=== PATIENT | male | born 1930 | race Caucasian/White ===

== ENCOUNTER 2017-07-29 12:22 | Emergency (ER) | payer MEDICARE ==
[2017-07-29 13:21] LABS: ALT (SGPT) 20 U/L (8-55); AST (SGOT) 29 U/L (5-34); Alkaline Phosphatase 70 U/L (40-150); Anion Gap 14 mmol/L (10-20); BUN (Urea Nitrogen) 22 mg/dL (8.4-25.7); Bilirubin, Total 0.8 mg/dL (0.2-1.2); Calc. Creatinine Clearance 0 mL/min (70-130); Calcium 8.7 mg/dL (7.8-10.44); Carbon Dioxide 21 mmol/L (23-31); Chloride 103 mmol/L (98-107); Estimated GFR-MDRD 60; Globulin 2.4 g/dL (2.4-3.5)
[2017-07-29 13:33] LABS: #Eosinphils 0.1 thou/uL (0.0-0.7); #Monocytes 0.4 thou/uL (0.11-0.59); #Neutrophils 2.5 thou/uL (1.40-6.50); %Eosinophils 1.3 % (0.0-10.0); %Monocytes 10.2 % (0.0-10.0); Hematocrit 29.4 % (42.0-52.0); Hypochromia SLIGHT = 6-15 cells (100X) (0-5/hpf); Macrocytosis SLIGHT = 6-15 cells (100X) (0-5/hpf); Ovalocytes SLIGHT = 2-5 cells (100X) (0-1/hpf); Red Blood Cell (RBC) Count 2.94 mill/uL (4.70-6.10); White Blood Cell (WBC) Count 3.9 thou/uL (4.8-10.8)
== END 2017-07-29 14:24 | disposition home or self-care (01) ==
LOC: SCSER 12:22
DX: M25.011 Hemarthrosis, right shoulder (principal); I26.99 Other pulmonary embolism without acute cor pulmonale; G47.30 Sleep apnea, unspecified; I25.10 Atherosclerotic heart disease of native coronary artery without angina pectoris; M06.9 Rheumatoid arthritis, unspecified
CPT/HCPCS: 80053; 85025; 85610; 85652; 85730; 86140; 99283

== ENCOUNTER 2018-10-02 11:16 | Inpatient (IN) | payer MEDICARE ==
[2018-10-02 12:03] LABS: #Lymphocytes 0.5 thou/uL (1.20-3.40); #Monocytes 0.4 thou/uL (0.11-0.59); #Neutrophils 2.3 thou/uL (1.40-6.50); %Basophils 0.2 % (0.0-1.0); %Eosinophils 0.8 % (0.0-10.0); %Lymphocytes 16.4 % (21.0-51.0); %Monocytes 11.9 % (0.0-10.0); %Neutrophils 70.6 % (42.0-75.0); Hemoglobin 9.7 g/dL (14.0-18.0); Mean Corpuscular HGB CONC 35.2 g/dL (32.0-36.0); Mean Corpuscular Hemoglobin 36.9 pg (27.0-31.0); Mean Platelet Volume 8.5 fL (7.4-10.4); Platelet Count 163 thou/uL (130-400); RBC Distribution Width 17.2 % (11.5-14.5); Red Blood Cell (RBC) Count 2.64 mill/uL (4.70-6.10); White Blood Cell (WBC) Count 3.2 thou/uL (4.8-10.8)
--- NOTE | 2018-10-02 12:09 | RAD ---
ONE VIEW CHEST: History: Dyspnea, shortness of breath. Comparison: 01-02-09 FINDINGS: Portable upright chest demonstrates slight elongation of the aorta. Normal cardiac silhouette. The pu lmonary vessels and hilum are normal. Costophrenic angles are clear. No consolidation or mass. Chroni c changes are noted. No pneumothorax or osseous abnormalities. IMPRESSION: No acute cardiopulmonary process. POS: [facility]
[2018-10-02 12:17] LABS: ALT (SGPT) 14 U/L (8-55); AST (SGOT) 28 U/L (5-34); Albumin 3.8 g/dL (3.4-4.8); Alkaline Phosphatase 69 U/L (40-150); Anion Gap 10 mmol/L (10-20); BUN (Urea Nitrogen) 17 mg/dL (8.4-25.7); Bilirubin, Total 1.6 mg/dL (0.2-1.2); CK (CPK) 135 U/L (30-200); Calc. Creatinine Clearance 0 mL/min (70-130); Calcium 9.1 mg/dL (7.8-10.44); Carbon Dioxide 26 mmol/L (23-31); Chloride 93 mmol/L (98-107); Estimated GFR-MDRD 65; Globulin 2.7 g/dL (2.4-3.5); Glucose 132 mg/dL (83-110); Potassium 4.2 mmol/L (3.5-5.1); Protein, Total 6.5 g/dL (5.8-8.1); Sodium 125 mmol/L (136-145)
[2018-10-02 12:40] LABS: CKMB 3.1 ng/mL (0-6.6)
[2018-10-02] MEDS ORDERED: Furosemide 40 MG/4 ML VIAL ONE (13:25)
[2018-10-02] MEDS ORDERED: cefTRIAXone\\ROCEPHIN 1 GM VIAL ONE (13:25)
[2018-10-02] MEDS ORDERED: Azithromycin 500 MG in Sodium Chloride 0.9% 250 ML 250 ML IVPB SCH (13:45)
--- NOTE | 2018-10-02 15:59 | CT ---
NONCONTRAST CT THORAX: Date: 10/02/18 HISTORY: Cough and shortness of breath. History of pulmonary emboli. Patient on Eliquis. Productive cough for 1 week. COMPARISON: None available. FINDINGS: There are scattered linear densities seen within the upper lobes bilaterally, greater on the right, a s well as involving the right lower lobe and right middle lobe, a majority of which are likely relate d to mild chronic interstitial lung changes. There is a pleural and parenchymal density seen within t he lateral aspect of the right upper lung zone, which has a nodular appearance and adjacent pleural t hickening. This area measures approximately 12 mm x 11 mm. This may be related to pleural and parench ymal scarring, but given the nodularity, follow-up evaluation is recommended in 4 months. No additional discrete pulmonary nodule or mass is seen. There is minimal bronchiectasis present with in the right upper lobe and right lower lobe. Lack of contrast limits evaluation of the vascular structures and mediastinum. However, no definite e nlarged lymph nodes are appreciated within the mediastinum. Prominent vascular calcifications are seen in the coronary arteries with atherosclerotic vascular sanjiv cifications also seen in the thoracic aorta. Thoracic aorta is normal in caliber. There is a right glenohumeral prosthesis present. Degenerative changes are present in the spine. Upper abdomen demonstrates a 2.5 cm exophytic hypodense lesion anterior aspect mid portion left kidne y, in addition to a subcentimeter, too small to characterize, hypodense lesion in the superior pole o f left kidney. The remainder of the upper abdomen demonstrates a grossly normal nonenhanced CT appear ance. Vascular calcifications are seen in the visualized upper abdominal aorta. IMPRESSION: 1. Pleural and parenchymal nodular density seen at the lateral aspect of right upper lobe. This is p robably related to pleural and parenchymal scarring, but given nodularity, follow-up CT thorax in 4 m [facility] is recommended for further evaluation. 2. Mild chronic lung changes with evidence of minimal bronchiectasis within the right upper and lowe r lobes. 3. Vascular calcifications in the coronary arteries and thoracic aorta. 4. Difficult to characterize hypodense lesion within the anterior aspect of the left kidney. This co uld potentially represent a cyst. Nonemergent renal ultrasound would be helpful for further evaluatio nDiogenes SINGLETARY T. POS: [facility]
[2018-10-02] MEDS ORDERED: Water For Inject, Bacteriostat 30 ML ONE (16:08)
[2018-10-02] MEDS ORDERED: Ondansetron PF 4 MG/2 ML Vial IVP PRN (16:52)
[2018-10-02 18:50] LABS: Folate (Folic Acid) 15.1 ng/mL (7.0-31.4)
[2018-10-02] MEDS ORDERED: Furosemide 40 MG/4 ML VIAL SLOW IVP SCH (19:00)
[2018-10-02 19:29] VITALS: BMI 28.9
[2018-10-02] MEDS ORDERED: Acetaminophen 325 MG TAB PO PRN (21:27)
[2018-10-02] MEDS: Apixaban 2.5 MG TAB PO SCH (22:14)
--- NOTE | 2018-10-03 01:13 | HP ---
CHIEF COMPLAINT: Shortness of breath and cough. HISTORY OF PRESENT ILLNESS: The patient is an 88-year-old male, who is admitted to the hospital with few-day history of nasal congestion, which progressed to cough with a minor sputum production. He became short of breath. He decided to come to the emergency room for further evaluation and management of his problem. He felt lightheaded. He did not feel any energy, and apparently, there was some contact with a neighbor approximately 10 days prior to his illness. PAST MEDICAL HISTORY: 1. Rheumatoid arthritis. 2. Coronary artery disease, status post 2 stents placement. 3. History of PE, completed 1 year of warfarin treatment and now he is on Eliquis. 4. Gout. 5. DVT in the left leg. 6. Diverticulitis. PAST SURGICAL HISTORY: 1. Total knee replacement bilaterally. 2. Right hip replacement. 3. Right shoulder replacement. 4. Perianal abscess drainage. 5. Colostomy with reversed colostomy later. MEDICATIONS: Please refer to the medications list. ALLERGIES: CODEINE. HE HAS SOME SIDE EFFECTS. IT IS NOT A TYPICAL ALLERGY. FAMILY HISTORY: Father had prostate cancer, he passed in his 70s; and mother had pancreatic cancer, and she passed when she was in her 80s. SOCIAL HISTORY: He does not have any history of cigarette smoking. He used to drink 1 drink a day. He does not use any illicit drugs. PRIMARY CARE PHYSICIAN: Kevin Cottrell MD Surrogate decision maker is his , Ethel Phelan. REVIEW OF SYSTEMS: CONSTITUTIONAL: Negative for fever or chills. ENT: Positive for nasal congestion and negative for epistaxis. EYES: Negative for eye pain or eye discharge. CARDIOVASCULAR: Negative for palpitations. Negative for chest pain. PULMONARY: Positive for shortness of breath and cough. GI: Positive for vomiting. Negative for diarrhea. : Negative for dysuria or hematuria. MUSCULOSKELETAL: Positive for pain in his both knees and hips. PSYCHIATRIC: Negative for homicidal or suicidal ideations. HEMOLYMPHATIC: Negative for easy bruising or clotting abnormalities. PHYSICAL EXAMINATION: VITAL SIGNS: Blood pressure is 120/66 and pulse is 72. HEENT: His head is atraumatic and normocephalic. Eyes are PERRLA. Sclerae are not icteric. Oral mucosa is moist. NECK: Supple. No lymphadenopathy. One can hear these gurgly sounds when he takes deeper breaths, which is coming from his throat mainly. Thyroid is not palpable. LUNGS: Rales and crackles at both bases. No wheezing. HEART: S1 and S2, somewhat irregular. No S3. No S4. ABDOMEN: Soft, obese, nontender, mildly distended. EXTREMITIES: No clubbing, cyanosis, or edema. NEUROLOGIC: He is alert and oriented x4. There are not any motor or sensory deficits present. Cranial nerves are intact. LABORATORY DATA: Labs showed a white count of 3.2, hemoglobin 9.7, hematocrit 27.6, platelet count is 163,000, lymphocytes 16.4, neutrophils 70.6. Sodium of 125, potassium 4.2, chloride 93, CO2 of 26, BUN 16, creatinine 1.07, glucose 132. Troponin I 0.034. BNP 556.9. The rest of chemistry within normal limits. DIAGNOSTIC DATA: EKG showed a sinus rhythm, ventricular rate of 78 beats per minute with frequent PACs. Chest x-ray was done, it did not show any acute cardiopulmonary problem. IMPRESSION: 1. Most likely infectious/inflammatory process in his lungs, suspicion for pneumonia. 2. Congestive heart failure, most likely. 3. Immunocompromised patient. 4. Rheumatoid arthritis. 5. Coronary artery disease, status post 2 stents placement. 6. History of pulmonary embolism. PLAN: Full admission. Do not resuscitate status. Condition is fair. Activity, bedrest and bathroom privileges. IV Hep-Lock. Lasix 40 mg subcutaneously every 12 hours. He had 1 dose of Lasix in the emergency room. Continue Zithromax and Rocephin, those two were started in the emergency room. We will have Solu-Medrol 20 every 8 hours IV push since he is immunocompromised again. We will use DuoNebs q.4 hours. He is a DNR patient, and we will do echocardiogram to evaluate his LVEF. He is going to continue his Eliquis, so we are not going to use any heparin for DVT prophylaxis, and he will do the SCDs. Job ID: [id number]
[2018-10-03 05:30] LABS: #Lymphocytes 0.4 thou/uL (1.20-3.40); #Monocytes 0.2 thou/uL (0.11-0.59); #Neutrophils 2.3 thou/uL (1.40-6.50); %Basophils 0.9 % (0.0-1.0); %Eosinophils 0.3 % (0.0-10.0); %Lymphocytes 13.8 % (21.0-51.0); %Monocytes 6.1 % (0.0-10.0); %Neutrophils 78.9 % (42.0-75.0); Hemoglobin 9.4 g/dL (14.0-18.0); Mean Corpuscular HGB CONC 35.8 g/dL (32.0-36.0); Mean Corpuscular Hemoglobin 37.5 pg (27.0-31.0); Mean Platelet Volume 9.2 fL (7.4-10.4); Platelet Count 163 thou/uL (130-400); RBC Distribution Width 17.4 % (11.5-14.5); Red Blood Cell (RBC) Count 2.51 mill/uL (4.70-6.10)
[2018-10-03 05:49] LABS: Anion Gap 19 mmol/L (10-20); BUN (Urea Nitrogen) 21 mg/dL (8.4-25.7); Calc. Creatinine Clearance 65 mL/min (70-130); Calcium 8.8 mg/dL (7.8-10.44); Carbon Dioxide 19 mmol/L (23-31); Chloride 89 mmol/L (98-107); Estimated GFR-MDRD 61; Glucose 163 mg/dL (83-110); Potassium 4.1 mmol/L (3.5-5.1); Sodium 123 mmol/L (136-145)
[2018-10-03] MEDS ORDERED: Furosemide 40 MG/4 ML VIAL SLOW IVP SCH (06:00)
--- NOTE | 2018-10-03 08:35 | CON ---
DATE OF CONSULTATION: 10/02/2018 SUBJECTIVE: Mr. Phelan is a very pleasant 88-year-old male, who had a history of asthma as a boy. He also has a history of almost yearly respiratory issues that usually start in his upper respiratory tract and end up in his chest. In last few days, he has had progressive symptoms with cough, chest congestion, and shortness of breath. He subsequently was transported to the emergency department by his family and I was consulted to assist in his management. He has been coughing enough that his chest and his abdomen hurt. PAST MEDICAL HISTORY: 1. Remarkable for coronary stenting in the past. 2. History of diverticulitis. 3. History of rheumatoid arthritis. 4. History of BPH. 5. History of pulmonary embolism a year ago. He was on 5 of Eliquis twice a day and is now on 2.5 mg twice a day. 6. He reportedly carries a diagnosis of pulmonary fibrosis, but I was not able to see this on his chest radiograph. 7. 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 8. History of sleep apnea. 9. History of small bowel resection. 10. History of colostomy and a colostomy reversal in the past. 11. History of right shoulder surgery in the past, right hip surgery and bilateral knee surgeries. SOCIAL HISTORY: He is a nonsmoker, nondrinker. 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 His is with him. His son is an anesthesiologist in our hospital. ALLERGIES Intolerance to codeine. FAMILY HISTORY: Not obtained. REVIEW OF SYSTEMS: 10 point review of systems completed, otherwise negative. MEDICATIONS: He is on, 1. Eliquis. 2. Metoprolol 25 mg once a day. 3. Prednisone 5 mg once a day. 4. Clonazepam 0.5 mg twice a day. 5. Orencia 125 mg. 6. Allopurinol 300 mg a day. 7. Imuran 50 mg a day. 8. Vitamin D3. PHYSICAL EXAMINATION: GENERAL: He has been coughing enough that his chest and his abdomen hurt. VITAL SIGNS: Blood pressure 135/80, pulse is 70, respiratory rate is 20. He is afebrile in the ER. HEENT: Pupils are equal. Sclerae are anicteric. NECK: Supple. CHEST: Remarkable for diffuse rhonchus and wheezes. HEART: Regular rhythm, S1 S1 normal, no murmur ABDOMEN: Soft and nontender. EXTREMITIES: Without clubbing, cyanosis, or edema. LABORATORY DATA: Chest radiograph is suggestive of slight increase in interstitial markings; it is not a penetrated film. I asked the emergency room physician to order a noncontrast chest CT to make sure he did not have a pneumonia behind his diaphragm and behind his cardiac silhouette. Very faint subtle increase in interstitial markings bilaterally, I suspect these are old. He has a subpleural nodular density. I would bet that this is related to his rheumatoid arthritis. This can be sorted away today. He has coronary vascular calcifications. I did not see anything suggestive of pneumonia. He did have a lesion in his left kidney that measured 2.5 cm. An ultrasound was recommended. IMPRESSION: 1. Asthmatic bronchitis. 2. History of coronary artery disease. 3. 2.5 cm renal lesion that could be cystic. 4. Subtle increased interstitial markings. I do not see anything suggestive of congestive heart failure (he had a BNP of 556). 5. Mild hyponatremia. 6. Borderline neutropenia. 7. History of rheumatoid arthritis. We will be happy to follow the other physicians caring for him. We hopefully can simplify antibiotics within 24 to 48 hours. His IV steroids would probably lead to significant improvement in his respiratory status. He will receive nebulized treatments every 4 hours. He will continue on his prophylactic dose of Eliquis. We will be happy to follow the other physicians caring for him. TIME SPENT: This was a 70-minute consult, with greater than 50% of the time was spent in coordinating care. Job ID: [id number] MTDD
[2018-10-03] MEDS ORDERED: Sodium Chloride 0.9% 10 ML ONE ×2 (08:49→13:32)
[2018-10-03] MEDS ORDERED: Apixaban 2.5 MG TAB PO SCH (09:00)
[2018-10-03] MEDS ORDERED: Diclofenac Sodium [Diclofenac Sodium 1% Gel] 2 GM TOP SCH (09:00)
[2018-10-03] MEDS ORDERED: predniSONE 5 MG TAB PO SCH (09:00)
[2018-10-03] MEDS: Metoprolol Tartrate 25 MG TAB PO SCH (10:06)
[2018-10-03] MEDS: azaTHIOprine 50 MG TAB PO SCH (10:07)
[2018-10-03] MEDS: Apixaban 2.5 MG TAB PO SCH ×2 (10:07→20:38)
[2018-10-03] MEDS: Ezetimibe 10 MG TAB PO SCH (10:07)
[2018-10-03] MEDS: Allopurinol 300 MG TAB PO SCH (10:08)
[2018-10-03] MEDS ORDERED: Saccharomyces boulardii 250 MG CAP PO SCH ×2 (11:00→11:30)
--- NOTE | 2018-10-03 11:56 | PRG ---
DATE OF SERVICE: 10/03/2018 SUBJECTIVE: The patient is seen and examined at the bedside. He is sitting in the chair during my visit. He had bowel movement. His appetite is fair. He is still having quite a bit of congestion. OBJECTIVE: VITAL SIGNS: Blood pressure is 103/65, pulse is 79, respiratory rate is 20, O2 saturation is 95% on room air, and temperature is 98. His maximal temperature is 99.0. HEENT: His head is atraumatic and normocephalic. Eyes, PERRLA. Sclerae are nonicteric. Conjunctivae are palish. Oral mucosa is moist. NECK: Supple. LUNGS: Bilateral rales in the upper part of the chest and the lower present. HEART: S1 and S2, somewhat irregular. No S3. No S4. ABDOMEN: Soft, nontender, and nondistended. Bowel sounds are present. No organomegaly. EXTREMITIES: No clubbing, cyanosis, or edema. NEUROLOGIC: He is alert and oriented x4. There is no any motor or sensory deficit. Cranial nerves are intact. LABORATORY DATA: Labs showed a white count of 3.0, hemoglobin of 9.4, hematocrit 26.3, MCV 105, platelet count 163, neutrophils 78.9. Chemistry showed sodium of 123, potassium 4.1, chloride 89, CO2 of 19, BUN 21, creatinine 1.13, glucose 163, calcium 8.8. Vitamin B12 is 606, and folic acid is 15.10. CT of the chest showed; 1. Pleural and parenchymal nodular density at the lateral aspect of the right upper lobe. 2. Mild chronic lung changes with evidence of minimal bronchiectasis within the right upper and lower lobes. 3. Vascular calcification in the coronary arteries and thoracic aorta. 4. Difficult to characterize hypodense lesion within the anterior aspect of the left kidney, which could potentially represent a cyst. IMPRESSION: 1. Infectious/inflammatory process in his both lungs. The patient was seen by the manager protein, Dr. Kingston, who thinks this is asthmatic bronchitis and he is treating as such. The plan is to trim his antibiotic regimen soon, continue his DuoNebs, and start him on Mucinex. 2. Elevated BNP without any additional evidence of congestive heart failure on the imaging. We decided to hold on his Lasix treatment for now. We will obtain an echocardiogram. We will see how his left ventricular ejection fraction looks like. 3. Metabolic acidosis. His CO2 is down to 19 from 26. This is most likely related to his kidney function. He received one dose of Lasix in the emergency room yesterday. 4. Hyponatremia and hypochloremia. We will obtain serum osmolality and urine osmolality and have spun paste machine operator to see the patient to manage that. 5. Macrocytic anemia with normal B12 and folic acid levels. 6. Gout, chronic, stable. 7. History of anticoagulation, on Eliquis. 8. History of diverticulitis. 9. History of deep venous thrombosis in the left leg. 10. Rheumatoid arthritis. 11. Immunocompromised status. 12. Coronary artery disease, chronic, stable, status post two stents placement in coronary arteries. PLAN: Plan is to continue his nebulizers routine, continue his ceftriaxone and azithromycin until manager protein recommends to make a change, and also, we will continue Solu-Medrol 20 mg IV push every 8 hours for the next 24 hours, then switch him to oral. He was on prednisone at home for his rheumatoid arthritis. We will continue his Imuran, and we will start him on Mucinex p.o. Job ID: [id number]
[2018-10-03] MEDS ORDERED: Benzonatate 100 MG CAP PO SCH ×2 (12:30→15:00)
[2018-10-03] MEDS ORDERED: cefTRIAXone\\ROCEPHIN 1 GM in Sodium Chloride 0.9% 100 ML IVPB SCH (13:00)
[2018-10-03] MEDS ORDERED: Azithromycin 500 MG in Sodium Chloride 0.9% 250 ML 250 ML IVPB SCH (14:00)
[2018-10-03] MEDS: Guaifenesin DM 100-10/5 ML UDCUP PO SCH ×3 (14:10→20:42)
[2018-10-03] MEDS ORDERED: Calcium Carbonate 500 MG ChewTAB PO PRN (15:53)
--- NOTE | 2018-10-03 15:53 | EKG ---
Test Reason : Blood Pressure : / mmHG Vent. Rate : 078 BPM Atrial Rate : 078 BPM P-R Int : 170 ms QRS Dur : 088 ms QT Int : 394 ms P-R-T Axes : 063 035 060 degrees QTc Int : 449 ms Sinus rhythm with Premature atrial complexes Nonspecific ST abnormality Abnormal ECG Confirmed by OLRI POOLE ([id number]), film editor supervisor ALEXANDRA NEWMAN ([id number]) on 10/03/2018 3:53:17 PM Referred By: Confirmed By:LORI POOLE
[2018-10-03 16:57] LABS: Potassium, Urine 61.7 mmol/L
--- NOTE | 2018-10-03 17:27 | PRG ---
DATE OF SERVICE: 10/03/2018 SUBJECTIVE: Mr. Phelan did well overnight. He says he is much better. He is afebrile. His hyponatremia is a little lower today with a sodium of 123. This may be because of the Lasix he received in the Emergency Department yesterday. OBJECTIVE: VITAL SIGNS: He is afebrile. Heart rate 79, respiratory rate is 20 , and oximetry is 95% on room air. LUNGS: Still remarkable with diffuse wheezes, but he has improved. HEART: Regular rhythm. S1 and S2 are normal. ABDOMEN: Soft and nontender. LABORATORY DATA: Serum osmolality was decreased. His echocardiogram is pending. IMPRESSION: 1. Asthmatic bronchitis. 2. Syndrome of inappropriate antidiuretic hormone secretion. Fluid restriction has been ordered. 3. History of deep venous thrombosis and pulmonary embolism in the past, on prophylactic dose of anticoagulants at this time. 4. History of coronary artery stenting in the past. 5. Elevated BNP this admission. Echocardiogram is pending. 6. History of rheumatoid arthritis. 7. Reported history of pulmonary fibrosis, but I really do not see anything suggestive of idiopathic pulmonary fibrosis on his CT. 8. History of sleep apnea. PLAN: Continue current care, and we will await echocardiogram results. I met with his and his son and answered all their questions . We started a fluid restriction. Job ID: [id number] MTDD
[2018-10-03] MEDS ORDERED: Conivaptan 20 MG in Premix Bag 1 BAG IVPB SCH (19:30)
[2018-10-03] MEDS: Pravastatin Sodium 40 MG TAB PO SCH (20:38)
[2018-10-03] MEDS: clonazePAM 0.5 MG TAB PO SCH (20:38)
[2018-10-03] MEDS: Benzonatate 100 MG CAP PO SCH (20:40)
[2018-10-03] MEDS: Acetaminophen 325 MG TAB PO PRN (20:41)
[2018-10-03] MEDS: Latanoprost 0.005% Ophth Soln 2.5 ml Bottle EA EYE SCH (20:43)
[2018-10-03] MEDS: guaiFENesin ER 600 MG TAB PO SCH (20:50)
[2018-10-04] MEDS: Guaifenesin DM 100-10/5 ML UDCUP PO SCH ×6 (00:28→20:58)
[2018-10-04] MEDS: Cepastat Lozenges 1 LOZ PO PRN ×3 (00:29→20:59)
--- NOTE | 2018-10-04 02:31 | CON ---
DATE OF CONSULTATION: CONSULTING PHYSICIAN: Yg Pruitt MD REQUESTING PHYSICIAN: Dr. Newell. REASON FOR CONSULTATION: Worsening hyponatremia. IMPRESSION: Worsening hyponatremia. This is likely in the context of syndrome of inappropriate antidiuretic hormone secretion. PLAN: 1. Urine chemistry. 2. Adjust the diet to increase the protein/meat intake. 3. We will administer 1 dose of Vaprisol. 4. We will monitor his sodium level closely. HISTORY OF PRESENT ILLNESS: This is an 88-year-old gentleman, who was admitted with cough and shortness of breath. The patient was also feeling lightheaded and weak on presentation. The patient was noted with a sodium of 125 with BNP of 556 as a result of these findings, decision has been taken to involve Renal in the management of this case of hyponatremia. PAST MEDICAL HISTORY: Significant for rheumatoid arthritis, coronary artery disease, history of pulmonary embolism, gout, DVT, and diverticulitis. MEDICATIONS: Reviewed as documented on [facility]. ALLERGIES: TO CODEINE. FAMILY HISTORY: Not significantly related to present illness. SOCIAL HISTORY: No alcohol, no tobacco, no illicit drug use. REVIEW OF SYSTEMS: As documented in the body of history. All the other systems were reviewed and found not to be significantly related to present illness. PHYSICAL EXAMINATION: VITAL SIGNS: The patient noted with the following vital signs; afebrile, temperature 97.9, pulse 80, respiratory rate of 18, O2 saturation of 98%, and blood pressure 126/64. HEENT: Examination unremarkable. Moist oral mucosa. No conjunctival injection. No icterus NECK: Supple. CARDIOVASCULAR SYSTEM: First and second heart sounds were heard. RESPIRATORY SYSTEM: Clear to auscultation. DIGESTIVE SYSTEM: Revealed a benign abdominal with positive bowel sounds. EXTREMITIES: No peripheral edema. SKIN EXAMINATION: No new gross rash. LYMPHATICS: No peripheral lymphadenopathy. SUMMARY: An 88-year-old gentleman who presented here with cough, shortness of breath, now experiencing worsening hyponatremia. Thank you for this consultation. We will follow with you. Job ID: [id number]
[2018-10-04 04:58] LABS: #Lymphocytes 0.4 thou/uL (1.20-3.40); #Monocytes 0.4 thou/uL (0.11-0.59); #Neutrophils 3.1 thou/uL (1.40-6.50); %Eosinophils 0.1 % (0.0-10.0); %Lymphocytes 10.7 % (21.0-51.0); %Monocytes 9.6 % (0.0-10.0); %Neutrophils 79.7 % (42.0-75.0); Hemoglobin 8.8 g/dL (14.0-18.0); Mean Corpuscular HGB CONC 34.9 g/dL (32.0-36.0); Mean Corpuscular Hemoglobin 36.7 pg (27.0-31.0); Mean Platelet Volume 8.5 fL (7.4-10.4); Platelet Count 160 thou/uL (130-400); RBC Distribution Width 17.2 % (11.5-14.5); Red Blood Cell (RBC) Count 2.39 mill/uL (4.70-6.10); White Blood Cell (WBC) Count 3.9 thou/uL (4.8-10.8)
[2018-10-04 05:09] LABS: Anion Gap 16 mmol/L (10-20); BUN (Urea Nitrogen) 29 mg/dL (8.4-25.7); Calc. Creatinine Clearance 63 mL/min (70-130); Calcium 8.6 mg/dL (7.8-10.44); Carbon Dioxide 21 mmol/L (23-31); Chloride 90 mmol/L (98-107); Estimated GFR-MDRD 60; Glucose 146 mg/dL (83-110); Potassium 4.3 mmol/L (3.5-5.1); Sodium 123 mmol/L (136-145)
[2018-10-04] MEDS ORDERED: Sodium Chloride 0.9% 10 ML ONE (08:44)
[2018-10-04] MEDS: Benzonatate 100 MG CAP PO SCH ×3 (09:31→20:57)
[2018-10-04] MEDS: guaiFENesin ER 600 MG TAB PO SCH ×2 (09:32→20:58)
[2018-10-04] MEDS: Saccharomyces boulardii 250 MG CAP PO SCH (09:32)
[2018-10-04] MEDS: Apixaban 2.5 MG TAB PO SCH ×2 (09:32→20:57)
[2018-10-04] MEDS: Ezetimibe 10 MG TAB PO SCH (09:33)
[2018-10-04] MEDS: Metoprolol Tartrate 25 MG TAB PO SCH (09:33)
[2018-10-04] MEDS: Allopurinol 300 MG TAB PO SCH (09:34)
[2018-10-04] MEDS: azaTHIOprine 50 MG TAB PO SCH (09:34)
--- NOTE | 2018-10-04 13:11 | PRG ---
DATE OF SERVICE: 10/04/2018 SUBJECTIVE: Law Phelan continues to improve. OBJECTIVE: VITAL SIGNS: He is afebrile, heart rate is 80, respiratory rate 14, oximetry 94% on room air, and blood pressure 120/67. LUNGS: Still remarkable for coarse wheezes, but these continued to improve on a daily basis. HEART: Regular rhythm. ABDOMEN: Soft. He is eating a heart-healthy diet. It is reasonable while he is in hospital to liberalize his diet, although we did have a long discussion about weight loss diet involving several different methods. LABORATORY DATA: White count 3.9, hemoglobin 8.8, and platelets 160,000. Sodium 123, potassium 4.3, chloride 90, bicarbonate 29, BUN 29, creatinine 1.16. IMPRESSION: 1. Asthmatic bronchitis. 2. Syndrome of inappropriate antidiuretic hormone secretion, most likely related to his respiratory status. 3. History of rheumatoid arthritis. 4. Pulmonary artery pressures, likely multifactorial. I doubt his mitral valve is causing elevation in PA pressure since he has a normal sized left atrium. He does have a history of interstitial lung disease, he tells me. He was told it may have been brought on by methotrexate, but I suspect it is more likely that he has some mild interstitial rheumatoid disease. He does not have this to a severe enough degree to elevate his pulmonary artery pressures. 5. He does have untreated sleep apnea, which certainly can lead to elevated PA pressures. 6. His left ventricular systolic function was normal. His elevated BNP likely was from the right ventricle, and is likely chronically elevated. 7. He was given Conivaptan for his hyponatremia yesterday. 8. He will be converted to p.o. steroids and p.o. antibiotics today. We will continue to follow and I will be happy to follow him closely as an outpatient. Job ID: [id number]
--- NOTE | 2018-10-04 13:29 | PRG ---
DATE OF SERVICE: 10/04/2018 SUBJECTIVE: The patient was seen and examined at the bedside. He is sitting in the chair. He looks better today. He noticed significant improvement in his congestion since he started on Mucinex yesterday. OBJECTIVE: VITAL SIGNS: Blood pressure is 120/67, pulse is 61, respiratory rate is 20, and O2 saturation is 94% on room air. HEENT: His head is atraumatic and normocephalic. Eyes are PERRLA. Sclerae are nonicteric. Oral mucosa is moist. NECK: Supple. LUNGS: Bilateral rales, especially at both bases, but significantly diminished. HEART: S1, S2, somewhat irregular. No S3. No S4. ABDOMEN: Soft, nontender. Bowel sounds are present. No organomegaly. EXTREMITIES: No clubbing, cyanosis, or edema. NEUROLOGIC: He is alert and oriented x4. There is no any motor or sensory deficit. Cranial nerves are intact. LABORATORY DATA: Labs showed white count of 3.9, hemoglobin of 8.8, hematocrit 25.1, platelet count is 160, neutrophils 79.7, and lymphocytes 10.7. Sodium of 123, potassium 4.3, chloride 90, CO2 of 21, BUN 29, creatinine 1.16, glucose is ranging from 131 to 163, calcium 8.6. Urine osmolality 493, urine sodium 33, and urine potassium 61.7. IMPRESSION: 1. Asthmatic bronchitis. Pneumonia was ruled out with CT of the chest. 2. Syndrome of inappropriate antidiuretic hormone secretion as most likely from pulmonary process. 3. Immunocompromised patient. 4. Rheumatoid arthritis. 5. Coronary artery disease, status post stent placement. 6. History of pulmonary embolism. 7. Pulmonary hypertension per recent echo. PLAN: The patient was switched to levofloxacin and p.o. steroids. Clinically, he improved significantly. We will continue his Mucinex and DuoNebs. He had one dose of conivaptan, which did not change anything. We will continue his close sodium monitoring, and fluid restriction is 1000 mL fluids orally. Continue his probiotics and apixaban 2.5 twice a day. He will continue his Imuran 50 mg once a day, and he will continue PT. Job ID: [id number]
[2018-10-04 13:38] LABS: Sodium 127 mmol/L (136-145)
[2018-10-04 13:52] LABS: Sodium, Urine Less than 20 mmol/L (Not Available)
[2018-10-04 14:37] LABS: Osmolality, Urine 208 mOsm/kg (300-900)
--- NOTE | 2018-10-04 17:42 | PRG ---
DATE OF SERVICE: 10/04/2018 SUBJECTIVE: The patient is seen and examined with no new complaint noted with the following vital signs. OBJECTIVE: VITAL SIGNS: Afebrile, temperature 97.8, pulse 79, respiratory rate of 18, O2 saturation 95% with blood pressure of 135/75. HEENT: Unremarkable. Moist oral mucosa. NECK: Supple. No conjunctival injection or icterus. CARDIOVASCULAR: First and second heart sounds were heard. RESPIRATORY: Clear to auscultation. DIGESTIVE: Revealed a benign abdomen with positive bowel sounds. EXTREMITIES: No peripheral edema. SKIN: No new gross rash. LYMPHATICS: No peripheral lymphadenopathy. LABORATORY INVESTIGATION: Showed a sodium, on admission, of 123, but a repeat has come up to 127. IMPRESSION: Hyponatremia, which is based on the urine chemistry earlier on yesterday suggestive of syndrome of inappropriate antidiuretic hormone secretion, but a repeat urine chemistry somewhat confusing, though this might be in response to the has already been administered. In any case, the patient wished to be considered as having syndrome of inappropriate antidiuretic hormone secretion. PLAN: 1. Liberalize the fluid restriction as 1 L is very restrictive, especially for his body size. We will therefore increase this to 1.5 L. 2. Change this patient's diet to a regular diet with high protein intake . 3. Further management will be dependent on the clinical course. Job ID: [id number]
[2018-10-04] MEDS: Pravastatin Sodium 40 MG TAB PO SCH (20:58)
[2018-10-04] MEDS: clonazePAM 0.5 MG TAB PO SCH (20:58)
[2018-10-04] MEDS: Latanoprost 0.005% Ophth Soln 2.5 ml Bottle EA EYE SCH (20:58)
[2018-10-05] MEDS: Acetaminophen 325 MG TAB PO PRN (00:18)
[2018-10-05] MEDS: Guaifenesin DM 100-10/5 ML UDCUP PO SCH ×6 (00:18→21:14)
[2018-10-05 05:37] LABS: Anion Gap 12 mmol/L (10-20); BUN (Urea Nitrogen) 40 mg/dL (8.4-25.7); Calc. Creatinine Clearance 52 mL/min (70-130); Calcium 8.8 mg/dL (7.8-10.44); Carbon Dioxide 26 mmol/L (23-31); Chloride 94 mmol/L (98-107); Estimated GFR-MDRD 48; Glucose 105 mg/dL (83-110); Potassium 4.7 mmol/L (3.5-5.1); Sodium 127 mmol/L (136-145)
[2018-10-05 06:05] LABS: Band 14 % (5-11); Hemoglobin 9.1 g/dL (14.0-18.0); Lymphocytes 6 % (21-51); MDiff Complete? YES; Mean Corpuscular HGB CONC 35.7 g/dL (32.0-36.0); Mean Corpuscular Hemoglobin 37.7 pg (27.0-31.0); Mean Platelet Volume 8.5 fL (7.4-10.4); Metamyelocyte 1 % (0-0); Monocytes 6 % (0-10); Neutrophil 73 % (42-75); Nucleated RBC 1 % (0); PLT Morphology Comment Appears Adequate; Platelet Count 179 thou/uL (130-400); RBC Distribution Width 17.7 % (11.5-14.5); Red Blood Cell (RBC) Count 2.42 mill/uL (4.70-6.10); White Blood Cell (WBC) Count 4.4 thou/uL (4.8-10.8)
[2018-10-05] MEDS: predniSONE 20 MG TAB PO SCH (09:03)
[2018-10-05] MEDS: azaTHIOprine 50 MG TAB PO SCH (09:04)
[2018-10-05] MEDS: Apixaban 2.5 MG TAB PO SCH ×2 (09:04→21:14)
[2018-10-05] MEDS: Allopurinol 300 MG TAB PO SCH (09:04)
[2018-10-05] MEDS: Ezetimibe 10 MG TAB PO SCH (09:06)
[2018-10-05] MEDS: Metoprolol Tartrate 25 MG TAB PO SCH (09:06)
[2018-10-05] MEDS: guaiFENesin ER 600 MG TAB PO SCH (09:06)
[2018-10-05] MEDS: Benzonatate 100 MG CAP PO SCH ×3 (09:15→21:13)
[2018-10-05] MEDS: Saccharomyces boulardii 250 MG CAP PO SCH (10:34)
[2018-10-05] MEDS: HYDROcodone/Acetaminophen 5/325 mg Tablet PO PRN ×2 (10:35→21:12)
--- NOTE | 2018-10-05 11:53 | PRG ---
DATE OF SERVICE: 10/05/2018 SUBJECTIVE: The patient is seen and examined at the bedside. Apparently, he had a coughing spell this morning to the point that he developed quite severe pain in his right flank. OBJECTIVE: VITAL SIGNS: Blood pressure is 127/68, temperature is 97.9, pulse is 77, respiratory rate is 18, and O2 saturation is 95% on room air. HEENT: His head is atraumatic, normocephalic. Eyes are PERRLA. Sclerae nonicteric. Oral mucosa is moist. NECK: Supple. LUNGS: Bilateral rales, significantly improved, but he still has some at both bases. HEART: S1 and S2, somewhat irregularly irregular. No S3. No S4. ABDOMEN: Soft, mildly distended. Nontender. EXTREMITIES: No clubbing, cyanosis, or edema. NEUROLOGICAL: He is alert and oriented x4. There is no any sensory or motor deficits. Right flank area is somewhat tender to applied pressure. LABORATORY DATA: Labs showed white count of 4.4, hemoglobin of 9.1, hematocrit at 25.6, platelet count is 179,000, and bands 14. Sodium of 127, potassium 4.7, chloride 94, CO2 of 26, BUN 40, creatinine 1.4, glucose 105. Urine osmolality 208. Urine sodium less than 20. IMPRESSION: 1. Asthmatic bronchitis, improved. 2. Right flank/right side lower back pain secondary to coughing spell. This is most likely muscle strain. 3. Immunocompromised patient. 4. Rheumatoid arthritis. 5. Coronary artery disease, status post stent placement. 6. History of pulmonary embolism. 7. Pulmonary hypertension per recent echo. DISCUSSION: We are going to continue his antibiotic and steroids. We are going to continue DuoNeb. We will start him on heating pads and Vicodin p.r.n. for the back pain. His hyponatremia is improved. His sodium is 127. His oral fluid restriction was liberalized to [address] Ronquillo. Will use guaifenesin with dextromethorphan to suppress his cough. He will continue PT and will continue his Imuran and apixaban. Job ID: [id number]
[2018-10-05] MEDS ORDERED: Polyethylene Glycol 3350 17 GM Packet PO SCH (16:30)
--- NOTE | 2018-10-05 16:35 | PRG ---
DATE OF SERVICE: 10/05/2018 SUBJECTIVE: Mr. Phelan says he feels better. He said he had coughing and pulled a muscle coughing last night. He took some Vicodin for this and got up and took a hot shower and said he is much better. He is afebrile. OBJECTIVE: VITAL SIGNS: Heart rate 73, respiratory 17, oximetry 96% on room air, blood pressure 109/63. LUNGS: Almost clear. HEART: Regular rhythm. S1, S2 normal. ABDOMEN: Soft and nontender. EXTREMITIES: No clubbing, cyanosis, or edema. IMPRESSION: 1. Asthmatic bronchitis, clinically improved. 2. Deconditioning. If he starts walking a little more, may be we can get him out of the hospital. 3. Pain with coughing, most likely a muscle strain. He will probably be moved off the Telemetry Unit. Other problems include, 1. Hyponatremia, 2. Anemia, likely of chronic disease. 3. Elevated pulmonary artery pressures, most likely secondary to untreated sleep apnea. 4. Subtle increase in interstitial markings, which I suspect are related to his rheumatoid arthritis, less likely past use of methotrexate. 5. Moderate mitral regurgitation. We will continue to follow. Job ID: [id number] MTDD
--- NOTE | 2018-10-05 21:00 | PRG ---
DATE OF SERVICE: 10/05/2018 SUBJECTIVE: The patient is seen and examined. Noted with the following vital signs. OBJECTIVE: VITAL SIGNS: Afebrile, temperature 99, pulse 94, respiratory rate of 20, saturation 99% with a blood pressure of 148/70. HEENT: Unremarkable. Moist oral mucosa. No conjunctival injection or icterus. NECK: Supple. LABORATORY INVESTIGATION: Showed a hemoglobin of 9.1. Chemistry showed a creatinine of 1.4, sodium of 127. IMPRESSION: Hyponatremia with sodium around 127. PLAN: We will continue with increased protein intake and continue to monitor the sodium level accordingly. All further management will be dependent on the clinical course. Job ID: [id number]
[2018-10-05] MEDS: Pravastatin Sodium 40 MG TAB PO SCH (21:13)
[2018-10-05] MEDS: clonazePAM 0.5 MG TAB PO SCH (21:13)
[2018-10-05] MEDS: Latanoprost 0.005% Ophth Soln 2.5 ml Bottle EA EYE SCH (21:20)
[2018-10-06] MEDS: Guaifenesin DM 100-10/5 ML UDCUP PO SCH ×6 (01:05→20:12)
[2018-10-06 06:15] LABS: Anion Gap 11 mmol/L (10-20); BUN (Urea Nitrogen) 36 mg/dL (8.4-25.7); Calc. Creatinine Clearance 60 mL/min (70-130); Calcium 8.5 mg/dL (7.8-10.44); Carbon Dioxide 26 mmol/L (23-31); Chloride 95 mmol/L (98-107); Estimated GFR-MDRD 57; Glucose 102 mg/dL (83-110); Potassium 4.5 mmol/L (3.5-5.1); Sodium 127 mmol/L (136-145)
[2018-10-06] MEDS: Ezetimibe 10 MG TAB PO SCH (09:22)
[2018-10-06] MEDS: Benzonatate 100 MG CAP PO SCH ×3 (09:22→20:12)
[2018-10-06] MEDS: Saccharomyces boulardii 250 MG CAP PO SCH (09:23)
[2018-10-06] MEDS: Metoprolol Tartrate 25 MG TAB PO SCH (09:23)
[2018-10-06] MEDS: azaTHIOprine 50 MG TAB PO SCH (09:23)
[2018-10-06] MEDS: predniSONE 20 MG TAB PO SCH (09:23)
[2018-10-06] MEDS: Allopurinol 300 MG TAB PO SCH (09:23)
[2018-10-06] MEDS: Polyethylene Glycol 3350 17 GM Packet PO SCH (09:24)
[2018-10-06] MEDS: Apixaban 2.5 MG TAB PO SCH ×2 (09:24→20:15)
--- NOTE | 2018-10-06 14:23 | PDOC.PN ---
- Subjective Encounter Start Date: 10/06/18 Encounter Start Time: 14:21 Subjective: feels better.still weak & reports rales - Objective Resuscitation Status - Order Detail: 10/02/18 15:08 Resuscitation Status Routine Resuscitation Status: DNAR: NO Resuscitation Discussed with: patient YOSVANY Reviewed: Yes Vital Signs & Weight: Vital Signs (12 hours) Temp Pulse Pulse Pulse Resp BP BP 10/06/18 13:57 80 14 10/06/18 11:32 98.4 F 74 18 10/06/18 10:27 90 14 10/06/18 10:20 86 86 136/65 119/58 L 10/06/18 07:59 98.3 F 79 18 10/06/18 07:00 90 14 10/06/18 04:00 97.4 F L 77 18 10/06/18 03:35 BP BP Pulse Ox Pulse Ox Pulse Ox 10/06/18 13:57 10/06/18 11:32 114/57 L 96 10/06/18 10:27 10/06/18 10:20 97 96 10/06/18 07:59 119/58 L 96 10/06/18 07:00 10/06/18 04:00 124/69 100 10/06/18 03:35 92 L Weight Weight 218 lb 11.2 oz I&O: 10/05/18 10/06/18 10/07/18 06:59 06:59 06:59 Intake Total 1212 200 Output Total 930 500 Balance 282 -300 Result Diagrams: 10/05/18 04:27 10/06/18 05:50 Additional Labs: Microbiology 10/02/18 12:51 Nasal swab Influenza Types A,B Direct EIA - Final 10/02/18 11:58 Venous blood - Right Hand Blood Culture - Preliminary NO GROWTH AT 48 HOURS 10/02/18 11:36 Venous blood - Left Arm Blood Culture - Preliminary NO GROWTH AT 48 HOURS Laboratory Tests 07/29/17 10/02/18 10/02/18 13:00 11:34 11:34 WBC 3.2 L Hgb 10.5 L 9.7 L B-Natriuretic Peptide 556.9 H Vitamin B12 Folate 10/02/18 10/03/18 10/04/18 17:42 04:22 04:23 WBC 3.0 L 3.9 L Hgb 9.4 L 8.8 L B-Natriuretic Peptide Vitamin B12 606 Folate 15.10 10/05/18 04:27 WBC 4.4 L Hgb 9.1 L B-Natriuretic Peptide Vitamin B12 Folate Phys Exam - Physical Examination Constitutional: NAD HEENT: PERRLA, moist MMs, sclera anicteric, oral pharynx no lesions Neck: no nodes, no JVD, supple, full ROM Respiratory: no wheezing, no rales, no rhonchi, clear to auscultation bilateral Cardiovascular: RRR, no significant murmur, no rub Gastrointestinal: soft, non-tender, no distention, positive bowel sounds Musculoskeletal: no edema, pulses present Neurological: non-focal, normal sensation, moves all 4 limbs Psychiatric: normal affect, A&O x 3 Skin: no rash Dx/Plan (1) Asthmatic bronchitis Code(s): J45.909 - UNSPECIFIED ASTHMA, UNCOMPLICATED Status: Acute (2) Hyponatremia Code(s): E87.1 - HYPO-OSMOLALITY AND HYPONATREMIA Status: Acute (3) Chronic anemia Code(s): D64.9 - ANEMIA, UNSPECIFIED Status: Chronic (4) Mitral regurgitation Status: Chronic (5) Pulmonary arterial hypertension Code(s): I27.21 - SECONDARY PULMONARY ARTERIAL HYPERTENSION Status: Chronic (6) CAD (coronary artery disease) Code(s): I25.10 - ATHSCL HEART DISEASE OF [place] CORONARY ARTERY W/O ANG PCTRS Status: Chronic (7) Rheumatoid arthritis Code(s): M06.9 - RHEUMATOID ARTHRITIS, UNSPECIFIED Status: Chronic (8) History of pulmonary embolism Code(s): Z86.711 - PERSONAL HISTORY OF PULMONARY EMBOLISM Status: Chronic Comment: on eliquis (9) Immunocompromised state Code(s): D84.9 - IMMUNODEFICIENCY, UNSPECIFIED Status: Chronic (10) CKD (chronic kidney disease) stage 3, GFR 30-59 ml/min Code(s): N18.3 - CHRONIC KIDNEY DISEASE, STAGE 3 (MODERATE) Status: Chronic - Plan respiratory therapy, incentive spirometry Clinically better.cont levaquin and prednisone. -: home meds as below. -: zulma SCOTT home w HH tomorrow if Ok w PCCM -: sodium better.Fluid restriction.nephrology follwoing -: am labs * . Review of Systems - Review of Systems Constitutional: weakness, malaise. negative: fever, chills, sweats, other Respiratory: SOB with Excertion. negative: Cough, Dry, Shortness of Breath, Hemoptysis, Pleuritic Pain, Sputum, Wheezing Cardiovascular: negative: chest pain, palpitations, orthopnea, paroxysmal nocturnal dyspnea, edema, light headedness, other Gastrointestinal: negative: Nausea, Vomiting, Abdominal Pain, Diarrhea, Constipation, Melena, Hematochezia, Other Genitourinary: negative: Dysuria, Frequency, Incontinence, Hematuria, Retention , Other Musculoskeletal: negative: Neck Pain, Shoulder Pain, Arm Pain, Back Pain, Hand Pain, Leg Pain, Foot Pain, Other Neurological: negative: Weakness, Numbness, Incoordination, Change in Speech, Confusion, Seizures, Other - Medications/Allergies Allergies/Adverse Reactions: Allergies Allergy/AdvReac Type Severity Reaction Status Date / Time codeine Allergy Verified 10/02/18 19:22 Medications: Current Medications Acetaminophen (Tylenol) 650 mg PO BID PRN PRN Reason: Mild Pain (1-3) Last Admin: 10/05/18 00:18 Dose: 650 mg Hydrocodone Bitart/Acetaminophen ([place] 5/325) 1 tab PO Q4H PRN PRN Reason: Moderate Pain (4-6) Last Admin: 10/05/18 21:12 Dose: 1 tab Albuterol/Ipratropium (Duoneb) 3 ml IPPB [id number] [facility] Last Admin: 10/06/18 13:57 Dose: 3 ml Allopurinol (Zyloprim) 300 mg PO DAILY [facility] Last Admin: 10/06/18 09:23 Dose: 300 mg Apixaban (Eliquis) 2.5 mg PO BID [facility] Last Admin: 10/06/18 09:24 Dose: 2.5 mg Azathioprine (Imuran) 50 mg PO DAILY [facility] Last Admin: 10/06/18 09:23 Dose: 50 mg Benzonatate (Tessalon) 200 mg PO TID [facility] Last Admin: 10/06/18 09:22 Dose: 200 mg Calcium Carbonate (Tums) 500 mg PO Q4H PRN PRN Reason: .REFLUX Cholecalciferol (Vitamin D3) 2,000 units PO DAILY [facility] Last Admin: 10/06/18 09:22 Dose: 2,000 units Clonazepam (Klonopin) 0.5 mg PO HS [facility] Last Admin: 12/14/18 21:13 Dose: 0.5 mg Ezetimibe (Zetia) 10 mg PO DAILY [facility] Last Admin: 10/06/18 09:22 Dose: 10 mg Guaifenesin/Dextromethorphan (Robitussin Dm) 15 ml PO Q4HR [facility] Last Admin: 10/06/18 12:33 Dose: Not Given Latanoprost (Xalatan 0.005% Ophth Soln) 1 drop EA EYE [facility] Last Admin: 10/05/18 21:20 Dose: 1 drop Levofloxacin (Levaquin) 500 mg PO 0600 [facility] Last Admin: 10/06/18 05:34 Dose: 500 mg Metoprolol Tartrate (Lopressor) 12.5 mg PO DAILY [facility] Last Admin: 10/06/18 09:23 Dose: 12.5 mg Ondansetron HCl (Zofran) 4 mg IVP Q6H PRN PRN Reason: Nausea/Vomiting Pantoprazole Sodium (Protonix) 40 mg PO 0600 [facility] Last Admin: 10/06/18 05:35 Dose: 40 mg Abatacept [Orencia] (125 Mg) 1 each PO Q7D@0900 [facility] Diclofenac Sodium [ Diclofenac Sodium 1% Gel] 2 Gm 0 each TOP BID [facility] Polyethylene Glycol (Miralax) 17 gm PO DAILY [facility] Last Admin: 10/06/18 09:24 Dose: 17 gm Pravastatin Sodium (Pravachol) 80 mg PO [facility] Last Admin: 10/05/18 21:13 Dose: 80 mg Prednisone (Prednisone) 40 mg PO QAM[facility] Last Admin: 10/06/18 09:23 Dose: 40 mg Saccharomyces Boulardii (Florastor) 250 mg PO DAILY [facility] Last Admin: 10/06/18 09:23 Dose: 250 mg Throat Lozenges (Cepastat Lozenges) 1 nory PO PRN PRN PRN Reason: SORE THROAT Last Admin: 10/04/18 20:59 Dose: 1 nory
--- NOTE | 2018-10-06 17:28 | PRG ---
DATE OF SERVICE: 10/06/2018 SUBJECTIVE: Mr. Phelan was sleeping in a chair when I arrived into the room. He was having apneic spells. These were obstructive. I awakened him and informed him that it is very important that we do a sleep study once he leaves here. OBJECTIVE: VITAL SIGNS: He is afebrile. Heart rate 71, respiratory rate 18, oximetry is 94% on room air, blood pressure 114/57. LUNGS: Clear. He has very few rhonchi, has dramatically improved. HEART: Regular rhythm. ABDOMEN: Soft. LABORATORY DATA: White count 4.4, hemoglobin 9.1, and platelets 179. Sodium 127, potassium 4.5, chloride 95, bicarb 26, BUN 36, and creatinine 1.21. There is only 200 mL recorded in yesterday, that cannot be correct. IMPRESSION: 1. Asthmatic bronchitis. 2. Syndrome of inappropriate antidiuretic hormone secretion, status post administration of Conivaptan. 3. Deconditioning. 4. Untreated sleep apnea. 5. Pulmonary hypertension. 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 I doubt any of this is progressive. 7. Moderate mitral regurgitation. PLAN: Continue supportive care Consider discharge tomorrow. Job ID: [id number] MTDD
[2018-10-06] MEDS: Pravastatin Sodium 40 MG TAB PO SCH (20:13)
[2018-10-06] MEDS: clonazePAM 0.5 MG TAB PO SCH (20:13)
[2018-10-06] MEDS: Latanoprost 0.005% Ophth Soln 2.5 ml Bottle EA EYE SCH (20:15)
--- NOTE | 2018-10-06 21:48 | PRG ---
DATE OF SERVICE: 10/06/2018 SUBJECTIVE: The patient is seen and examined with no new complaints. Feeling better. Noted with the following vital signs. OBJECTIVE: VITAL SIGNS: Afebrile, temperature 98.1; pulse 71; respiratory rate of 18; O2 sats of 94%; blood pressure 114/57. HEENT EXAMINATION: Unremarkable. Moist oral mucosa. NECK: Supple. No conjunctival injection or icterus. CARDIOVASCULAR SYSTEM: First and second heart sounds were heard. RESPIRATORY SYSTEM: Clear to auscultation. DIGESTIVE SYSTEM: Revealed a benign abdomen. Positive bowel sounds. EXTREMITIES: No peripheral edema. SKIN EXAMINATION: No new gross rash. LYMPHATICS: No peripheral lymphadenopathy. IMPRESSION: Hyponatremia in the context of syndrome of inappropriate antidiuretic hormone secretion. PLAN: It seems that this patient is staying at 127. We will repeat urine chemistry tomorrow. If this picture becomes very clear, that is SIADH given the sodium at 127 level conservative measures. Job ID: [id number]
[2018-10-07] MEDS: Guaifenesin DM 100-10/5 ML UDCUP PO SCH ×6 (02:06→21:19)
[2018-10-07 05:11] LABS: Osmolality, Urine 524 mOsm/kg (300-900)
[2018-10-07 05:25] LABS: Hemoglobin 9.2 g/dL (14.0-18.0); Platelet Count 178 thou/uL (130-400)
[2018-10-07 05:37] LABS: Sodium, Urine 70 mmol/L (Not Available)
[2018-10-07 08:58] LABS: Sodium 128 mmol/L (136-145)
[2018-10-07] MEDS: Polyethylene Glycol 3350 17 GM Packet PO SCH (09:30)
[2018-10-07] MEDS: Apixaban 2.5 MG TAB PO SCH ×2 (09:31→21:18)
[2018-10-07] MEDS: Benzonatate 100 MG CAP PO SCH ×3 (09:31→21:18)
[2018-10-07] MEDS: Saccharomyces boulardii 250 MG CAP PO SCH (09:31)
[2018-10-07] MEDS: Ezetimibe 10 MG TAB PO SCH (09:31)
[2018-10-07] MEDS: Allopurinol 300 MG TAB PO SCH (09:31)
[2018-10-07] MEDS: Metoprolol Tartrate 25 MG TAB PO SCH (09:31)
[2018-10-07] MEDS: predniSONE 20 MG TAB PO SCH (09:31)
[2018-10-07] MEDS: azaTHIOprine 50 MG TAB PO SCH (09:32)
[2018-10-07] MEDS: Tolvaptan 15 MG TAB PO SCH (09:33)
[2018-10-07] MEDS ORDERED: Bisacodyl 5 MG TAB PO SCH (11:00)
--- NOTE | 2018-10-07 11:46 | PDOC.PN ---
- Subjective Encounter Start Date: 10/07/18 Encounter Start Time: 11:45 Subjective: feels much better but still SOB w walking .minimal wheezing - Objective Resuscitation Status - Order Detail: 10/02/18 15:08 Resuscitation Status Routine Resuscitation Status: DNAR: NO Resuscitation Discussed with: aly BAR Reviewed: Yes Vital Signs & Weight: Vital Signs (12 hours) Temp Pulse Resp BP Pulse Ox 10/07/18 10:34 80 14 10/07/18 07:51 97.7 F 84 18 125/64 94 L 10/07/18 06:34 80 16 10/07/18 03:08 98 F 82 17 120/62 92 L Weight Weight 219 lb 1.6 oz I&O: 10/06/18 10/07/18 10/08/18 06:59 06:59 06:59 Intake Total 200 1000 Output Total 500 1420 Balance -300 -420 Result Diagrams: 10/07/18 05:08 10/07/18 05:08 Additional Labs: Microbiology 10/02/18 12:51 Nasal swab Influenza Types A,B Direct EIA - Final 10/02/18 11:58 Venous blood - Right Hand Blood Culture - Preliminary NO GROWTH AT 48 HOURS 10/02/18 11:36 Venous blood - Left Arm Blood Culture - Preliminary NO GROWTH AT 48 HOURS Laboratory Tests 10/02/18 10/02/18 10/03/18 11:34 11:34 04:22 Hgb 9.7 L Creatinine 1.07 1.13 10/03/18 10/04/18 10/04/18 04:22 04:23 04:23 Hgb 9.4 L 8.8 L Creatinine 1.16 10/05/18 10/05/18 10/06/18 04:27 04:27 05:50 Hgb 9.1 L Creatinine 1.40 H 1.21 10/07/18 10/07/18 05:08 05:08 Hgb 9.2 L Creatinine 1.23 Phys Exam - Physical Examination Constitutional: NAD HEENT: PERRLA, moist MMs, sclera anicteric, oral pharynx no lesions Neck: no nodes, no JVD, supple, full ROM Respiratory: no wheezing, no rales, no rhonchi, clear to auscultation bilateral Cardiovascular: RRR, no significant murmur, no rub Gastrointestinal: soft, non-tender, no distention, positive bowel sounds Musculoskeletal: no edema, pulses present Neurological: non-focal, normal sensation, moves all 4 limbs Psychiatric: normal affect, A&O x 3 Skin: no rash Dx/Plan (1) Asthmatic bronchitis Code(s): J45.909 - UNSPECIFIED ASTHMA, UNCOMPLICATED Status: Acute (2) Hyponatremia Code(s): E87.1 - HYPO-OSMOLALITY AND HYPONATREMIA Status: Acute (3) Chronic anemia Code(s): D64.9 - ANEMIA, UNSPECIFIED Status: Chronic (4) Mitral regurgitation Status: Chronic Qualifiers: Cardiac valve disease etiology: nonrheumatic Qualified Code(s): I34.0 - Nonrheumatic mitral (valve) insufficiency (5) Pulmonary arterial hypertension Code(s): I27.21 - SECONDARY PULMONARY ARTERIAL HYPERTENSION Status: Chronic (6) CAD (coronary artery disease) Code(s): I25.10 - ATHSCL HEART DISEASE OF [place] CORONARY ARTERY W/O ANG PCTRS Status: Chronic (7) Rheumatoid arthritis Code(s): M06.9 - RHEUMATOID ARTHRITIS, UNSPECIFIED Status: Chronic (8) History of pulmonary embolism Code(s): Z86.711 - PERSONAL HISTORY OF PULMONARY EMBOLISM Status: Chronic Comment: on eliquis (9) Immunocompromised state Code(s): D84.9 - IMMUNODEFICIENCY, UNSPECIFIED Status: Chronic (10) CKD (chronic kidney disease) stage 3, GFR 30-59 ml/min Code(s): N18.3 - CHRONIC KIDNEY DISEASE, STAGE 3 (MODERATE) Status: Chronic - Plan continue antibiotics, PT/OT, respiratory therapy, incentive spirometry, out of bed/ambulate, DVT proph w/SCDs clinically better .cont meds as below.will need 1 more day inpt -: sodium better.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 -: cont Tolvaptan.monitor -: home meds as below -: Sleep study as an OP * . Review of Systems - Review of Systems Constitutional: weakness. negative: fever, chills, sweats, malaise, other Respiratory: SOB with Excertion. negative: Cough, Dry, Shortness of Breath, Hemoptysis, Pleuritic Pain, Sputum, Wheezing Cardiovascular: negative: chest pain, palpitations, orthopnea, paroxysmal nocturnal dyspnea, edema, light headedness, other Gastrointestinal: negative: Nausea, Vomiting, Abdominal Pain, Diarrhea, Constipation, Melena, Hematochezia, Other Genitourinary: negative: Dysuria, Frequency, Incontinence, Hematuria, Retention , Other Musculoskeletal: negative: Neck Pain, Shoulder Pain, Arm Pain, Back Pain, Hand Pain, Leg Pain, Foot Pain, Other Neurological: negative: Weakness, Numbness, Incoordination, Change in Speech, Confusion, Seizures, Other - Medications/Allergies Allergies/Adverse Reactions: Allergies Allergy/AdvReac Type Severity Reaction Status Date / Time codeine Allergy Verified 10/02/18 19:22 Medications: Current Medications Acetaminophen (Tylenol) 650 mg PO BID PRN PRN Reason: Mild Pain (1-3) Last Admin: 10/05/18 00:18 Dose: 650 mg Hydrocodone Bitart/Acetaminophen ([place] 5/325) 1 tab PO Q4H PRN PRN Reason: Moderate Pain (4-6) Last Admin: 10/05/18 21:12 Dose: 1 tab Albuterol/Ipratropium (Duoneb) 3 ml IPPB [id number] [facility] Last Admin: 10/07/18 10:34 Dose: 3 ml Allopurinol (Zyloprim) 300 mg PO DAILY [facility] Last Admin: 10/07/18 09:31 Dose: 300 mg Apixaban (Eliquis) 2.5 mg PO BID [facility] Last Admin: 10/07/18 09:31 Dose: 2.5 mg Azathioprine (Imuran) 50 mg PO DAILY [facility] Last Admin: 10/07/18 09:32 Dose: 50 mg Benzonatate (Tessalon) 200 mg PO TID [facility] Last Admin: 10/07/18 09:31 Dose: 200 mg Bisacodyl (Dulcolax) 10 mg PO NOW [facility] Stop: 10/07/18 12:00 Calcium Carbonate (Tums) 500 mg PO Q4H PRN PRN Reason: .REFLUX Cholecalciferol (Vitamin D3) 2,000 units PO DAILY [facility] Last Admin: 10/07/18 09:31 Dose: 2,000 units Clonazepam (Klonopin) 0.5 mg PO HS [facility] Last Admin: 10/06/18 20:13 Dose: 0.5 mg Ezetimibe (Zetia) 10 mg PO DAILY [facility] Last Admin: 10/07/18 09:31 Dose: 10 mg Guaifenesin/Dextromethorphan (Robitussin Dm) 15 ml PO Q4HR [facility] Last Admin: 10/07/18 09:30 Dose: 15 ml Latanoprost (Xalatan 0.005% Ophth Soln) 1 drop EA EYE HS [facility] Last Admin: 10/06/18 20:15 Dose: 1 drop Levofloxacin (Levaquin) 500 mg PO 0600 [facility] Last Admin: 10/07/18 04:50 Dose: 500 mg Metoprolol Tartrate (Lopressor) 12.5 mg PO DAILY [facility] Last Admin: 10/07/18 09:31 Dose: 12.5 mg Ondansetron HCl (Zofran) 4 mg IVP Q6H PRN PRN Reason: Nausea/Vomiting Pantoprazole Sodium (Protonix) 40 mg PO 0600 [facility] Last Admin: 10/07/18 04:50 Dose: 40 mg Abatacept [Orencia] (125 Mg) 1 each PO Q7D@0900 [facility] Diclofenac Sodium [ Diclofenac Sodium 1% Gel] 2 Gm 0 each TOP BID [facility] Polyethylene Glycol (Miralax) 17 gm PO DAILY [facility] Last Admin: 10/07/18 09:30 Dose: 17 gm Pravastatin Sodium (Pravachol) 80 mg PO HS [facility] Last Admin: 10/06/18 20:13 Dose: 80 mg Prednisone (Prednisone) 40 mg PO QAM-WM [facility] Last Admin: 10/07/18 09:31 Dose: 40 mg Saccharomyces Boulardii (Florastor) 250 mg PO DAILY [facility] Last Admin: 10/07/18 09:31 Dose: 250 mg Sodium Chloride (Flush - Normal Saline) 10 ml IVF Q12HR [facility] Last Admin: 10/07/18 09:32 Dose: 10 ml Sodium Chloride (Flush - Normal Saline) 10 ml IVF PRN PRN PRN Reason: Saline Flush Throat Lozenges (Cepastat Lozenges) 1 nory PO PRN PRN PRN Reason: SORE THROAT Last Admin: 10/04/18 20:59 Dose: 1 nory Tolvaptan (Samsca) 15 mg PO DAILY [facility] Last Admin: 10/07/18 09:33 Dose: 15 mg
--- NOTE | 2018-10-07 14:19 | PRG ---
DATE OF SERVICE: 10/07/2018 SUBJECTIVE: Law Phelan has no complaints. OBJECTIVE: VITAL SIGNS: He is afebrile, heart rate 73, respiratory rate is 18, oximetry is 94 on room air, and blood pressure 125/64. Still has some faint wheezes on exam. HEART: Regular rhythm. S1, S2 are normal. ABDOMEN: Soft and nontender. EXTREMITIES: Without edema. LABORATORY DATA: Hemoglobin is 9.2, it was 9.1 yesterday. Sodium is up to 128. Renal function today is normal with a creatinine of 1.23. IMPRESSION: 1. Asthmatic bronchitis. 2. Probable syndrome of inappropriate antidiuretic hormone secretion associated with his respiratory illness. 3. Pulmonary hypertension, most likely secondary to untreated sleep apnea. 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 It is very mild by radiograph. 5. History of pulmonary embolism, on prophylactic dose Eliquis. 6. History of a colostomy and colostomy reversal in the past. PLAN: 1. Increase his activity. 2. Hopefully, he will be ready for discharge in the morning. Telemetry monitoring could be discontinued. Job ID: [id number] MTDD
--- NOTE | 2018-10-07 17:57 | PRG ---
DATE OF SERVICE: 10/07/2018 SUBJECTIVE: The patient is seen and examined. Noted with the following vital signs. OBJECTIVE: VITAL SIGNS: Afebrile, temperature 98, pulse 89, respiratory rate 16, O2 sat of 95%, and blood pressure 121/64. HEENT: Examination unremarkable. Moist oral mucosa. NECK: Supple. No conjunctival injection or icterus. CARDIOVASCULAR SYSTEM: First and second heart sounds were heard. RESPIRATORY SYSTEM: Clear to auscultation. DIGESTIVE SYSTEM: Revealed a benign abdomen with positive bowel sounds. EXTREMITIES: No peripheral edema. SKIN: No new gross rash. LYMPHATICS: No peripheral lymphadenopathy. LABORATORY INVESTIGATION: Showed hemoglobin 9.2. Chemistry; sodium of 128. Urine osmolality showed that to be 524 with urine sodium of 70. IMPRESSION: Hyponatremia in the context of syndrome of inappropriate antidiuretic hormone secretion. PLAN: 1. We will initiate this patient on tolvaptan and monitor the sodium level accordingly. 2. Further management will be dependent on the clinical course. Job ID: [id number]
[2018-10-07] MEDS: Pravastatin Sodium 40 MG TAB PO SCH (21:19)
[2018-10-07] MEDS: Latanoprost 0.005% Ophth Soln 2.5 ml Bottle EA EYE SCH (21:31)
[2018-10-07] MEDS ORDERED: Fleet Enema 133 ML BOT PR SCH (22:30)
[2018-10-07] MEDS: Acetaminophen 325 MG TAB PO PRN (22:43)
[2018-10-07] MEDS: clonazePAM 0.5 MG TAB PO SCH (22:43)
[2018-10-08] MEDS: Guaifenesin DM 100-10/5 ML UDCUP PO SCH ×4 (05:53→16:16)
[2018-10-08 07:26] LABS: Anion Gap 10 mmol/L (10-20); BUN (Urea Nitrogen) 33 mg/dL (8.4-25.7); Calc. Creatinine Clearance 56 mL/min (70-130); Calcium 8.6 mg/dL (7.8-10.44); Carbon Dioxide 27 mmol/L (23-31); Chloride 98 mmol/L (98-107); Estimated GFR-MDRD 52; Glucose 110 mg/dL (83-110); Potassium 4.4 mmol/L (3.5-5.1); Sodium 131 mmol/L (136-145)
[2018-10-08] MEDS: Tolvaptan 15 MG TAB PO SCH (09:21)
[2018-10-08] MEDS: Saccharomyces boulardii 250 MG CAP PO SCH (09:22)
[2018-10-08] MEDS: predniSONE 20 MG TAB PO SCH (09:23)
[2018-10-08] MEDS: Metoprolol Tartrate 25 MG TAB PO SCH (09:23)
[2018-10-08] MEDS: Apixaban 2.5 MG TAB PO SCH (09:23)
[2018-10-08] MEDS: Benzonatate 100 MG CAP PO SCH (09:23)
[2018-10-08] MEDS: azaTHIOprine 50 MG TAB PO SCH (09:23)
[2018-10-08] MEDS: Allopurinol 300 MG TAB PO SCH (09:23)
[2018-10-08] MEDS: Polyethylene Glycol 3350 17 GM Packet PO SCH (09:24)
[2018-10-08 12:02] VITALS: BP 124/68; TEMP 97.3
--- NOTE | 2018-10-08 12:51 | PRG ---
DATE OF SERVICE: 10/08/2018 SUBJECTIVE: Law Phelan feels like he is ready to go home. He is in no distress. He says he is moving around better and went for a walk, did reasonably well with that. OBJECTIVE: VITAL SIGNS: He is afebrile. Heart rate 75, respiratory rate is 20, oximetry is 92 on room air, and blood pressure 135/81. LUNGS: Clear. HEART: Regular rhythm. ABDOMEN: Soft. IMPRESSION: 1. Asthmatic bronchitis. 2. Syndrome of inappropriate secretion of antidiuretic hormone. His sodium is up to 131. This will need to be repeated by his primary care physician sometime in the near future. 3. Acute on chronic renal dysfunction. He is reasonably stable. 4. 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 5. Pulmonary hypertension, is likely secondary to untreated sleep apnea. 6. I will see him back in followup in 2 to 3 weeks. I written prescription for prednisone taper 40 for 4 days, 20 for 8 days, and 10 mg until he sees me. His baseline dose is 5 for his rheumatoid arthritis. He will take 5 more days of Levaquin. 7. I written for nebulizer solution with ipratropium and albuterol and he should be doing 3 to 4 treatments a day. We will continue with his other medicines. Job ID: [id number]
[2018-10-08] MEDS: Ezetimibe 10 MG TAB PO SCH (16:15)
--- NOTE | 2018-10-08 23:02 | DIS ---
DATE OF ADMISSION: 10/02/2018 DATE OF DISCHARGE: 10/08/2018 CONDITION AT THE TIME OF DISCHARGE: Stable and improved. PRIMARY CARE PHYSICIAN: Out of town. DISCHARGE DIAGNOSES: 1. Asthmatic bronchitis. 2. Hyponatremia, likely syndrome of inappropriate secretion of antidiuretic hormone. 3. Anemia of chronic disease. 4. Mitral regurgitation. 5. Pulmonary arterial hypertension. 6. Coronary artery disease. 7. Rheumatoid arthritis. 8. History of pulmonary embolism, on Eliquis. 9. Immunocompromised state due to immunosuppressant for rheumatoid arthritis. 10. Chronic kidney disease, stage 3. 11. Undiagnosed obstructive sleep apnea. IN-HOUSE CONSULTATION: 1. Nephrology, Dr. Pruitt. 2. Pulmonary Critical Care Medicine, Dr. Kingston. PROCEDURES DONE IN THE HOSPITAL: 1. Transthoracic echocardiogram, which shows EF of 50% to 55%, moderate tricuspid regurgitation and severe pulmonary arterial hypertension. 2. CT scan of the chest, upon presentation, which shows pleural and parenchymal nodular density at the lateral aspect of the right upper lobe related to scarring and chronic lung changes with minimum bronchiectasis and calcification of coronaries and thoracic aorta. HISTORY OF PRESENTING ILLNESS: Mr. Phelan is an 88-year-old male with past medical history of rheumatoid arthritis; coronary artery disease; history of PE, on Eliquis; as well as a history of DVT in left leg; who presented to the emergency room with complaints of nasal congestion, cough, and shortness of breath. He underwent a CT scan of the chest as well as chest x-ray in the emergency room and EKG, and it was rather unimpressive as above. His BNP was 556. He was otherwise hemodynamically stable. He was admitted for further evaluation and care. Initially, it was thought that he has some mild acute exacerbation of CHF and he was diuresed. He was also started on empiric IV antibiotics, steroids, and nebulizers. Please see admission history and physical for further details. HOSPITAL COURSE: The patient was seen by Pulmonary Medicine for his complaints of shortness of breath. Dr. Kingston saw the patient and his assessment was that the patient has asthmatic bronchitis. His antibiotics and steroids were tapered. He did fairly well throughout the rest of the hospitalization with nebulizers and was weaned off oxygen. He was also noticed to have low sodium in the 125 to 126 range. For this, Nephrology was consulted and Dr. Ronquillo saw the patient. 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 He was put on fluid restriction and was treated with tolvaptan with improved result. As of this morning, his sodium was improved to 131, and he has been cleared for discharge from both Pulmonary Medicine and Nephrology. He does have a history of chronic kidney disease, but all of his physicians has been out of town. He is encouraged to do follow up with Dr. Kingston and Dr. Ronquillo in the outpatient setting. As per the direction of Dr. Ronquillo, he will finish 3 more days of tolvaptan. Prescriptions were provided. DISCHARGE MEDICATIONS: 1. Clonazepam 0.5 mg at bedtime. 2. Zetia 10 mg daily. 3. Metoprolol tartrate 12.5 mg daily. 4. Tapering dose of steroid as per Dr. Kingston. 5. Azathioprine 50 mg daily. 6. Eliquis 2.5 mg daily. 7. Allopurinol 300 mg daily. 8. Pravastatin 80 mg daily. 9. Protonix 40 mg daily. 10. Tolvaptan 15 mg daily for 3 days. 11. Florastor 250 mg daily for 10 days. 12. Nebulizers as needed. 13. DuoNeb daily for 7 days. 14. Albuterol inhaled q.i.d. p.r.n. shortness of breath. DISCHARGE INSTRUCTIONS: He will follow up with his primary care physician in outpatient setting. Discharge plan was discussed with the patient and he verbalized understanding. He was seen and examined prior to discharge. PHYSICAL EXAMINATION: VITAL SIGNS: This morning; temperature 98.0, pulse is 75, respirations 20, saturating 92% on room air, and blood pressure 135/81. GENERAL: In no acute distress. CHEST: Clear to auscultation bilaterally. CARDIAC: Rate and rhythm are regular. LABORATORY DATA: His blood cultures have been negative at 5 days. TIME SPENT: Total time spent in the discharge 32 minutes. Job ID: [id number]
[2018-10-09] MEDS ORDERED: ABATACEPT 125 MG PO SCH (09:00)
== END 2018-10-08 14:44 | disposition home or self-care (01) | DRG 202 ==
LOC: ERS 11:16 → 2NO 14:55 → T4-A 10-07 15:59
PROVIDERS: ADMIT Internal Medicine; ATTEND Internal Medicine
PROC: B24BZZZ Ultrasonography of Heart with Aorta (ICD-10-PCS; principal; 2018-10-03)
DX: J45.909 Unspecified asthma, uncomplicated (principal); E22.2 Syndrome of inappropriate secretion of antidiuretic hormone; E87.2 Acidosis; I12.9 Hypertensive chronic kidney disease with stage 1 through stage 4 chronic kidney disease, or unspecified chronic kidney disease; N18.3 Chronic kidney disease, stage 3 (moderate); D63.1 Anemia in chronic kidney disease; M06.9 Rheumatoid arthritis, unspecified; Z86.711 Personal history of pulmonary embolism; Z79.01 Long term (current) use of anticoagulants; I25.10 Atherosclerotic heart disease of native coronary artery without angina pectoris; G47.33 Obstructive sleep apnea (adult) (pediatric); I34.0 Nonrheumatic mitral (valve) insufficiency; Z79.899 Other long term (current) drug therapy
CPT/HCPCS: 36415; 71045; 71250; 80048; 80053; 82436; 82550; 82553; 82565; 82607; 82746; 83605; 83880; 83930; 83935; 84133; 84295; 84300; 84484; 85014; 85018; 85025; 85049; 87040; 87804; 93005; 93306; 94640; 96365; 96367; 96375; G8978-GP-CK; G8979-GP-CJ; G8987-GO-CJ; G8988-GO-CI; J0456; J0696; J1940; J2920; J7050; J7500; J7506; J7620

== ENCOUNTER 2018-12-14 12:04 | Observation (INO) | payer MEDICARE ==
[2018-12-14 12:52] LABS: #Lymphocytes 1.2 thou/uL (1.20-3.40); #Monocytes 0.8 thou/uL (0.11-0.59); #Neutrophils 3.4 thou/uL (1.40-6.50); %Basophils 0.4 % (0.0-1.0); %Eosinophils 0.4 % (0.0-10.0); %Lymphocytes 21.5 % (21.0-51.0); %Monocytes 14.7 % (0.0-10.0); Hemoglobin 10.8 g/dL (14.0-18.0); Mean Corpuscular HGB CONC 33.4 g/dL (32.0-36.0); Mean Corpuscular Hemoglobin 34.5 pg (27.0-31.0); Mean Platelet Volume 8.9 fL (7.4-10.4); Platelet Count 137 thou/uL (130-400); RBC Distribution Width 16.1 % (11.5-14.5); Red Blood Cell (RBC) Count 3.14 mill/uL (4.70-6.10); White Blood Cell (WBC) Count 5.4 thou/uL (4.8-10.8)
[2018-12-14 13:16] LABS: ALT (SGPT) 11 U/L (8-55); AST (SGOT) 22 U/L (5-34); Albumin 3.7 g/dL (3.4-4.8); Alkaline Phosphatase 69 U/L (40-150); Anion Gap 16 mmol/L (10-20); BUN (Urea Nitrogen) 16 mg/dL (8.4-25.7); Bilirubin, Total 1.1 mg/dL (0.2-1.2); Calc. Creatinine Clearance 0 mL/min (70-130); Calcium 9.1 mg/dL (7.8-10.44); Carbon Dioxide 21 mmol/L (23-31); Chloride 104 mmol/L (98-107); Estimated GFR-MDRD 56; Globulin 2.4 g/dL (2.4-3.5); Glucose 150 mg/dL (83-110); Lipase 6 U/L (8-78); Potassium 4.5 mmol/L (3.5-5.1); Protein, Total 6.1 g/dL (5.8-8.1); Sodium 136 mmol/L (136-145)
[2018-12-14] MEDS ORDERED: methylPREDNISolone Sod Succ/PF 125 MG/2 ML VIAL ONE (13:21)
--- NOTE | 2018-12-14 13:27 | RAD ---
CHEST ONE VIEW: Comparison: 10-02-18 History: Shortness of breath. Cough. FINDINGS: Slight elongation of the aorta. Normal cardiac silhouette. The pulmonary vessels and hilum are normal . Costophrenic angles are clear. Chronic changes, without consolidation or mass. No pneumothorax or o sseous abnormality. IMPRESSION: No acute cardiopulmonary process. POS: [facility]
[2018-12-14 13:40] LABS: CKMB 1.4 ng/mL (0-6.6)
[2018-12-14 14:58] LABS: Bilirubin Negative (Negative); Blood, Urine Trace (Negative); Clarity CLEAR (Clear); Glucose, Urine (Dipstick) Negative (Negative); Leukocyte Negative (Negative); Nitrite Negative (Negative); Protein, Urine (Dipstick) Trace mg/dL (Neg-Trace); Specific Gravity, Urine 1.011 (1.002-1.036)
[2018-12-14 15:00] LABS: Bacteria/HPF None Seen HPF (None Seen); Hyaline Casts/LPF 0-3 HYALINE CAST LPF (0-3 Hyaline); RBC/HPF 0-3 HPF (0-3); Squamous Epithelial None Seen HPF (0-3); WBC/HPF None Seen HPF (0-3)
[2018-12-14] MEDS ORDERED: Ondansetron ODT 4 MG TAB SL PRN (16:47)
[2018-12-14] MEDS ORDERED: HYDROcodone/Acetaminophen 5/325 mg Tablet PO PRN ×2 (16:47)
[2018-12-14] MEDS ORDERED: Acetaminophen 325 MG TAB PO PRN (16:47)
[2018-12-14] MEDS ORDERED: Sodium Chloride 0.9% 1,000 ML IV SCH (16:47)
[2018-12-14] MEDS ORDERED: Ondansetron PF 4 MG/2 ML Vial IVP PRN (16:47)
[2018-12-14 17:09] VITALS: BMI 28.2
--- NOTE | 2018-12-14 18:55 | HP ---
CHIEF COMPLAINT: Shortness of breath and cough. HISTORY OF PRESENT ILLNESS: The patient is an 88-year-old male, known to me from previous admission in September, who presented to the emergency room with his son, who brought him in with a basically 2-day history of increased shortness of breath, cough, no chills, no fever, some wheezing, just feeling bad. Apparently, he took some Levaquin 500 mg tablet this morning. He had some left over I guess from previous discharge from the hospital and his son who was in [place] today came and took him to the emergency room. He had follow up with Dr. Kingston after the last discharge from the hospital in September. PAST MEDICAL HISTORY: Positive for: 1. Rheumatoid arthritis. 2. Coronary artery disease, status post 2 stents placement. 3. History of PE and completed 1 year of warfarin treatment and now on Eliquis. 4. Gout. 5. Left leg DVT. 6. History of diverticulitis. 7. 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 8. Anemia of chronic disease. 9. Mitral regurgitation. 10. Pulmonary artery hypertension. 11. Chronic kidney disease, stage 3. 12. Undiagnosed obstructive sleep apnea. PAST SURGICAL HISTORY: 1. Total knee replacement bilaterally. 2. Right hip replacement. 3. Right shoulder replacement. 4. Perianal abscess drainage. 5. Colostomy with reversed colostomy later. MEDICATIONS: 1. Prednisone 5 mg once a day. 2. Clonazepam 0.5 mg at bedtime. 3. Allopurinol 300 mg once a day. 4. Cholecalciferol 2000 units once a day two capsules. 5. Diclofenac topical 3% 2 g twice a day. 6. Eliquis 2.5 mg twice a day. 7. Enbrel injections once a week. 8. Metoprolol tartrate 50 mg tablets 12.5 mg once a day. 9. DuoNebs twice a day. 10. Zetia 10 mg once a day. 11. Latanoprost 0.005% ophthalmic eyedrops once a day to both eyes. 12. Pantoprazole 40 mg once a day. 13. Pravastatin 80 mg at bedtime. ALLERGIES: CODEINE. FAMILY HISTORY: Father had prostate cancer. He passed in his 70s; and mother had pancreatic cancer, she passed when she was in her 80s. SOCIAL HISTORY: He does not have any history of cigarette smoking. Used to drink 1 drink a day. He does not use any illicit drugs. PRIMARY CARE PHYSICIAN: Dr. Kevin Cottrell. SURROGATE DECISION MAKER: His , Ethel Phelan. REVIEW OF SYSTEMS: CONSTITUTIONAL: Negative for fever and chills. ENT: Negative for nasal congestion and epistaxis. EYES: Negative for eye pain and eye discharge. CARDIOVASCULAR: Negative for palpitations or chest pain. PULMONARY: Positive for shortness of breath and cough with some yellowish phlegm. GI: Negative for nausea or vomiting. : Negative for dysuria or hematuria. MUSCULOSKELETAL: Positive for pain in both hips and knees. PSYCHIATRIC: Negative for homicidal or suicidal ideations. HEMOLYMPHATIC: Negative for easy bruising and clotting abnormalities. PHYSICAL EXAMINATION: VITAL SIGNS: Blood pressure is 147/85, pulse 83, respirations 18, temperature 98.6 orally. He does not have any pain. O2 saturation is 98% on room air. HEENT: His head is atraumatic and normocephalic. Eyes are PERRLA. Sclerae are nonicteric. Conjunctivae palish. Oral mucosa is moist. NECK: Supple. No lymphadenopathy. LUNGS: Breath sounds somewhat diminished at both bases with crackles and rales bilateral both bases and wheezes on expiration. HEART: S1, S2 are somewhat tachycardic. No S3. No S4. ABDOMEN: Soft, nontender. EXTREMITIES: No clubbing, cyanosis, or edema. He has good pulses on both tibialis posterior and dorsalis pedis arteries similar bilaterally. NEUROLOGICAL: He is alert and oriented x4. There is no any motor or sensory deficits present. Cranial nerves are intact. LABORATORY DATA: Showed 5.4, hemoglobin 10.8, hematocrit 32.5, platelet count 137. Sodium of 136, potassium 4.5, chloride 104, CO2 of 21, BUN 16, creatinine 1.22, glucose 150, troponin I 0.032, BNP 359.6, lipase 6. Urinalysis showed trace of blood. DIAGNOSTIC DATA: EKG showed normal sinus rhythm with multiple PACs, ventricular rate of 89 beats per minute. Chest x-ray showed chronic changes without consolidation or mass. No acute cardiopulmonary process. IMPRESSION: 1. Bronchitis, recurrent. 2. Congestive heart failure. 3. Gout. 4. Questionable atrial fibrillation based on EKG. 5. History of anticoagulation, currently on Eliquis. 6. History of diverticulitis. 7. History of pulmonary hypertension with pulmonary artery pressure more than 60. 8. Rheumatoid arthritis. 9. Immunocompromised state. 10. Coronary artery disease, chronic, stable, status post 2 stents placement in coronary arteries. PLAN: Plan is admission to observation. Condition is fair. Activity is bedrest and bathroom privileges. IV Hep-Lock. Low-salt diet. Solu-Medrol. The patient received 125 mg of Solu-Medrol in the emergency room. We will continue 20 mg IV push every 8 hours. We will start him on levofloxacin 500 mg IV piggyback every 24 hours. We will continue DuoNebs q.4 hours. We will monitor his cardiac function, but I do not believe that he is in atrial fibrillation at this point, this is just normal sinus rhythm with PVCs. We are going to reconcile his home medications and we will have job printer apprentice on consult. Job ID: [id number]
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
[2018-12-14] MEDS: methylPREDNISolone Sod Succ 40 MG VIAL IVP SCH (22:02)
[2018-12-14] MEDS ORDERED: Apixaban 2.5 MG TAB PO SCH (22:30)
[2018-12-14] MEDS ORDERED: Atorvastatin Calcium 20 MG TAB PO SCH (22:30)
[2018-12-14] MEDS ORDERED: clonazePAM 0.5 MG TAB PO SCH (22:30)
[2018-12-14] MEDS ORDERED: Metoprolol Tartrate 25 MG TAB PO SCH (22:30)
[2018-12-15 05:25] LABS: #Lymphocytes 0.6 thou/uL (1.20-3.40); #Monocytes 0.1 thou/uL (0.11-0.59); #Neutrophils 3.4 thou/uL (1.40-6.50); %Basophils 0.9 % (0.0-1.0); %Eosinophils 0.3 % (0.0-10.0); %Lymphocytes 14.1 % (21.0-51.0); %Monocytes 3.2 % (0.0-10.0); %Neutrophils 81.4 % (42.0-75.0); Mean Corpuscular HGB CONC 33.6 g/dL (32.0-36.0); Mean Corpuscular Hemoglobin 35.1 pg (27.0-31.0); Mean Platelet Volume 9.1 fL (7.4-10.4); Platelet Count 135 thou/uL (130-400); RBC Distribution Width 16.1 % (11.5-14.5); Red Blood Cell (RBC) Count 2.84 mill/uL (4.70-6.10); White Blood Cell (WBC) Count 4.2 thou/uL (4.8-10.8)
[2018-12-15 05:47] LABS: Anion Gap 11 mmol/L (10-20); BUN (Urea Nitrogen) 20 mg/dL (8.4-25.7); Calc. Creatinine Clearance 66 mL/min (70-130); Calcium 8.8 mg/dL (7.8-10.44); Carbon Dioxide 21 mmol/L (23-31); Chloride 106 mmol/L (98-107); Estimated GFR-MDRD 63; Glucose 148 mg/dL (83-110); Potassium 4.4 mmol/L (3.5-5.1); Sodium 134 mmol/L (136-145)
[2018-12-15] MEDS: methylPREDNISolone Sod Succ 40 MG VIAL IVP SCH (06:02)
[2018-12-15] MEDS ORDERED: Apixaban 2.5 MG TAB PO SCH (09:00)
[2018-12-15] MEDS ORDERED: Allopurinol 300 MG TAB PO SCH (09:00)
[2018-12-15] MEDS ORDERED: Ezetimibe 10 MG TAB PO SCH (09:00)
[2018-12-15] MEDS ORDERED: Tolvaptan 15 MG TAB PO SCH (09:00)
--- NOTE | 2018-12-15 10:06 | PDOC.PN ---
- Subjective Encounter Start Date: 12/15/18 Encounter Start Time: 09:03 Subjective: Patient reports feeling significantly better than yesterday. -: His breathing has improved and though he has SOB, it is at baseline. -: States his symptoms were triggered after mowing the lawn, however he has noted gradual worsening in his OCAMPO over the last several weeks. Concerned due to being told he had Afib on ECG in ED. His son who is an anesthesiologist was told he would be evaluated by Cardiology. Patient has undergone cardiac investigations in the past at the [facility]. - Objective Resuscitation Status - Order Detail: 12/14/18 15:27 Resuscitation Status Routine Resuscitation Status: FULL: Full Resuscitation Vital Signs & Weight: Vital Signs (12 hours) Temp Pulse Resp BP Pulse Ox 12/15/18 07:32 98.0 F 74 24 H 134/72 95 12/15/18 04:30 98.5 F 75 20 117/63 94 L 12/14/18 23:44 97.9 F 97 12 118/69 94 L 12/14/18 22:39 79 122/74 12/14/18 22:30 95 16 95 Weight Weight 220 lb I&O: 12/14/18 12/15/18 12/16/18 06:59 06:59 06:59 Intake Total 2270 Output Total 1090 Balance 1180 Result Diagrams: 12/15/18 04:29 12/15/18 04:29 Phys Exam - Physical Examination Constitutional: NAD HEENT: PERRLA, moist MMs, oral pharynx no lesions Neck: supple, full ROM Respiratory: wheezing present mild expiratory wheezing Cardiovascular: RRR Gastrointestinal: soft, non-tender Musculoskeletal: no edema, pulses present Neurological: normal sensation, moves all 4 limbs Psychiatric: normal affect, A&O x 3 Skin: no rash, normal turgor, cap refill <2 seconds Dx/Plan (1) Asthmatic bronchitis Code(s): J45.909 - UNSPECIFIED ASTHMA, UNCOMPLICATED Status: Acute (2) Hyponatremia Code(s): E87.1 - HYPO-OSMOLALITY AND HYPONATREMIA Status: Acute (3) CAD (coronary artery disease) Code(s): I25.10 - ATHSCL HEART DISEASE OF [place] CORONARY ARTERY W/O ANG PCTRS Status: Chronic (4) CKD (chronic kidney disease) stage 3, GFR 30-59 ml/min Code(s): N18.3 - CHRONIC KIDNEY DISEASE, STAGE 3 (MODERATE) Status: Chronic (5) History of pulmonary embolism Code(s): Z86.711 - PERSONAL HISTORY OF PULMONARY EMBOLISM Status: Chronic Comment: on eliquis (6) Mitral regurgitation Status: Chronic Qualifiers: Cardiac valve disease etiology: nonrheumatic Qualified Code(s): I34.0 - Nonrheumatic mitral (valve) insufficiency - Plan cont current plan of care Patient seen by Dr. Adam who agrees with current treatment. -: Cardiology consult requested re: increased OCAMPO, ?new afib vs. PAC. -: Repeat EKG requested. -: Hx of GERD. Resume Protonix. -: Patients case discussed with Dr. Harden who agrees with plan as above. * . Review of Systems - Review of Systems Constitutional: negative: fever, chills, sweats, weakness, malaise Eyes: negative: Pain, Vision Change, Conjunctivae Inflammation, Eyelid Inflammation, Redness ENT: negative: Ear Pain, Ear Discharge, Nose Pain, Nose Discharge, Nose Congestion, Mouth Pain, Mouth Swelling, Throat Pain, Throat Swelling Respiratory: Cough (Ocassional dry cough), Shortness of Breath (Improved and at baseline). negative: Dry, Hemoptysis, SOB with Excertion, Pleuritic Pain, Sputum, Wheezing Cardiovascular: palpitations (occasional palpitations). negative: chest pain, orthopnea, paroxysmal nocturnal dyspnea, edema, light headedness Gastrointestinal: negative: Nausea, Vomiting, Abdominal Pain, Diarrhea, Constipation, Melena, Hematochezia Genitourinary: negative: Dysuria, Frequency, Incontinence, Hematuria, Retention Musculoskeletal: negative: Neck Pain, Shoulder Pain, Arm Pain, Back Pain, Hand Pain, Leg Pain, Foot Pain Skin: negative: Rash Neurological: negative: Weakness, Numbness, Incoordination, Change in Speech, Confusion, Seizures - Medications/Allergies Allergies/Adverse Reactions: Allergies Allergy/AdvReac Type Severity Reaction Status Date / Time codeine Allergy Verified 10/02/18 19:22 Medications: Current Medications Albuterol/Ipratropium (Duoneb) 3 ml NEB [id number] [facility] Last Admin: 12/15/18 06:40 Dose: Not Given Allopurinol (Zyloprim) 300 mg PO DAILY [facility] Last Admin: 12/15/18 09:29 Dose: 300 mg Apixaban (Eliquis) 2.5 mg PO BID [facility] Last Admin: 12/15/18 09:29 Dose: 2.5 mg Atorvastatin Calcium (Lipitor) 20 mg PO HS [facility] Clonazepam (Klonopin) 0.5 mg PO HS [facility] Ezetimibe (Zetia) 10 mg PO DAILY [facility] Last Admin: 12/15/18 09:28 Dose: 10 mg Levofloxacin 500 mg/ Device 100 mls @ 100 mls/hr IVPB Q24HR [facility] Last Admin: 12/14/18 18:43 Dose: 100 mls Methylprednisolone Sodium Succinate (Solu-Medrol) 20 mg IVP Q8HR [facility] Last Admin: 12/15/18 06:02 Dose: 20 mg Metoprolol Tartrate (Lopressor) 12.5 mg PO HS [facility] Pantoprazole Sodium (Protonix) 40 mg PO NOW [facility] Stop: 12/15/18 11:00 Last Admin: 12/15/18 09:35 Dose: 40 mg Sodium Chloride (Flush - Normal Saline) 10 ml IVF PRN PRN PRN Reason: Saline Flush Tolvaptan (Samsca) 15 mg PO DAILY [facility] Last Admin: 12/15/18 09:52 Dose: 15 mg
[2018-12-15 12:11] VITALS: BP 113/55; TEMP 97.7
--- NOTE | 2018-12-15 12:43 | PRG ---
DATE OF SERVICE: 12/15/2018 SUBJECTIVE: He feels better. Has no acute complaints at the current time. OBJECTIVE: VITAL SIGNS: Temperature 97.7, pulse 80, respirations 20, O2 saturation 96% on room air, and blood pressure 113/55. HEENT: Unremarkable. NECK: No JVD. LUNGS: Clear to auscultation. CARDIAC: S1 and S2, slightly irregular. ABDOMEN: Soft. EXTREMITIES: No edema. DIAGNOSTIC DATA: His EKG shows what appears to be a sinus rhythm with PACs. ASSESSMENT: Asthmatic bronchitis, which appears to be better after treatment. PLAN: From my standpoint, he is good to go home on a short course of Levaquin and taper dose of steroids over about a week. I have told him to perhaps cut his breathing treatments in half at home as he appears to be having some stable angina from using those breathing treatments. He can follow up with Dr. Kingston as an outpatient. Job ID: [id number]
--- NOTE | 2018-12-15 13:26 | CON ---
DATE OF CONSULTATION: 12/15/2018 REASON FOR CONSULTATION: Abnormal EKG. HISTORY OF PRESENT ILLNESS: Mr. Phelan is a very pleasant 88-year-old white gentleman. 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 He was seen by Dr. Adam, diagnosed with an asthmatic bronchitis, which is something similar to what happened back in September. He is already getting better from this. When being admitted in the ER, he had an EKG that was read out to be atrial fibrillation. Repeat EKG was done this morning so Cardiology is being consulted for further evaluation. My Mr. Phelan denies any palpitations. No syncope or presyncope. Denies any chest pain, tightness, or pressure, only this shortness of breath which is already getting better. PAST MEDICAL HISTORY: 1. Chronic asthmatic bronchitis. 2. Coronary artery disease requiring stenting in the past. 3. Diverticulitis. 4. Rheumatoid arthritis. 5. BPH. 6. Pulmonary embolism. 7. Bronchiectasis. 8. Pulmonary fibrosis. 9. History of rectal fistula. 10. GARRETT. 11. Small bowel resection. 12. Colostomy and subsequent reversal. 13. Right shoulder surgery. 14. Right hip surgery. 15. Bilateral knee surgeries. 16. History of pulmonary embolism about a year ago, on chronic anticoagulation. SOCIAL HISTORY: No alcohol, tobacco, or drugs. OUTPATIENT MEDICATIONS: 1. Metoprolol 12.5 mg p.o. b.i.d. 2. Levaquin. 3. DuoNeb. 4. Proventil. 5. Acetaminophen p.r.n. 6. Samsca, which is tolvaptan 50 mg a day. 7. Pravastatin 80 mg at bedtime. 8. Protonix 40 mg daily. 9. Latanoprost. 10. Zetia 10 mg daily. 11. Budesonide 2 mL inhalation b.i.d. 12. Eliquis 2.5 mg b.i.d. 13. Vitamin D3. 14. Allopurinol 300 mg a day. 15. Prednisone 5 mg a day. 16. Clonazepam 0.5 mg at bedtime. ALLERGIES: CODEINE. REVIEW OF SYSTEMS: A 12-point review of systems was done and was all negative unless stated in the history of present illness. PHYSICAL EXAMINATION: VITAL SIGNS: Temperature 97.7, pulse 80, respiratory rate 20, sat 96% on room air, blood pressure 113/55. GENERAL: Awake, alert, and oriented x3. No distress. HEENT: Normocephalic, atraumatic. NECK: Supple. LUNGS: Coarse breath sounds with expiratory wheezes. CARDIOVASCULAR: S1 and S2. No S3 or S4. There is a grade 2/6 systolic murmur in the left sternal border. ABDOMEN: Soft, positive bowel sounds. EXTREMITIES: No edema. SKIN: Warm and dry. LABORATORY DATA: Laboratory work was reviewed. CBC with a white count of 4.3, hemoglobin 10, hematocrit 29, platelet count of 135. Chemistry unremarkable except for sodium 134. Troponin was 0.03 and 0.02, then 0.02. BNP was 259. CK-MB was normal. Albumin was normal. Lipase was 6 on the low side. UA was unremarkable. Blood culture negative x2. Most recent echocardiogram was done in 09/2018, which showed an EF of 50% to 55%. There were frequent PVCs. Left atrium was normal. There is moderate MR. Aortic valve sclerosis, moderate TR with elevated pulmonary pressures at 60 mmHg. EKGs were reviewed. The first initial EKG in the ER that was read by the computer as atrial fibrillation RVR is not atrial fibrillation, it looks more like sinus rhythm. However, the baseline has so much artifact that it is hard to tell. But definitely not atrial fibrillation. Second EKG this morning is either sinus rhythm with several PACs versus just a wandering atrial pacemaker. I would favor wandering atrial pacemaker right now there are several different P wave morphologies. ASSESSMENT AND PLAN: 1. Acute asthmatic bronchitis, per Dr. Adam. 2. 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 3. History of pulmonary embolism, on full anticoagulation. Continue for now. Thank you for letting me to participate in the care of your patient. We will sign off. Please call with any questions. I will plan on seeing him in the office in 1 to 2 months. Job ID: [id number]
[2018-12-15] MEDS ORDERED: clonazePAM 0.5 MG TAB PO SCH (21:00)
[2018-12-15] MEDS ORDERED: Non-Formulary Item 1 EACH (Pravastatin Sodium [Pravastatin Sodium] 80 MG) PO SCH (21:00)
[2018-12-15] MEDS ORDERED: Atorvastatin Calcium 20 MG TAB PO SCH (21:00)
[2018-12-15] MEDS ORDERED: Metoprolol Tartrate 25 MG TAB PO SCH (21:00)
== END 2018-12-15 14:08 | disposition home or self-care (01) ==
LOC: ERS 12:04 → 2SW 14:53
PROVIDERS: ADMIT Internal Medicine; ATTEND Internal Medicine
DX: J20.9 Acute bronchitis, unspecified (principal); J44.9 Chronic obstructive pulmonary disease, unspecified; N18.3 Chronic kidney disease, stage 3 (moderate); I25.10 Atherosclerotic heart disease of native coronary artery without angina pectoris; I50.9 Heart failure, unspecified; M10.9 Gout, unspecified; E87.1 Hypo-osmolality and hyponatremia; I34.0 Nonrheumatic mitral (valve) insufficiency; K57.92 Diverticulitis of intestine, part unspecified, without perforation or abscess without bleeding; M06.9 Rheumatoid arthritis, unspecified; N40.0 Benign prostatic hyperplasia without lower urinary tract symptoms; I26.99 Other pulmonary embolism without acute cor pulmonale; J84.10 Pulmonary fibrosis, unspecified; G47.33 Obstructive sleep apnea (adult) (pediatric); Z79.01 Long term (current) use of anticoagulants; Z79.899 Other long term (current) drug therapy; Z88.6 Allergy status to analgesic agent; Z86.711 Personal history of pulmonary embolism
CPT/HCPCS: 71045; 80048; 80053; 82553; 83690; 83880; 84484 ×2; 85025 ×2; 87040; 93005 ×2; 94640 ×2; 96361 ×2; 96365; 96375; 96376 ×2; 99285; G0378 ×2; 36415; 81003; 81015; 93010; 96374; J1956; J2920; J2930; J7620

== ENCOUNTER 2019-11-28 05:49 | Outpatient (CLI) | payer MEDICARE ==
[2019-11-28 14:49] LABS: #Eosinphils 0.2 thou/uL (0.0-0.7); #Lymphocytes 2.4 thou/uL (1.20-3.40); #Monocytes 0.7 thou/uL (0.11-0.59); #Neutrophils 4.3 thou/uL (1.40-6.50); %Basophils 0.3 % (0.0-1.0); %Eosinophils 2.3 % (0.0-10.0); %Lymphocytes 31.5 % (21.0-51.0); %Monocytes 9.4 % (0.0-10.0); %Neutrophils 56.5 % (42.0-75.0); Hemoglobin 12.7 g/dL (14.0-18.0); Mean Corpuscular HGB CONC 32.9 g/dL (32.0-36.0); Mean Corpuscular Hemoglobin 33.1 pg (27.0-31.0); Mean Platelet Volume 8.6 fL (7.4-10.4); Platelet Count 158 thou/uL (130-400); RBC Distribution Width 15.7 % (11.5-14.5); Red Blood Cell (RBC) Count 3.84 mill/uL (4.70-6.10); White Blood Cell (WBC) Count 7.7 thou/uL (4.8-10.8)
[2019-11-28 14:55] LABS: Prothrombin Time 12.7 SEC (12.0-14.7)
[2019-11-28 15:08] LABS: Anion Gap 13 mmol/L (10-20); BUN (Urea Nitrogen) 26 mg/dL (8.4-25.7); Calc. Creatinine Clearance 0 mL/min (70-130); Carbon Dioxide 27 mmol/L (23-31); Chloride 102 mmol/L (98-107); Estimated GFR-MDRD 53; Glucose 83 mg/dL (83-110); Potassium 4.5 mmol/L (3.5-5.1); Sodium 137 mmol/L (136-145)
[2019-11-28 15:28] LABS: Bilirubin Negative (Negative); Blood, Urine Negative (Negative); Clarity Clear (Clear); Glucose, Urine (Dipstick) Normal (Negative); Leukocyte Negative Leu/uL (Negative); Nitrite Negative (Negative); Protein, Urine (Dipstick) 10 mg/dL (Neg-Trace); RBC/HPF 0-3 HPF (0-3); Squamous Epithelial None Seen HPF (0-3); Urobilinogen Normal mg/dL (Less than 2); WBC/HPF 0-3 HPF (0-3)
[2019-11-28 15:29] LABS: Bacteria/HPF Rare-Few HPF (None Seen)
== END 2019-11-28 05:50 | disposition home or self-care (01) ==
LOC: LABBT 05:49
PROVIDERS: ATTEND Orthopaedic Surgery
DX: Z01.818 Encounter for other preprocedural examination (principal); M16.12 Unilateral primary osteoarthritis, left hip
CPT/HCPCS: 80048; 81001; 85025; 85610; 87081; 93005; 93010

== ENCOUNTER 2019-11-28 13:15 | Inpatient (IN) | payer MEDICARE ==
[2019-12-10] MEDS ORDERED: Promethazine HCl 25 MG/ML VIAL IM PRN (08:55)
[2019-12-10] MEDS ORDERED: Ondansetron PF 4 MG/2 ML Vial IVP PRN ×2 (08:55→13:30)
[2019-12-10] MEDS ORDERED: diphenhydrAMINE 25 MG CAP PO PRN ×2 (08:55→13:30)
[2019-12-10] MEDS ORDERED: Zolpidem Tartrate 5 MG TAB PO PRN (08:55)
[2019-12-10] MEDS ORDERED: HYDROcodone/Acetaminophen 10/325 mg Tablet PO PRN ×2 (08:55)
[2019-12-10] MEDS ORDERED: Fentanyl 100 MCG/2 ML VIAL SLOW IVP PRN ×2 (08:55)
[2019-12-10] MEDS ORDERED: Acetaminophen 325 MG TAB PO PRN (08:57)
[2019-12-10] MEDS ORDERED: predniSONE 5 MG TAB PO SCH ×2 (09:00→18:00)
[2019-12-10] MEDS ORDERED: Sodium Chloride 0.9% 100 ML ONE (09:12)
[2019-12-10] MEDS ORDERED: Tranexamic Acid 1,000 MG/10 ML VIAL ONE (09:12)
[2019-12-10] MEDS ORDERED: Midazolam HCl 2 mg/2 ml Vial ONE ×3 (09:13→11:52)
[2019-12-10] MEDS ORDERED: Fentanyl 100 MCG/2 ML VIAL ONE (09:13)
[2019-12-10] MEDS ORDERED: Vancomycin 1.5 GRAM/300 ML BAG 1.5 GM/300 ML BAG ONE (09:13)
[2019-12-10] MEDS ORDERED: Ondansetron PF 4 MG/2 ML Vial ONE (10:10)
[2019-12-10] MEDS ORDERED: Lidocaine 1.5% w/Epi 1:200K 30 ML VIAL (Epid Use) ONE (10:10)
[2019-12-10] MEDS ORDERED: PHENYLEPHRINE-NS 100 MCG/ML 10 ML SYRINGE ONE (10:10)
[2019-12-10] MEDS ORDERED: Ketamine 50 MG/ML (10ML VIAL) ONE (10:54)
[2019-12-10] MEDS ORDERED: Naloxone HCl 0.4 mg/ml Vial IV PRN (13:30)
[2019-12-10] MEDS ORDERED: Hydrocerin (Eucerin) Cream 120 gm Jar TOP PRN (13:30)
[2019-12-10] MEDS ORDERED: diphenhydrAMINE 50 MG/ML VIAL IVP PRN (13:30)
[2019-12-10] MEDS ORDERED: traMADol HCl 50 MG TAB PO PRN (13:30)
[2019-12-10] MEDS ORDERED: diphenhydrAMINE 50 MG/ML VIAL IM PRN (13:30)
[2019-12-10] MEDS ORDERED: Bupivacaine 0.25% 10 ML VIAL EPIDURAL PRN (13:30)
[2019-12-10] MEDS ORDERED: Ketorolac Tromethamine 30 MG/ML VIAL IVP PRN (13:30)
[2019-12-10] MEDS ORDERED: Naloxone HCl 0.4 mg/ml Vial IVP PRN (13:30)
--- NOTE | 2019-12-10 14:06 | OP ---
DATE OF PROCEDURE: 12/10/2019 This is Oliver Fung PA-C, dictating for Deepak Lepe MD. ANESTHESIA: Continuous epidural. PREOPERATIVE DIAGNOSIS: End-stage bicompartmental osteoarthritis, left hip POSTOPERATIVE DIAGNOSIS: End-stage bicompartmental osteoarthritis, left hip. PROCEDURE: Press-fit right total hip arthroplasty. SURGEON: Deepak Lepe MD SCALE TECHNICIAN: Oliver Fung PA-C. COMPONENTS USED: [employer] Accolade II press-fit hip stem with a Tritanium 56 mm press-fit hemispherical cluster acetabular shell, 10 degree polyethylene fixed bearing insert, and a ceramic femoral head with a +2 neck length. ESTIMATED BLOOD LOSS: Less than 100 mL. SPECIMENS: None. DRAINS: None. COMPLICATIONS: None. COUNTS: Correct. FINDINGS: End-stage severe degenerative bicompartmental disease, [id number] arthrosis, periarticular osteophyte formation, large serous effusion, hypertrophic synovium, changes consistent with chronic disease. INPUT: 1800 mL of crystalloid. OUTPUT: 400 mL of clear yellow urine. INDICATIONS FOR SURGERY: Law is an 89-year-old white male who has had progressive left hip, groin, and thigh pain and problems with standing and walking for the last 5 to 7 years. He has failed conservative management and elected to proceed with total hip arthroplasty as definitive treatment of pain. PROCEDURE IN DETAIL: After informed consent was obtained in the preoperative holding area, the patient was taken to the operative suite where general anesthesia was induced. The patient was then positioned in the lateral decubitus position. The hip was then prepped and draped in usual sterile fashion. The patient received preoperative antibiotics. Prior to incision, time-out was called and all members of the surgical team agreed upon site, surgeon, and patient. After this, a longitudinal incision was made directly over the trochanter, noted by palpation extending 2 fingerbreadths above and below the trochanter. The deeper subcutaneous layer was undermined with Bovie electrocautery. The iliotibial band was encountered and incised sharply and the plane below this was developed bluntly. A Charnley retractor was placed to hold this opened. The lateral aspect of the trochanter and the abductor muscles were encountered and then reflected anteriorly off the trochanter using Bovie electrocautery. Once this was completed, the anterior capsule was then encountered and identified and copious capsulotomy was carried out, exposing the femoral neck and head. Dislocation maneuver was then performed and an in situ provisional neck cut was then made using the oscillating saw. Attention was then turned to acetabular preparation. Sequential reaming was carried out up to the appropriate diameter and a trial was then malleted into place with good firm resistance and no pullout. The permanent acetabular shell was then malleted squarely into place, as was the appropriate liner. Once completed, the wound was copiously irrigated and attention was then turned to femoral preparation. Flexion and external rotation were performed of the exposed thigh and femoral elevators were then placed at the proximal aspect of the wound. Canal finder was used to establish the length of the canal and sequential reaming was carried out, followed by broaching. Once the appropriate stability was established with the trial broaches with flexion, extension and rotational stability, we did trial with neutral and 2 mm offset incremental necks. Once the appropriate size was decided upon, with good stability noted with flexion, extension, internal and external rotation and shuck being negative, we removed the femoral trial broach and malletted into place the permanent prosthesis with good firm fit, which was also stable to rotation. Again, the hip felt very stable to flexion, extension, internal and external rotation. Leg lengths appeared near anatomic clinically and we were quite happy with prosthesis placement. Copious irrigation was then carried out through the entirety of the wound. Primary closure of the abductors was accomplished with interrupted #2 Vicryl [id number] stitches and the IT band was then closed with interrupted #2 Vicryl, oversewn with a #2 running barbed Quill stitch. Subcutaneous fascia was closed with running barbed Quill stitch and a subcuticular Monocryl barbed Quill stitch was used for skin closure and augmented with skin cement. A sterile dressing was applied. The procedure was terminated without any complication. All counts were correct. The patient was awakened in the operative suite and taken to the recovery room in stable condition. Job ID: [id number]
[2019-12-10] MEDS ORDERED: EPHEDRINE 25 MG/5 ML SYRINGE ONE (14:14)
--- NOTE | 2019-12-10 14:15 | RAD ---
LEFT HIP 2 VIEWS: HISTORY: Postop total hip replacement. FINDINGS/IMPRESSION: Status post recent total hip replacement changes on the left. No dislocation or periprosthetic fract ure. POS: [facility]
[2019-12-10] MEDS ORDERED: Albumin 5% 500 ML ONE (14:38)
[2019-12-10] MEDS ORDERED: CEFAZOLIN 2 GM in Premix Bag 1 BAG IVPB SCH (16:00)
[2019-12-10] MEDS: Aspirin 81 mg Enteric Coated Tablet PO SCH ×2 (17:45→20:17)
[2019-12-10] MEDS: Ezetimibe 10 MG TAB PO SCH (17:45)
[2019-12-10] MEDS: Allopurinol 300 MG TAB PO SCH (17:45)
[2019-12-10] MEDS: Hydroxychloroquine Sulfate 200 MG TAB PO SCH ×2 (17:46→20:17)
[2019-12-10] MEDS: Sodium Chloride 0.9% 1,000 ML IV SCH ×2 (17:46→17:49)
[2019-12-10 18:07] LABS: #Eosinphils 0.1 thou/uL (0.0-0.7); #Lymphocytes 1.4 thou/uL (1.20-3.40); #Monocytes 0.5 thou/uL (0.11-0.59); %Basophils 0.9 % (0.0-1.0); %Eosinophils 2.5 % (0.0-10.0); %Lymphocytes 27.3 % (21.0-51.0); %Monocytes 10.7 % (0.0-10.0); %Neutrophils 58.6 % (42.0-75.0); Hemoglobin 9.6 g/dL (14.0-18.0); Mean Corpuscular HGB CONC 33.8 g/dL (32.0-36.0); Mean Corpuscular Hemoglobin 34.5 pg (27.0-31.0); Mean Platelet Volume 8.1 fL (7.4-10.4); Platelet Count 107 thou/uL (130-400); RBC Distribution Width 15.6 % (11.5-14.5); Red Blood Cell (RBC) Count 2.79 mill/uL (4.70-6.10); White Blood Cell (WBC) Count 5.1 thou/uL (4.8-10.8)
[2019-12-10] MEDS ORDERED: Ropivacaine 0.2% HCl/PF 20 ML ONE (18:17)
[2019-12-10 18:22] LABS: Lactic Acid 1.7 mmol/L (0.5-2.2)
[2019-12-10 18:27] LABS: ALT (SGPT) 16 U/L (8-55); AST (SGOT) 28 U/L (5-34); Albumin 3.1 g/dL (3.4-4.8); Alkaline Phosphatase 75 U/L (40-110); Anion Gap 10 mmol/L (10-20); BUN (Urea Nitrogen) 26 mg/dL (8.4-25.7); Bilirubin, Total 0.5 mg/dL (0.2-1.2); Calc. Creatinine Clearance 74 mL/min (70-130); Calcium 7.3 mg/dL (7.8-10.44); Carbon Dioxide 21 mmol/L (23-31); Chloride 108 mmol/L (98-107); Estimated GFR-MDRD 76; Glucose 85 mg/dL (83-110); Magnesium 1.5 mg/dL (1.6-2.6); Potassium 3.6 mmol/L (3.5-5.1); Protein, Total 5.1 g/dL (5.8-8.1); Sodium 135 mmol/L (136-145)
[2019-12-10 19:23] LABS: Bilirubin Negative (Negative); Blood, Urine 1+ (Negative); Clarity Clear (Clear); Glucose, Urine (Dipstick) Normal (Negative); Leukocyte Negative Leu/uL (Negative); Nitrite Negative (Negative); Protein, Urine (Dipstick) Negative (Neg-Trace); Squamous Epithelial None Seen HPF (0-3); Urobilinogen Normal mg/dL (Less than 2); WBC/HPF 0-3 HPF (0-3)
[2019-12-10 19:24] LABS: Bacteria/HPF 1+ HPF (None Seen); Urine Culture Reflex Yes Yes
[2019-12-10] MEDS: CEFAZOLIN 2 GM in Premix Bag 1 BAG IVPB SCH (19:30)
[2019-12-10] MEDS: Latanoprost 0.005% Ophth Soln 2.5 ml Bottle EA EYE SCH (20:15)
[2019-12-10] MEDS: Metoprolol Tartrate 25 MG TAB PO SCH (20:19)
[2019-12-10] MEDS: Loratadine 10 MG TAB PO SCH (20:20)
[2019-12-10] MEDS: Atorvastatin Calcium 10 MG TAB PO SCH (20:20)
[2019-12-10] MEDS: Pregabalin 50 MG CAP PO SCH ×2 (20:21→21:59)
[2019-12-10] MEDS ORDERED: Famotidine/PF 20 mg/2ml Vial SLOW IVP SCH (21:00)
[2019-12-10] MEDS ORDERED: clonazePAM 0.5 MG TABLET PO SCH (21:00)
[2019-12-10] MEDS: clonazePAM 0.5 MG TABLET PO PRN (21:44)
[2019-12-10] MEDS: Acetaminophen 325 MG TAB PO PRN (21:59)
[2019-12-11] MEDS: CEFAZOLIN 2 GM in Premix Bag 1 BAG IVPB SCH (01:57)
[2019-12-11] MEDS: Acetaminophen 325 MG TAB PO PRN ×3 (03:55→09:44)
[2019-12-11] MEDS: traMADol HCl 50 MG TAB PO PRN ×2 (03:56→05:58)
[2019-12-11 05:58] LABS: #Eosinphils 0.1 thou/uL (0.0-0.7); #Lymphocytes 1.3 thou/uL (1.20-3.40); #Monocytes 0.6 thou/uL (0.11-0.59); #Neutrophils 3.2 thou/uL (1.40-6.50); %Basophils 0.2 % (0.0-1.0); %Lymphocytes 24.7 % (21.0-51.0); %Monocytes 10.9 % (0.0-10.0); %Neutrophils 63.2 % (42.0-75.0); Hemoglobin 9.2 g/dL (14.0-18.0); Mean Corpuscular HGB CONC 32.6 g/dL (32.0-36.0); Mean Corpuscular Hemoglobin 33.1 pg (27.0-31.0); Mean Platelet Volume 8.6 fL (7.4-10.4); Platelet Count 110 thou/uL (130-400); RBC Distribution Width 15.6 % (11.5-14.5); Red Blood Cell (RBC) Count 2.79 mill/uL (4.70-6.10); White Blood Cell (WBC) Count 5.1 thou/uL (4.8-10.8)
[2019-12-11 06:07] LABS: Anion Gap 12 mmol/L (10-20); BUN (Urea Nitrogen) 25 mg/dL (8.4-25.7); Calc. Creatinine Clearance 59 mL/min (70-130); Calcium 8.2 mg/dL (7.8-10.44); Carbon Dioxide 21 mmol/L (23-31); Chloride 102 mmol/L (98-107); Estimated GFR-MDRD 59; Glucose 98 mg/dL (83-110); Potassium 4.7 mmol/L (3.5-5.1); Sodium 130 mmol/L (136-145)
[2019-12-11] MEDS: Sodium Chloride 0.9% 1,000 ML IV SCH ×3 (06:19→21:17)
--- NOTE | 2019-12-11 07:55 | CON ---
DATE OF CONSULTATION: 12/10/2019 TIME OF ASSESSMENT: 1700. CHIEF COMPLAINT: "I feel really cold." REFERRING PHYSICIAN: Dr. Lepe REASON FOR CONSULTATION: Medical Management HISTORY OF PRESENT ILLNESS: Mr. Phelan is an 89-year-old gentleman, who is status post left total hip arthroplasty done by Dr. Lepe earlier today. He reportedly became hypotensive following surgery and was kept in recovery for an extended period of time and received a fluid bolus. His blood pressure has come up to the low 100 systolic. The patient denies having any complaints except feeling very cold and has some chills. Denies feeling unwell in recent days leading up to surgery. He has not had any fevers or sweats. Denies any cough. No urinary symptoms. No abdominal pain. He has overall felt well and himself. He does report feeling hungry, has not had anything to eat since surgery. He is also concerned about missing his dose of prednisone, which he takes for his rheumatoid arthritis. He was due for that this morning and usually takes with meals. Requesting to take it with his evening meal. The patient denies having any chest pain, palpitations, or shortness of breath. No headaches or dizziness. All other review of systems are negative. PAST MEDICAL HISTORY: 1. CAD. 2. History of PE for which he was on warfarin for one year and more recently on Eliquis. 3. Gout. 4. Rheumatoid arthritis. 5. History of left lower extremity DVT. 6. Diverticulitis. 7. History of hyponatremia. 8. Anemia of chronic disease. 9. Mitral regurgitation. 10. CKD stage 3. 11. History of pulmonary artery hypertension. 12. Undiagnosed obstructive sleep apnea. PAST SURGICAL HISTORY: 1. Total knee replacement bilaterally. 2. Right hip replacement. 3. Right shoulder replacement. 4. Perianal abscess drainage. 5. Colostomy with reverse colostomy later. 6. Coronary artery stents x2. SOCIAL HISTORY: The patient denies any history of tobacco use. Denies any alcohol consumption or illicit drug use. FAMILY HISTORY: His father was diagnosed with prostate cancer and passed in his 70s. His mother diagnosed with pancreatic cancer and in her 80s. ALLERGIES: CODEINE. CURRENT MEDICATIONS: 1. Acetaminophen. 2. Allopurinol. 3. Vitamin D3. 4. Clonazepam. 5. Etanercept. 6. Zetia. 7. Hydroxychloroquine. 8. Latanoprost eye drop. 9. Claritin. 10. Metoprolol tartrate. 11. Mirabegron. 12. Protonix. 13. Pravastatin. 14. Pregabalin. 15. Tramadol. 16. Prednisone. PHYSICAL EXAMINATION: GENERAL: The patient appears well developed, well nourished, is in no acute distress. He does have chills. VITAL SIGNS: Temperature 97.3, pulse 65, respirations 18, blood pressure 101/ 55. HEENT: Normocephalic and atraumatic. Pupils are equal, round, and reactive to light. Sclerae without icterus. Oropharynx is clear. NECK: Supple. LUNGS: Clear to auscultation bilaterally without any wheezes, rales, or rhonchi. CARDIAC: Regular rate and rhythm. ABDOMEN: Soft, nontender, nondistended. Normoactive bowel sounds present. No guarding or rigidity. No renal angle tenderness. EXTREMITIES: Mechanical SCDs in place. No lower extremity edema. Peripheral pulses strong and equal bilaterally. SKIN: Warm and dry. NEUROLOGIC: Alert and oriented x3. No neuro deficits on exam. LABORATORY DATA: Obtained on 11/28/2019; white count 7.7, hemoglobin 12.7, hematocrit 38.7, platelets 158, band neutrophils 14%. PT 12.7, INR 1, PTT 59. Sodium 137, potassium 4.5, BUN 26, creatinine 1.28, GFR 53, glucose 83. IMAGING DATA: Hip x-ray obtained on 12/10/2019, status post recent total hip replacement changes on the left. No dislocation or periprosthetic fracture. IMPRESSION AND PLAN: Mr. Phelan is an 89-year-old gentleman who has been referred to us for medical management with multiple comorbidities including coronary artery disease, gout, rheumatoid arthritis, and history of deep vein thrombosis/ pulmonary embolism. The patient is status post left total hip arthroplasty and underwent left hip replacement earlier today by Dr. Lepe. At present, the patient is complaining of having chills and feeling cold. His postoperative course was complicated by hypotension, therefore he is kept in recovery while he received fluid bolus. His blood pressure is currently 101/55, heart rate is 66, and temperature is on the lower side at 97.3. We will obtain repeat labs and UA to rule out any underlying infection. He has no other complaints at this present time. Home medications have been restarted. We will continue to monitor the patient closely. Famotidine initiated for GI prophylaxis. The patient has mechanical SCDs in place. He is on chronic anticoagulation for history of deep vein thrombosis/pulmonary embolism, which is currently on hold given recent surgery. Code status full. Surrogate decision maker is his , Ethel Phelan. We will continue with IV fluids and monitor blood pressure. Thank you for this consultation. We will continue to follow this patient with you. Case discussed with attending who agrees with plan of care as described above. Job ID: [id number]
[2019-12-11] MEDS ORDERED: Magnesium 2 GM/50 ML 2 GM in Premix Bag 1 BAG IVPB SCH (08:00)
[2019-12-11] MEDS: predniSONE 5 MG TAB PO SCH (09:40)
[2019-12-11] MEDS: Hydroxychloroquine Sulfate 200 MG TAB PO SCH ×2 (09:43→20:36)
[2019-12-11] MEDS: Aspirin 81 mg Enteric Coated Tablet PO SCH ×2 (09:43→20:35)
[2019-12-11] MEDS: Ezetimibe 10 MG TAB PO SCH (09:43)
[2019-12-11] MEDS: Senokot S 8.6-50 MG TAB PO SCH ×2 (09:43→20:36)
[2019-12-11] MEDS: Multivitamin W/ Minerals 1 TAB PO SCH (09:44)
[2019-12-11] MEDS: Allopurinol 300 MG TAB PO SCH (09:44)
[2019-12-11] MEDS: Ferrous Gluconate 324 MG TAB PO SCH ×2 (09:46→20:37)
[2019-12-11] MEDS: Bupivacaine 10 ML in Sodium Chloride 0.9% 90 ML EPIDURAL SCH (09:56)
[2019-12-11] MEDS: Pregabalin 50 MG CAP PO SCH (20:35)
[2019-12-11] MEDS: Loratadine 10 MG TAB PO SCH (20:35)
[2019-12-11] MEDS: Atorvastatin Calcium 10 MG TAB PO SCH (20:38)
[2019-12-11] MEDS: Metoprolol Tartrate 25 MG TAB PO SCH (20:38)
[2019-12-11] MEDS: Latanoprost 0.005% Ophth Soln 2.5 ml Bottle EA EYE SCH (20:39)
[2019-12-11] MEDS: clonazePAM 0.5 MG TABLET PO PRN (21:17)
--- NOTE | 2019-12-11 23:30 | PDOC.HOSPP ---
- Subjective Encounter Date: 12/11/19 Encounter Time: 09:15 Subjective: Patient seen and examined for med mngt. No CP. Pain controlled. No fever or chills. No new complaints. No overnight events - Objective Vital Signs & Weight: Vital Signs (12 hours) Temp Pulse Resp BP Pulse Ox 12/11/19 23:15 98.5 F 70 20 107/62 96 12/11/19 19:47 98.8 F 79 16 123/66 92 L 12/11/19 16:00 98.4 F 74 20 109/62 95 12/11/19 12:00 97.8 F 74 16 103/64 93 L Weight Admit Weight 215 lb Weight 215 lb I&O: 12/10/19 12/11/19 12/12/19 06:59 06:59 06:59 Intake Total 1000 1400 Output Total 600 Balance 1000 800 Result Diagrams: 12/12/19 05:30 12/12/19 05:30 EKG Reviewed by me: Yes (SR) Hospitalist ROS - Review of Systems Respiratory: denies: cough, dry, shortness of breath, hemoptysis, SOB with excertion, pleuritic pain, sputum, wheezing, other Cardiovascular: denies: chest pain, palpitations, orthopnea, paroxysmal noc. dyspnea, edema, light headedness, other Gastrointestinal: denies: nausea, vomiting, abdominal pain, diarrhea, constipation, melena, hematochezia, other - Medication Medications: Active Medications Generic Name Dose Route Start Last Admin Trade Name Freq PRN Reason Stop Dose Admin Acetaminophen 650 mg 12/10/19 08:55 12/11/19 09:44 Tylenol PO 650 mg Q4H PRN Administration Headache/Fever or Pain Allopurinol 300 mg 12/10/19 09:00 12/11/19 09:44 Zyloprim PO 300 mg DAILY DIANNE Administration Aspirin 81 mg 12/10/19 09:00 12/11/19 20:35 Ecotrin PO 81 mg BID DIANNE Administration Atorvastatin Calcium 10 mg 12/10/19 21:00 12/11/19 20:38 Lipitor PO 10 mg HS DIANNE Administration Cholecalciferol 4,000 units 12/10/19 09:00 12/11/19 09:43 Vitamin D3 PO 4,000 units DAILY DIANNE Administration Clonazepam 0.5 mg 12/10/19 21:11 12/11/19 21:17 Clonazepam PO 0.5 mg HS PRN Administration Insomnia Ezetimibe 10 mg 12/10/19 09:00 12/11/19 09:43 Zetia PO 10 mg DAILY DIANNE Administration Ferrous Gluconate 324 mg 12/11/19 09:00 12/11/19 20:37 Fergon PO 324 mg BID DIANNE Administration Hydroxychloroquine Sulfate 200 mg 12/10/19 09:00 12/11/19 20:36 Plaquenil PO 200 mg BID DIANNE Administration Sodium Chloride 1,000 mls @ 100 mls/hr 12/10/19 09:00 12/11/19 21:17 Normal Saline 0.9% IV 1,000 mls .Q10H DIANNE Administration Bupivacaine HCl 10 ml/ Sodium 100 mls @ 6 mls/hr 12/10/19 13:30 12/11/19 09: 56 Chloride EPIDURAL 100 mls INF DIANNE Administration Iron/Minerals/Multivitamins 1 tab 12/11/19 09:00 12/11/19 09:44 Theragran M PO 1 tab DAILY DIANNE Administration Latanoprost 1 drop 12/10/19 21:00 12/11/19 20:39 Xalatan 0.005% Ophth Soln EA EYE 1 drop HS DIANNE Administration Loratadine 10 mg 12/10/19 21:00 12/11/19 20:35 Claritin PO 10 mg HS DIANNE Administration Metoprolol Tartrate 12.5 mg 12/10/19 21:00 12/11/19 20:38 Lopressor PO 12.5 mg HS DIANNE Administration Mirabegron 25 mg 12/11/19 09:00 12/11/19 14:19 Myrbetriq Er PO 25 mg DAILY DIANNE Administration Pantoprazole Sodium 40 mg 12/10/19 09:00 12/11/19 09:43 Protonix PO 40 mg DAILY DIANNE Administration Prednisone 10 mg 12/11/19 08:00 12/11/19 09:40 Prednisone PO 10 mg QAM-WM DIANNE Administration Pregabalin 100 mg 12/10/19 21:00 12/11/19 20:35 Lyrica PO 100 mg HS DIANNE Administration Senna/Docusate Sodium 2 tab 12/11/19 09:00 12/11/19 20:36 Senokot S PO 2 tab BID DIANNE Administration Tramadol HCl 50 mg 12/10/19 13:30 12/11/19 05:58 Ultram PO 50 mg Q6H PRN Administration Mild Pain 1-3 Tramadol HCl 100 mg 12/10/19 13:30 12/10/19 18:08 Ultram PO 100 mg Q6H PRN Administration Moderate Pain 4-6 - Exam General Appearance: NAD Heart: RRR, no gallops Respiratory: CTAB, no rales Gastrointestinal: non-tender, non-distended, normal bowel sounds Extremities: no cyanosis, no clubbing Hosp A/P - Plan DVT proph w/SCDs CAD RA - on chronic steroids h/o PE - completed anticoag Chronic Anemia Hyponatremia CKD 2 Hypomagnesemia HLD PLAN: Increase Prednisone dose to 10 mg daily Cont Statins Monitor vitals Q4 Cont Metoprolol 12.5 mg HS Cont Lyrica
[2019-12-12] MEDS: Bupivacaine 10 ML in Sodium Chloride 0.9% 90 ML EPIDURAL SCH ×2 (03:07→20:41)
[2019-12-12 05:51] LABS: Hemoglobin 9.2 g/dL (14.0-18.0); Mean Corpuscular HGB CONC 33.4 g/dL (32.0-36.0); Mean Platelet Volume 8.5 fL (7.4-10.4); Platelet Count 90 thou/uL (130-400); RBC Distribution Width 15.6 % (11.5-14.5); Red Blood Cell (RBC) Count 2.69 mill/uL (4.70-6.10); White Blood Cell (WBC) Count 5.8 thou/uL (4.8-10.8)
[2019-12-12 05:59] LABS: Anion Gap 9 mmol/L (10-20); BUN (Urea Nitrogen) 21 mg/dL (8.4-25.7); Calc. Creatinine Clearance 60 mL/min (70-130); Calcium 8.2 mg/dL (7.8-10.44); Carbon Dioxide 25 mmol/L (23-31); Chloride 104 mmol/L (98-107); Estimated GFR-MDRD 58; Glucose 99 mg/dL (83-110); Potassium 4.6 mmol/L (3.5-5.1); Sodium 133 mmol/L (136-145)
--- NOTE | 2019-12-12 08:15 | RAD ---
Portable frontal chest radiograph: 12/12/2019 COMPARISON: 12/14/2018 HISTORY: Possible aspiration FINDINGS: Stable right shoulder arthroplasty. Catheter tubing overlies the right hemithorax, incomple tely assessed on this examination. This could represent MAINTENANCE CUSTODIAN shunt tubing. Coarse linear interstitial density noted within both lungs, stable. Stable heart and mediastinal cont ours. No focal consolidation or alveolar edema. IMPRESSION: Portable chest radiograph as described above.
[2019-12-12] MEDS: predniSONE 5 MG TAB PO SCH (08:58)
[2019-12-12] MEDS: Aspirin 81 mg Enteric Coated Tablet PO SCH ×2 (09:01→20:45)
[2019-12-12] MEDS: Ferrous Gluconate 324 MG TAB PO SCH ×2 (09:02→20:47)
[2019-12-12] MEDS: Senokot S 8.6-50 MG TAB PO SCH ×2 (09:02→20:45)
[2019-12-12] MEDS: Allopurinol 300 MG TAB PO SCH (09:03)
[2019-12-12] MEDS: Hydroxychloroquine Sulfate 200 MG TAB PO SCH ×2 (09:05→20:47)
[2019-12-12] MEDS: Ezetimibe 10 MG TAB PO SCH (09:06)
[2019-12-12] MEDS: Multivitamin W/ Minerals 1 TAB PO SCH (09:07)
[2019-12-12] MEDS: Sodium Chloride 0.9% 1,000 ML IV SCH (10:54)
[2019-12-12] MEDS ORDERED: Fleet Enema 133 ML BOT PR PRN (15:30)
[2019-12-12] MEDS ORDERED: Bisacodyl 10 MG SUPP PR PRN (18:50)
[2019-12-12] MEDS ORDERED: Bisacodyl 5 MG TAB PO PRN (18:50)
[2019-12-12] MEDS: Pregabalin 50 MG CAP PO SCH (20:45)
[2019-12-12] MEDS: clonazePAM 0.5 MG TABLET PO PRN (20:45)
[2019-12-12] MEDS: Latanoprost 0.005% Ophth Soln 2.5 ml Bottle EA EYE SCH (20:47)
[2019-12-12] MEDS: Metoprolol Tartrate 25 MG TAB PO SCH (20:47)
[2019-12-12] MEDS: Atorvastatin Calcium 10 MG TAB PO SCH (20:47)
[2019-12-12] MEDS: Loratadine 10 MG TAB PO SCH (20:47)
[2019-12-12] MEDS ORDERED: Polyethylene Glycol 3350 17 GM Packet PO SCH (21:00)
--- NOTE | 2019-12-13 00:04 | PDOC.HOSPP ---
- Subjective Encounter Date: 12/12/19 Encounter Time: 14:30 Subjective: Patient seen and examined for med mngt. Event noted. Diet modified by CHIEF NUCLEAR MEDICINE TECHNOLOGIST. No new complaints. No overnight events - Objective Vital Signs & Weight: Vital Signs (12 hours) Temp Pulse Resp BP Pulse Ox 12/12/19 23:38 100.2 F H 79 18 123/72 96 12/12/19 20:55 99.5 F 90 18 143/78 H 96 Weight Admit Weight 215 lb Weight 215 lb I&O: 12/11/19 12/12/19 12/13/19 06:59 06:59 06:59 Intake Total 1000 1400 477 Output Total 600 725 Balance 1000 800 -248 Result Diagrams: 12/13/19 05:07 12/13/19 00:36 Radiology Reviewed by me: Yes (CXR - no pneumonia) Hospitalist ROS - Review of Systems Respiratory: reports: cough, dry Cardiovascular: denies: chest pain, palpitations, orthopnea, paroxysmal noc. dyspnea, edema, light headedness, other Gastrointestinal: reports: constipation. denies: nausea, vomiting, abdominal pain, diarrhea, melena, hematochezia, other - Medication Medications: Active Medications Generic Name Dose Route Start Last Admin Trade Name Freq PRN Reason Stop Dose Admin Acetaminophen 650 mg 12/10/19 08:55 12/11/19 09:44 Tylenol PO 650 mg Q4H PRN Administration Headache/Fever or Pain Allopurinol 300 mg 12/10/19 09:00 12/12/19 09:03 Zyloprim PO 300 mg DAILY DIANNE Administration Aspirin 81 mg 12/10/19 09:00 12/12/19 20:45 Ecotrin PO 81 mg BID DIANNE Administration Atorvastatin Calcium 10 mg 12/10/19 21:00 12/12/19 20:47 Lipitor PO 10 mg HS DIANNE Administration Cholecalciferol 4,000 units 12/10/19 09:00 12/12/19 09:08 Vitamin D3 PO 4,000 units DAILY DIANNE Administration Clonazepam 0.5 mg 12/10/19 21:11 12/12/19 20:45 Clonazepam PO 0.5 mg HS PRN Administration Insomnia Ezetimibe 10 mg 12/10/19 09:00 12/12/19 09:06 Zetia PO 10 mg DAILY DIANNE Administration Ferrous Gluconate 324 mg 12/11/19 09:00 12/12/19 20:47 Fergon PO 324 mg BID DIANNE Administration Hydroxychloroquine Sulfate 200 mg 12/10/19 09:00 12/12/19 20:47 Plaquenil PO 200 mg BID DIANNE Administration Sodium Chloride 1,000 mls @ 100 mls/hr 12/10/19 09:00 12/12/19 10:54 Normal Saline 0.9% IV Not Given .Q10H DIANNE Bupivacaine HCl 10 ml/ Sodium 100 mls @ 6 mls/hr 12/10/19 13:30 12/12/19 20: 41 Chloride EPIDURAL 100 mls INF DIANNE Administration Iron/Minerals/Multivitamins 1 tab 12/11/19 09:00 12/12/19 09:07 Theragran M PO 1 tab DAILY DIANNE Administration Latanoprost 1 drop 12/10/19 21:00 12/12/19 20:47 Xalatan 0.005% Ophth Soln EA EYE 1 drop HS DIANNE Administration Loratadine 10 mg 12/10/19 21:00 12/12/19 20:47 Claritin PO 10 mg HS DIANNE Administration Metoprolol Tartrate 12.5 mg 12/10/19 21:00 12/12/19 20:47 Lopressor PO 12.5 mg HS DIANNE Administration Mirabegron 25 mg 12/11/19 09:00 12/12/19 09:04 Myrbetriq Er PO 25 mg DAILY DIANNE Administration Pantoprazole Sodium 40 mg 12/10/19 09:00 12/12/19 09:05 Protonix PO 40 mg DAILY DIANNE Administration Prednisone 10 mg 12/11/19 08:00 12/12/19 08:58 Prednisone PO 10 mg QAM-WM DIANNE Administration Pregabalin 100 mg 12/10/19 21:00 12/12/19 20:45 Lyrica PO 100 mg HS DIANNE Administration Senna/Docusate Sodium 2 tab 12/11/19 09:00 12/12/19 20:45 Senokot S PO 2 tab BID DIANNE Administration Tramadol HCl 50 mg 12/10/19 13:30 12/11/19 05:58 Ultram PO 50 mg Q6H PRN Administration Mild Pain 1-3 Tramadol HCl 100 mg 12/10/19 13:30 12/10/19 18:08 Ultram PO 100 mg Q6H PRN Administration Moderate Pain 4-6 - Exam General Appearance: NAD Heart: RRR, no gallops Respiratory: no wheezes, no rales, rhonchi Gastrointestinal: soft, no guarding, no rigidity Neurological: no new deficit Psychiatric: normal affect, A&O x 3 Hosp A/P - Plan DVT proph w/SCDs CAD RA - on chronic steroids h/o PE - completed anticoag Chronic Anemia Hyponatremia CKD 2 Hypomagnesemia HLD Swallow dysfunction PLAN: Cont [id number] mg daily Cont Metoprolol 12.5 mg HS Cont Lyrica Cont Statins Cont modified diet
--- NOTE | 2019-12-13 00:05 | RAD ---
ABDOMEN ONE VIEW: 12/12/19 HISTORY: Abdominal distention, pain. FINDINGS/IMPRESSION: There is air in loops of small and large bowel. The cecum is dilated. There are degenerative change s in the spine. There are postop changes of bilateral hip arthroplasty. POS: OFF
[2019-12-13] MEDS ORDERED: Simethicone Chewable 80 MG TAB PO SCH (00:45)
[2019-12-13 00:47] LABS: #Lymphocytes 0.8 thou/uL (1.20-3.40); #Monocytes 0.9 thou/uL (0.11-0.59); #Neutrophils 6.3 thou/uL (1.40-6.50); %Eosinophils 0.1 % (0.0-10.0); %Lymphocytes 10.4 % (21.0-51.0); %Monocytes 11.2 % (0.0-10.0); %Neutrophils 78.3 % (42.0-75.0); Mean Corpuscular Hemoglobin 35.6 pg (27.0-31.0); Mean Platelet Volume 8.8 fL (7.4-10.4); Platelet Count 99 thou/uL (130-400); RBC Distribution Width 15.6 % (11.5-14.5); Red Blood Cell (RBC) Count 2.82 mill/uL (4.70-6.10)
[2019-12-13 01:02] LABS: Lactic Acid 0.9 mmol/L (0.5-2.2)
--- NOTE | 2019-12-13 01:02 | PDOC.EVN ---
Event Note - Event Note Event Note: Patient with abdominal discomfort/distention. Has not had a bowel movement since before his surgery. He has had darkening of his urine this evening. Also has developed a temp of 100.2. Has been getting stool softeners today. Abdo XR obtained showing air in loops of small and large bowel, cecum also dilated. Will keep patient NPO. IVF restarted. Labs ordered including blood cultures, CBC, CMP, lactic acid. Due to sob, CXR ordered. He is hemodynamically stable.
[2019-12-13 01:12] LABS: ALT (SGPT) 15 U/L (8-55); AST (SGOT) 46 U/L (5-34); Alkaline Phosphatase 83 U/L (40-110); Anion Gap 10 mmol/L (10-20); BUN (Urea Nitrogen) 24 mg/dL (8.4-25.7); Bilirubin, Direct 0.7 mg/dL (0.1-0.3); Bilirubin, Total 1.1 mg/dL (0.2-1.2); Calc. Creatinine Clearance 62 mL/min (70-130); Calcium 8.5 mg/dL (7.8-10.44); Carbon Dioxide 24 mmol/L (23-31); Chloride 98 mmol/L (98-107); Estimated GFR-MDRD 61; Globulin 2.7 g/dL (2.4-3.5); Glucose 138 mg/dL (83-110); Lipase Less than 4 U/L (8-78); Potassium 4.4 mmol/L (3.5-5.1); Protein, Total 5.7 g/dL (5.8-8.1); Sodium 128 mmol/L (136-145)
[2019-12-13] MEDS ORDERED: Lidocaine 2% Jelly 5 ML TUBE TOP SCH (02:45)
[2019-12-13] MEDS ORDERED: Benzocaine 20% Spray 60 ML CAN FS SCH (02:45)
[2019-12-13] MEDS: Sodium Chloride 0.9% 1,000 ML IV SCH ×3 (03:08→22:35)
--- NOTE | 2019-12-13 03:37 | PDOC.BPN ---
- Brief Progress Note I was contacted by nursing staff to evaluate the patient Last evening, patient developed abdominal bloating. He had a small BM yesterday afternoon. He hasn't passed any gas since. He has had nausea and vomiting. Earlier in the night, due to concern for SBO, NG tube insertion was attempted Patient states he has aspirated while NG tube placement was being attempted Currently, he reports shortness of breath, cough and wheezing Reports abdominal discomfort On exam, lying in bed in mild distress Bilateral diffuse wheezing present Not using accessory muscles of respiration Abdomen is firm and distended. Tympanic dullness present. Diffusely tender to palpation CT abd/pelvis obtained earlier in the night. Awaiting report Hold off on NG tube placement until CT report Pt. has h/o nasal bone fractures which has made it difficult to place NG tube If there is SBO confirmed on CT, will place IR consult for NG placement under fluroscopy guidance Current sats of 94% on 2L oxygen Dark urine in the Stephenson bag Hold off on IVF for now due to concern for pulmonary edema as alternative cause of wheezing Will start unasyn to cover for aspiration pneumonia
[2019-12-13 03:40] LABS: Bilirubin 1+ (Negative); Blood, Urine 3+ (Negative); Clarity Turbid (Clear); Glucose, Urine (Dipstick) Normal (Negative); Leukocyte 25 Leu/uL (Negative); Mucous/LPF Rare LPF (<2+); Nitrite Negative (Negative); Protein, Urine (Dipstick) 100 mg/dL (Neg-Trace); RBC/HPF Greater than 50 HPF (0-3); Renal Epithelial 0-3 HPF (None Seen); Squamous Epithelial 0-3 HPF (0-3)
[2019-12-13 03:41] LABS: Bacteria/HPF 1+ HPF (None Seen); Urine Culture Reflex Yes Yes
[2019-12-13] MEDS ORDERED: Sodium Chloride 0.9% (PF) 10 ML VIAL FS PRN (03:41)
[2019-12-13 05:28] LABS: Hemoglobin 10.9 g/dL (14.0-18.0); Mean Corpuscular HGB CONC 34.5 g/dL (32.0-36.0); Mean Corpuscular Hemoglobin 35.1 pg (27.0-31.0); Mean Platelet Volume 9.2 fL (7.4-10.4); Platelet Count 109 thou/uL (130-400); RBC Distribution Width 15.6 % (11.5-14.5); White Blood Cell (WBC) Count 6.2 thou/uL (4.8-10.8)
[2019-12-13] MEDS: Ampicillin/Sulbactam 3 GM in Sodium Chloride 0.9% 100 ML IVPB SCH ×4 (06:15→22:35)
--- NOTE | 2019-12-13 07:57 | CT ---
Emergent after hours noncontrast CT abdomen and pelvis HISTORY: Generalized abdominal pain and distention. Vomiting. Concern for bowel obstruction. COMPARISON: None IMPRESSION: 1. Distention and dilatation of the ascending and transverse colon. The proximal ascending colon francisca ures approximately 9.8 cm in diameter. Transverse colon is also mildly dilated measuring 6.2 cm. Gas and fluid is seen within the dilated loops of colon in these regions. No abrupt transition point is seen. There is a surgical anastomosis seen the junction of the descending and sigmoid colon with moderate amount retained fecal material in the skull colon in this region. 2. Colonic diverticulosis 3. Chronic bibasilar lung changes which were also seen on a CT thorax in 2018. 4. Vascular calcifications. 5. Mild scarring involving the kidneys bilaterally with exophytic hypodense lesion midportion left ki dney statistically likely representing a cyst. 6. Scattered ventral abdominal wall fat-containing hernias. 7. Stephenson catheter in a decompressed urinary bladder. Lower pelvis is not well evaluated due to signif icant artifact from bilateral total hip prostheses. 8. Findings are in agreement with preliminary report by direct radiology. Code QA
--- NOTE | 2019-12-13 08:06 | RAD ---
Portable frontal chest radiograph: 12/13/2019 COMPARISON: 12/12/2019 HISTORY: Vomiting with aspiration FINDINGS: Heart and mediastinal contours are stable. No pneumothorax, pleural fluid, focal consolidat ion, or alveolar edema. Stable increased perihilar and mid right lung zone linear interstitial density. Right shoulder arthroplasty noted. IMPRESSION: Chronic findings as above. No focal consolidation or alveolar edema.
--- NOTE | 2019-12-13 08:13 | RAD ---
Portable frontal chest radiograph: 12/13/2019 COMPARISON: 12/13/2019 HISTORY: Vomiting with aspiration FINDINGS: There is mild linear interstitial density within the mid right lung zone laterally, stable. No pneumothorax or large volume pleural effusion. No focal consolidation. Heart and mediastinal contours are stable. There are stable linear densities in bilateral perihilar regions, chronic in mary ure. Slight blunting of right costophrenic angle noted, which appears similar when compared to studies dating back to 2019. If symptoms persist, PA and lateral imaging of the chest is advised for better evaluation. IMPRESSION: Chronic appearing findings as described above.
[2019-12-13] MEDS: Ezetimibe 10 MG TAB PO SCH (10:47)
[2019-12-13] MEDS: Acetaminophen 325 MG TAB PO PRN (10:47)
[2019-12-13] MEDS: Aspirin 81 mg Enteric Coated Tablet PO SCH ×2 (10:48→21:06)
[2019-12-13] MEDS: predniSONE 5 MG TAB PO SCH (10:48)
[2019-12-13] MEDS: Pantoprazole 40 MG VIAL IVP SCH (10:49)
[2019-12-13 10:56] LABS: Anion Gap 11 mmol/L (10-20); BUN (Urea Nitrogen) 24 mg/dL (8.4-25.7); Calc. Creatinine Clearance 60 mL/min (70-130); Calcium 8.6 mg/dL (7.8-10.44); Carbon Dioxide 25 mmol/L (23-31); Chloride 98 mmol/L (98-107); Estimated GFR-MDRD 58; Glucose 107 mg/dL (83-110); Magnesium 2.3 mg/dL (1.6-2.6); Phosphorus 2.7 mg/dL (2.3-4.7); Potassium 4.2 mmol/L (3.5-5.1); Sodium 130 mmol/L (136-145)
[2019-12-13] MEDS ORDERED: methylPREDNISolone Sod Succ/PF 125 MG/2 ML VIAL IVP SCH (11:45)
[2019-12-13] MEDS: Multivitamin W/ Minerals 1 TAB PO SCH (13:14)
[2019-12-13] MEDS: Hydroxychloroquine Sulfate 200 MG TAB PO SCH ×2 (13:14→21:06)
[2019-12-13] MEDS: Allopurinol 300 MG TAB PO SCH (13:14)
--- NOTE | 2019-12-13 13:39 | RAD ---
EXAM: XR Abdomen 1 View/KUB PROVIDED CLINICAL HISTORY: Erna's syndrome. COMPARISON: 12/12/2019 FINDINGS: Gaseous distention of loops of bowel are seen in the abdomen with prominent gaseous distention of the ascending colon also noted on the prior exam. The degree of gaseous distention has not significantly changed compared to prior study. Degenerative changes are again seen in the spine. Mult iple calcic lesions again overlie the pelvis likely related to phleboliths. Bilateral total hip prostheses are present. IMPRESSION: Overall stable abdomen with gaseous distention of the colon. Greater distention and dilatation of the ascending colon/cecum is again present.
[2019-12-13] MEDS ORDERED: Diltiazem 125 MG in Sodium Chloride 0.9% 100 ML IVPB SCH (18:45)
[2019-12-13] MEDS: Metoprolol Tartrate 25 MG TAB PO SCH (21:06)
[2019-12-13] MEDS: Atorvastatin Calcium 10 MG TAB PO SCH (21:07)
[2019-12-13] MEDS: Loratadine 10 MG TAB PO SCH (21:07)
[2019-12-13] MEDS: Latanoprost 0.005% Ophth Soln 2.5 ml Bottle EA EYE SCH (21:07)
[2019-12-13] MEDS: Pregabalin 50 MG CAP PO SCH (21:08)
[2019-12-13 22:51] LABS: Troponin I 0.228 ng/mL (< 0.028)
[2019-12-13] MEDS ORDERED: Nitroglycerin 0.4 MG TAB (25 Tab Bottle) PO PRN (22:55)
[2019-12-13] MEDS ORDERED: Vancomycin HCl 1 GM in Premix Bag 1 BAG IVPB SCH (23:00)
--- NOTE | 2019-12-13 23:38 | PDOC.HOSPP ---
- Subjective Encounter Date: 12/13/19 Encounter Time: 11:30 Subjective: Patient seen and examined for med mngt. Overnight events noted. Abd pain improving. Had BM. Passing flatus. No other complaints. - Objective Vital Signs & Weight: Vital Signs (12 hours) Temp Pulse Resp BP Pulse Ox 12/13/19 20:02 97.4 F L 96 19 110/58 L 90 L 12/13/19 17:30 119 H 18 97 12/13/19 16:24 98.2 F 74 14 107/63 98 Weight Admit Weight 215 lb Weight 215 lb I&O: 12/12/19 12/13/19 12/14/19 06:59 06:59 06:59 Intake Total 6395 217 9371 Output Total 600 725 200 Balance 800 -248 1100 Result Diagrams: 12/13/19 05:07 12/13/19 10:25 Radiology Reviewed by me: Yes (CT abd - Colon dilatation) Hospitalist ROS - Review of Systems Respiratory: denies: cough, dry, shortness of breath, hemoptysis, SOB with excertion, pleuritic pain, sputum, wheezing, other Cardiovascular: denies: chest pain, palpitations, orthopnea, paroxysmal noc. dyspnea, edema, light headedness, other - Medication Medications: Active Medications Generic Name Dose Route Start Last Admin Trade Name Freq PRN Reason Stop Dose Admin Acetaminophen 650 mg 12/10/19 08:55 12/13/19 10:47 Tylenol PO 650 mg Q4H PRN Administration Headache/Fever or Pain Albuterol/Ipratropium 3 ml 12/13/19 11:43 12/13/19 17:30 Duoneb EZPAP 3 ml [id number] PRN Administration SOB &/or Wheezing Allopurinol 300 mg 12/10/19 09:00 12/13/19 13:14 Zyloprim PO Not Given DAILY DIANNE Aspirin 81 mg 12/10/19 09:00 12/13/19 21:06 Ecotrin PO 81 mg BID DIANNE Administration Atorvastatin Calcium 10 mg 12/10/19 21:00 12/13/19 21:07 Lipitor PO 10 mg HS DIANNE Administration Cholecalciferol 4,000 units 12/10/19 09:00 12/13/19 13:14 Vitamin D3 PO Not Given DAILY DIANNE Clonazepam 0.5 mg 12/10/19 21:11 12/12/19 20:45 Clonazepam PO 0.5 mg HS PRN Administration Insomnia Ezetimibe 10 mg 12/10/19 09:00 12/13/19 10:47 Zetia PO 10 mg DAILY DIANNE Administration Hydroxychloroquine Sulfate 200 mg 12/10/19 09:00 12/13/19 21:06 Plaquenil PO 200 mg BID DIANNE Administration Bupivacaine HCl 10 ml/ Sodium 100 mls @ 6 mls/hr 12/10/19 13:30 12/12/19 20: 41 Chloride EPIDURAL 100 mls INF DIANNE Administration Iron/Minerals/Multivitamins 1 tab 12/11/19 09:00 12/13/19 13:14 Theragran M PO Not Given DAILY [facility] Latanoprost 1 drop 12/10/19 21:00 12/13/19 21:07 Xalatan 0.005% Ophth Soln EA EYE 1 drop HS [facility] Administration Loratadine 10 mg 12/10/19 21:00 12/13/19 21:07 Claritin PO 10 mg HS [facility] Administration Metoprolol Tartrate 12.5 mg 12/10/19 21:00 12/13/19 21:06 Lopressor PO 12.5 mg HS [facility] Administration Ondansetron HCl 4 mg 12/10/19 13:30 12/13/19 03:08 Zofran IVP 4 mg Q6H PRN Administration Nausea/Vomiting Pantoprazole Sodium 40 mg 12/13/19 09:00 12/13/19 10:49 Protonix IVP 40 mg DAILY DIANNE Administration Prednisone 10 mg 12/11/19 08:00 12/13/19 10:48 Prednisone PO 10 mg QAM-WM [facility] Administration Pregabalin 100 mg 12/10/19 21:00 12/13/19 21:08 Lyrica PO Not Given HS DIANNE Tramadol HCl 50 mg 12/10/19 13:30 12/11/19 05:58 Ultram PO 50 mg Q6H PRN Administration Mild Pain 1-3 Tramadol HCl 100 mg 12/10/19 13:30 12/10/19 18:08 Ultram PO 100 mg Q6H PRN Administration Moderate Pain 4-6 - Exam General Appearance: NAD Heart: no gallops, no rubs Respiratory: no rales, no ronchi Gastrointestinal: soft, no guarding, no rigidity, tender to palpation (mild - gen) Psychiatric: normal affect, A&O x 3 Hosp A/P - Plan DVT proph w/SCDs [place] syndrome Hyponatremia Aspiration Pneumonia CAD RA - on chronic steroids h/o PE - completed anticoag Chronic Anemia Hyponatremia CKD 2 Hypomagnesemia HLD Swallow dysfunction PLAN: Avoid Narcotics Daily KUB AM labs Gentle IV hydration Cont Prednisone/Metoprolol Cont other meds as above Cont modified diet PT/OT Update 18:30: Patient developed Afib with RVR. Transferred to Tele. Consult Cardio, check troponins Also blood C/S 1/2 Enterobacter - Will add Vancomycin. Consult ID
[2019-12-14] MEDS: Piperacillin/Tazobactam 3.375 GM in Sodium Chloride 0.9% 100 ML IVPB SCH ×5 (00:34→22:54)
[2019-12-14] MEDS: Sodium Chloride 0.9% 1,000 ML IV SCH ×2 (00:36→22:29)
[2019-12-14 05:08] LABS: Lactic Acid 1.2 mmol/L (0.5-2.2)
[2019-12-14 05:11] LABS: #Lymphocytes 0.4 thou/uL (1.20-3.40); #Monocytes 0.4 thou/uL (0.11-0.59); #Neutrophils 3.4 thou/uL (1.40-6.50); %Eosinophils 0.1 % (0.0-10.0); %Lymphocytes 9.9 % (21.0-51.0); %Monocytes 9.5 % (0.0-10.0); %Neutrophils 80.4 % (42.0-75.0); Anion Gap 8 mmol/L (10-20); BUN (Urea Nitrogen) 26 mg/dL (8.4-25.7); Calc. Creatinine Clearance 67 mL/min (70-130); Carbon Dioxide 26 mmol/L (23-31); Chloride 103 mmol/L (98-107); Estimated GFR-MDRD 67; Glucose 129 mg/dL (83-110); Hemoglobin 8.9 g/dL (14.0-18.0); Magnesium 2.1 mg/dL (1.6-2.6); Mean Corpuscular HGB CONC 34.6 g/dL (32.0-36.0); Mean Corpuscular Hemoglobin 35.4 pg (27.0-31.0); Mean Platelet Volume 8.7 fL (7.4-10.4); Platelet Count 89 thou/uL (130-400); Potassium 4.4 mmol/L (3.5-5.1); RBC Distribution Width 15.3 % (11.5-14.5); Sodium 133 mmol/L (136-145); White Blood Cell (WBC) Count 4.2 thou/uL (4.8-10.8)
--- NOTE | 2019-12-14 09:32 | RAD ---
Exam: Abdomen 2 views: HISTORY: Abdominal pain, distention, vomiting, [place] syndrome COMPARISON: 12/13/2019 CT The previously noted markedly dilated cecum and right colon has considerably improved. There are some dilated loops of small bowel in the right mid abdomen. There are a few nonspecific air-fluid levels. IMPRESSION: Decompression of the cecum and right colon compared to prior study. There is more gas in borderline d ilated small bowel loops now with a few scattered nonspecific air-fluid levels. Continued short-term follow-up.
[2019-12-14] MEDS: predniSONE 5 MG TAB PO SCH (09:33)
[2019-12-14] MEDS: Aspirin 81 mg Enteric Coated Tablet PO SCH ×2 (09:34→22:26)
[2019-12-14] MEDS: Allopurinol 300 MG TAB PO SCH (09:34)
[2019-12-14] MEDS: Ezetimibe 10 MG TAB PO SCH (09:35)
[2019-12-14] MEDS: Hydroxychloroquine Sulfate 200 MG TAB PO SCH ×2 (09:35→22:20)
[2019-12-14] MEDS: Saccharomyces boulardii 250 MG CAP PO SCH (09:36)
[2019-12-14] MEDS: Multivitamin W/ Minerals 1 TAB PO SCH (09:36)
[2019-12-14] MEDS: Pantoprazole 40 MG VIAL IVP SCH (09:36)
--- NOTE | 2019-12-14 13:09 | PRG ---
DATE OF SERVICE: 12/14/2019 This is Angelina Nobles PA-C dictating a report for Deepak Lepe MD. SUBJECTIVE: The patient moved to telemetry yesterday evening secondary to what the patient states was an episode of atrial fibrillation with RVR. He states that he had a breathing treatment yesterday by respiratory therapist, then he went into atrial fibrillation following the breathing treatment. At that time he was moved to telemetry. No issues overnight. He has no complaints at this time. He is still on a clear liquid diet. Hes in NSR at this time. Hip is doing well. OBJECTIVE: VITAL SIGNS: Temperature 97.8, pulse of 66, respiratory rate of 17, blood pressure 101/55, and O2 saturation is 96% on 2 L of nasal cannula oxygen. GENERAL: The patient is awake and alert. He is pleasant and answers all questions appropriately. His is sitting at bedside here in the telemetry unit. MUSCULOSKELETAL: Evaluation of his hip shows the dressing to be clean, dry, and intact. He has movement in bilateral lower extremities and distal neurovascular status is intact. LABORATORY DATA: Laboratory data today, which was reviewed, shows a hemoglobin of 8.9 and hematocrit of 25.6. ASSESSMENT AND PLAN: The patient is status post total hip and knee arthroplasty. He has had multiple events since surgery including a bowel ileus, aspiration with questionable aspiration pneumonia and now an episode of what seems like atrial fibrillation with RVR. He is now on telemetry with rate-controlled normal sinus. We will continue to follow along. Physical therapy will come today. I have encouraged the patient to get out of bed and continue physical therapy. This will help his bowels as well. Job ID: [id number] [facility]
--- NOTE | 2019-12-14 14:06 | PDOC.HOSPP ---
- Subjective Encounter Date: 12/14/19 Encounter Time: 14:04 Subjective: Mr. Phelan was seen today in follow-up of Ileus and aspiration following hip surgery. He says he feels weak, but otherwise no complaints. - Objective Vital Signs & Weight: Vital Signs (12 hours) Temp Pulse Resp BP Pulse Ox 12/14/19 11:52 97.8 F 66 17 101/55 L 96 12/14/19 07:23 97.4 F L 66 18 96/51 L 94 L 12/14/19 04:01 97.5 F L 60 18 92/54 L 97 Weight Admit Weight 215 lb Weight 215 lb I&O: 12/13/19 12/14/19 12/15/19 06:59 06:59 06:59 Intake Total 477 1300 Output Total 725 200 Balance -248 1100 Result Diagrams: 12/14/19 04:26 12/14/19 04:26 Hospitalist ROS - Medication Medications: Active Medications Generic Name Dose Route Start Last Admin Trade Name Freq PRN Reason Stop Dose Admin Acetaminophen 650 mg 12/10/19 08:55 12/13/19 10:47 Tylenol PO 650 mg Q4H PRN Administration Headache/Fever or Pain Albuterol/Ipratropium 3 ml 12/13/19 11:43 12/13/19 17:30 Duoneb EZPAP 3 ml [id number] PRN Administration SOB &/or Wheezing Allopurinol 300 mg 12/10/19 09:00 12/14/19 09:34 Zyloprim PO 300 mg DAILY DIANNE Administration Aspirin 81 mg 12/10/19 09:00 12/14/19 09:34 Ecotrin PO 81 mg BID DIANNE Administration Atorvastatin Calcium 10 mg 12/10/19 21:00 12/13/19 21:07 Lipitor PO 10 mg HS DIANNE Administration Cholecalciferol 4,000 units 12/10/19 09:00 12/14/19 09:34 Vitamin D3 PO 4,000 units DAILY DIANNE Administration Clonazepam 0.5 mg 12/10/19 21:11 12/12/19 20:45 Clonazepam PO 0.5 mg HS PRN Administration Insomnia Ezetimibe 10 mg 12/10/19 09:00 12/14/19 09:35 Zetia PO 10 mg DAILY DIANNE Administration Hydroxychloroquine Sulfate 200 mg 12/10/19 09:00 02/22/20 09:35 Plaquenil PO 200 mg BID DIANNE Administration Bupivacaine HCl 10 ml/ Sodium 100 mls @ 6 mls/hr 12/10/19 13:30 12/12/19 20: 41 Chloride EPIDURAL 100 mls INF DIANNE Administration Piperacillin Sod/Tazobactam 100 mls @ 200 mls/hr 12/13/19 23:00 12/14/19 10: 25 Sod 3.375 gm/ Sodium Chloride IVPB 100 mls 0500,1100,1700,2300 DIANNE Administration Sodium Chloride 1,000 mls @ 50 mls/hr 12/13/19 22:59 12/14/19 00:36 Normal Saline 0.9% IV 1,000 mls .Q20H DIANNE Administration Iron/Minerals/Multivitamins 1 tab 12/11/19 09:00 12/14/19 09:36 Theragran M PO 1 tab DAILY DIANNE Administration Latanoprost 1 drop 12/10/19 21:00 12/13/19 21:07 Xalatan 0.005% Oph Soln EA EYE 1 drop HS DIANNE Administration Loratadine 10 mg 12/10/19 21:00 12/13/19 21:07 Claritin PO 10 mg HS DIANNE Administration Metoprolol Tartrate 12.5 mg 12/10/19 21:00 12/13/19 21:06 Lopressor PO 12.5 mg HS DIANNE Administration Pantoprazole Sodium 40 mg 12/13/19 09:00 12/14/19 09:36 Protonix IVP 40 mg DAILY DIANNE Administration Prednisone 10 mg 12/11/19 08:00 12/14/19 09:33 Prednisone PO 10 mg QAM-WM DIANNE Administration Pregabalin 100 mg 12/10/19 21:00 12/13/19 21:08 Lyrica PO Not Given HS DIANNE Saccharomyces Boulardii 250 mg 12/14/19 09:00 12/14/19 09:36 Florastor PO 250 mg DAILY DIANNE Administration Tramadol HCl 50 mg 12/10/19 13:30 12/11/19 05:58 Ultram PO 50 mg Q6H PRN Administration Mild Pain 1-3 Tramadol HCl 100 mg 12/10/19 13:30 12/10/19 18:08 Ultram PO 100 mg Q6H PRN Administration Moderate Pain 4-6 - Exam Eye: PERRL Heart: RRR (+ occasional PVC,), no murmur, no gallops, no rubs, normal peripheral pulses Respiratory: CTAB, no wheezes, no rales, no ronchi, normal chest expansion Gastrointestinal: soft, non-tender, non-distended, normal bowel sounds, no palpable masses, no hepatomegaly Extremities: no cyanosis, 1+ LE edema Hosp A/P (1) Ileus Code(s): K56.7 - ILEUS, UNSPECIFIED Status: Acute (2) Hyponatremia Code(s): E87.1 - HYPO-OSMOLALITY AND HYPONATREMIA Status: Acute (3) CAD (coronary artery disease) Code(s): I25.10 - ATHSCL HEART DISEASE OF [place] CORONARY ARTERY W/O ANG PCTRS Status: Chronic (4) CKD (chronic kidney disease) stage 3, GFR 30-59 ml/min Code(s): N18.3 - CHRONIC KIDNEY DISEASE, STAGE 3 (MODERATE) Status: Chronic - Plan * Ileus- resolving clinically- will advance his diet to a full liquid diet * CAD- stable * AFIB- he has since converted back to sinus- await Cardiology recommendations * Echo findings noted * Aspiration Pneumonia- continue Zosyn * 1 of 2 blood cultures is positive for Enterobacter- continue Zosyn and await sensitivities
--- NOTE | 2019-12-14 14:55 | PRG ---
DATE OF SERVICE: 12/14/2019 SUBJECTIVE: Mr. Phelan is certainly talkative this afternoon. He has no acute complaints. OBJECTIVE: VITAL SIGNS: Temperature 97.8, pulse 66, respiratory rate of 17, O2 saturation 96% on 2 L, blood pressure 101/55. HEENT: Clear. NECK: No adenopathy or JVD. LUNGS: Clear. CARDIAC: S1, S2. Regular. ABDOMEN: Tympanic, but has bowel sounds. EXTREMITIES: No edema. LABORATORY DATA: Blood cultures are growing enterobacter at one bottle. White blood cell count 4.2, hematocrit 25.6, and platelet count 89. Sodium 133, potassium 4.4, BUN 26, creatinine 1.0, glucose 129. ASSESSMENT: Aspiration pneumonia. PLAN: Continue the Zosyn. If nothing else grows from his cultures, I would stop the vancomycin. Continue nebulization treatments and low-flow oxygen. Consider stopping IV fluids. Job ID: [id number]
[2019-12-14] MEDS: Acetaminophen 325 MG TAB PO PRN (18:05)
[2019-12-14] MEDS: Latanoprost 0.005% Ophth Soln 2.5 ml Bottle EA EYE SCH (22:20)
[2019-12-14] MEDS: Metoprolol Tartrate 25 MG TAB PO SCH (22:20)
[2019-12-14] MEDS: Pregabalin 50 MG CAP PO SCH (22:21)
[2019-12-14] MEDS: Atorvastatin Calcium 10 MG TAB PO SCH (22:21)
[2019-12-14] MEDS: Loratadine 10 MG TAB PO SCH (22:25)
[2019-12-14] MEDS: clonazePAM 0.5 MG TABLET PO PRN (22:54)
--- NOTE | 2019-12-14 23:44 | CON ---
DATE OF CONSULTATION: 12/14/2019 REASON FOR CONSULTATION: Paroxysmal atrial fibrillation. PRIMARY FOOD WRITER: Willie Cardoza MD HISTORY OF PRESENT ILLNESS: Mr. Phelan is a very pleasant 89-year-old gentleman, who recently had hip replacement. He is doing well, but developed a rapid heart rate with atrial fibrillation. He was given intravenous diltiazem and is converted to sinus rhythm. The patient had no chest pain, pressure, heaviness, or squeezing with any of that. He feels fine now. He is off the diltiazem now. MEDICATIONS: At home included: 1. Pantoprazole. 2. Metoprolol 12.5 mg a day. 3. Tramadol. ALLERGIES: CODEINE. SOCIAL HISTORY: No alcohol or tobacco. REVIEW OF SYSTEMS: Recent hip surgeries, still sore from his hip surgery. Otherwise, negative. He does have a fairly recent ileus history. PHYSICAL EXAMINATION: GENERAL: This is a very pleasant, elderly gentleman, no complaints. VITAL SIGNS: Blood pressure 121/59, pulse 72 regular. LUNGS: Clear. CARDIAC: Normal S1, normal S2. ABDOMEN: Soft, nontender. EXTREMITIES: There is no edema. SKIN: Warm and dry. PSYCHIATRIC: Mood and affect normal. NEUROLOGIC: Grossly normal. LABORATORY DATA: Hemoglobin is 8.9. ASSESSMENT: 1. Status post hip replacement. 2. Indeterminate troponin, probably related to tachycardia in the setting of likely underlying coronary artery disease. PLAN: 1. Add diltiazem orally. 2. At this time, would not anticoagulate, his hemoglobin is still somewhat low. He prefers not to be anticoagulated. 3. Aspirin. 4. Continue low-dose metoprolol. 5. ?Low-dose enoxaparin for DVT prophylaxis. Job ID: [id number]
[2019-12-14] MEDS ORDERED: Vancomycin 1.5 GRAM/300 ML BAG 1.5 GM in Premix Bag 1 BAG IVPB SCH (23:59)
--- NOTE | 2019-12-15 00:28 | CON ---
DATE OF CONSULTATION: REASON FOR CONSULTATION: Bacteremia. HISTORY OF PRESENT ILLNESS: An 89-year-old who has a history of degenerative joint disease; coronary artery disease; prior pulmonary embolism, on warfarin and then Eliquis; gout; and rheumatoid arthritis, who underwent a left side hip replacement by Dr. Lepe on December 10. The procedure was reviewed and appeared to be uneventful and the next day, on December 11, the patient did not have any complaints. He was continued on DVT prophylaxis and SCDs. Prednisone dose was at 10 mg daily and he was on metoprolol and Lyrica. On December 12, the patient developed abdominal distention and pain. There was an x-ray done of the abdomen and it showed dilation of the cecum with degenerative changes. On December 13, the patient persisted with discomfort and distention and constipation and had a temperature of 100.2. The patient was kept n.p.o. IV fluids continued and blood cultures ordered. An abdomen and pelvis CT was completed on the . This was a noncontrast study. The lung bases were clear. No pericecal abnormality was noted. There was liquid stool in his ascending and transverse colonic segments and cecum measured up to 9.6 cm in diameter. There were circumferential sutures in the proximal sigmoid and a transitional zone seen. The possibility of an obstructing process was noted by the radiologist. No pneumatosis was seen. The kidneys are with some global cortical thinning, but no obstruction. Remainder aspects of the abdominal imaging study were not remarkable. There were no ascites. Echocardiogram was completed on the . It showed EF 55% to 60%, mild dilation of left atrium and mild tricuspid regurgitation. The blood culture obtained on the yielded 1/ 2 sets thus far positive for Enterobacter species. The patient was started on Piperacillin-Tazobactam on the . Currently, Mr. Phelan is concerned about his atrial fibrillation. He has perceived an increase in the rate, but he denies any headaches. A little bit of dyspnea, but no chest pain. The abdominal pain has improved markedly. He has had bowel movements after laxatives. No pain in the left hip. No other joint symptoms. No neurological symptoms. PAST MEDICAL HISTORY: Rheumatoid arthritis, on low-dose prednisone and Etanercept. Gout, DVT with pulmonary embolism, diverticulitis with partial segmental resection of sigmoid colon, and temporary colostomy which has been taken down in [place], coronary artery disease, CKD stage 3. Urinary incontinence with evidence of some issues with his bladder evaluated by Dr. Morales in the past. PAST SURGICAL HISTORY: Bilateral knee replacements, right hip replacement in the past, right shoulder replacement, perianal abscess drainage, coronary stents. SOCIAL HISTORY: Never smoker. No other significant findings. FAMILY HISTORY: Prostate cancer in the father, pancreatic cancer in the mother. ALLERGIES: CODEINE. CURRENT MEDICATIONS: 1. DuoNeb. 2. Zyloprim. 3. Ecotrin. 4. Lipitor. 5. Dulcolax. 6. Clonazepam. 7. Diltiazem. 8. Cardizem. 9. Benadryl. 10. Zetia. 11. Plaquenil. 12. Latanoprost. 13. Claritin. 14. Lopressor. 15. Narcan. 16. Nitrostat. 17. Zosyn. 18. Prednisone 10 mg. 19. Lyrica. 20. Saccharomyces. 21. Tramadol. 22. Vancomycin. PHYSICAL EXAMINATION: VITAL SIGNS: T-max 100.2 two days ago. He is currently afebrile. Blood pressure 120/59, pulse 72, respirations 16, O2 saturation 96%. GENERAL: The patient is awake, alert, oriented. Peripheral IV access, voiding in the diaper with incontinence. Indwelling Stephenson had been present until this morning and has been removed. The incision in left hip is clean and dry. No erythema or drainage. HEENT: Ocular movements conjugate. Oral cavity not remarkable. NECK: Supple. No jugular vein distention. LUNGS: Symmetric air entry. A few crackles in the right base. CARDIAC: S1 and S2, irregular rate without significant murmurs. No S3. ABDOMEN: Soft, mild to moderately distended. His tenderness is mostly in the right lower quadrant 2 days ago and it resolved yesterday after laxatives. EXTREMITIES: No other joint inflammatory process noted. Pulses 1+ in dorsalis pedis. Plantar responses are flexor. Moves extremities equally. NEUROLOGIC: Cognitive function appears to be intact. LABORATORY DATA: White cell count was 5.1, peaked at 8 with an increase in neutrophil percentage to 80% today. His total white cell count 4.2, hemoglobin is down to 8.9, MCV 102. Chemistry with creatinine 1.05, glucose 129, bilirubin 1.1, direct was 0.7, AST 46, ALT 15, albumin 3.0. Urinalysis with 11 to 20 WBCs, protein 100. Microbiology noted above. Urine culture x2 samples on the and , no growth at 36 hours. IMAGING STUDIES: As noted above. ASSESSMENT: 1. Coronary artery disease with prior stents, multiple joint replacements with now the most recent one in the left hip just a few days ago. 2. History of thromboembolism, on chronic Eliquis. 3. Prior diverticulitis episode, which required partial resection with reanastomosis done in [place] a few years ago. 4. Abdominal pain with cecal distention, which appears to have improved with laxatives. This was associated with bacteremia with Enterobacter 1/2 sets thus far. DISCUSSION: The differential diagnosis includes cecal distention related to pseudo-obstruction associated with the postop state with translocation and transient bacteremia. Micro perforation is a possibility, but less likely. A urinary tract infection is not ruled out. His urine cultures have not yet been finalized. Infection of the left hip replacement site appears to be less likely. No other areas of concern are present at this point in time. Enterobacter species carry AmpC chromosomal gene that confers resistant to various cephalosporins here in the hospital. The incidence of multidrug resistant Enterobacter is less than 10% to 15% in this area. So, Zosyn appears to be an adequate choice. Discontinue vancomycin. We will wait for the final results of the second set and urinary cultures as well. The CT scan was done without contrast and depending on his clinical progress, we may have to order a CT with oral and IV contrast. If just one set remains positive depending on susceptibility results, then we can probably stop treatment after a few days. He will be at risk for colonization of the left hip arthroplasty site or any of the other prosthetic joint sites as a matter of fact in the near future. We will have to monitor for that. Likely, our gram-negative rods are less likely to attach to those sites than compared with Staphylococcus aureus. Job ID: [id number] [facility]
[2019-12-15 04:47] LABS: #Lymphocytes 0.9 thou/uL (1.20-3.40); #Monocytes 0.6 thou/uL (0.11-0.59); #Neutrophils 4.2 thou/uL (1.40-6.50); %Eosinophils 0.1 % (0.0-10.0); %Lymphocytes 15.2 % (21.0-51.0); %Monocytes 10.7 % (0.0-10.0); Hemoglobin 8.3 g/dL (14.0-18.0); Mean Corpuscular HGB CONC 34.5 g/dL (32.0-36.0); Mean Corpuscular Hemoglobin 35.5 pg (27.0-31.0); Platelet Count 92 thou/uL (130-400); RBC Distribution Width 15.4 % (11.5-14.5); Red Blood Cell (RBC) Count 2.32 mill/uL (4.70-6.10); White Blood Cell (WBC) Count 5.7 thou/uL (4.8-10.8)
[2019-12-15] MEDS: Piperacillin/Tazobactam 3.375 GM in Sodium Chloride 0.9% 100 ML IVPB SCH ×4 (04:55→22:51)
[2019-12-15 05:03] LABS: Anion Gap 9 mmol/L (10-20); BUN (Urea Nitrogen) 31 mg/dL (8.4-25.7); Calc. Creatinine Clearance 61 mL/min (70-130); Calcium 7.8 mg/dL (7.8-10.44); Carbon Dioxide 25 mmol/L (23-31); Chloride 106 mmol/L (98-107); Estimated GFR-MDRD 61; Glucose 103 mg/dL (83-110); Magnesium 2.1 mg/dL (1.6-2.6); Phosphorus 2.6 mg/dL (2.3-4.7); Potassium 4.6 mmol/L (3.5-5.1); Sodium 135 mmol/L (136-145)
[2019-12-15] MEDS: Allopurinol 300 MG TAB PO SCH (08:53)
[2019-12-15] MEDS: Aspirin 81 mg Enteric Coated Tablet PO SCH ×2 (08:53→21:54)
[2019-12-15] MEDS: predniSONE 5 MG TAB PO SCH (08:53)
[2019-12-15] MEDS: Hydroxychloroquine Sulfate 200 MG TAB PO SCH ×2 (08:55→21:54)
[2019-12-15] MEDS: Pantoprazole 40 MG VIAL IVP SCH (08:55)
[2019-12-15] MEDS: Saccharomyces boulardii 250 MG CAP PO SCH (08:55)
[2019-12-15] MEDS: Multivitamin W/ Minerals 1 TAB PO SCH (08:55)
[2019-12-15] MEDS: Ezetimibe 10 MG TAB PO SCH (08:55)
--- NOTE | 2019-12-15 09:32 | PDOC.CPN ---
- Subjective Date: 12/15/19 Time: 10:15 Interval history: Mr. Phelan is awake, just back in bed after PT this am. Feels well, no acute complaints or concerns. Reports shortness of breath, "normal for me". Has diagnosis of IPF, persistent dyspnea. Denies orthopnea, PND, or nocturnal cough. Has some hip incisional discomfort. Reports 3 BMs this morning, passing gas. No overnight events on telemetry, maintaining SR. - Review of Systems General: denies: fever/chills, weight/appetite/sleep changes, night sweats, fatigue Respiratory: reports: shortness of breath (both with rest & with exertion) Cardiovascular: denies: chest pain, palpitation, edema, paroxysmal nocturnal dyspnea, orthopnea Gastrointestinal: denies: nausea, vomiting, diarrhea, constipation, abd pain, GI bleeding Musculoskeletal: denies: pain, tenderness, stiffness, swelling, arthritis/ arthralgias - Objective Allergies/Adverse Reactions: Allergies Allergy/AdvReac Type Severity Reaction Status Date / Time codeine Allergy Verified 12/10/19 19:57 Visit Medications: Current Medications Acetaminophen (Tylenol) 650 mg PO Q4H PRN PRN Reason: Headache/Fever or Pain Last Admin: 12/14/19 18:05 Dose: 650 mg Albuterol/Ipratropium (Duoneb) 3 ml EZPAP [id number] PRN PRN Reason: SOB &/or Wheezing Last Admin: 12/13/19 17:30 Dose: 3 ml Allopurinol (Zyloprim) 300 mg PO DAILY [facility] TO [facility] Last Admin: 12/15/19 08:53 Dose: 300 mg Aspirin (Ecotrin) 81 mg PO BID [facility] Last Admin: 12/15/19 08:53 Dose: 81 mg Atorvastatin Calcium (Lipitor) 10 mg PO HS [facility] Last Admin: 12/14/19 22:21 Dose: 10 mg Bisacodyl (Dulcolax) [address] DAILYPRN PRN PRN Reason: Constipation Bisacodyl (Dulcolax) 10 mg PO DAILYPRN PRN PRN Reason: Constipation Cholecalciferol (Vitamin D3) 4,000 units PO DAILY [facility] TO [facility] Last Admin: 12/15/19 08:54 Dose: 4,000 units Clonazepam (Clonazepam) 0.5 mg PO HS PRN PRN Reason: Insomnia Last Admin: 12/14/19 22:54 Dose: 0.5 mg Diltiazem HCl (Cardizem Cd) 120 mg PO DAILY [facility] Last Admin: 12/15/19 08:54 Dose: 120 mg Diphenhydramine HCl (Benadryl) 25 mg PO Q3H PRN PRN Reason: Itching Ezetimibe (Zetia) 10 mg PO DAILY [facility] Last Admin: 12/15/19 08:55 Dose: 10 mg Emollient Cream (Hydrocerin Cream) 0 gm TOP PRN PRN PRN Reason: Itching Hydroxychloroquine Sulfate (Plaquenil) 200 mg PO BID [facility] Last Admin: 12/15/19 08:55 Dose: 200 mg Bupivacaine HCl 10 ml/ Sodium (Chloride) 100 mls @ 6 mls/hr EPIDURAL INF PENDING SALE TO [facility] Last Admin: 12/12/19 20:41 Dose: 100 mls Diltiazem HCl 125 mg/ Sodium (Chloride) 125 mls @ 5 mls/hr IVPB INF PENDING SALE TO [facility]; Protocol Piperacillin Sod/Tazobactam (Sod 3.375 gm/ Sodium Chloride) 100 mls @ 200 mls/ hr IVPB 0500,1100,1700,2300 PENDING SALE TO [facility] Last Admin: 12/15/19 04:55 Dose: 100 mls Sodium Chloride (Normal Saline 0.9%) 1,000 mls @ 50 mls/hr IV .Q20H PENDING SALE TO [facility] Last Admin: 12/14/19 22:29 Dose: 1,000 mls Iron/Minerals/Multivitamins (Theragran M) 1 tab PO DAILY PEND[facility] TO [facility] Last Admin: 12/15/19 08:55 Dose: 1 tab Latanoprost (Xalatan 0.005% [facility]) 1 drop EA EYE HS PENDING SALE TO [facility] Last Admin: 12/14/19 22:20 Dose: 1 drop Loratadine (Claritin) 10 mg PO HS [facility] Last Admin: 12/14/19 22:25 Dose: 10 mg Metoprolol Tartrate (Lopressor) 12.5 mg PO HS [facility] Last Admin: 12/14/19 22:20 Dose: 12.5 mg Miscellaneous Information (Communication Order-Pharmacy) 1 each FS ASDIR DIANNE Miscellaneous Medication (Pharmacy To Dose) 1 each IVPB PRN PRN PRN Reason: Pharmacy to dose Naloxone HCl (Narcan) 0.2 mg IV Q5MIN PRN PRN Reason: RR <=8 OR OBTUNDED/UNAROUSABLE Naloxone HCl (Narcan) 0.1 mg IVP Q15MIN PRN PRN Reason: URINARY RETENTION Nitroglycerin (Nitrostat) 0.4 mg PO Q5MIN PRN PRN Reason: Chest Pain Pantoprazole Sodium (Protonix) 40 mg IVP DAILY [facility] Last Admin: 12/15/19 08:55 Dose: 40 mg Prednisone (Prednisone) 10 mg PO QAM-[facility] Last Admin: 12/15/19 08:53 Dose: 10 mg Pregabalin (Lyrica) 100 mg PO HS [facility] Last Admin: 12/14/19 22:21 Dose: 100 mg Promethazine HCl (Phenergan) 12.5 mg IM Q4H PRN PRN Reason: Nausea/Vomiting Saccharomyces Boulardii (Florastor) 250 mg PO DAILY [facility] Last Admin: 12/15/19 08:55 Dose: 250 mg Sodium Biphosphate/Sodium Phosphate (Fleet Enema) [address] DAILYPRN PRN PRN Reason: Constipation Sodium Chloride (Flush - Normal Saline) 10 ml IVF PRN PRN PRN Reason: Saline Flush Sodium Chloride (Flush - Normal Saline) 10 ml IVF Q12H PRN PRN Reason: Saline Flush Sodium Chloride (Normal Saline Pf) 10 ml FS PRN PRN PRN Reason: RECONSTITUTION Tramadol HCl (Ultram) 50 mg PO Q6H PRN PRN Reason: Mild Pain 1-3 Last Admin: 12/11/19 05:58 Dose: 50 mg Tramadol HCl (Ultram) 100 mg PO Q6H PRN PRN Reason: Moderate Pain 4-6 Last Admin: 12/10/19 18:08 Dose: 100 mg Vital Signs & Weight: Vital Signs Temp Pulse Resp BP Pulse Ox 12/15/19 07:53 97.7 F 64 20 113/61 99 12/15/19 04:00 98.2 F 60 18 104/56 L 100 12/15/19 00:56 96.6 F L 69 15 98/53 L 93 L Admit Weight 215 lb Weight 211 lb 12.8 oz - CHADS-VASc Hypertension: 1 Age >75: 2 Vascular disease: 1 Risk Score: 4 - Quality Measures Condition: Atrial Fibrillation/Flutter (hx or current), Coronary Artery Disease CV meds: Beta Violetta: Yes, Statin: Yes, ASA: Yes - Physical Exam General: alert & oriented x3, appears well, no apparent distress HEENT: mucus membranes moist Neck: supple neck, no JVD/HJR Cardiac: regular rate and rhythm, no murmur, S1/S2 Neuro: grossly intact Abdomen: active bowel sounds, soft Extremities: no edema Skin: clear - Labs Result Diagrams: 12/15/19 04:04 12/15/19 04:04 Troponin/CKMB Troponin I 0.228 ng/mL (< 0.028) H 12/13/19 22:20 - Telemetry Sinus rhythms and dysrhythmias: sinus rhythm (HR 64-80) - Assessment/Plan Assessment/Plan: Assessment: 1. AFib with RVR-converted with IV diltiazem, maintaining SR. 2. CAD-normal PET scan 01/2019, no evidence of ischemia, normal LVEF 3. Aspiration Pneumonia 4. IPF 4. Anemia Maintaining SR on oral CCB, low-dose BB. 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 No complications with OAC, [facility] loading manager stopped. Dr. Cardoza to resume care tomorrow.
--- NOTE | 2019-12-15 09:56 | PRG ---
DATE OF SERVICE: 12/15/2019 This is Angelina Nobles PA-C dictating a report for Deepak Lepe MD. SUBJECTIVE: The patient states he did well overnight. Physical therapy is currently in the room about to get him out of bed. He is growing Enterobacter in one of his blood cultures. He has been seen by Dr. Smith. He also states that he had 3 large bowel movements last night and his belly is feeling much better. No complaints related to the hip. OBJECTIVE: VITAL SIGNS: Show temperature 97.7, pulse of 64, respiratory rate of 20, blood pressure 113/61, and O2 saturation of 99% on 2 L of nasal cannula. GENERAL: The patient is awake and alert. He is very talkative, in no apparent distress at this time. Physical therapy is currently in the room. MUSCULOSKELETAL: Evaluation of his left hip shows Tega-pad dressing that is clean, dry, and intact to surgical site. No surrounding erythema. Distal neurovascular status intact. EXTREMITIES: He does have fair movement in bilateral lower extremities. No edema noted to the lower extremities. LABORATORY DATA: Laboratory data today shows a hemoglobin of 8.3 and hematocrit of 23.9. Chemistry today shows a slight increase in his BUN from 26 yesterday to 31 today. Sodium remains slightly low 135. ASSESSMENT AND PLAN: The patient is status post left total hip arthroplasty. He is doing very well overall. He is working with physical therapy at this time. Infectious Disease is on the case. There was talk of discontinuing his vancomycin and sticking with his Zosyn. We will continue physical therapy and continue to follow him closely. Job ID: [id number]
--- NOTE | 2019-12-15 12:38 | PDOC.HOSPP ---
- Subjective Encounter Date: 12/15/19 Encounter Time: 12:37 Subjective: Mr. Phelan was seen today in follow-up of AFIB and ileus post hip fracture repair. He tolerated a full liquid diet. He had multiple bowel movements last night. He does not want to advance his diet too soon however. - Objective Vital Signs & Weight: Vital Signs (12 hours) Temp Pulse Resp BP Pulse Ox 12/15/19 11:07 97.7 F 68 18 108/57 L 96 12/15/19 07:53 97.7 F 64 20 113/61 99 12/15/19 04:00 98.2 F 60 18 104/56 L 100 12/15/19 00:56 96.6 F L 69 15 98/53 L 93 L Weight Admit Weight 215 lb Weight 211 lb 12.8 oz I&O: 12/14/19 12/15/19 12/16/19 06:59 06:59 06:59 Intake Total 1300 2312 Output Total 200 Balance 1100 2312 Result Diagrams: 12/15/19 04:04 12/15/19 04:04 Hospitalist ROS - Medication Medications: Active Medications Generic Name Dose Route Start Last Admin Trade Name Freq PRN Reason Stop Dose Admin Acetaminophen 650 mg 12/10/19 08:55 12/14/19 18:05 Tylenol PO 650 mg Q4H PRN Administration Headache/Fever or Pain Albuterol/Ipratropium 3 ml 12/13/19 11:43 12/13/19 17:30 Duoneb EZPAP 3 ml [id number] PRN Administration SOB &/or Wheezing Allopurinol 300 mg 12/10/19 09:00 12/15/19 08:53 Zyloprim PO 300 mg DAILY DIANNE Administration Aspirin 81 mg 12/10/19 09:00 12/15/19 08:53 Ecotrin PO 81 mg BID DIANNE Administration Atorvastatin Calcium 10 mg 12/10/19 21:00 12/14/19 22:21 Lipitor PO 10 mg HS DIANNE Administration Cholecalciferol 4,000 units 12/10/19 09:00 12/15/19 08:54 Vitamin D3 PO 4,000 units DAILY DIANNE Administration Clonazepam 0.5 mg 12/10/19 21:11 12/14/19 22:54 Clonazepam PO 0.5 mg HS PRN Administration Insomnia Diltiazem HCl 120 mg 12/15/19 09:00 12/15/19 08:54 Cardizem Cd PO 120 mg DAILY DIANNE Administration Ezetimibe 10 mg 12/10/19 09:00 12/15/19 08:55 Zetia PO 10 mg DAILY DIANNE Administration Hydroxychloroquine Sulfate 200 mg 12/10/19 09:00 12/15/19 08:55 Plaquenil PO 200 mg BID DIANNE Administration Piperacillin Sod/Tazobactam 100 mls @ 200 mls/hr 12/13/19 23:00 12/15/19 10: 56 Sod 3.375 gm/ Sodium Chloride IVPB 100 mls 0500,1100,1700,2300 DIANNE Administration Sodium Chloride 1,000 mls @ 50 mls/hr 12/13/19 22:59 12/14/19 22:29 Normal Saline 0.9% IV 1,000 mls .Q20H DIANNE Administration Iron/Minerals/Multivitamins 1 tab 12/11/19 09:00 12/15/19 08:55 Theragran M PO 1 tab DAILY DIANNE Administration Latanoprost 1 drop 12/10/19 21:00 12/14/19 22:20 Xalatan 0.005% Ophth Soln EA EYE 1 drop HS DIANNE Administration Loratadine 10 mg 12/10/19 21:00 12/14/19 22:25 Claritin PO 10 mg HS DIANNE Administration Metoprolol Tartrate 12.5 mg 12/10/19 21:00 12/14/19 22:20 Lopressor PO 12.5 mg HS DIANNE Administration Pantoprazole Sodium 40 mg 12/13/19 09:00 12/15/19 08:55 Protonix IVP 40 mg DAILY DIANNE Administration Prednisone 10 mg 12/11/19 08:00 12/15/19 08:53 Prednisone PO 10 mg QAM-WM DIANNE Administration Pregabalin 100 mg 12/10/19 21:00 12/14/19 22:21 Lyrica PO 100 mg HS DIANNE Administration Saccharomyces Boulardii 250 mg 12/14/19 09:00 12/15/19 08:55 Florastor PO 250 mg DAILY DIANNE Administration Tramadol HCl 50 mg 12/10/19 13:30 12/11/19 05:58 Ultram PO 50 mg Q6H PRN Administration Mild Pain 1-3 Tramadol HCl 100 mg 12/10/19 13:30 12/10/19 18:08 Ultram PO 100 mg Q6H PRN Administration Moderate Pain 4-6 - Exam Eye: PERRL, anicteric sclera Heart: RRR (+ frequent PAC's), no murmur, no gallops, no rubs, normal peripheral pulses Respiratory: CTAB (+ wheeaing bilaterally), no rales, no ronchi Gastrointestinal: soft (+ mildly distended), normal bowel sounds, no palpable masses, no hepatomegaly Hosp A/P (1) Ileus Code(s): K56.7 - ILEUS, UNSPECIFIED Status: Resolved (2) Hyponatremia Code(s): E87.1 - HYPO-OSMOLALITY AND HYPONATREMIA Status: Acute (3) CAD (coronary artery disease) Code(s): I25.10 - ATHSCL HEART DISEASE OF [place] CORONARY ARTERY W/O ANG PCTRS Status: Chronic (4) CKD (chronic kidney disease) stage 3, GFR 30-59 ml/min Code(s): N18.3 - CHRONIC KIDNEY DISEASE, STAGE 3 (MODERATE) Status: Chronic - Plan * Ileus-resolved- will continue Full liquid diet one more day * CAD- stable * AFIB- he has since converted back to sinus- Cardizem has been added * Aspiration Pneumonia- continue Zosyn * Enterobacter Bacteremia- await sensitivities- continue Zosyn * Continue PT/OT
--- NOTE | 2019-12-15 14:33 | PRG ---
DATE OF SERVICE: 12/15/2019 SUBJECTIVE: The patient is doing well. He has been up with physical therapy. OBJECTIVE: VITAL SIGNS: His temperature is 97.7, pulse 68, respirations 18, O2 saturation 96% on 2 L, and blood pressure 108/57. HEENT: Unremarkable. NECK: No JVD. LUNGS: Fairly clear. CARDIAC: S1 and S2. Regular. ABDOMEN: Obese, soft, and tympanic. EXTREMITIES: No edema. LABORATORY DATA: White blood cell count 5.7, hematocrit 23.9, and platelet count 92. Sodium 135, BUN 31, creatinine 1.1, and glucose 103. ASSESSMENT AND PLAN: Overall, the patient is doing better from a pulmonary standpoint. He has aspiration pneumonia, which is being covered by Zosyn. Of note, he grew out enterobacter on a blood culture that normally is indicative of a GI source. I will stop his breathing treatments as there is some concern this may be aggravating his cardiac arrhythmias. Job ID: [id number]
[2019-12-15] MEDS: Sodium Chloride 0.9% 1,000 ML IV SCH ×2 (14:59→22:51)
[2019-12-15] MEDS: Metoprolol Tartrate 25 MG TAB PO SCH (21:52)
[2019-12-15] MEDS: Atorvastatin Calcium 10 MG TAB PO SCH (21:53)
[2019-12-15] MEDS: Pregabalin 50 MG CAP PO SCH (21:53)
[2019-12-15] MEDS: Latanoprost 0.005% Ophth Soln 2.5 ml Bottle EA EYE SCH (21:54)
[2019-12-15] MEDS: Loratadine 10 MG TAB PO SCH (21:55)
[2019-12-15] MEDS: clonazePAM 0.5 MG TABLET PO PRN (21:58)
[2019-12-16] MEDS: Piperacillin/Tazobactam 3.375 GM in Sodium Chloride 0.9% 100 ML IVPB SCH ×3 (05:01→17:41)
--- NOTE | 2019-12-16 08:06 | CON ---
DATE OF CONSULTATION: HISTORY OF PRESENT ILLNESS: Law Phelan is an 89-year-old male, who came in for left hip surgery. He developed an ileus. Abdomen swelling, what appears to be more of a colonic ileus. An NG tube was attempted last night for avoidance of aspiration, respiratory distress syndrome. PAST MEDICAL HISTORY: 1. Remarkable for asthma. 2. History of untreated sleep apnea. 3. History of pulmonary hypertension. 4. History of deconditioning. 5. History of diverticulosis with diverticulitis. 6. Arthritis. 7. BPH. 8. History of pulmonary embolism in the past. Medication currently on hold due to surgery. 9. History of pulmonary fibrosis, although I did not really appreciate this when I have seen him in the past. 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 11. History of sleep apnea. 12. Total bowel resection, history of colostomy and colostomy reversal. 13. Right shoulder surgery, right hip surgery, and bilateral knee surgery. SOCIAL HISTORY: He is nonsmoker and nondrinker. 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 ALLERGIES: REPORTS INTOLERANCE TO CODEINE. FAMILY HISTORY: Father with history of prostate cancer and in his 70's. Mother with history of pancreatic cancer and in her 80's. PHYSICAL EXAMINATION: GENERAL: He is in no distress. VITAL SIGNS: He is afebrile. Temperature maximum 100.2, heart rate 88, respiratory rate 18, blood pressure 111/64. HEAD AND NECK: Unremarkable. LUNGS: Remarkable for mild to moderate wheezes. HEART: Regular rhythm. ABDOMEN: Soft, nontender. EXTREMITIES: Clubbing, cyanosis, or edema. NEUROLOGIC: Grossly nonfocal. DIAGNOSTIC DATA: Chest radiograph shows no infiltrates. LABORATORY DATA: White count 6.2, hemoglobin 10.9, platelets 109,000. Electrolytes are unremarkable. Sodium 130. IMPRESSION: Aspirated water with reactive airways. This should clear up with nebulizer treatments and increased steroids. Follow the other physicians' care, spoke with the and answered all of her questions. Job ID: [id number]
[2019-12-16] MEDS: predniSONE 5 MG TAB PO SCH (09:31)
[2019-12-16] MEDS: Aspirin 81 mg Enteric Coated Tablet PO SCH ×2 (09:31→20:12)
[2019-12-16] MEDS: Allopurinol 300 MG TAB PO SCH (09:31)
[2019-12-16 09:32] LABS: Anion Gap 10 mmol/L (10-20); BUN (Urea Nitrogen) 23 mg/dL (8.4-25.7); Calc. Creatinine Clearance 68 mL/min (70-130); Calcium 8.4 mg/dL (7.8-10.44); Carbon Dioxide 26 mmol/L (23-31); Chloride 105 mmol/L (98-107); Estimated GFR-MDRD 67; Glucose 79 mg/dL (83-110); Potassium 4.3 mmol/L (3.5-5.1); Sodium 137 mmol/L (136-145)
[2019-12-16] MEDS: Hydroxychloroquine Sulfate 200 MG TAB PO SCH ×2 (09:34→20:11)
[2019-12-16] MEDS: Ezetimibe 10 MG TAB PO SCH (09:34)
[2019-12-16] MEDS: Multivitamin W/ Minerals 1 TAB PO SCH (09:35)
[2019-12-16] MEDS: Saccharomyces boulardii 250 MG CAP PO SCH (09:35)
[2019-12-16] MEDS: Pantoprazole 40 MG VIAL IVP SCH (09:35)
[2019-12-16] MEDS: Acetaminophen 325 MG TAB PO PRN (11:09)
--- NOTE | 2019-12-16 11:19 | PDOC.HOSPP ---
- Subjective Encounter Date: 12/16/19 Encounter Time: 11:17 Subjective: Mr. Phelan was seen today in follow-up of AFIB and aspiration pneumonia following acetabular fracture. He does not have any new complaints. He feels ready to advance his diet. He has been up to a chair for a few hours. He denies any trouble breathing. - Objective Vital Signs & Weight: Vital Signs (12 hours) Temp Pulse Resp BP BP Pulse Ox 12/16/19 09:32 76 112/57 L 12/16/19 07:54 98.3 F 69 20 119/67 96 12/16/19 03:57 97.6 F 63 18 104/56 L 98 12/16/19 00:10 97.8 F 58 L 19 95/52 L 98 Weight Admit Weight 215 lb Weight 217 lb I&O: 12/15/19 12/16/19 12/17/19 06:59 06:59 06:59 Intake Total 2312 3221.5 Output Total 400 Balance 2312 2821.5 Result Diagrams: 12/15/19 04:04 12/16/19 08:32 Hospitalist ROS - Medication Medications: Active Medications Generic Name Dose Route Start Last Admin Trade Name Freq PRN Reason Stop Dose Admin Acetaminophen 650 mg 12/10/19 08:55 12/16/19 11:09 Tylenol PO 650 mg Q4H PRN Administration Headache/Fever or Pain Allopurinol 300 mg 12/10/19 09:00 12/16/19 09:31 Zyloprim PO 300 mg DAILY DIANNE Administration Aspirin 81 mg 12/10/19 09:00 12/16/19 09:31 Ecotrin PO 81 mg BID DIANNE Administration Atorvastatin Calcium 10 mg 12/10/19 21:00 12/15/19 21:53 Lipitor PO 10 mg HS DIANNE Administration Cholecalciferol 4,000 units 12/10/19 09:00 12/16/19 09:32 Vitamin D3 PO 4,000 units DAILY DIANNE Administration Clonazepam 0.5 mg 12/10/19 21:11 12/15/19 21:58 Clonazepam PO 0.5 mg HS PRN Administration Insomnia Diltiazem HCl 120 mg 12/15/19 09:00 12/16/19 09:32 Cardizem Cd PO 120 mg DAILY DIANNE Administration Ezetimibe 10 mg 12/10/19 09:00 12/16/19 09:34 Zetia PO 10 mg DAILY DIANNE Administration Hydroxychloroquine Sulfate 200 mg 12/10/19 09:00 12/16/19 09:34 Plaquenil PO 200 mg BID DIANNE Administration Piperacillin Sod/Tazobactam 100 mls @ 200 mls/hr 12/13/19 23:00 12/16/19 11: 10 Sod 3.375 gm/ Sodium Chloride IVPB 100 mls 0500,1100,1700,2300 DIANNE Administration Sodium Chloride 1,000 mls @ 50 mls/hr 12/13/19 22:59 12/15/19 22:51 Normal Saline 0.9% IV 1,000 mls .Q20H DIANNE Administration Iron/Minerals/Multivitamins 1 tab 12/11/19 09:00 12/16/19 09:35 Theragran M PO 1 tab DAILY DIANNE Administration Latanoprost 1 drop 12/10/19 21:00 12/15/19 21:54 Xalatan 0.005% Ophth Soln EA EYE 1 drop HS [facility] Administration Loratadine 10 mg 12/10/19 21:00 12/15/19 21:55 Claritin PO 10 mg HS DIANNE Administration Metoprolol Tartrate 12.5 mg 12/10/19 21:00 12/15/19 21:52 Lopressor PO 12.5 mg HS [facility] Administration Pantoprazole Sodium 40 mg 12/13/19 09:00 12/16/19 09:35 Protonix IVP 40 mg DAILY DAINNE Administration Prednisone 10 mg 12/11/19 08:00 12/16/19 09:31 Prednisone PO 10 mg QAM-WM DIANNE Administration Pregabalin 100 mg 12/10/19 21:00 12/15/19 21:53 Lyrica PO 100 mg HS DIANNE Administration Saccharomyces Boulardii 250 mg 12/14/19 09:00 12/16/19 09:35 Florastor PO 250 mg DAILY IDANNE Administration Tramadol HCl 50 mg 12/10/19 13:30 12/11/19 05:58 Ultram PO 50 mg Q6H PRN Administration Mild Pain 1-3 Tramadol HCl 100 mg 12/10/19 13:30 12/10/19 18:08 Ultram PO 100 mg Q6H PRN Administration Moderate Pain 4-6 - Exam Eye: PERRL Heart: RRR, no murmur, no gallops, no rubs, normal peripheral pulses Respiratory: CTAB (+ coarse breath sounds, no wheezing or rales) Gastrointestinal: soft (+ mildly distended), normal bowel sounds, no palpable masses, no hepatomegaly, no splenomegaly Extremities: no cyanosis (+ chronic venous stasis changes), no clubbing, 1+ LE edema Psychiatric: normal affect, A&O x 3 Hosp A/P (1) Ileus Code(s): K56.7 - ILEUS, UNSPECIFIED Status: Resolved (2) Hyponatremia Code(s): E87.1 - HYPO-OSMOLALITY AND HYPONATREMIA Status: Acute (3) CAD (coronary artery disease) Code(s): I25.10 - ATHSCL HEART DISEASE OF [place] CORONARY ARTERY W/O ANG PCTRS Status: Chronic (4) CKD (chronic kidney disease) stage 3, GFR 30-59 ml/min Code(s): N18.3 - CHRONIC KIDNEY DISEASE, STAGE 3 (MODERATE) Status: Chronic - Plan * Ileus-resolved- will advance his diet today * CAD- stable * AFIB- he has been stable on oral Cardizem * Aspiration Pneumonia- continue Zosyn * Enterobacter Bacteremia- continue Zosyn- ( the organism is sensitive to all antibiotics tested with the exception of Cefoxitin ) * Continue PT/OT * He may be ready for Rehab soon
--- NOTE | 2019-12-16 13:06 | PQF ---
SHIVA MILAN F. MD [id number] [facility]-257 [id number] CLINICAL DOCUMENTATION IMPROVEMENT CLARIFICATION FORM: ICD-10 Updated PLEASE DO AN ADDENDUM TO THE PROGRESS NOTE WITH ANY DOCUMENTATION UPDATES OR ADDITIONS AND CARRY THROUGH TO DC SUMMARY. THANK YOU. DATE: 12/17/2019 , 12/18/2019 ATTN:DR. Ifeanyi DE GUZMAN Please exercise your independent, professional judgment in responding to the clarification form. Clinical indicators are provided on the bottom of this form for your review. Please check appropriate box(s): [ ] A-fib w/ RVR is a complication of current/recent surgery [ ] A-fib w/ RVR is not a complication of current/recent surgery [ ] Other diagnosis [ ] Unable to determine In addition, please specify: Present on Admission (POA): [ ] Yes [ ] No [ ] Unable to determine CLINICAL INDICATORS - SIGNS / SYMPTOMS / LABS / RESULTS AND LOCATION IN MR 12/13 LAD(PN) PT DEVELOPED AFIB W RVR. TRANSFERRED TO TELE. CONSULT CARDIO, CHECK TROPONIN 12/14 PN (BI) THE PT IS STATUS POST TOTAL HIP ARTHROPLASTY. HE HAS HAD MULTIPLE EVENTS SINCE SURGERY INCLUDING A BOWEL ILEUS , ASPIRATION WITH QUESTIONABLE PNEUMONIA AND NOW AN EPISODE OF WHAT SEEMS LIKE ATRIAL FIBRILLATION WITH RVR. 12/15 PN (MILIAN) A/P 1). AFIB W RVR-CONVERTED WITH IV DILTIAZEM, MAINTAINING SR. 12/15 , 12/16 PN (JAMIE) PLAN: AFIB- HE HAS SINCE CONVERTED BACK TO SINUS - CARDIZEM HAS BEEN ADDED RISK: ADVANCED AGE (89), RECENT TOTAL HIP ARTHROPLASTY ( 12/10) TREATMENTS: CARDIOLOGY CONSULT (THONG /12/14) IV DILTIAZEM (12/13) THANK YOU! ZACH (This form is maintained as a part of the permanent medical record) DAYANARA
--- NOTE | 2019-12-16 16:42 | PDOC.CPN ---
- Subjective Date: 12/16/19 Time: 16:40 - Review of Systems General: denies: fever/chills, weight/appetite/sleep changes, night sweats, fatigue Respiratory: reports: exercise intolerance. denies: cough, congestion, shortness of breath Cardiovascular: denies: chest pain, palpitation, edema, paroxysmal nocturnal dyspnea, orthopnea Gastrointestinal: denies: nausea, vomiting, diarrhea, constipation, abd pain, GI bleeding Musculoskeletal: reports: pain. denies: tenderness, stiffness, swelling, arthritis/arthralgias Neurological: denies: numbness, syncope, seizure, weakness - Objective Allergies/Adverse Reactions: Allergies Allergy/AdvReac Type Severity Reaction Status Date / Time codeine Allergy Verified 12/10/19 19:57 Visit Medications: Current Medications Acetaminophen (Tylenol) 650 mg PO Q4H PRN PRN Reason: Headache/Fever or Pain Last Admin: 12/16/19 11:09 Dose: 650 mg Allopurinol (Zyloprim) 300 mg PO DAILY [facility] Last Admin: 12/16/19 09:31 Dose: 300 mg Aspirin (Ecotrin) 81 mg PO BID [facility] Last Admin: 12/16/19 09:31 Dose: 81 mg Atorvastatin Calcium (Lipitor) 10 mg PO HS [facility] Last Admin: 12/15/19 21:53 Dose: 10 mg Bisacodyl (Dulcolax) 10 mg ID DAILYPRN PRN PRN Reason: Constipation Bisacodyl (Dulcolax) 10 mg PO DAILYPRN PRN PRN Reason: Constipation Cholecalciferol (Vitamin D3) 4,000 units PO DAILY [facility] Last Admin: 12/16/19 09:32 Dose: 4,000 units Clonazepam (Clonazepam) 0.5 mg PO HS PRN PRN Reason: Insomnia Last Admin: 12/15/19 21:58 Dose: 0.5 mg Diltiazem HCl (Cardizem Cd) 120 mg PO DAILY [facility] Last Admin: 12/16/19 09:32 Dose: 120 mg Diphenhydramine HCl (Benadryl) 25 mg PO Q3H PRN PRN Reason: Itching Ezetimibe (Zetia) 10 mg PO DAILY [facility] Last Admin: 12/16/19 09:34 Dose: 10 mg Emollient Cream (Hydrocerin Cream) 0 gm TOP PRN PRN PRN Reason: Itching Hydroxychloroquine Sulfate (Plaquenil) 200 mg PO BID [facility] Last Admin: 12/16/19 09:34 Dose: 200 mg Diltiazem HCl 125 mg/ Sodium (Chloride) 125 mls @ 5 mls/hr IVPB INF [facility]; Protocol Piperacillin Sod/Tazobactam (Sod 3.375 gm/ Sodium Chloride) 100 mls @ 200 mls/ hr IVPB 0500,1100,1700,2300 [facility] Last Admin: 12/16/19 11:10 Dose: 100 mls Sodium Chloride (Normal Saline 0.9%) 1,000 mls @ 50 mls/hr IV .Q20H [facility] Last Admin: 12/15/19 22:51 Dose: 1,000 mls Iron/Minerals/Multivitamins (Theragran M) 1 tab PO DAILY [facility] Last Admin: 12/16/19 09:35 Dose: 1 tab Latanoprost (Xalatan 0.005% Oph Soln) 1 drop EA EYE [facility] Last Admin: 12/15/19 21:54 Dose: 1 drop Loratadine (Claritin) 10 mg PO [facility] Last Admin: 12/15/19 21:55 Dose: 10 mg Metoprolol Tartrate (Lopressor) 12.5 mg PO [facility] Last Admin: 12/15/19 21:52 Dose: 12.5 mg Miscellaneous Information (Communication Order-Pharmacy) 1 each FS ASDIR [facility] Naloxone HCl (Narcan) 0.2 mg IV Q5MIN PRN PRN Reason: RR <=8 OR OBTUNDED/UNAROUSABLE Naloxone HCl (Narcan) 0.1 mg IVP Q15MIN PRN PRN Reason: URINARY RETENTION Nitroglycerin (Nitrostat) 0.4 mg PO Q5MIN PRN PRN Reason: Chest Pain Pantoprazole Sodium (Protonix) 40 mg IVP DAILY [facility] Last Admin: 12/16/19 09:35 Dose: 40 mg Prednisone (Prednisone) 10 mg [facility] Last Admin: 12/16/19 09:31 Dose: 10 mg Pregabalin (Lyrica) 100 mg PO [facility] Last Admin: 12/15/19 21:53 Dose: 100 mg Promethazine HCl (Phenergan) 12.5 mg IM Q4H PRN PRN Reason: Nausea/Vomiting Saccharomyces Boulardii (Florastor) 250 mg PO DAILY [facility] Last Admin: 12/16/19 09:35 Dose: 250 mg Sodium Biphosphate/Sodium Phosphate (Fleet Enema) 133 ml ID DAILYPRN PRN PRN Reason: Constipation Sodium Chloride (Flush - Normal Saline) 10 ml IVF PRN PRN PRN Reason: Saline Flush Sodium Chloride (Flush - Normal Saline) 10 ml IVF Q12H PRN PRN Reason: Saline Flush Sodium Chloride (Normal Saline Pf) 10 ml FS PRN PRN PRN Reason: RECONSTITUTION Tramadol HCl (Ultram) 50 mg PO Q6H PRN PRN Reason: Mild Pain 1-3 Last Admin: 12/11/19 05:58 Dose: 50 mg Tramadol HCl (Ultram) 100 mg PO Q6H PRN PRN Reason: Moderate Pain 4-6 Last Admin: 12/10/19 18:08 Dose: 100 mg Vital Signs & Weight: Vital Signs Temp Pulse Pulse Resp BP BP BP 12/16/19 15:57 97.9 F 72 20 114/60 12/16/19 12:15 97.6 F 74 20 112/57 L 12/16/19 12:08 72 121/64 12/16/19 09:32 76 112/57 L 12/16/19 07:54 98.3 F 69 20 119/67 Pulse Ox Pulse Ox 12/16/19 15:57 12/16/19 12:15 92 L 12/16/19 12:08 98 12/16/19 09:32 12/16/19 07:54 96 Admit Weight 215 lb Weight 217 lb - Quality Measures Condition: Atrial Fibrillation/Flutter (hx or current), Coronary Artery Disease CV meds: Beta Violetta: Yes, Statin: Yes, ASA: Yes - Physical Exam General: alert & oriented x3 HEENT: mucus membranes moist Neck: supple neck Cardiac: regular rate and rhythm Lungs: normal breath sounds Neuro: grossly intact Abdomen: active bowel sounds Extremities: no edema Skin: clear Musculoskeletal: no pain - Labs Result Diagrams: 12/15/19 04:04 12/16/19 08:32 Troponin/CKMB Troponin I 0.228 ng/mL (< 0.028) H 12/13/19 22:20 - Telemetry Sinus rhythms and dysrhythmias: sinus rhythm - Assessment/Plan Assessment/Plan: 1. AFib with RVR, back in sinus. 2. CAD, normal PET scan 01/2019, No ACS. 3. Aspiration Pneumonia 4. IPF 5. Anemia PLAN: - Continue BB and CCB. - Aspirin alone for stroke prophylaxis due to high risk of bleeding. -
--- NOTE | 2019-12-16 19:54 | PRG ---
DATE OF SERVICE: 12/16/2019 SUBJECTIVE: Mr. Phelan is doing well. OBJECTIVE: GENERAL: He is in no distress. VITAL SIGNS: He is afebrile. Heart rate 72, respiratory rate is 20, oximetry 92 on room air, blood pressure is 112/57. LUNGS: Clear. HEART: Regular rhythm. ABDOMEN: Soft. EXTREMITIES: Without asymmetry or edema. He is ambulating in the [facility] with Physical therapy. IMPRESSION AND PLAN: Status post aspiration with attempted placement of an NG tube. I do not feel he has pneumonia. His postop chest x-ray showed no infiltrates and he has had no febrile illness. His Zosyn in my opinion can be discontinued. I would give him a short course of Augmentin. He is a candidate to move to rehab in my opinion. Job ID: [id number]
[2019-12-16] MEDS: Pregabalin 50 MG CAP PO SCH (20:10)
[2019-12-16] MEDS: Latanoprost 0.005% Ophth Soln 2.5 ml Bottle EA EYE SCH (20:11)
[2019-12-16] MEDS: Amoxicillin/Potassium Clav 875 MG TAB PO SCH (20:12)
[2019-12-16] MEDS: Atorvastatin Calcium 10 MG TAB PO SCH (20:12)
[2019-12-16] MEDS: Metoprolol Tartrate 25 MG TAB PO SCH (20:13)
[2019-12-16] MEDS: clonazePAM 0.5 MG TABLET PO PRN (22:23)
[2019-12-16] MEDS: Sodium Chloride 0.9% 1,000 ML IV SCH (22:23)
[2019-12-16] MEDS: Loratadine 10 MG TAB PO SCH (22:23)
[2019-12-17] MEDS: Saccharomyces boulardii 250 MG CAP PO SCH (08:43)
[2019-12-17] MEDS: predniSONE 5 MG TAB PO SCH (08:43)
[2019-12-17] MEDS: Amoxicillin/Potassium Clav 875 MG TAB PO SCH ×2 (08:44→21:57)
[2019-12-17] MEDS: Multivitamin W/ Minerals 1 TAB PO SCH (08:44)
[2019-12-17] MEDS: Allopurinol 300 MG TAB PO SCH (08:44)
[2019-12-17] MEDS: Hydroxychloroquine Sulfate 200 MG TAB PO SCH ×2 (08:45→22:02)
[2019-12-17] MEDS: Aspirin 81 mg Enteric Coated Tablet PO SCH ×2 (08:46→21:56)
[2019-12-17] MEDS: Ezetimibe 10 MG TAB PO SCH (08:46)
[2019-12-17] MEDS: Pantoprazole 40 MG VIAL IVP SCH (08:47)
[2019-12-17] MEDS: Acetaminophen 325 MG TAB PO PRN (08:52)
--- NOTE | 2019-12-17 09:39 | PDOC.HOSPP ---
- Subjective Encounter Date: 12/17/19 Encounter Time: 09:38 Subjective: Mr. Phelan was seen today in follow-up of AFIB and Pneumonia. He is sitting up in a chair. He says he ate well last night, and is eating an omelette this morning. - Objective Vital Signs & Weight: Vital Signs (12 hours) Temp Pulse Resp BP BP Pulse Ox 12/17/19 09:06 95 12/17/19 08:22 97.5 F L 81 24 H 122/70 95 12/17/19 04:00 98.4 F 87 23 H 123/67 96 12/16/19 23:47 69 108/57 L Weight Admit Weight 215 lb Weight 220 lb 6.4 oz I&O: 12/16/19 12/17/19 12/18/19 06:59 06:59 06:59 Intake Total 3221.5 2000 Output Total 400 500 Balance 2821.5 1500 Result Diagrams: 12/15/19 04:04 12/16/19 08:32 Hospitalist ROS - Medication Medications: Active Medications Generic Name Dose Route Start Last Admin Trade Name Freq PRN Reason Stop Dose Admin Acetaminophen 650 mg 12/10/19 08:55 12/17/19 08:52 Tylenol PO 650 mg Q4H PRN Administration Headache/Fever or Pain Allopurinol 300 mg 12/10/19 09:00 12/17/19 08:44 Zyloprim PO 300 mg DAILY [facility] Administration Amoxicillin/Clavulanate Potassium 875 mg 12/16/19 21:00 12/17/19 08:44 Augmentin PO 875 mg Q12HR [facility] Administration Aspirin 81 mg 12/10/19 09:00 12/17/19 08:46 Ecotrin PO 81 mg BID [facility] Administration Atorvastatin Calcium 10 mg 12/10/19 21:00 12/16/19 20:12 Lipitor PO 10 mg HS [facility] Administration Bisacodyl 10 mg 12/12/19 18:50 12/17/19 08:52 Dulcolax PO 10 mg DAILYPRN PRN Administration Constipation Cholecalciferol 4,000 units 12/10/19 09:00 12/17/19 08:44 Vitamin D3 PO 4,000 units DAILY [facility] Administration Clonazepam 0.5 mg 12/10/19 21:11 12/16/19 22:23 Clonazepam PO 0.5 mg HS PRN Administration Insomnia Diltiazem HCl 120 mg 12/15/19 09:00 12/17/19 08:44 Cardizem Cd PO 120 mg DAILY [facility] Administration Ezetimibe 10 mg 12/10/19 09:00 12/17/19 08:46 Zetia PO 10 mg DAILY [facility] Administration Hydroxychloroquine Sulfate 200 mg 12/10/19 09:00 12/17/19 08:45 Plaquenil PO 200 mg BID [facility] Administration Sodium Chloride 1,000 mls @ 50 mls/hr 12/13/19 22:59 12/16/19 22:23 Normal Saline 0.9% IV 1,000 mls .Q20H [facility] Administration Iron/Minerals/Multivitamins 1 tab 12/11/19 09:00 12/17/19 08:44 Theragran M PO 1 tab DAILY [facility] Administration Latanoprost 1 drop 12/10/19 21:00 12/16/19 20:11 Xalatan 0.005% Ophth Soln EA EYE 1 drop HS [facility] Administration Loratadine 10 mg 12/10/19 21:00 12/16/19 22:23 Claritin PO 10 mg HS [facility] Administration Metoprolol Tartrate 12.5 mg 12/10/19 21:00 12/16/19 20:13 Lopressor PO 12.5 mg HS [facility] Administration Pantoprazole Sodium 40 mg 12/13/19 09:00 12/17/19 08:47 Protonix IVP 40 mg DAILY [facility] Administration Prednisone 10 mg 12/11/19 08:00 12/17/19 08:43 Prednisone PO 10 mg QAM-WM [facility] Administration Pregabalin 100 mg 12/10/19 21:00 12/16/19 20:10 Lyrica PO 100 mg HS [facility] Administration Saccharomyces Boulardii 250 mg 12/14/19 09:00 12/17/19 08:43 Florastor PO 250 mg DAILY [facility] Administration Tramadol HCl 50 mg 12/10/19 13:30 12/11/19 05:58 Ultram PO 50 mg Q6H PRN Administration Mild Pain 1-3 Tramadol HCl 100 mg 12/10/19 13:30 12/10/19 18:08 Ultram PO 100 mg Q6H PRN Administration Moderate Pain 4-6 - Exam Eye: PERRL, anicteric sclera Heart: RRR, no murmur, no gallops, no rubs, normal peripheral pulses Respiratory: CTAB (+ occsional rhonchi), no wheezes, no rales Gastrointestinal: soft, non-tender, normal bowel sounds, distended (+ mildly distended) Extremities: no cyanosis, no clubbing, 1+ LE edema Skin: normal turgor Psychiatric: normal affect, normal behavior, A&O x 3 Hosp A/P (1) Ileus Code(s): K56.7 - ILEUS, UNSPECIFIED Status: Resolved (2) Hyponatremia Code(s): E87.1 - HYPO-OSMOLALITY AND HYPONATREMIA Status: Acute (3) CAD (coronary artery disease) Code(s): I25.10 - ATHSCL HEART DISEASE OF [place] CORONARY ARTERY W/O ANG PCTRS Status: Chronic (4) CKD (chronic kidney disease) stage 3, GFR 30-59 ml/min Code(s): N18.3 - CHRONIC KIDNEY DISEASE, STAGE 3 (MODERATE) Status: Chronic - Plan * Patient is s/p Acetabular fracture and repair * [id number] is tolerating a solid diet- continue aggressive bowel regimen * CAD- stable * AFIB- now in sinus- stable on Cardizem and Metoprolol * Aspiration Pneumonia- he has been transitioned to Augmentin * Enterobacter Bacteremia- Continue Augementin * Continue PT/OT for severe deconditioning * He can transfer to inpatient Rehab from the Medical standpoint
--- NOTE | 2019-12-17 10:03 | EKG ---
Test Reason : Blood Pressure : / mmHG Vent. Rate : 138 BPM Atrial Rate : 133 BPM P-R Int : 000 ms QRS Dur : 090 ms QT Int : 328 ms P-R-T Axes : 000 015 099 degrees QTc Int : 496 ms Atrial fibrillation with rapid ventricular response ST depression, consider subendocardial injury Low voltage QRS Cannot rule out Anterior infarct , age undetermined Abnormal ECG Confirmed by GUSTABO GEE ([id number]) on 12/17/2019 10:03:01 AM Referred By: Wanda Confirmed By:GUSTABO GEE
--- NOTE | 2019-12-17 18:09 | PDOC.CPN ---
- Subjective Date: 12/17/19 Time: 18:08 Interval history: No new issues. Doing well. Remains in sinus. - Review of Systems General: denies: fever/chills, weight/appetite/sleep changes, night sweats, fatigue Respiratory: denies: cough, congestion, shortness of breath, exercise intolerance Cardiovascular: denies: chest pain, palpitation, edema, paroxysmal nocturnal dyspnea, orthopnea Gastrointestinal: denies: nausea, vomiting, diarrhea, constipation, abd pain, GI bleeding Musculoskeletal: denies: pain, tenderness, stiffness, swelling, arthritis/ arthralgias Neurological: denies: numbness, syncope, seizure, weakness - Objective Allergies/Adverse Reactions: Allergies Allergy/AdvReac Type Severity Reaction Status Date / Time codeine Allergy Verified 12/10/19 19:57 Visit Medications: Current Medications Acetaminophen (Tylenol) 650 mg PO Q4H PRN PRN Reason: Headache/Fever or Pain Last Admin: 12/17/19 08:52 Dose: 650 mg Allopurinol (Zyloprim) 300 mg PO DAILY [facility] Last Admin: 12/17/19 08:44 Dose: 300 mg Amoxicillin/Clavulanate Potassium (Augmentin) 875 mg PO Q12HR [facility] Last Admin: 12/17/19 08:44 Dose: 875 mg Aspirin (Ecotrin) 81 mg PO BID [facility] Last Admin: 12/17/19 08:46 Dose: 81 mg Atorvastatin Calcium (Lipitor) 10 mg PO HS [facility] Last Admin: 12/16/19 20:12 Dose: 10 mg Bisacodyl (Dulcolax) 10 mg DE DAILYPRN PRN PRN Reason: Constipation Bisacodyl (Dulcolax) 10 mg PO DAILYPRN PRN PRN Reason: Constipation Last Admin: 12/17/19 08:52 Dose: 10 mg Cholecalciferol (Vitamin D3) 4,000 units PO DAILY [facility] Last Admin: 12/17/19 08:44 Dose: 4,000 units Clonazepam (Clonazepam) 0.5 mg PO HS PRN PRN Reason: Insomnia Last Admin: 12/16/19 22:23 Dose: 0.5 mg Diltiazem HCl (Cardizem Cd) 120 mg PO DAILY [facility] Last Admin: 12/17/19 08:44 Dose: 120 mg Diphenhydramine HCl (Benadryl) 25 mg PO Q3H PRN PRN Reason: Itching Ezetimibe (Zetia) 10 mg PO DAILY [facility] Last Admin: 12/17/19 08:46 Dose: 10 mg Emollient Cream (Hydrocerin Cream) 0 gm TOP PRN PRN PRN Reason: Itching Hydroxychloroquine Sulfate (Plaquenil) 200 mg PO BID [facility] Last Admin: 12/17/19 08:45 Dose: 200 mg Sodium Chloride (Normal Saline 0.9%) 1,000 mls @ 50 mls/hr IV .Q20H [facility] Last Admin: 12/16/19 22:23 Dose: 1,000 mls Iron/Minerals/Multivitamins (Theragran M) 1 tab PO DAILY [facility] Last Admin: 12/17/19 08:44 Dose: 1 tab Latanoprost (Xalatan 0.005% Ophth Soln) 1 drop EA EYE [facility] Last Admin: 12/16/19 20:11 Dose: 1 drop Loratadine (Claritin) 10 mg PO [facility] Last Admin: 12/16/19 22:23 Dose: 10 mg Metoprolol Tartrate (Lopressor) 12.5 mg PO [facility] Last Admin: 12/16/19 20:13 Dose: 12.5 mg Miscellaneous Information (Communication Order-Pharmacy) 1 each FS ASDIR [facility] Naloxone HCl (Narcan) 0.2 mg IV Q5MIN PRN PRN Reason: RR <=8 OR OBTUNDED/UNAROUSABLE Naloxone HCl (Narcan) 0.1 mg IVP Q15MIN PRN PRN Reason: URINARY RETENTION Nitroglycerin (Nitrostat) 0.4 mg PO Q5MIN PRN PRN Reason: Chest Pain Pantoprazole Sodium (Protonix) 40 mg IVP DAILY [facility] Last Admin: 12/17/19 08:47 Dose: 40 mg Prednisone (Prednisone) 10 mg PO [facility] Last Admin: 12/17/19 08:43 Dose: 10 mg Pregabalin (Lyrica) 100 mg PO [facility] Last Admin: 12/16/19 20:10 Dose: 100 mg Promethazine HCl (Phenergan) 12.5 mg IM Q4H PRN PRN Reason: Nausea/Vomiting Saccharomyces Boulardii (Florastor) 250 mg PO DAILY [facility] Last Admin: 12/17/19 08:43 Dose: 250 mg Sodium Biphosphate/Sodium Phosphate (Fleet Enema) 133 ml [place] DAILYPRN PRN PRN Reason: Constipation Sodium Chloride (Flush - Normal Saline) 10 ml IVF PRN PRN PRN Reason: Saline Flush Sodium Chloride (Flush - Normal Saline) 10 ml IVF Q12H PRN PRN Reason: Saline Flush Sodium Chloride (Normal Saline Pf) 10 ml FS PRN PRN PRN Reason: RECONSTITUTION Tramadol HCl (Ultram) 50 mg PO Q6H PRN PRN Reason: Mild Pain 1-3 Last Admin: 12/11/19 05:58 Dose: 50 mg Tramadol HCl (Ultram) 100 mg PO Q6H PRN PRN Reason: Moderate Pain 4-6 Last Admin: 12/10/19 18:08 Dose: 100 mg Vital Signs & Weight: Vital Signs Temp Pulse Pulse Pulse Resp BP BP 12/17/19 15:42 97.5 F L 80 19 12/17/19 12:00 98.0 F 83 19 12/17/19 10:27 85 75 158/74 H 136/73 12/17/19 09:06 12/17/19 08:22 97.5 F L 81 24 H BP BP Pulse Ox 12/17/19 15:42 109/62 91 L 12/17/19 12:00 125/66 96 12/17/19 10:27 12/17/19 09:06 95 12/17/19 08:22 122/70 95 Admit Weight 215 lb Weight 220 lb 6.4 oz - Quality Measures Condition: Atrial Fibrillation/Flutter (hx or current), Coronary Artery Disease CV meds: Beta Violetta: Yes, Statin: Yes, ASA: Yes - Physical Exam General: alert & oriented x3 HEENT: mucus membranes moist Neck: supple neck Cardiac: regular rate and rhythm Lungs: normal breath sounds Neuro: cranial nerve 2-12 intact, grossly intact Abdomen: unremarkable Extremities: no edema Skin: clear Musculoskeletal: no pain - Labs Result Diagrams: 12/15/19 04:04 12/16/19 08:32 Troponin/CKMB Troponin I 0.228 ng/mL (< 0.028) H 12/13/19 22:20 - Telemetry Sinus rhythms and dysrhythmias: sinus rhythm - Assessment/Plan Assessment/Plan: 1. AFib with RVR, back in sinus. 2. CAD, normal PET scan 01/2019, No ACS. 3. Aspiration Pneumonia 4. IPF 5. Anemia PLAN: - Continue BB and CCB. - Aspirin alone for stroke prophylaxis due to high risk of bleeding. - May discharge any time from cardiac perspective. Rehab. - Will sign off. Please call th any questions.
--- NOTE | 2019-12-17 18:18 | PRG ---
DATE OF SERVICE: 12/17/2019 SUBJECTIVE: Law Phelan is in no distress. OBJECTIVE: VITAL SIGNS: Afebrile, heart rate is 80, respiratory rate is 19, oximetry is 91% to 96% on room air, blood pressure 158/74. LUNGS: Clear. HEART: Regular rhythm. ABDOMEN: Soft. LABORATORY DATA: There is no lab today. IMPRESSION AND PLAN: 1. Postoperative aspiration with attempted placement of a nasogastric tube. No adverse sequelae. He is on p.o. antibiotics. 2. Untreated sleep apnea. I really do not think this is an issue anymore. He has not followed up on getting this worked up, and I would not expect him to. 3. Transient atrial fibrillation, now in sinus rhythm. 4. History of coronary artery disease with a negative PET scan in January of last year. 5. Chronic persistent asthma, not a clinical issue at this point in time. 6. Blood loss anemia and thrombocytopenia. He is at high risk for falling at this point in time and also at some risk of bleeding. He should continue going to the rehab. From a pulmonary standpoint, he is stable to go into a rehab environment in my opinion. Job ID: [id number]
[2019-12-17] MEDS: Loratadine 10 MG TAB PO SCH (21:56)
[2019-12-17] MEDS: Pregabalin 50 MG CAP PO SCH (21:57)
[2019-12-17] MEDS: Atorvastatin Calcium 10 MG TAB PO SCH (21:57)
[2019-12-17] MEDS: Metoprolol Tartrate 25 MG TAB PO SCH (21:57)
[2019-12-17] MEDS: Latanoprost 0.005% Ophth Soln 2.5 ml Bottle EA EYE SCH (22:02)
[2019-12-17] MEDS: clonazePAM 0.5 MG TABLET PO PRN (22:16)
[2019-12-18] MEDS: Sodium Chloride 0.9% 1,000 ML IV SCH (04:56)
[2019-12-18 08:17] VITALS: BMI 28.3
[2019-12-18] MEDS: Hydroxychloroquine Sulfate 200 MG TAB PO SCH (08:23)
[2019-12-18] MEDS: Aspirin 81 mg Enteric Coated Tablet PO SCH (08:29)
[2019-12-18] MEDS: Allopurinol 300 MG TAB PO SCH (08:29)
[2019-12-18] MEDS: Amoxicillin/Potassium Clav 875 MG TAB PO SCH (08:29)
[2019-12-18] MEDS: Multivitamin W/ Minerals 1 TAB PO SCH (08:30)
[2019-12-18] MEDS: predniSONE 5 MG TAB PO SCH (08:30)
[2019-12-18] MEDS: Saccharomyces boulardii 250 MG CAP PO SCH (08:30)
[2019-12-18] MEDS: Ezetimibe 10 MG TAB PO SCH (08:30)
[2019-12-18] MEDS: Acetaminophen 325 MG TAB PO PRN (08:31)
[2019-12-18] MEDS: Pantoprazole 40 MG VIAL IVP SCH (08:32)
[2019-12-18 12:11] VITALS: BP 128/64; TEMP 97.7
--- NOTE | 2019-12-18 13:29 | PDOC.HOSPP ---
- Subjective Encounter Date: 12/18/19 Encounter Time: 10:30 Subjective: Patient seen and examined. No new complaints. No overnight events - Objective Vital Signs & Weight: Vital Signs (12 hours) Temp Pulse Pulse Pulse Resp BP BP 12/18/19 11:10 97.7 F 73 16 12/18/19 10:55 82 73 153/71 H 128/64 12/18/19 08:30 74 12/18/19 07:30 98.2 F 74 20 12/18/19 03:42 97.7 F 69 18 BP Pulse Ox 12/18/19 11:10 128/64 93 L 12/18/19 10:55 12/18/19 08:30 12/18/19 07:30 140/69 94 L 12/18/19 03:42 109/63 93 L Weight Admit Weight 215 lb Weight 220 lb 3.2 oz I&O: 12/17/19 12/18/19 12/19/19 06:59 06:59 06:59 Intake Total 2000 991 Output Total 500 Balance 1500 991 Result Diagrams: 12/15/19 04:04 12/16/19 08:32 Radiology Reviewed by me: Yes EKG Reviewed by me: Yes Hospitalist ROS - Review of Systems ENT: denies: ear pain, ear discharge, nose pain, nose discharge, nose congestion , mouth pain, mouth swelling, throat pain, throat swelling, other Respiratory: denies: cough, dry, shortness of breath, hemoptysis, SOB with excertion, pleuritic pain, sputum, wheezing, other Cardiovascular: denies: chest pain, palpitations, orthopnea, paroxysmal noc. dyspnea, edema, light headedness, other Gastrointestinal: denies: nausea, vomiting, abdominal pain, diarrhea, constipation, melena, hematochezia, other Genitourinary: denies: dysuria, frequency, incontinence, hematuria, retention, other - Medication Medications: Active Medications Generic Name Dose Route Start Last Admin Trade Name Freq PRN Reason Stop Dose Admin Acetaminophen 650 mg 12/10/19 08:55 12/18/19 08:31 Tylenol PO 650 mg Q4H PRN Administration Headache/Fever or Pain Allopurinol 300 mg 12/10/19 09:00 12/18/19 08:29 Zyloprim PO 300 mg DAILY [facility] Administration Amoxicillin/Clavulanate Potassium 875 mg 12/16/19 21:00 12/18/19 08:29 Augmentin PO 875 mg Q12HR [facility] Administration Aspirin 81 mg 12/10/19 09:00 12/18/19 08:29 Ecotrin PO 81 mg BID [facility] Administration Atorvastatin Calcium 10 mg 12/10/19 21:00 12/17/19 21:57 Lipitor PO 10 mg HS [facility] Administration Bisacodyl 10 mg 12/12/19 18:50 12/17/19 08:52 Dulcolax PO 10 mg DAILYPRN PRN Administration Constipation Cholecalciferol 4,000 units 12/10/19 09:00 12/18/19 08:23 Vitamin D3 PO 4,000 units DAILY [facility] Administration Clonazepam 0.5 mg 12/10/19 21:11 12/17/19 22:16 Clonazepam PO 0.5 mg HS PRN Administration Insomnia Diltiazem HCl 120 mg 12/15/19 09:00 12/18/19 08:30 Cardizem Cd PO 120 mg DAILY [facility] Administration Ezetimibe 10 mg 12/10/19 09:00 12/18/19 08:30 Zetia PO 10 mg DAILY [facility] Administration Hydroxychloroquine Sulfate 200 mg 12/10/19 09:00 12/18/19 08:23 Plaquenil PO 200 mg BID [facility] Administration Iron/Minerals/Multivitamins 1 tab 12/11/19 09:00 12/18/19 08:30 Theragran M PO 1 tab DAILY [facility] Administration Latanoprost 1 drop 12/10/19 21:00 12/17/19 22:02 Xalatan 0.005% Oph Sollucretia EA EYE 1 drop HS [facility] Administration Loratadine 10 mg 12/10/19 21:00 12/17/19 21:56 Claritin PO 10 mg HS [facility] Administration Metoprolol Tartrate 12.5 mg 12/10/19 21:00 12/17/19 21:57 Lopressor PO 12.5 mg HS [facility] Administration Pantoprazole Sodium 40 mg 12/13/19 09:00 12/18/19 08:32 Protonix IVP 40 mg DAILY [facility] Administration Prednisone 10 mg 12/11/19 08:00 12/18/19 08:30 Prednisone PO 10 mg QAM-WM [facility] Administration Pregabalin 100 mg 12/10/19 21:00 12/17/19 21:57 Lyrica PO 100 mg HS [facility] Administration Saccharomyces Toribiodii 250 mg 12/14/19 09:00 12/18/19 08:30 Florastor PO 250 mg DAILY [facility] Administration Tramadol HCl 50 mg 12/10/19 13:30 12/11/19 05:58 Ultram PO 50 mg Q6H PRN Administration Mild Pain 1-3 Tramadol HCl 100 mg 12/10/19 13:30 12/10/19 18:08 Ultram PO 100 mg Q6H PRN Administration Moderate Pain 4-6 - Exam General Appearance: NAD, awake alert Eye: PERRL, anicteric sclera ENT: normocephalic atraumatic, no oropharyngeal lesions Neck: supple, symmetric, no JVD Heart: RRR, no murmur, no gallops, no rubs Respiratory: CTAB, no wheezes, no rales Gastrointestinal: soft, non-tender, non-distended, normal bowel sounds Extremities: no cyanosis, no clubbing Skin: normal turgor, no lesions Neurological: no focal deficits Musculoskeletal: normal tone, normal strength Psychiatric: normal affect, normal behavior Hosp A/P (1) Atrial fibrillation Code(s): I48.91 - UNSPECIFIED ATRIAL FIBRILLATION Status: Acute (2) Asthmatic bronchitis Code(s): J45.909 - UNSPECIFIED ASTHMA, UNCOMPLICATED Status: Acute (3) CAD (coronary artery disease) Code(s): I25.10 - ATHSCL HEART DISEASE OF [place] CORONARY ARTERY W/O ANG PCTRS Status: Chronic (4) CKD (chronic kidney disease) stage 3, GFR 30-59 ml/min Code(s): N18.3 - CHRONIC KIDNEY DISEASE, STAGE 3 (MODERATE) Status: Chronic (5) History of pulmonary embolism Code(s): Z86.711 - PERSONAL HISTORY OF PULMONARY EMBOLISM Status: Chronic (6) Immunocompromised state Code(s): D84.9 - IMMUNODEFICIENCY, UNSPECIFIED Status: Chronic (7) Mitral regurgitation Status: Chronic Qualifiers: Cardiac valve disease etiology: nonrheumatic Qualified Code(s): I34.0 - Nonrheumatic mitral (valve) insufficiency (8) Pulmonary arterial hypertension Code(s): I27.21 - SECONDARY PULMONARY ARTERIAL HYPERTENSION Status: Chronic (9) Rheumatoid arthritis Code(s): M06.9 - RHEUMATOID ARTHRITIS, UNSPECIFIED Status: Chronic - Plan old records reviewed/req, continue antibiotics, PT/OT, case management social worker medication reviewed and continue to provide symptomatic care discussed with family family ok with dc today to rehab dc medication reconciled
--- NOTE | 2019-12-18 14:25 | DIS ---
DATE OF ADMISSION: 12/10/2019 DATE OF DISCHARGE: 12/18/2019 PRIMARY CARE PHYSICIAN: Kevin Cottrell MD DISCHARGE DISPOSITION: Inpatient rehab. PRIMARY DISCHARGE DIAGNOSES: 1. Status post left total hip replacement. 2. Atrial fibrillation with rapid ventricular response converted to sinus rhythm. 3. Pneumonia. 4. Enterobacter bacteremia. SECONDARY DISCHARGE DIAGNOSES: 1. Coronary artery disease. 2. Chronic kidney disease stage 3. 3. Chronic anemia. 4. History of pulmonary embolism. 5. Immunocompromised state. 6. Mitral regurgitation. 7. Pulmonary hypertension. 8. Rheumatoid arthritis. PRIMARY PROCEDURE/OPERATION: Left total hip replacement. RADIOLOGICAL INVESTIGATION: Hip x-ray, abdomen x-ray, chest x-ray. Abdomen and pelvis CT scan showed left-sided colonic diverticulosis. Echocardiography showed normal EF. SIGNIFICANT LABORATORY DATA: WBC 5.7, hemoglobin 8.3, platelet 92. Sodium 137, creatinine 1.04, calcium 8.4. DISCHARGE MEDICATIONS: 1. Acetaminophen 650 mg p.o. b.i.d. p.r.n. 2. Allopurinol 300 mg daily. 3. Vitamin D3 of 4000 units p.o. daily. 4. Clonazepam 0.5 mg p.o. at bedtime. 5. Enbrel 50 mg subcutaneous weekly. 6. Zetia 10 mg daily. 7. Plaquenil 200 mg b.i.d. 8. Xalatan eye drops at bedtime. 9. Claritin 10 mg at bedtime. 10. Metoprolol tartrate 12.5 mg at bedtime. 11. Mirabegron 50 mg daily. 12. Protonix 40 mg daily. 13. Pravastatin 40 mg p.o. q.h.s. 14. Lyrica 100 mg p.o. q.h.s. 15. Tramadol 50 mg p.o. q.h.s. p.r.n. 16. Augmentin 875 mg twice daily for 10 days. 17. Cardizem CD 120 mg daily. 18. Multivitamin 1 tablet daily. 19. Prednisone 5 mg daily. 20. Florastor 250 mg daily. CONTRAINDICATION: None. CODE STATUS: Full code. 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 Lepe was initially primary while in hospital. Sound Team was consulted for medical comanagement. Cardiology was consulted for AFib. Pulmonology consulted for pneumonia. Dr. Smith was consulted for positive blood culture. TEST RESULT PENDING ON DISCHARGE: None. ALLERGIES: CODEINE. DISCHARGE PLAN: Posthospital, the patient will follow up with Dr. Lepe on December 25, 2019. Subsequently, the patient will follow up with primary care physician within 1 week. HOSPITAL COURSE: An 89-year-old male, who was electively admitted by Dr. Lepe for left hip replacement, which was done on December 10, 2019. Postoperatively, Sound Team was consulted for medical comanagement. After surgery, the patient had episode of AFib with RVR, required telemetry transfer. The patient also had vague abdominal discomfort. The patient had aspiration. Cardiology and Pulmonary group were following. Dr. Smith was consulted for positive blood culture. The patient was treated with Zosyn for Enterobacter bacteremia and on discharge changed to Augmentin. Urine culture was negative. Only one of two blood culture was positive. He had demand ischemia from AFib with RVR. All consultants cleared him for discharge. The patient is planned for discharge to rehab today for more PT/OT and subsequently will follow up with primary care physician. Job ID: [id number]
== END 2019-12-18 13:20 | DRG 469 ==
LOC: SURG A 12-10 08:10 → SJJU 12-10 17:02 → 2NO 12-13 19:39
PROVIDERS: ADMIT Orthopaedic Surgery; ATTEND Orthopaedic Surgery
PROC: 0SRB04A Replacement of Left Hip Joint with Ceramic on Polyethylene Synthetic Substitute, Uncemented, Open Approach (ICD-10-PCS; principal; 2019-12-10)
DX: M16.12 Unilateral primary osteoarthritis, left hip (principal); J69.0 Pneumonitis due to inhalation of food and vomit; E87.1 Hypo-osmolality and hyponatremia; K56.7 Ileus, unspecified; I24.8 Other forms of acute ischemic heart disease; R78.81 Bacteremia; I25.10 Atherosclerotic heart disease of native coronary artery without angina pectoris; M06.9 Rheumatoid arthritis, unspecified; M10.9 Gout, unspecified; D63.1 Anemia in chronic kidney disease; N18.3 Chronic kidney disease, stage 3 (moderate); G47.33 Obstructive sleep apnea (adult) (pediatric); Z96.653 Presence of artificial knee joint, bilateral; Z96.641 Presence of right artificial hip joint; Z96.611 Presence of right artificial shoulder joint; E78.5 Hyperlipidemia, unspecified; I48.0 Paroxysmal atrial fibrillation; B95.2 Enterococcus as the cause of diseases classified elsewhere; J84.112 Idiopathic pulmonary fibrosis; J45.30 Mild persistent asthma, uncomplicated; I34.0 Nonrheumatic mitral (valve) insufficiency; I27.21 Secondary pulmonary arterial hypertension; I95.9 Hypotension, unspecified; E83.42 Hypomagnesemia; Z86.711 Personal history of pulmonary embolism; Z86.718 Personal history of other venous thrombosis and embolism; Z95.5 Presence of coronary angioplasty implant and graft; Z79.899 Other long term (current) drug therapy; Z79.52 Long term (current) use of systemic steroids; Z88.8 Allergy status to other drugs, medicaments and biological substances
CPT/HCPCS: 36415; 71045; 74018; 74019; 74176; 80048; 80053; 81001; 82248; 83605; 83690; 83735; 83880; 84100; 84484; 85025; 85027; 87040; 87077; 87086; 87149; 87186; 93005; 93010; 93306; 94640; 94760; C9113; J0295; J0690; J2001; J2250; J2405; J2543; J2795; J2930; J3010; J3370; J3475; J3490; J7050; J7512; J7620; P9045; S0028

== ENCOUNTER 2020-02-29 17:56 | Emergency (ER) | payer MEDICARE ==
[~2020-02-29 17:56] MED LIST: Iopamidol-370 76% 500 ML 1 ML ONE
[2020-02-29] MEDS ORDERED: Morphine 4 MG/ML VIAL ONE (18:31)
[2020-02-29] MEDS ORDERED: Ondansetron PF 4 MG/2 ML Vial ONE (18:32)
[2020-02-29 18:52] LABS: #Eosinphils 0.2 thou/uL (0.0-0.7); #Lymphocytes 1.4 thou/uL (1.20-3.40); #Monocytes 0.8 thou/uL (0.11-0.59); #Neutrophils 4.8 thou/uL (1.40-6.50); %Basophils 0.7 % (0.0-1.0); %Lymphocytes 19.5 % (21.0-51.0); %Monocytes 10.3 % (0.0-10.0); %Neutrophils 66.4 % (42.0-75.0); Mean Corpuscular HGB CONC 33.7 g/dL (32.0-36.0); Mean Corpuscular Hemoglobin 34.5 pg (27.0-31.0); Mean Platelet Volume 7.7 fL (7.4-10.4); Platelet Count 166 thou/uL (130-400); RBC Distribution Width 14.3 % (11.5-14.5); Red Blood Cell (RBC) Count 3.48 mill/uL (4.70-6.10); White Blood Cell (WBC) Count 7.2 thou/uL (4.8-10.8)
[2020-02-29 18:58] LABS: Prothrombin Time 12.7 sec (12.0-14.7)
--- NOTE | 2020-02-29 18:58 | RAD ---
Left hip 2 views HISTORY: Left hip pain. FINDINGS: Left hip metallic prosthesis is in place. No paola-hardware lucency. No acute fracture or dislocation. Osteophytosis of the left sacroiliac joint is apparent. The lateral view shows vertically oriented lucencies over the soft tissues, presumably within skin fo lds, as they are not apparent on the frontal view. IMPRESSION : Left hip prosthesis. No acute osseous abnormalities are demonstrated.
[2020-02-29 19:11] LABS: ALT (SGPT) 15 U/L (8-55); AST (SGOT) 26 U/L (5-34); Albumin 3.7 g/dL (3.4-4.8); Alkaline Phosphatase 89 U/L (40-110); Anion Gap 15 mmol/L (10-20); BUN (Urea Nitrogen) 28 mg/dL (8.4-25.7); Bilirubin, Total 0.6 mg/dL (0.2-1.2); CK (CPK) 42 U/L (30-200); CRP (Inflammatory) 2.61 mg/dL (= or < 0.5); Calc. Creatinine Clearance 0 mL/min (70-130); Calcium 9.1 mg/dL (7.8-10.44); Carbon Dioxide 23 mmol/L (23-31); Chloride 99 mmol/L (98-107); Estimated GFR-MDRD 48; Globulin 3.1 g/dL (2.4-3.5); Glucose 106 mg/dL (83-110); Potassium 4.8 mmol/L (3.5-5.1); Protein, Total 6.8 g/dL (5.8-8.1); Sodium 132 mmol/L (136-145)
--- NOTE | 2020-02-29 19:54 | CT ---
CT left hip with IV contrast HISTORY: Pain. Recent joint replacement. FINDINGS: Metallic hip prosthesis is in place. Associated metallic artifact. No paola-hardware lucency . No acute fracture or dislocation. Skin wound at the lateral aspect of the hip from recent replacement surgery is evident. No focal flui d collections or soft tissue gas. IMPRESSION : Left hip prosthesis. Postoperative changes. No acute abnormalities are demonstrated.
[2020-02-29] MEDS ORDERED: HYDROcodone/Acetaminophen 5/325 mg Tablet ONE (22:09)
== END 2020-02-29 22:35 | disposition home or self-care (01) ==
LOC: ERS 17:56
DX: M25.552 Pain in left hip (principal); I25.10 Atherosclerotic heart disease of native coronary artery without angina pectoris; N40.0 Benign prostatic hyperplasia without lower urinary tract symptoms; M06.9 Rheumatoid arthritis, unspecified; G47.30 Sleep apnea, unspecified; Z86.711 Personal history of pulmonary embolism; Z79.899 Other long term (current) drug therapy; Z79.82 Long term (current) use of aspirin
CPT/HCPCS: 80053; 82550; 85025; 85610; 85652; 86140; 96374; 96375; J2270; J2405; Q9967

== ENCOUNTER 2020-10-19 14:43 | Emergency (ER) | payer MEDICARE ==
--- NOTE | 2020-10-19 15:49 | RAD ---
Chest one view HISTORY: Dyspnea. COVID exposure. COMPARISON: 12/13/2019. FINDINGS: Cardiac silhouette is magnified by projection. Pulmonary vasculature are unremarkable. Mediastinum is midline with aortic calcification. Widespread areas of linear interstitial scarring are similar in appearance to the prior exam. No lobar consolidation or evidence of pneumothorax. Right shoulder prosthesis partially visualized. IMPRESSION : Stable widespread interstitial scarring. No acute process is apparent. Atherosclerosis.
[2020-10-19] MEDS ORDERED: Dexamethasone 4 mg/ml Vial ONE (17:01)
[2020-10-19 17:05] LABS: Hemoglobin 11.9 g/dL (14.0-18.0); Mean Corpuscular HGB CONC 32.7 g/dL (32.0-36.0); Mean Platelet Volume 8.7 fL (7.4-10.4); Platelet Count 115 thou/uL (130-400); RBC Distribution Width 15.4 % (11.5-14.5); White Blood Cell (WBC) Count 3.6 thou/uL (4.8-10.8)
[2020-10-19] MEDS ORDERED: PROVENTIL INHALER 6.7 G (200 INHALATIONS) ONE (17:23)
[2020-10-19] MEDS ORDERED: Albuterol 200 PUFF (6.7GM INHALER) ONE ×2 (17:25→17:27)
[2020-10-19 17:28] LABS: ALT (SGPT) 17 U/L (8-55); AST (SGOT) 34 U/L (5-34); Albumin 3.5 g/dL (3.4-4.8); Alkaline Phosphatase 69 U/L (40-110); Anion Gap 13 mmol/L (10-20); BUN (Urea Nitrogen) 21 mg/dL (8.4-25.7); Bilirubin, Total 0.5 mg/dL (0.2-1.2); Calc. Creatinine Clearance 0 mL/min (70-130); Calcium 8.3 mg/dL (7.8-10.44); Carbon Dioxide 24 mmol/L (23-31); Chloride 98 mmol/L (98-107); Glucose 103 mg/dL (83-110); Potassium 4.3 mmol/L (3.5-5.1); Protein, Total 6.5 g/dL (5.8-8.1); Sodium 131 mmol/L (136-145)
[2020-10-19 17:29] LABS: Anisocytosis SLIGHT = 6-15 cells (100X) (0-5/hpf); Band 5 % (5-11); Lymphocytes 11 % (21-51); MDiff Complete? YES; Macrocytosis SLIGHT = 6-15 cells (100X) (0-5/hpf); Monocytes 12 % (0-10); Neutrophil 68 % (42-75); Ovalocytes SLIGHT = 2-5 cells (100X) (0-1/hpf); Platelet Morphology Comment Appears Decreased; Polychromasia SLIGHT = 2-3 cells (100X) (0-2/hpf); Reactive Lymphocytes 3 % (0-10); Schistocytes SLIGHT = 2-5 cells (100X) (0-1/hpf)
[2020-10-19 17:49] LABS: CKMB 1.9 ng/mL (0-6.6)
[2020-10-19 19:26] LABS: Bilirubin Negative (Negative); Blood, Urine Negative (Negative); Clarity Clear (Clear); Glucose, Urine (Dipstick) Normal (Negative); Ketone, Urine Negative (Negative); Leukocyte Negative Leu/uL (Negative); Nitrite Negative (Negative); Protein, Urine (Dipstick) 20 mg/dL (Neg-Trace); Specific Gravity, Urine 1.012 (1.002-1.036); Urobilinogen Normal mg/dL (Less than 2)
[2020-10-19 20:48] LABS: SARS-CoV-2 MS2 Positive; SARS-CoV-2 N Gene Positive; SARS-CoV-2 S Gene Positive; SARS-CoV-2 orf1ab Positive
[2020-10-19 20:54] LABS: SARS-CoV-2 by NAA DETECTED (NotDetected)
== END 2020-10-19 19:36 | disposition home or self-care (01) ==
LOC: ERS 14:43
DX: U07.1 COVID-19 (principal); M06.9 Rheumatoid arthritis, unspecified; Z79.899 Other long term (current) drug therapy
CPT/HCPCS: 71045; 80053; 81003; 82553; 83880; 84484; 85025; 93005; 96374; 99284; U0003; 87635; J1100

== ENCOUNTER 2020-10-26 10:15 | Inpatient (IN) | payer MEDICARE ==
--- NOTE | 2020-10-26 11:03 | RAD ---
EXAM: XR Chest 1 View Portable PROVIDED CLINICAL HISTORY: Dyspnea COMPARISON: 10/19/2020 FINDINGS: Cardiac silhouette remains enlarged. Tortuosity and ectasia of the thoracic aorta is again seen. Ther e is patchy airspace disease present involving the right mid and lower lung zones and probable focal interstitial thickening involving the left infrahilar region. There is no pleural fluid or pneu mothorax apparent. IMPRESSION: Findings compatible with but not specific for Covid pneumonia.
[2020-10-26 11:47] LABS: Hemoglobin 12.3 g/dL (14.0-18.0); Mean Corpuscular HGB CONC 32.5 g/dL (32.0-36.0); Mean Corpuscular Hemoglobin 32.6 pg (27.0-31.0); Mean Platelet Volume 8.9 fL (7.4-10.4); Platelet Count 144 thou/uL (130-400); RBC Distribution Width 15.5 % (11.5-14.5); Red Blood Cell (RBC) Count 3.78 mill/uL (4.70-6.10); White Blood Cell (WBC) Count 6.3 thou/uL (4.8-10.8)
[2020-10-26 11:48] LABS: #Basophils 0.1 thou/uL (0.0-0.2); #Lymphocytes 0.4 thou/uL (1.20-3.40); #Monocytes 0.7 thou/uL (0.11-0.59); #Neutrophils 5.2 thou/uL (1.40-6.50); %Basophils 0.8 % (0.0-1.0); %Eosinophils 0.3 % (0.0-10.0); %Lymphocytes 5.7 % (21.0-51.0); %Neutrophils 82.3 % (42.0-75.0)
[2020-10-26 11:58] LABS: ALT (SGPT) 24 U/L (8-55); AST (SGOT) 29 U/L (5-34); Albumin 3.2 g/dL (3.4-4.8); Alkaline Phosphatase 64 U/L (40-110); Anion Gap 15 mmol/L (10-20); BUN (Urea Nitrogen) 28 mg/dL (8.4-25.7); Bilirubin, Total 1.2 mg/dL (0.2-1.2); Calc. Creatinine Clearance 0 mL/min (70-130); Calcium 8.1 mg/dL (7.8-10.44); Carbon Dioxide 22 mmol/L (23-31); Chloride 96 mmol/L (98-107); Globulin 2.9 g/dL (2.4-3.5); Glucose 88 mg/dL (83-110); Potassium 4.1 mmol/L (3.5-5.1); Protein, Total 6.1 g/dL (5.8-8.1); Sodium 129 mmol/L (136-145)
[2020-10-26] MEDS ORDERED: Iopamidol 370 76% 100 ML VIAL ONE (12:14)
[2020-10-26] MEDS ORDERED: Acetaminophen 500 MG TAB ONE (12:14)
[2020-10-26 12:20] LABS: CKMB 0.9 ng/mL (0-6.6)
[2020-10-26] MEDS ORDERED: Dexamethasone 10 MG/ML VIAL ONE (14:02)
--- NOTE | 2020-10-26 14:23 | CT ---
EXAM: CT pulmonary angiogram with IV contrast and 3-D MIP reconstructions CT abdomen and pelvis with IV contrast PROVIDED CLINICAL HISTORY: Shortness of breath Abdominal pain COMPARISON: CT chest 10/02/2018 CT abdomen and pelvis 12/13/2019 FINDINGS: There is no evidence for central or segmental pulmonary embolus. There is multifocal groundglass opacity with associated interstitial thickening bilaterally, predomin ating in the right upper lobe. No pleural fluid or pneumothorax apparent. No evidence for thoracic lymph node enlargement. The airway appears patent and of normal caliber. The liver, spleen, pancreas, kidneys and adrenal glands demonstrate no significant abnormality. Simpl e left renal cyst. There is no bowel dilatation, inflammatory fat stranding, free fluid or free air apparent. There is m oderate colonic fecal retention. Evaluation of the pelvis is limited due to extensive beam hardening artifact from bilateral hip arthroplasties. There are several small fat-containing supraumb ilical ventral hernias. Prominent atherosclerotic vascular calcification including coronary calcium. The osseous structures demonstrate no concerning lytic or blastic lesions. Advanced multilevel lumbar spine degenerative change. IMPRESSION: 1. No evidence for central or segmental pulmonary embolus. 2. Pulmonary parenchymal findings compatible with but not specific for Covid pneumonia. 3. No evidence for an acute process involving the abdomen and pelvis. Moderate colonic fecal retentio n suggesting constipation.
[2020-10-26] MEDS ORDERED: Fleet Enema 133 ML BOT PR PRN (15:40)
[2020-10-26 15:51] LABS: CKMB 1.2 ng/mL (0-6.6)
--- NOTE | 2020-10-26 18:41 | HP ---
REASON FOR ADMISSION: Decreased oxygen level. HISTORY OF PRESENT ILLNESS: This is an 89-year-old male patient who was diagnosed with COVID 6 days ago and he was feeling fairly well until a couple days ago he had decreased appetite with increased shortness of breath, worsened with activity. He checked his oxygen level and it was 88%. He also had poor appetite and has been very constipated. He did not have any chest pain, but since he remained short of breath and generally fatigued, unable to even walk. These symptoms prompted him to present to our emergency room. Currently, he appears to be more comfortable after receiving IV fluids and dexamethasone. Of note, the patient is chronically on prednisone for his rheumatoid arthritis and when he was seen in ER here, he was given a Medrol Jas. I did review his records and his last admission was in November of this year. He did undergo a left total hip replacement. During his stay, he did develop atrial fibrillation and was seen by Cardiology. Subsequently, he did return to sinus rhythm. He was diagnosed with aspiration pneumonia. He was seen by Pulmonology. Also, he had positive blood cultures, so he was seen by ID. He also had abnormal troponin, deemed to be secondary to demand ischemia. As an outpatient in the past, he was on Eliquis for a provoked PE, but at some point, he was off this medication, but since he was diagnosed with COVID-19, his son, who is an anesthesiologist in our hospital, advised him to resume Eliquis, so he did. PAST MEDICAL HISTORY: 1. Rheumatoid arthritis. 2. Gout. 3. GERD. 4. Paroxysmal atrial fibrillation. 5. Enterobacter bacteremia. 6. Chronic anemia. 7. PE. 8. Mitral regurgitation. 9. Pulmonary hypertension. 10. Chronic kidney disease stage 3. 11. Documented coronary artery disease. 12. Status post right bilateral knee replacement. 13. Right hip replacement. 14. Right shoulder replacement. 15. History of colostomy with reversal. 16. Diverticulitis. 17. DVT in left leg. 18. He is post 2 cardiac stents. ALLERGIES: TO CODEINE. SOCIAL HISTORY: Does not smoke. Does not drink alcohol. FAMILY HISTORY: Reviewed, found to be noncontributory. REVIEW OF SYSTEMS: All systems reviewed and except the above-mentioned shortness of breath, found to be negative. PHYSICAL EXAMINATION: GENERAL: He is awake, alert, oriented, does not appear in distress. VITAL SIGNS: His blood pressure is 120/70, pulse ox is 95% on room air. Temperature is 98.7, respiratory rate of 20. HEENT: Head is nontraumatic, normocephalic. Pupils equal, reactive. Extraocular movements are intact. Nonicteric sclerae. Well-injected conjunctivae. Oral mucosa normal. Nasal mucosa normal. NECK: Supple. No adenopathy. No murmur. Thyroid is not palpable. Trachea is midline. No supraclavicular lymphadenopathy. HEART: S1, S2. Regular. No murmur. No gallops. No friction rubs. No displacement of PMI. LUNGS: Inspiratory crackles bilaterally. ABDOMEN: Bowel sounds are positive. Nontender abdomen. No hepatosplenomegaly. EXTREMITIES: No lower extremity edema. No cyanosis. NEUROLOGIC: Cranial nerves 2 through 12 within normal limits. Normal motor function. Normal sensory function. Normal reflexes. LABORATORY DATA: Blood work shows WBC of 6.3, hemoglobin of 12.3, platelets of 144, neutrophil count 82.3%. D-dimer 5.19. Sodium 129, creatinine of 1.13. Troponin initially 0.093, repeat 0.123. COVID-19 detected on October 19. EKG shows sinus rhythm with sinus arrhythmia. CT of the chest shows no evidence of central or segmental pulmonary embolus. Pulmonary parenchymal findings compatible with, but not specific for COVID pneumonia. No evidence for acute process involving the abdomen or pelvis. Moderate colonic fecal retention suggesting constipation. ASSESSMENT AND PLAN: This is an 89-year-old male patient, presenting with shortness of breath secondary to COVID pneumonia. Pulmonary: The patient will be on dexamethasone. We will consult pharmacy for initiation of remdesivir. Psychiatry: The patient does have history of anxiety and does need clonazepam, so we will keep him on that. Also, he does have neuropathy and did request to be on Lyrica. We will keep him on his home dose of that. Cardiac: The patient has positive troponin. I suspected this is demand ischemia. We will ask Cardiology to assess him. On the other hand, he will be monitored in telemetry and at some point to resume his blood pressure medication. Currently, he is normotensive. For DVT prophylaxis, he was taking Eliquis and we will continue with this medication at 2.5 twice a day. GI: The patient does complain of constipation. He will be on lactulose and will have an enema. Both these 2 medications will be p.r.n. We will resume his eyedrops for his glaucoma whenever his med rec is done. I did discuss with him his code status in the presence of his son, Diogenes Jodi. The patient although was not in the favor of extreme heroic measures, he accepted to be a full code for now. Job ID: [id number]
[2020-10-26 20:22] LABS: CKMB 1.5 ng/mL (0-6.6)
[2020-10-26] MEDS ORDERED: clonazePAM 0.5 MG TAB ONE (20:46)
[2020-10-26] MEDS: clonazePAM 0.5 MG TAB PO SCH (21:31)
[2020-10-26] MEDS: Apixaban 2.5 MG TAB PO SCH (21:31)
[2020-10-26] MEDS: Pregabalin 50 MG CAP PO SCH (21:54)
[2020-10-27 02:53] VITALS: BMI 23.7
[2020-10-27 06:06] LABS: #Lymphocytes 0.6 thou/uL (1.20-3.40); #Monocytes 0.6 thou/uL (0.11-0.59); #Neutrophils 5.9 thou/uL (1.40-6.50); %Basophils 0.3 % (0.0-1.0); %Eosinophils 0.1 % (0.0-10.0); %Lymphocytes 8.4 % (21.0-51.0); %Neutrophils 83.2 % (42.0-75.0); Mean Corpuscular Hemoglobin 33.2 pg (27.0-31.0); Mean Platelet Volume 9.2 fL (7.4-10.4); Platelet Count 135 thou/uL (130-400); RBC Distribution Width 15.5 % (11.5-14.5); Red Blood Cell (RBC) Count 3.91 mill/uL (4.70-6.10); White Blood Cell (WBC) Count 7.1 thou/uL (4.8-10.8)
[2020-10-27 06:23] LABS: Anion Gap 17 mmol/L (10-20); BUN (Urea Nitrogen) 26 mg/dL (8.4-25.7); Calc. Creatinine Clearance 59 mL/min (70-130); Calcium 8.3 mg/dL (7.8-10.44); Carbon Dioxide 20 mmol/L (23-31); Chloride 101 mmol/L (98-107); Glucose 114 mg/dL (83-110); Potassium 4.7 mmol/L (3.5-5.1); Sodium 133 mmol/L (136-145)
[2020-10-27] MEDS ORDERED: Acetaminophen 500 MG TAB ONE (10:23)
[2020-10-27] MEDS ORDERED: Acetaminophen 325 MG TAB ONE ×2 (10:23→10:42)
[2020-10-27] MEDS ORDERED: Aspirin 325 MG TAB ONE (10:35)
[2020-10-27] MEDS ORDERED: Aspirin Chewable 81 MG TAB ONE (10:42)
[2020-10-27] MEDS: Apixaban 2.5 MG TAB PO SCH ×2 (10:47→21:13)
[2020-10-27] MEDS: Allopurinol 300 MG TAB PO SCH (10:47)
[2020-10-27] MEDS: Ezetimibe 10 MG TAB PO SCH (10:48)
[2020-10-27] MEDS: Cholecalciferol 1,000 UNITS (25 MCG) TAB PO SCH (10:48)
[2020-10-27] MEDS: Aspirin 81 mg Enteric Coated Tablet PO SCH (10:48)
[2020-10-27] MEDS ORDERED: Dexamethasone 10 MG/ML VIAL ONE (13:27)
[2020-10-27] MEDS ORDERED: Dexamethasone 4 mg/ml Vial ONE (13:30)
[2020-10-27] MEDS: Dexamethasone 4 mg/ml Vial SLOW IVP SCH (13:43)
--- NOTE | 2020-10-27 14:16 | PDOC.HOSPP ---
- Subjective Encounter Date: 10/27/20 Subjective: feels better then yesterday, denies sob. - Objective Vital Signs & Weight: Weight Weight 185 lb Result Diagrams: 10/27/20 05:53 10/27/20 05:53 Hospitalist ROS - Medication Medications: Active Medications Generic Name Dose Route Start Last Admin Trade Name Freq PRN Reason Stop Dose Admin Allopurinol 300 mg 10/27/20 09:00 10/27/20 10:47 Allopurinol 300 Mg Tab PO 300 mg DAILY DIANNE Administration Apixaban 2.5 mg 10/26/20 21:00 10/27/20 10:47 Apixaban 2.5 Mg Tab PO 2.5 mg BID DIANNE Administration Aspirin 81 mg 10/27/20 09:00 10/27/20 10:48 Aspirin 81 Mg Enteric Coated Tablet PO 81 mg DAILY DIANNE Administration Cholecalciferol 2,000 units 10/27/20 09:00 10/27/20 10:48 Cholecalciferol 1,000 Units (25 Mcg) Tab PO 2,000 units DAILY DIANNE Administration Clonazepam 0.5 mg 10/26/20 21:00 10/26/20 21:31 Clonazepam 0.5 Mg Tab PO 0.5 mg HS DIANNE Administration Dexamethasone 6 mg 10/27/20 09:00 10/27/20 13:43 Dexamethasone 4 Mg/Ml Vial SLOW IVP 6 mg DAILY DIANNE Administration Ezetimibe 10 mg 10/27/20 09:00 10/27/20 10:48 Ezetimibe 10 Mg Tab PO 10 mg DAILY DIANNE Administration Lactulose 20 gm 10/26/20 15:40 10/26/20 21:31 Lactulose 20 Gm/30 Ml Udcup PO 20 gm BIDPRN PRN Administration Constipation Pregabalin 100 mg 10/26/20 21:00 10/26/20 21:54 Pregabalin 50 Mg Cap PO 100 mg HS DIANNE Administration - Exam General Appearance: awake alert Eye: PERRL ENT: normocephalic atraumatic Heart: RRR, no murmur Respiratory: rales (at the bases) Gastrointestinal: soft, non-tender Extremities: no cyanosis, no clubbing Skin: normal turgor Neurological: cranial nerve grossly intact Hosp A/P (1) Pneumonia due to COVID-19 virus Code(s): U07.1 - COVID-19; J12.82 - Status: Acute (2) Tachycardia Code(s): R00.0 - TACHYCARDIA, UNSPECIFIED Status: Acute (3) CAD (coronary artery disease) Code(s): I25.10 - ATHSCL HEART DISEASE OF [place] CORONARY ARTERY W/O ANG PCTRS Status: Chronic (4) History of pulmonary embolism Code(s): Z86.711 - PERSONAL HISTORY OF PULMONARY EMBOLISM Status: Chronic - Plan covid pneumonia---continue with Decadron, he did have a low grade temp, I will cover with Levaquin for possible superimposed bacterial pneumonia. positive trop--trending down, cardio consult pending. his BP is soft, will continue withholding BP meds, will start IVF. for DVT px ---he is on eliquis. PT/OT
--- NOTE | 2020-10-27 18:49 | CON ---
DATE OF CONSULTATION: HISTORY OF PRESENT ILLNESS: The patient is an 89-year-old gentleman, who presented with increasing dyspnea and weakness. The patient has a previous history of a wandering atrial pacemaker and paroxysmal atrial fibrillation. He has been on chronic anticoagulation therapy. The patient also has a history of pulmonary embolus. The patient was in usual state of health when he was recently diagnosed with COVID. He has developed progressive dyspnea. PAST MEDICAL HISTORY: 1. Pulmonary embolus. 2. Hypertension. 3. Atrial fibrillation. 4. Asthma. 5. BPH. 6. History of pulmonary fibrosis. PAST SURGICAL HISTORY: Knee surgery, colostomy. FAMILY HISTORY: Positive family history of heart disease. SOCIAL HISTORY: Nonsmoker. ALLERGIES: CODEINE. MEDICATIONS: See nursing list. PHYSICAL EXAMINATION: Blood pressure was 147/87 with a pulse rate of 93. Physical examination was deferred due to COVID. LABORATORY RESULTS: Sodium 133, potassium 4.7, chloride 101, bicarbonate 20, BUN 26, creatinine 1.0, and glucose 114. White blood cell count 7.1, hemoglobin 13.0, hematocrit 39.3, and platelets 135. EKG multifocal atrial tachycardia. IMPRESSION: 1. COVID pneumonia. 2. Multifocal atrial tachycardia. 3. History atrial fibrillation. 4. Indeterminate troponin level. 5. Hypertension. 6. Possible pulmonary fibrosis. 7. History of pulmonary embolus. 8. History of sleep apnea. 9. History of anxiety. This gentleman presents with COVID. He has an indeterminate troponin level. There is no evidence of an acute coronary syndrome. The patient will be monitored on telemetry. I will restart him on his low-dose Toprol. We will follow this patient with you through his hospitalization. Job ID: [id number] [facility]
[2020-10-27] MEDS ORDERED: Metoprolol Tartrate 5 MG/5 ML VIAL IVP SCH (21:00)
[2020-10-27] MEDS: Latanoprost 0.005% Ophth Soln 2.5 ml Bottle EA EYE SCH (21:13)
[2020-10-27] MEDS: clonazePAM 0.5 MG TAB PO SCH (21:13)
[2020-10-27] MEDS: Sodium Chloride 0.9% 1,000 ML IV SCH (21:13)
[2020-10-27] MEDS: Atorvastatin Calcium 20 MG TAB PO SCH (21:13)
[2020-10-27] MEDS: Pregabalin 50 MG CAP PO SCH (21:14)
[2020-10-27] MEDS: Metoprolol Tartrate 25 MG TAB PO SCH (21:14)
[2020-10-28] MEDS: Sodium Chloride 0.9% 1,000 ML IV SCH ×3 (01:32→14:16)
[2020-10-28 05:23] LABS: #Lymphocytes 0.7 thou/uL (1.20-3.40); #Monocytes 0.4 thou/uL (0.11-0.59); #Neutrophils 4.9 thou/uL (1.40-6.50); %Basophils 0.1 % (0.0-1.0); %Eosinophils 0.1 % (0.0-10.0); %Monocytes 6.2 % (0.0-10.0); %Neutrophils 82.7 % (42.0-75.0); Hemoglobin 11.9 g/dL (14.0-18.0); Mean Corpuscular HGB CONC 33.2 g/dL (32.0-36.0); Mean Corpuscular Hemoglobin 33.6 pg (27.0-31.0); Mean Platelet Volume 9.2 fL (7.4-10.4); Platelet Count 128 thou/uL (130-400); RBC Distribution Width 15.5 % (11.5-14.5); Red Blood Cell (RBC) Count 3.54 mill/uL (4.70-6.10); White Blood Cell (WBC) Count 5.9 thou/uL (4.8-10.8)
[2020-10-28 05:41] LABS: Anion Gap 12 mmol/L (10-20); BUN (Urea Nitrogen) 32 mg/dL (8.4-25.7); Calc. Creatinine Clearance 59 mL/min (70-130); Calcium 7.8 mg/dL (7.8-10.44); Carbon Dioxide 24 mmol/L (23-31); Chloride 99 mmol/L (98-107); Glucose 111 mg/dL (83-110); Potassium 4.8 mmol/L (3.5-5.1); Sodium 130 mmol/L (136-145)
[2020-10-28] MEDS: Apixaban 2.5 MG TAB PO SCH ×2 (08:22→20:03)
[2020-10-28] MEDS: Dexamethasone 4 mg/ml Vial SLOW IVP SCH (08:22)
[2020-10-28] MEDS: Aspirin 81 mg Enteric Coated Tablet PO SCH (08:22)
[2020-10-28] MEDS: Cholecalciferol 1,000 UNITS (25 MCG) TAB PO SCH (08:22)
[2020-10-28] MEDS: Allopurinol 300 MG TAB PO SCH (08:22)
[2020-10-28] MEDS: Ezetimibe 10 MG TAB PO SCH (08:23)
[2020-10-28] MEDS ORDERED: REMDESIVIR (EUA) 200 MG in Sodium Chloride 0.9% 250 ML 210 ML IV SCH (09:00)
[2020-10-28] MEDS: Metoprolol Tartrate 25 MG TAB PO SCH ×2 (09:01→20:04)
--- NOTE | 2020-10-28 10:50 | CT ---
EXAM: CT pulmonary angiogram with IV contrast and 3-D MIP reconstructions CT abdomen and pelvis with IV contrast PROVIDED CLINICAL HISTORY: Shortness of breath Abdominal pain COMPARISON: CT chest 10/02/2018 CT abdomen and pelvis 12/13/2019 FINDINGS: There is no evidence for central or segmental pulmonary embolus. There is multifocal groundglass opacity with associated interstitial thickening bilaterally, predomin ating in the right upper lobe. No pleural fluid or pneumothorax apparent. No evidence for thoracic lymph node enlargement. The airway appears patent and of normal caliber. The liver, spleen, pancreas, kidneys and adrenal glands demonstrate no significant abnormality. Simpl e left renal cyst. There is no bowel dilatation, inflammatory fat stranding, free fluid or free air apparent. There is m oderate colonic fecal retention. Evaluation of the pelvis is limited due to extensive beam hardening artifact from bilateral hip arthroplasties. There are several small fat-containing supraumb ilical ventral hernias. Prominent atherosclerotic vascular calcification including coronary calcium. The osseous structures demonstrate no concerning lytic or blastic lesions. Advanced multilevel lumbar spine degenerative change. IMPRESSION: 1. No evidence for central or segmental pulmonary embolus. 2. Pulmonary parenchymal findings compatible with but not specific for Covid pneumonia. 3. No evidence for an acute process involving the abdomen and pelvis. Moderate colonic fecal retentio n suggesting constipation. Transcribed Date/Time: 10/28/2020 10:50 AM
--- NOTE | 2020-10-28 15:09 | PDOC.HOSPP ---
- Subjective Encounter Date: 10/28/20 Subjective: appears comfortable in no acute distress. - Objective Vital Signs & Weight: Vital Signs (12 hours) Temp Pulse Resp BP Pulse Ox 10/28/20 11:25 98.4 F 63 20 130/75 100 10/28/20 08:30 97.9 F 58 L 20 143/70 H 97 10/28/20 08:00 97 10/28/20 04:00 98.9 F 57 L 22 H 128/71 96 Weight Weight 185 lb I&O: 10/27/20 10/28/20 10/29/20 06:59 06:59 06:59 Intake Total 1090 450 Output Total 450 500 Balance 640 -50 Result Diagrams: 10/28/20 04:56 10/28/20 04:56 Hospitalist ROS - Medication Medications: Active Medications Generic Name Dose Route Start Last Admin Trade Name Freq PRN Reason Stop Dose Admin Allopurinol 300 mg 10/27/20 09:00 10/28/20 08:22 Allopurinol 300 Mg Tab PO 300 mg DAILY DIANNE Administration Apixaban 2.5 mg 10/26/20 21:00 10/28/20 08:22 Apixaban 2.5 Mg Tab PO 2.5 mg BID DIANNE Administration Aspirin 81 mg 10/27/20 09:00 10/28/20 08:22 Aspirin 81 Mg Enteric Coated Tablet PO 81 mg DAILY DIANNE Administration Atorvastatin Calcium 20 mg 10/27/20 21:00 10/27/20 21:13 Atorvastatin Calcium 20 Mg Tab PO 20 mg HS DIANNE Administration Cholecalciferol 2,000 units 10/27/20 09:00 10/28/20 08:22 Cholecalciferol 1,000 Units (25 Mcg) Tab PO 2,000 units DAILY DIANNE Administration Clonazepam 0.5 mg 10/26/20 21:00 10/27/20 21:13 Clonazepam 0.5 Mg Tab PO 0.5 mg HS DIANNE Administration Dexamethasone 6 mg 10/27/20 09:00 10/28/20 08:22 Dexamethasone 4 Mg/Ml Vial SLOW IVP 6 mg DAILY DIANNE Administration Ezetimibe 10 mg 10/27/20 09:00 10/28/20 08:23 Ezetimibe 10 Mg Tab PO 10 mg DAILY DIANNE Administration Levofloxacin 750 mg/ Device 150 mls @ 100 mls/hr 10/27/20 15:00 10/28/20 14:17 IVPB 150 mls 1500 DIANNE Administration Lactulose 20 gm 10/26/20 15:40 10/28/20 14:22 Lactulose 20 Gm/30 Ml Udcup PO 20 gm BIDPRN PRN Administration Constipation Latanoprost 1 drop 10/27/20 21:00 10/27/20 21:13 Latanoprost 0.005% Ophth Soln 2.5 Ml Bottle EA EYE 1 drop HS DIANNE Administration Metoprolol Tartrate 25 mg 10/27/20 21:00 10/28/20 09:01 Metoprolol Tartrate 25 Mg Tab PO 25 mg BID DIANNE Administration Pregabalin 100 mg 10/26/20 21:00 10/27/20 21:14 Pregabalin 50 Mg Cap PO 100 mg HS DIANNE Administration - Exam Eye: PERRL ENT: normocephalic atraumatic, no oropharyngeal lesions Neck: supple, symmetric, no JVD, no thyromegaly Heart: RRR, murmur present Respiratory: rales Gastrointestinal: soft, non-tender, non-distended Extremities: no cyanosis, no clubbing Skin: normal turgor Neurological: cranial nerve grossly intact, normal sensation to touch Musculoskeletal: normal tone Hosp A/P (1) Pneumonia due to COVID-19 virus Code(s): U07.1 - COVID-19; J12.82 - PNEUMONIA DUE TO CORONAVIRUS DISEASE 2019 Status: Acute (2) Tachycardia Code(s): R00.0 - TACHYCARDIA, UNSPECIFIED Status: Acute (3) CAD (coronary artery disease) Code(s): I25.10 - ATHSCL HEART DISEASE OF [place] CORONARY ARTERY W/O ANG PCTRS Status: Chronic (4) History of pulmonary embolism Code(s): Z86.711 - PERSONAL HISTORY OF PULMONARY EMBOLISM Status: Chronic - Plan covid pneumonia---continue with Decadron, he did have a low grade temp, I will cover with Levaquin for possible superimposed bacterial pneumonia. positive trop--trending down, cardio consult pending. his BP is soft, will continue withholding BP meds, will start IVF. for DVT px ---he is on eliquis. PT/OT plan for today 10/28 developed afib and was started on metoprolol. now he is on Remdesivir for covid 19 I will stop IVF since his BP is stable. will recheck labs in am.
[2020-10-28] MEDS: Pregabalin 50 MG CAP PO SCH (20:03)
[2020-10-28] MEDS: Atorvastatin Calcium 20 MG TAB PO SCH (20:03)
[2020-10-28] MEDS: clonazePAM 0.5 MG TAB PO SCH (20:04)
[2020-10-28] MEDS: Latanoprost 0.005% Ophth Soln 2.5 ml Bottle EA EYE SCH (20:04)
[2020-10-28] MEDS ORDERED: Pantoprazole 40 MG VIAL IVP SCH (21:45)
[2020-10-29 05:20] LABS: #Lymphocytes 0.8 thou/uL (1.20-3.40); #Monocytes 0.6 thou/uL (0.11-0.59); #Neutrophils 5.4 thou/uL (1.40-6.50); %Basophils 0.4 % (0.0-1.0); %Eosinophils 0.1 % (0.0-10.0); %Lymphocytes 12.3 % (21.0-51.0); %Monocytes 8.8 % (0.0-10.0); %Neutrophils 78.4 % (42.0-75.0); Hemoglobin 12.5 g/dL (14.0-18.0); Mean Corpuscular HGB CONC 33.2 g/dL (32.0-36.0); Mean Corpuscular Hemoglobin 33.6 pg (27.0-31.0); Mean Platelet Volume 9.7 fL (7.4-10.4); Platelet Count 132 thou/uL (130-400); RBC Distribution Width 15.4 % (11.5-14.5); Red Blood Cell (RBC) Count 3.71 mill/uL (4.70-6.10); White Blood Cell (WBC) Count 6.8 thou/uL (4.8-10.8)
[2020-10-29 05:42] LABS: ALT (SGPT) 35 U/L (8-55); AST (SGOT) 46 U/L (5-34); Albumin 2.9 g/dL (3.4-4.8); Alkaline Phosphatase 72 U/L (40-110); Anion Gap 16 mmol/L (10-20); BUN (Urea Nitrogen) 31 mg/dL (8.4-25.7); Bilirubin, Direct 0.3 mg/dL (0.1-0.3); Bilirubin, Total 0.6 mg/dL (0.2-1.2); CRP (Inflammatory) 6.67 mg/dL (= or < 0.5); Calc. Creatinine Clearance 60 mL/min (70-130); Calcium 8.3 mg/dL (7.8-10.44); Carbon Dioxide 21 mmol/L (23-31); Chloride 101 mmol/L (98-107); Glucose 100 mg/dL (83-110); Potassium 4.7 mmol/L (3.5-5.1); Protein, Total 5.9 g/dL (5.8-8.1); Sodium 133 mmol/L (136-145)
[2020-10-29] MEDS: Dexamethasone 4 mg/ml Vial SLOW IVP SCH (08:56)
[2020-10-29] MEDS: Cholecalciferol 1,000 UNITS (25 MCG) TAB PO SCH (08:56)
[2020-10-29] MEDS: Allopurinol 300 MG TAB PO SCH (08:57)
[2020-10-29] MEDS: Aspirin 81 mg Enteric Coated Tablet PO SCH (08:57)
[2020-10-29] MEDS: Pantoprazole 40 MG VIAL IVP SCH (08:57)
[2020-10-29] MEDS: Metoprolol Tartrate 25 MG TAB PO SCH ×2 (08:57→19:51)
[2020-10-29] MEDS: Ezetimibe 10 MG TAB PO SCH (08:57)
[2020-10-29] MEDS: REMDESIVIR (EUA) 100 MG in Sodium Chloride 0.9% 250 ML 230 ML IV SCH (10:19)
[2020-10-29] MEDS: Apixaban 2.5 MG TAB PO SCH ×2 (10:19→19:50)
--- NOTE | 2020-10-29 14:35 | PDOC.HOSPP ---
- Subjective Encounter Date: 10/29/20 Subjective: doing better today. - Objective Vital Signs & Weight: Vital Signs (12 hours) Temp Pulse Resp BP Pulse Ox 10/29/20 11:30 96.8 F L 68 18 130/69 96 10/29/20 07:51 98.8 F 61 18 147/82 H 94 L 10/29/20 04:40 97.9 F 58 L 18 139/81 92 L Weight Weight 185 lb I&O: 10/28/20 10/29/20 10/30/20 06:59 06:59 06:59 Intake Total 1090 930 Output Total 450 2150 Balance 640 -1220 Result Diagrams: 10/29/20 04:26 10/29/20 04:26 Hospitalist ROS - Medication Medications: Active Medications Generic Name Dose Route Start Last Admin Trade Name Freq PRN Reason Stop Dose Admin Allopurinol 300 mg 10/27/20 09:00 10/29/20 08:57 Allopurinol 300 Mg Tab PO 300 mg DAILY DIANNE Administration Apixaban 2.5 mg 10/26/20 21:00 10/29/20 10:19 Apixaban 2.5 Mg Tab PO 2.5 mg BID DIANNE Administration Aspirin 81 mg 10/27/20 09:00 10/29/20 08:57 Aspirin 81 Mg Enteric Coated Tablet PO 81 mg DAILY DIANNE Administration Atorvastatin Calcium 20 mg 10/27/20 21:00 10/28/20 20:03 Atorvastatin Calcium 20 Mg Tab PO 20 mg HS DIANNE Administration Cholecalciferol 2,000 units 10/27/20 09:00 10/29/20 08:56 Cholecalciferol 1,000 Units (25 Mcg) Tab PO 2,000 units DAILY DIANNE Administration Clonazepam 0.5 mg 10/26/20 21:00 10/28/20 20:04 Clonazepam 0.5 Mg Tab PO 0.5 mg HS DIANNE Administration Dexamethasone 6 mg 10/27/20 09:00 10/29/20 08:56 Dexamethasone 4 Mg/Ml Vial SLOW IVP 6 mg DAILY DIANNE Administration Ezetimibe 10 mg 10/27/20 09:00 10/29/20 08:57 Ezetimibe 10 Mg Tab PO 10 mg DAILY DIANNE Administration Levofloxacin 750 mg/ Device 150 mls @ 100 mls/hr 10/27/20 15:00 10/28/20 14:17 IVPB 150 mls 1500 DIANNE Administration Remdesivir 100 mg/ Sodium 250 mls @ 250 mls/hr 10/29/20 09:00 10/29/20 10:19 Chloride IV 11/01/20 09:59 250 mls 0900 DIANNE Administration Lactulose 20 gm 10/26/20 15:40 10/28/20 14:22 Lactulose 20 Gm/30 Ml Udcup PO 20 gm BIDPRN PRN Administration Constipation Latanoprost 1 drop 10/27/20 21:00 10/28/20 20:04 Latanoprost 0.005% Ophth Soln 2.5 Ml Bottle EA EYE 1 drop HS DIANNE Administration Metoprolol Tartrate 25 mg 10/27/20 21:00 10/29/20 08:57 Metoprolol Tartrate 25 Mg Tab PO 25 mg BID DIANNE Administration Pantoprazole Sodium 40 mg 10/29/20 09:00 10/29/20 08:57 Pantoprazole 40 Mg Vial IVP 40 mg DAILY DIANNE Administration Pregabalin 100 mg 10/26/20 21:00 10/28/20 20:03 Pregabalin 50 Mg Cap PO 100 mg HS DIANNE Administration - Exam General Appearance: awake alert Eye: PERRL ENT: normocephalic atraumatic Neck: supple, symmetric Heart: RRR, no murmur Respiratory: rales Gastrointestinal: soft, non-tender, non-distended Hosp A/P (1) Pneumonia due to COVID-19 virus Code(s): U07.1 - COVID-19; J12.82 - PNEUMONIA DUE TO CORONAVIRUS DISEASE 2019 Status: Acute (2) Tachycardia Code(s): R00.0 - TACHYCARDIA, UNSPECIFIED Status: Acute (3) CAD (coronary artery disease) Code(s): I25.10 - ATHSCL HEART DISEASE OF [place] CORONARY ARTERY W/O ANG PCTRS Status: Chronic (4) History of pulmonary embolism Code(s): Z86.711 - PERSONAL HISTORY OF PULMONARY EMBOLISM Status: Chronic - Plan covid pneumonia---continue with Decadron, he did have a low grade temp, I will cover with Levaquin for possible superimposed bacterial pneumonia. positive trop--trending down, cardio consult pending. his BP is soft, will continue withholding BP meds, will start IVF. for DVT px ---he is on eliquis. PT/OT plan for today 10/28 developed afib and was started on metoprolol. now he is on Remdesivir for covid 19 I will stop IVF since his BP is stable. will recheck labs in am. plan for today 10/29 continues to improve continue Remdesivir will recheck labs in am otherwise will continue same management.
[2020-10-29] MEDS: Pregabalin 50 MG CAP PO SCH (19:49)
[2020-10-29] MEDS: clonazePAM 0.5 MG TAB PO SCH (19:51)
[2020-10-29] MEDS: Latanoprost 0.005% Ophth Soln 2.5 ml Bottle EA EYE SCH (19:51)
[2020-10-29] MEDS: Atorvastatin Calcium 20 MG TAB PO SCH (19:51)
[2020-10-30 05:23] LABS: #Lymphocytes 0.8 thou/uL (1.20-3.40); #Monocytes 0.5 thou/uL (0.11-0.59); %Basophils 0.1 % (0.0-1.0); %Eosinophils 0.2 % (0.0-10.0); %Lymphocytes 9.5 % (21.0-51.0); %Monocytes 6.2 % (0.0-10.0); Hemoglobin 12.4 g/dL (14.0-18.0); Mean Corpuscular HGB CONC 33.4 g/dL (32.0-36.0); Mean Corpuscular Hemoglobin 33.3 pg (27.0-31.0); Mean Corpuscular Volume 99.7 fL (78.0-98.0); Mean Platelet Volume 9.4 fL (7.4-10.4); Platelet Count 126 thou/uL (130-400); RBC Distribution Width 15.3 % (11.5-14.5); Red Blood Cell (RBC) Count 3.72 mill/uL (4.70-6.10); White Blood Cell (WBC) Count 8.3 thou/uL (4.8-10.8)
[2020-10-30 05:51] LABS: ALT (SGPT) 33 U/L (8-55); AST (SGOT) 40 U/L (5-34); Albumin 2.8 g/dL (3.4-4.8); Alkaline Phosphatase 75 U/L (40-110); Anion Gap 15 mmol/L (10-20); BUN (Urea Nitrogen) 33 mg/dL (8.4-25.7); Bilirubin, Direct 0.4 mg/dL (0.1-0.3); Bilirubin, Total 0.7 mg/dL (0.2-1.2); CRP (Inflammatory) 7.49 mg/dL (= or < 0.5); Calc. Creatinine Clearance 67 mL/min (70-130); Calcium 8.1 mg/dL (7.8-10.44); Carbon Dioxide 21 mmol/L (23-31); Chloride 100 mmol/L (98-107); Glucose 99 mg/dL (83-110); Potassium 4.6 mmol/L (3.5-5.1); Protein, Total 5.8 g/dL (5.8-8.1); Sodium 131 mmol/L (136-145)
[2020-10-30] MEDS: Allopurinol 300 MG TAB PO SCH (07:37)
[2020-10-30] MEDS: Apixaban 2.5 MG TAB PO SCH ×2 (07:37→21:04)
[2020-10-30] MEDS: Aspirin 81 mg Enteric Coated Tablet PO SCH (07:37)
[2020-10-30] MEDS: Pantoprazole 40 MG VIAL IVP SCH (07:37)
[2020-10-30] MEDS: Dexamethasone 4 mg/ml Vial SLOW IVP SCH (07:37)
[2020-10-30] MEDS: Metoprolol Tartrate 25 MG TAB PO SCH ×2 (07:38→21:04)
[2020-10-30] MEDS: Ezetimibe 10 MG TAB PO SCH (07:38)
[2020-10-30] MEDS: Cholecalciferol 1,000 UNITS (25 MCG) TAB PO SCH (07:38)
[2020-10-30] MEDS: REMDESIVIR (EUA) 100 MG in Sodium Chloride 0.9% 250 ML 230 ML IV SCH (09:50)
--- NOTE | 2020-10-30 12:23 | PQF ---
CLINICAL DOCUMENTATION CLARIFICATION FORM: Dear : Saulo Date / Time: 10/30/20 Please exercise your independent, professional judgment in responding to the clarification form. Clinical indicators are provided on the bottom of this form for your review [ ] Type 2 [place] (T2MI) secondary to demand ischemia [ x ] Demand ischemia only [ ] Other: [ ] Takotsubo syndrome [ ] Other diagnosis [ ] Unable to determine In addition, please specify: Present on Admission (POA): [x ] Yes [ ] No [ ] Unable to determine Physician Signature: Date/Time: For continuity of documentation, please document condition throughout progress notes and discharge summary. To be completed by CDI/Coding staff for physician review: Present Clinical Indicators - Signs / Symptoms / Labs Results and Location in Medical Record [ x ] Troponins 0.093, 0.123, 0.107 Lab 10/26/20 [ x ] SOB H&P 10/26/20 [ ] [ ] [ ] Present Risk Factors Results and Location in Medical Record [ x ] Troponin+ suspected demand ischemia secondary to SOB H&P 10/26/20 [ x ] History of CAD, HTN Ed Doctor Note 10/26/20 [ ] [ ] [ ] Present Treatments Results and Location in Medical Record [ ] [ ] [ ] [ x ] Oxygen 3lpm V/S 10/27/20 [ ] [ ] [ ] CDS/Abrasive Grader Helper Signature: Jazmine Roberts Phone #: [phone] Date/Time: 10/30/20 0474 This is a permanent part of the Medical Record [facility]
--- NOTE | 2020-10-30 15:42 | PDOC.HOSPP ---
- Subjective Encounter Date: 10/30/20 Encounter Time: 10:00 Subjective: sob is better eating well, is amb in room - Objective Vital Signs & Weight: Vital Signs (12 hours) Temp Pulse Resp BP Pulse Ox 10/30/20 11:09 98.3 F 63 13 126/75 97 10/30/20 08:00 97.9 F 67 22 H 125/67 93 L Weight Weight 185 lb I&O: 10/29/20 10/30/20 10/31/20 06:59 06:59 06:59 Intake Total 930 1240 Output Total 2150 1325 Balance -1220 -85 Result Diagrams: 10/30/20 04:39 10/30/20 04:39 Hospitalist ROS - Medication Medications: Active Medications Generic Name Dose Route Start Last Admin Trade Name Freq PRN Reason Stop Dose Admin Allopurinol 300 mg 10/27/20 09:00 10/30/20 07:37 Allopurinol 300 Mg Tab PO 300 mg DAILY DIANNE Administration Apixaban 2.5 mg 10/26/20 21:00 10/30/20 07:37 Apixaban 2.5 Mg Tab PO 2.5 mg BID DIANNE Administration Aspirin 81 mg 10/27/20 09:00 10/30/20 07:37 Aspirin 81 Mg Enteric Coated Tablet PO 81 mg DAILY DIANNE Administration Atorvastatin Calcium 20 mg 10/27/20 21:00 10/29/20 19:51 Atorvastatin Calcium 20 Mg Tab PO 20 mg HS DIANNE Administration Cholecalciferol 2,000 units 10/27/20 09:00 10/30/20 07:38 Cholecalciferol 1,000 Units (25 Mcg) Tab PO 2,000 units DAILY DIANNE Administration Clonazepam 0.5 mg 10/26/20 21:00 10/29/20 19:51 Clonazepam 0.5 Mg Tab PO 0.5 mg HS DIANNE Administration Dexamethasone 6 mg 10/27/20 09:00 10/30/20 07:37 Dexamethasone 4 Mg/Ml Vial SLOW IVP 6 mg DAILY DIANNE Administration Ezetimibe 10 mg 10/27/20 09:00 10/30/20 07:38 Ezetimibe 10 Mg Tab PO 10 mg DAILY DIANNE Administration Levofloxacin 750 mg/ Device 150 mls @ 100 mls/hr 10/27/20 15:00 10/30/20 14:56 IVPB 150 mls 1500 DIANNE Administration Remdesivir 100 mg/ Sodium 250 mls @ 250 mls/hr 10/29/20 09:00 10/30/20 09:50 Chloride IV 11/01/20 09:59 250 mls 0900 DIANNE Administration Lactulose 20 gm 10/26/20 15:40 10/28/20 14:22 Lactulose 20 Gm/30 Ml Udcup PO 20 gm BIDPRN PRN Administration Constipation Latanoprost 1 drop 10/27/20 21:00 10/29/20 19:51 Latanoprost 0.005% Ophth Soln 2.5 Ml Bottle EA EYE 1 drop HS DIANNE Administration Metoprolol Tartrate 25 mg 10/27/20 21:00 10/30/20 07:38 Metoprolol Tartrate 25 Mg Tab PO 25 mg BID DIANNE Administration Pantoprazole Sodium 40 mg 10/29/20 09:00 10/30/20 07:37 Pantoprazole 40 Mg Vial IVP 40 mg DAILY DIANNE Administration Pregabalin 100 mg 10/26/20 21:00 10/29/20 19:49 Pregabalin 50 Mg Cap PO 100 mg HS DIANNE Administration - Exam General Appearance: awake alert Eye: PERRL, anicteric sclera ENT: no oropharyngeal lesions, moist mucosa Neck: supple, no JVD Heart: RRR, no murmur Respiratory: no wheezes, rales, rhonchi Gastrointestinal: soft, non-tender, non-distended, normal bowel sounds Extremities: no cyanosis, no edema Neurological: cranial nerve grossly intact, no focal deficits Psychiatric: normal affect, A&O x 3 Hosp A/P (1) Pneumonia due to COVID-19 virus Code(s): U07.1 - COVID-19; J12.82 - PNEUMONIA DUE TO CORONAVIRUS DISEASE 2019 Status: Acute (2) Atrial fibrillation Code(s): I48.91 - UNSPECIFIED ATRIAL FIBRILLATION Status: Chronic Qualifiers: Atrial fibrillation type: paroxysmal Qualified Code(s): I48.0 - Paroxysmal atrial fibrillation (3) CAD (coronary artery disease) Code(s): I25.10 - ATHSCL HEART DISEASE OF [place] CORONARY ARTERY W/O ANG PCTRS Status: Chronic Qualifiers: Coronary Disease-Associated Artery/Lesion type: [place] artery [place] vs. transplanted heart: [place] heart Associated angina: without angina Qualified Code(s): I25.10 - Atherosclerotic heart disease of [place] coronary artery without angina pectoris (4) CKD (chronic kidney disease) stage 3, GFR 30-59 ml/min Code(s): N18.3 - CHRONIC KIDNEY DISEASE, STAGE 3 (MODERATE) * DO NOT USE * Status: Chronic (5) Chronic anemia Code(s): D64.9 - ANEMIA, UNSPECIFIED Status: Chronic - Plan is on nasal canula O2, remdesivir, dexamethasone, alb inh continue asp, lipitor, eliquis, zetia, lopressor, klonopin, protonix and lyrica will dc levaquin hemostable will need HH with PT and nursing along with home O2 for dc plan
[2020-10-30] MEDS: Latanoprost 0.005% Ophth Soln 2.5 ml Bottle EA EYE SCH (21:04)
[2020-10-30] MEDS: clonazePAM 0.5 MG TAB PO SCH (21:05)
[2020-10-30] MEDS: Atorvastatin Calcium 20 MG TAB PO SCH (21:05)
[2020-10-30] MEDS: Pregabalin 50 MG CAP PO SCH (21:05)
[2020-10-31 05:38] LABS: ALT (SGPT) 28 U/L (8-55); AST (SGOT) 34 U/L (5-34); Albumin 2.6 g/dL (3.4-4.8); Alkaline Phosphatase 78 U/L (40-110); Anion Gap 13 mmol/L (10-20); BUN (Urea Nitrogen) 32 mg/dL (8.4-25.7); Bilirubin, Direct 0.4 mg/dL (0.1-0.3); Bilirubin, Total 0.8 mg/dL (0.2-1.2); CRP (Inflammatory) 7.69 mg/dL (= or < 0.5); Calc. Creatinine Clearance 63 mL/min (70-130); Carbon Dioxide 22 mmol/L (23-31); Chloride 99 mmol/L (98-107); Glucose 95 mg/dL (83-110); Protein, Total 5.6 g/dL (5.8-8.1); Sodium 129 mmol/L (136-145)
[2020-10-31] MEDS: Dexamethasone 4 mg/ml Vial SLOW IVP SCH (09:40)
[2020-10-31] MEDS: Ezetimibe 10 MG TAB PO SCH (09:41)
[2020-10-31] MEDS: Allopurinol 300 MG TAB PO SCH (09:41)
[2020-10-31] MEDS: Aspirin 81 mg Enteric Coated Tablet PO SCH (09:41)
[2020-10-31] MEDS: Cholecalciferol 1,000 UNITS (25 MCG) TAB PO SCH (09:41)
[2020-10-31] MEDS: Metoprolol Tartrate 25 MG TAB PO SCH ×2 (09:41→21:09)
[2020-10-31] MEDS: Apixaban 2.5 MG TAB PO SCH ×2 (09:41→21:09)
[2020-10-31] MEDS: REMDESIVIR (EUA) 100 MG in Sodium Chloride 0.9% 250 ML 230 ML IV SCH (09:53)
--- NOTE | 2020-10-31 13:57 | PDOC.HOSPP ---
- Subjective Encounter Date: 10/31/20 Encounter Time: 12:30 Subjective: feels better, not in distress breathing comfortably on 2 lts NC - Objective Vital Signs & Weight: Vital Signs (12 hours) Temp Pulse Resp BP Pulse Ox 10/31/20 11:35 97.8 F 76 20 123/73 92 L 10/31/20 09:50 97.8 F 90 20 118/63 93 L 10/31/20 02:26 97.8 F 54 L 20 119/78 88 L Weight Weight 185 lb I&O: 10/30/20 10/31/20 11/01/20 06:59 06:59 06:59 Intake Total 1240 1180 Output Total 1320 7456 Balance -85 -970 Result Diagrams: 10/30/20 04:39 10/31/20 04:43 Hospitalist ROS - Medication Medications: Active Medications Generic Name Dose Route Start Last Admin Trade Name Freq PRN Reason Stop Dose Admin Allopurinol 300 mg 10/27/20 09:00 10/31/20 09:41 Allopurinol 300 Mg Tab PO 300 mg DAILY DIANNE Administration Apixaban 2.5 mg 10/26/20 21:00 10/31/20 09:41 Apixaban 2.5 Mg Tab PO 2.5 mg BID DIANNE Administration Aspirin 81 mg 10/27/20 09:00 10/31/20 09:41 Aspirin 81 Mg Enteric Coated Tablet PO 81 mg DAILY DIANNE Administration Atorvastatin Calcium 20 mg 10/27/20 21:00 10/30/20 21:05 Atorvastatin Calcium 20 Mg Tab PO 20 mg HS DIANNE Administration Cholecalciferol 2,000 units 10/27/20 09:00 10/31/20 09:41 Cholecalciferol 1,000 Units (25 Mcg) Tab PO 2,000 units DAILY DIANNE Administration Clonazepam 0.5 mg 10/26/20 21:00 10/30/20 21:05 Clonazepam 0.5 Mg Tab PO 0.5 mg HS DIANNE Administration Dexamethasone 6 mg 10/27/20 09:00 10/31/20 09:40 Dexamethasone 4 Mg/Ml Vial SLOW IVP 6 mg DAILY DIANNE Administration Ezetimibe 10 mg 10/27/20 09:00 10/31/20 09:41 Ezetimibe 10 Mg Tab PO 10 mg DAILY DIANNE Administration Remdesivir 100 mg/ Sodium 250 mls @ 250 mls/hr 10/29/20 09:00 10/31/20 09:53 Chloride IV 11/01/20 09:59 250 mls 0900 DIANNE Administration Lactulose 20 gm 10/26/20 15:40 10/28/20 14:22 Lactulose 20 Gm/30 Ml Udcup PO 20 gm BIDPRN PRN Administration Constipation Latanoprost 1 drop 10/27/20 21:00 10/30/20 21:04 Latanoprost 0.005% Ophth Soln 2.5 Ml Bottle EA EYE 1 drop HS DIANNE Administration Metoprolol Tartrate 25 mg 10/27/20 21:00 10/31/20 09:41 Metoprolol Tartrate 25 Mg Tab PO 25 mg BID DIANNE Administration Pantoprazole Sodium 40 mg 10/31/20 09:00 10/31/20 09:41 Pantoprazole 40 Mg Tab PO 40 mg DAILY DIANNE Administration Pregabalin 100 mg 10/26/20 21:00 10/30/20 21:05 Pregabalin 50 Mg Cap PO 100 mg HS DIANNE Administration - Exam General Appearance: awake alert Eye: PERRL, anicteric sclera ENT: no oropharyngeal lesions, moist mucosa Neck: supple, no JVD Heart: RRR, no murmur Respiratory: no wheezes, no rales, rhonchi Gastrointestinal: soft, non-tender, non-distended, normal bowel sounds Extremities: no cyanosis, no edema Neurological: cranial nerve grossly intact, no focal deficits Psychiatric: normal affect, A&O x 3 Hosp A/P (1) Pneumonia due to COVID-19 virus Code(s): U07.1 - COVID-19; J12.82 - PNEUMONIA DUE TO CORONAVIRUS DISEASE 2019 Status: Acute (2) Atrial fibrillation Code(s): I48.91 - UNSPECIFIED ATRIAL FIBRILLATION Status: Chronic Qualifiers: Atrial fibrillation type: paroxysmal Qualified Code(s): I48.0 - Paroxysmal atrial fibrillation (3) CAD (coronary artery disease) Code(s): I25.10 - ATHSCL HEART DISEASE OF [place] CORONARY ARTERY W/O ANG PCTRS Status: Chronic Qualifiers: Coronary Disease-Associated Artery/Lesion type: [place] artery [place] vs. transplanted heart: [place] heart Associated angina: without angina Qualified Code(s): I25.10 - Atherosclerotic heart disease of [place] coronary artery without angina pectoris (4) CKD (chronic kidney disease) stage 3, GFR 30-59 ml/min Code(s): N18.3 - CHRONIC KIDNEY DISEASE, STAGE 3 (MODERATE) * DO NOT USE * Status: Chronic (5) Chronic anemia Code(s): D64.9 - ANEMIA, UNSPECIFIED Status: Chronic - Plan is on nasal canula O2, remdesivir, dexamethasone, alb inh continue asp, lipitor, eliquis, zetia, lopressor, klonopin, protonix and lyrica hemostable will need HH with PT and nursing along with home O2 for dc plan d/w son over phone no immunosuppresant meds including enbrel for another 2 weeks
[2020-10-31] MEDS: Latanoprost 0.005% Ophth Soln 2.5 ml Bottle EA EYE SCH (21:09)
[2020-10-31] MEDS: Atorvastatin Calcium 20 MG TAB PO SCH (21:09)
[2020-10-31] MEDS: clonazePAM 0.5 MG TAB PO SCH (21:09)
[2020-11-01] MEDS: Pregabalin 50 MG CAP PO SCH ×2 (00:30→21:05)
[2020-11-01 05:24] LABS: ALT (SGPT) 27 U/L (8-55); AST (SGOT) 29 U/L (5-34); Albumin 2.5 g/dL (3.4-4.8); Alkaline Phosphatase 77 U/L (40-110); Anion Gap 10 mmol/L (10-20); BUN (Urea Nitrogen) 40 mg/dL (8.4-25.7); Bilirubin, Direct 0.4 mg/dL (0.1-0.3); Bilirubin, Total 0.6 mg/dL (0.2-1.2); CRP (Inflammatory) 8.73 mg/dL (= or < 0.5); Calc. Creatinine Clearance 55 mL/min (70-130); Calcium 7.8 mg/dL (7.8-10.44); Carbon Dioxide 21 mmol/L (23-31); Chloride 101 mmol/L (98-107); Glucose 121 mg/dL (83-110); Potassium 4.4 mmol/L (3.5-5.1); Protein, Total 5.4 g/dL (5.8-8.1); Sodium 128 mmol/L (136-145)
[2020-11-01] MEDS ORDERED: Sodium Chloride 0.9% 1,000 ML IV SCH (07:15)
[2020-11-01] MEDS: REMDESIVIR (EUA) 100 MG in Sodium Chloride 0.9% 250 ML 230 ML IV SCH (09:12)
[2020-11-01] MEDS: Apixaban 2.5 MG TAB PO SCH ×2 (09:15→21:06)
[2020-11-01] MEDS: Aspirin 81 mg Enteric Coated Tablet PO SCH (09:15)
[2020-11-01] MEDS: Metoprolol Tartrate 25 MG TAB PO SCH ×2 (09:15→21:06)
[2020-11-01] MEDS: Dexamethasone 4 mg/ml Vial SLOW IVP SCH (09:15)
[2020-11-01] MEDS: Ezetimibe 10 MG TAB PO SCH (09:18)
[2020-11-01] MEDS: Allopurinol 300 MG TAB PO SCH (09:18)
[2020-11-01] MEDS: Cholecalciferol 1,000 UNITS (25 MCG) TAB PO SCH (09:18)
--- NOTE | 2020-11-01 13:06 | PDOC.HOSPP ---
- Subjective Encounter Date: 11/01/20 Encounter Time: 12:30 Subjective: no complaints, feels good his is getting better but she is still weak as well at home he is drinking as much fluid as he can - Objective Vital Signs & Weight: Vital Signs (12 hours) Temp Pulse Resp BP Pulse Ox 11/01/20 09:15 97.9 F 60 20 118/64 93 L 11/01/20 04:30 97.7 F 58 L 22 H 113/68 92 L Weight Weight 185 lb I&O: 10/31/20 11/01/20 11/02/20 06:59 06:59 06:59 Intake Total 1180 2230 500 Output Total 1945 1960 400 Balance -765 270 100 Result Diagrams: 10/30/20 04:39 11/01/20 04:38 Additional Labs: Accuchecks 10/31/20 20:45 POC Glucose 130 H Hospitalist ROS - Medication Medications: Active Medications Generic Name Dose Route Start Last Admin Trade Name Freq PRN Reason Stop Dose Admin Allopurinol 300 mg 10/27/20 09:00 11/01/20 09:18 Allopurinol 300 Mg Tab PO 300 mg DAILY DIANNE Administration Apixaban 2.5 mg 10/26/20 21:00 11/01/20 09:15 Apixaban 2.5 Mg Tab PO 2.5 mg BID DIANNE Administration Aspirin 81 mg 10/27/20 09:00 11/01/20 09:15 Aspirin 81 Mg Enteric Coated Tablet PO 81 mg DAILY DIANNE Administration Atorvastatin Calcium 20 mg 10/27/20 21:00 10/31/20 21:09 Atorvastatin Calcium 20 Mg Tab PO 20 mg HS DIANNE Administration Cholecalciferol 2,000 units 10/27/20 09:00 11/01/20 09:18 Cholecalciferol 1,000 Units (25 Mcg) Tab PO 2,000 units DAILY DIANNE Administration Clonazepam 0.5 mg 10/26/20 21:00 10/31/20 21:09 Clonazepam 0.5 Mg Tab PO 0.5 mg HS DIANNE Administration Dexamethasone 6 mg 10/27/20 09:00 11/01/20 09:15 Dexamethasone 4 Mg/Ml Vial SLOW IVP 6 mg DAILY DIANNE Administration Ezetimibe 10 mg 10/27/20 09:00 11/01/20 09:18 Ezetimibe 10 Mg Tab PO 10 mg DAILY DIANNE Administration Sodium Chloride 1,000 mls @ 70 mls/hr 11/01/20 07:15 11/01/20 09:12 Normal Saline 0.9% IV 11/01/20 21:32 1,000 mls .[id number] DIANNE Administration Lactulose 20 gm 10/26/20 15:40 10/28/20 14:22 Lactulose 20 Gm/30 Ml Udcup PO 20 gm BIDPRN PRN Administration Constipation Latanoprost 1 drop 10/27/20 21:00 10/31/20 21:09 Latanoprost 0.005% Ophth Soln 2.5 Ml Bottle EA EYE 1 drop HS DIANNE Administration Metoprolol Tartrate 25 mg 10/27/20 21:00 11/01/20 09:15 Metoprolol Tartrate 25 Mg Tab PO 25 mg BID DIANNE Administration Pantoprazole Sodium 40 mg 10/31/20 09:00 11/01/20 09:15 Pantoprazole 40 Mg Tab PO 40 mg DAILY DIANNE Administration Pregabalin 100 mg 10/26/20 21:00 11/01/20 00:30 Pregabalin 50 Mg Cap PO 100 mg HS DIANNE Administration Sodium Chloride 10 ml 11/01/20 09:00 11/01/20 09:16 Flush - Normal Saline 10 Ml Syringe IVF 10 ml Q12HR DIANNE Administration - Exam General Appearance: awake alert Eye: PERRL, anicteric sclera ENT: no oropharyngeal lesions, moist mucosa Neck: supple, no JVD Heart: RRR, no murmur Respiratory: no wheezes, no rales, rhonchi Gastrointestinal: soft, non-tender, non-distended, normal bowel sounds Extremities: no cyanosis, no edema Neurological: cranial nerve grossly intact, no focal deficits Psychiatric: normal affect, A&O x 3 Hosp A/P (1) Pneumonia due to COVID-19 virus Code(s): U07.1 - COVID-19; J12.82 - PNEUMONIA DUE TO CORONAVIRUS DISEASE 2019 Status: Acute (2) Atrial fibrillation Code(s): I48.91 - UNSPECIFIED ATRIAL FIBRILLATION Status: Chronic Qualifiers: Atrial fibrillation type: paroxysmal Qualified Code(s): I48.0 - Paroxysmal atrial fibrillation (3) CAD (coronary artery disease) Code(s): I25.10 - ATHSCL HEART DISEASE OF [place] CORONARY ARTERY W/O ANG PCTRS Status: Chronic Qualifiers: Coronary Disease-Associated Artery/Lesion type: [place] artery [place] vs. transplanted heart: [place] heart Associated angina: without angina Qualified Code(s): I25.10 - Atherosclerotic heart disease of [place] coronary artery without angina pectoris (4) CKD (chronic kidney disease) stage 3, GFR 30-59 ml/min Code(s): N18.3 - CHRONIC KIDNEY DISEASE, STAGE 3 (MODERATE) * DO NOT USE * Status: Chronic (5) Chronic anemia Code(s): D64.9 - ANEMIA, UNSPECIFIED Status: Chronic - Plan is on nasal canula O2, remdesivir, dexamethasone last dose today, alb inh continue asp, lipitor, eliquis, zetia, lopressor, klonopin, protonix and lyrica hemostable will need rehab or swing bed for placement, has amb around 15ft with rw d/w son over phone 10/31 no immunosuppresant meds including enbrel for another 2 weeks
[2020-11-01] MEDS: clonazePAM 0.5 MG TAB PO SCH (21:05)
[2020-11-01] MEDS: Atorvastatin Calcium 20 MG TAB PO SCH (21:06)
[2020-11-01] MEDS: Latanoprost 0.005% Ophth Soln 2.5 ml Bottle EA EYE SCH (21:06)
[2020-11-02 05:44] LABS: ALT (SGPT) 26 U/L (8-55); AST (SGOT) 37 U/L (5-34); Albumin 2.5 g/dL (3.4-4.8); Alkaline Phosphatase 93 U/L (40-110); Anion Gap 14 mmol/L (10-20); BUN (Urea Nitrogen) 35 mg/dL (8.4-25.7); Bilirubin, Direct 0.5 mg/dL (0.1-0.3); Bilirubin, Total 0.9 mg/dL (0.2-1.2); CRP (Inflammatory) 6.94 mg/dL (= or < 0.5); Calc. Creatinine Clearance 67 mL/min (70-130); Calcium 8.1 mg/dL (7.8-10.44); Carbon Dioxide 19 mmol/L (23-31); Chloride 103 mmol/L (98-107); Glucose 94 mg/dL (83-110); Potassium 4.7 mmol/L (3.5-5.1); Protein, Total 5.6 g/dL (5.8-8.1); Sodium 131 mmol/L (136-145)
[2020-11-02] MEDS: Cholecalciferol 1,000 UNITS (25 MCG) TAB PO SCH (08:04)
[2020-11-02] MEDS: Allopurinol 300 MG TAB PO SCH (08:04)
[2020-11-02] MEDS: Apixaban 2.5 MG TAB PO SCH (08:04)
[2020-11-02] MEDS: Aspirin 81 mg Enteric Coated Tablet PO SCH (08:04)
[2020-11-02] MEDS: Dexamethasone 4 mg/ml Vial SLOW IVP SCH (08:05)
[2020-11-02] MEDS: Ezetimibe 10 MG TAB PO SCH (08:06)
[2020-11-02] MEDS: Metoprolol Tartrate 25 MG TAB PO SCH (08:06)
--- NOTE | 2020-11-02 11:49 | RAD ---
Exam: Chest one view HISTORY:Follow-up COVID pneumonia. Comparison: 10/26/2020 FINDINGS: Cardiac silhouette:Stable mild cardiomegaly. Aorta: Table atherosclerosis and elongation of the aorta Pulmonary vessels: Normal Costophrenic angles: Clear LUNGS: Stable multi lobar interstitial and alveolar opacities. Pneumothorax: None Osseous abnormalities: None IMPRESSION: Stable multi lobar COVID pneumonia.
--- NOTE | 2020-11-02 14:06 | PDOC.HOSPP ---
- Subjective Encounter Date: 11/02/20 Encounter Time: 12:15 Subjective: he choked on a bit of egg this am but is comfortable breathing now slept well last night, is oriented well this afternoon - Objective Vital Signs & Weight: Vital Signs (12 hours) Temp Pulse Resp BP BP BP BP 11/02/20 11:20 127/74 11/02/20 11:15 98.2 F 77 22 H 82/53 L 11/02/20 10:50 82/53 L 127/63 11/02/20 08:15 98.4 F 69 20 159/76 H 11/02/20 03:40 98.2 F 61 17 135/83 Pulse Ox Pulse Ox Pulse Ox Pulse Ox 11/02/20 11:20 11/02/20 11:15 94 L 11/02/20 10:50 80 L 88 L 87 L 11/02/20 08:15 93 L 11/02/20 03:40 92 L Weight Weight 185 lb I&O: 11/01/20 11/02/20 11/03/20 06:59 06:59 06:59 Intake Total 2230 1390 200 Output Total 1960 1050 400 Balance 270 340 -200 Result Diagrams: 10/30/20 04:39 11/02/20 04:53 Hospitalist ROS - Medication Medications: Active Medications Generic Name Dose Route Start Last Admin Trade Name Silvia PRN Reason Stop Dose Admin Allopurinol 300 mg 10/27/20 09:00 11/02/20 08:04 Allopurinol 300 Mg Tab PO 300 mg DAILY DIANNE Administration Apixaban 2.5 mg 10/26/20 21:00 11/02/20 08:04 Apixaban 2.5 Mg Tab PO 2.5 mg BID DIANNE Administration Aspirin 81 mg 10/27/20 09:00 11/02/20 08:04 Aspirin 81 Mg Enteric Coated Tablet PO 81 mg DAILY DIANNE Administration Atorvastatin Calcium 20 mg 10/27/20 21:00 11/01/20 21:06 Atorvastatin Calcium 20 Mg Tab PO 20 mg HS DIANNE Administration Cholecalciferol 2,000 units 10/27/20 09:00 11/02/20 08:04 Cholecalciferol 1,000 Units (25 Mcg) Tab PO 2,000 units DAILY DIANNE Administration Clonazepam 0.5 mg 10/26/20 21:00 11/01/20 21:05 Clonazepam 0.5 Mg Tab PO 0.5 mg HS DIANNE Administration Dexamethasone 6 mg 10/27/20 09:00 11/02/20 08:05 Dexamethasone 4 Mg/Ml Vial SLOW IVP 6 mg DAILY DIANNE Administration Ezetimibe 10 mg 10/27/20 09:00 11/02/20 08:06 Ezetimibe 10 Mg Tab PO 10 mg DAILY DIANNE Administration Lactulose 20 gm 10/26/20 15:40 11/02/20 08:07 Lactulose 20 Gm/30 Ml Udcup PO 20 gm BIDPRN PRN Administration Constipation Latanoprost 1 drop 10/27/20 21:00 11/01/20 21:06 Latanoprost 0.005% Ophth Soln 2.5 Ml Bottle EA EYE 1 drop HS DIANNE Administration Pantoprazole Sodium 40 mg 10/31/20 09:00 11/02/20 08:06 Pantoprazole 40 Mg Tab PO 40 mg DAILY DIANNE Administration Pregabalin 100 mg 10/26/20 21:00 11/01/20 21:05 Pregabalin 50 Mg Cap PO 100 mg HS DIANNE Administration Sodium Chloride 10 ml 11/01/20 09:00 11/02/20 08:07 Flush - Normal Saline 10 Ml Syringe IVF 10 ml Q12HR DIANNE Administration - Exam General Appearance: awake alert Eye: PERRL, anicteric sclera ENT: no oropharyngeal lesions, moist mucosa Neck: supple, no JVD Heart: RRR, no murmur Respiratory: no wheezes, no rales, rhonchi Gastrointestinal: soft, non-tender, non-distended, normal bowel sounds Extremities: no cyanosis, no edema Neurological: cranial nerve grossly intact, no focal deficits Psychiatric: normal affect, A&O x 3 Hosp A/P (1) Pneumonia due to COVID-19 virus Code(s): U07.1 - COVID-19; J12.82 - PNEUMONIA DUE TO CORONAVIRUS DISEASE 2019 Status: Acute (2) Atrial fibrillation Code(s): I48.91 - UNSPECIFIED ATRIAL FIBRILLATION Status: Chronic Qualifiers: Atrial fibrillation type: paroxysmal Qualified Code(s): I48.0 - Paroxysmal atrial fibrillation (3) CAD (coronary artery disease) Code(s): I25.10 - ATHSCL HEART DISEASE OF [place] CORONARY ARTERY W/O ANG PCTRS Status: Chronic Qualifiers: Coronary Disease-Associated Artery/Lesion type: [place] artery [place] vs. transplanted heart: [place] heart Associated angina: without angina Qualified Code(s): I25.10 - Atherosclerotic heart disease of [place] coronary artery without angina pectoris (4) CKD (chronic kidney disease) stage 3, GFR 30-59 ml/min Code(s): N18.3 - CHRONIC KIDNEY DISEASE, STAGE 3 (MODERATE) * DO NOT USE * Status: Chronic (5) Chronic anemia Code(s): D64.9 - ANEMIA, UNSPECIFIED Status: Chronic - Plan is on nasal canula O2, finished course of remdesivir, dexamethasone, alb inh continue asp, lipitor, eliquis, zetia, lopressor, klonopin, protonix and lyrica hemostable will need rehab or swing bed for placement, has amb around 15ft with rw d/w son over phone 10/31 no immunosuppresant meds including enbrel for another 2 weeks may dc to inpt rehab if accepted repeat cxr reviewed from this am
--- NOTE | 2020-11-02 17:06 | DIS ---
DATE OF ADMISSION: 10/27/2020 DATE OF DISCHARGE: 11/02/2020 DISCHARGE DISPOSITION: Inpatient rehab. PRIMARY DISCHARGE DIAGNOSES: 1. COVID-19 pneumonia. 2. Acute respiratory failure with hypoxia secondary to above. 3. Paroxysmal atrial fibrillation, which is rate controlled. 4. Coronary artery disease. 5. Chronic kidney disease stage 2. PROCEDURES DONE DURING HOSPITALIZATION: CT chest done on admission showed no evidence of PE. There were bilateral parenchymal findings suggestive of COVID pneumonia. CT abdomen and pelvis done showed moderate colonic fecal retention suggestive of constipation, otherwise no acute process in the abdomen. H and H 12 and 37, platelet count 126, MCV is 99, white count of 8. BUN 35, creatinine 0.8. Liver enzymes within normal limits. CRP is more or less remained around 6. Ferritin has remained stable around 700s. DISCHARGE MEDICATIONS: 1. Aspirin 81 mg p.o. daily. 2. Allopurinol 300 mg p.o. daily. 3. Clonazepam 0.5 mg p.o. at bedtime. 4. Latanoprost eyedrops as before at bedtime. 5. Protonix 40 mg p.o. daily. 6. Vitamin D3 of 2000 units p.o. daily. 7. Zetia 10 mg p.o. daily. 8. Dexamethasone 6 mg p.o. daily for another 5 days. 9. DuoNebs 4 times daily. 10. Eliquis 2.5 mg twice daily for atrial fibrillation. 11. Lyrica 50 mg p.o. at bedtime. 12. Multivitamin 1 tablet once daily. 13. Toprol-XL 25 mg p.o. daily. ALLERGIES: TO CODEINE. INPATIENT CONSULT: Dr. Trent for Cardiology. DISCHARGE PLAN: The patient to follow up with his primary care physician in 1 week after being discharged from rehab. BRIEF COURSE DURING HOSPITALIZATION: The patient initially got admitted on the with complaints of decreased appetite and shortness of breath. He was diagnosed with positive COVID-19 virus infection 6 days prior to admission. The patient was admitted to telemetry. He was placed on steroids along with albuterol inhaler. The patient was given complete course of remdesivir during his stay. He has not had any untoward events to remdesivir. He is needing 2 L nasal cannula oxygen. The patient has had some supine at times. He has physical deconditioning and will be discharged to inpatient rehab for further recuperation prior to going home. Please see a [id number] documentation for the day of discharge on [employer]. Job ID: [id number]
[2020-11-02 17:57] VITALS: BP 141/83; TEMP 97.5
== END 2020-11-02 18:20 | DRG 177 ==
LOC: ERS 10:15 → 2SW 14:22 → ERHOLD 14:22 → 2SW 10-27 17:25 → OBSVTOIN 10-27 17:41
PROVIDERS: ADMIT Internal Medicine; ATTEND Internal Medicine
PROC: XW033E5 Introduction of Remdesivir Anti-infective into Peripheral Vein, Percutaneous Approach, New Technology Group 5 (ICD-10-PCS; principal; 2020-10-28)
DX: U07.1 COVID-19 (principal); J12.82 Pneumonia due to coronavirus disease 2019; J96.01 Acute respiratory failure with hypoxia; I47.1 Supraventricular tachycardia; I24.8 Other forms of acute ischemic heart disease; I48.0 Paroxysmal atrial fibrillation; N18.2 Chronic kidney disease, stage 2 (mild); I25.10 Atherosclerotic heart disease of native coronary artery without angina pectoris; G47.33 Obstructive sleep apnea (adult) (pediatric); N40.0 Benign prostatic hyperplasia without lower urinary tract symptoms; F41.9 Anxiety disorder, unspecified; M06.9 Rheumatoid arthritis, unspecified; D64.9 Anemia, unspecified; I34.0 Nonrheumatic mitral (valve) insufficiency; I27.20 Pulmonary hypertension, unspecified; M10.9 Gout, unspecified; Z96.653 Presence of artificial knee joint, bilateral; Z96.641 Presence of right artificial hip joint; Z96.611 Presence of right artificial shoulder joint; K59.00 Constipation, unspecified; H40.9 Unspecified glaucoma; E11.22 Type 2 diabetes mellitus with diabetic chronic kidney disease; Z86.711 Personal history of pulmonary embolism; Z95.5 Presence of coronary angioplasty implant and graft; Z98.890 Other specified postprocedural states; Z93.3 Colostomy status; Z88.6 Allergy status to analgesic agent; Z79.899 Other long term (current) drug therapy; Z79.82 Long term (current) use of aspirin; Z86.718 Personal history of other venous thrombosis and embolism; Z79.51 Long term (current) use of inhaled steroids
CPT/HCPCS: 36415; 36416; 71045; 71275; 74177; 80048; 80053; 80076; 82553; 82728; 84484; 85025; 85379; 86140; 93005; 94760; 96374; C9113; G0378; J1100; J1956; J7050; Q9967

== ENCOUNTER 2020-11-20 08:40 | Inpatient (IN) | payer MEDICARE ==
[2020-11-20] MEDS ORDERED: Dexamethasone 10 MG/ML VIAL ONE (09:41)
[2020-11-20 09:47] LABS: INR-International Normal Ratio 1.2; PTT 27.6 sec (22.9-36.1); Prothrombin Time 15.9 sec (12.0-14.7)
[2020-11-20 10:01] LABS: Anion Gap 16 mmol/L (10-20); BUN (Urea Nitrogen) 52 mg/dL (8.4-25.7); Calc. Creatinine Clearance 0 mL/min (70-130); Carbon Dioxide 24 mmol/L (23-31); Chloride 97 mmol/L (98-107); Potassium 5.6 mmol/L (3.5-5.1); Sodium 131 mmol/L (136-145)
[2020-11-20 10:02] LABS: ALT (SGPT) 35 U/L (8-55); AST (SGOT) 27 U/L (5-34); Albumin 2.6 g/dL (3.4-4.8); Alkaline Phosphatase 74 U/L (40-110); Bilirubin, Total 1.1 mg/dL (0.2-1.2); Calcium 8.1 mg/dL (7.8-10.44); Globulin 2.8 g/dL (2.4-3.5); Glucose 200 mg/dL (83-110); Protein, Total 5.4 g/dL (5.8-8.1)
[2020-11-20 10:10] LABS: Band 10 % (5-11); Hemoglobin 11.4 g/dL (14.0-18.0); Lymphocytes 5 % (21-51); MDiff Complete? YES; Macrocytosis SLIGHT = 6-15 cells (100X) (0-5/hpf); Mean Corpuscular HGB CONC 33.4 g/dL (32.0-36.0); Mean Corpuscular Hemoglobin 34.4 pg (27.0-31.0); Mean Platelet Volume 9.5 fL (7.4-10.4); Monocytes 6 % (0-10); Neutrophil 79 % (42-75); Platelet Count 148 thou/uL (130-400); Platelet Morphology Comment Appears Adequate; Poikilocytosis SLIGHT = 6-15 cells (100X) (0-5/hpf); RBC Distribution Width 16.3 % (11.5-14.5); Schistocytes SLIGHT = 2-5 cells (100X) (0-1/hpf); White Blood Cell (WBC) Count 12.8 thou/uL (4.8-10.8)
--- NOTE | 2020-11-20 11:20 | RAD ---
PORTABLE CHEST 1 VIEW: DATE: 11/20/2020. TIME: 9:41 AM. HISTORY: Dyspnea. Followup COVID pneumonia. COMPARISON: 11/02/2020. FINDINGS: The heart size is prominent and stable. The aorta is tortuous. Patchy multifocal opacities are agai n seen. No pneumothoraces are pleural effusions are identified. Right breast prosthesis remains in place. IMPRESSION: Findings are consistent with COVID pneumonia. POS: OFF
[2020-11-20] MEDS ORDERED: Aspirin Chewable 81 MG TAB ONE ×2 (11:22→11:23)
[2020-11-20] MEDS ORDERED: Cefepime 2 GM VIAL ONE (11:22)
[2020-11-20 11:25] LABS: Anion Gap 11 mmol/L (10-20); BUN (Urea Nitrogen) 54 mg/dL (8.4-25.7); Calc. Creatinine Clearance 0 mL/min (70-130); Calcium 7.3 mg/dL (7.8-10.44); Carbon Dioxide 22 mmol/L (23-31); Chloride 102 mmol/L (98-107); Glucose 165 mg/dL (83-110); Potassium 4.8 mmol/L (3.5-5.1); Sodium 130 mmol/L (136-145)
[2020-11-20] MEDS ORDERED: Ondansetron ODT 4 MG TAB PO PRN (11:59)
[2020-11-20] MEDS ORDERED: Acetaminophen 650 MG Suppository PR PRN (11:59)
[2020-11-20] MEDS ORDERED: Ondansetron PF 4 MG/2 ML Vial IVP PRN (11:59)
[2020-11-20] MEDS ORDERED: Acetaminophen 325 MG TAB PO PRN (11:59)
[2020-11-20] MEDS ORDERED: Guaifenesin DM 100-10/5 ML UDCUP PO PRN (11:59)
[2020-11-20] MEDS ORDERED: Vancomycin 1 GM/200 ML BAG ONE (12:04)
[2020-11-20 12:27] LABS: Lactic Acid 2.1 mmol/L (0.5-2.2)
[2020-11-20] MEDS ORDERED: Mag-Al 1200 mg/1200 mg/30 ML UDCUP ONE ×2 (12:43→13:09)
[2020-11-20] MEDS ORDERED: Vancomycin 1 GM in Premix Bag 1 BAG IVPB SCH (12:45)
[2020-11-20] MEDS ORDERED: Albuterol Sulfate 2.5 mg/3 ml Neb EZPAP PRN (12:46)
--- NOTE | 2020-11-20 12:56 | PDOC.HHP ---
Hospitalist HPI Shortness of breath History of Present Illness: Mr. Phelan is an 89-year-old male with a past medical history of paroxysmal A. fib on Eliquis, rheumatoid arthritis, gout, GERD, pulmonary hypertension, PE, coronary artery disease status post 2 cardiac stents who presents from [facility] for shortness of breath and increasing oxygen requirements. Of note patient was recently hospitalized admitted on 10/27/2020 through 11/02/2020 for COVID-19 pneumonia. Initially tested positive for Covid on October 21, 2021. Patient was discharged to [facility] rehab on 2 L of oxygen. Yesterday he was transferring to [facility] and during transportation family reports that patient did not have oxygen reapplied. Patient then progressed to worsening shortness of breath and dyspnea upon transfer with a reported O2 saturation on room air of 83%. Patient requiring 6 L nasal cannula to maintain O2 saturation and was thus transferred to the emergency room. Patient also reports that overnight he developed a cough with thick yellow sputum with some red streaks in it. He denies fever, chills, night sweats. Denies chest pain or palpitations. Does endorse malaise, generalized weakness. He denies abdominal pain, nausea vomiting diarrhea. Denies numbness weakness or paresthesias. In emergency room initial vital signs 122/74, 110, 24, 99% on nonrebreather, 98.4. EKG showed normal sinus rhythm with no ischemic changes. Initial troponin 0 0.365, BNP 765, chest x-ray showed multifocal pneumonia with question of new infiltrate. CT PE protocol was negative for pulmonary embolism but did show new left-sided infiltrate and changes consistent with COVID-19 pneumonia. BUN/CR 52/1.07, sodium 131, potassium 5.6. Lactic acid 4.0, AST/ALT 27/35. WBC 12.8, H/H 11.4/34.0. Patient received ceftriaxone, vancomycin, Decadron as well as 1 L normal saline in the emergency room. Allergies/Adverse Reactions: Allergy/AdvReac Type Severity Reaction Status Date / Time codeine Allergy Verified 10/26/20 17:28 Home Medications: Medication Instructions Recorded Confirmed Type Allopurinol 300 mg PO DAILY 10/02/18 10/26/20 History Cholecalciferol [Vitamin D3] 2,000 unit PO DAILY 10/02/18 10/26/20 History Latanoprost/Pf [Latanoprost 0.005% 1 drop OP HS 10/02/18 10/26/20 History Eye Drop] Pantoprazole [Protonix] 40 mg PO DAILY 10/02/18 10/26/20 History clonazePAM [Clonazepam] 0.5 mg PO HS 10/02/18 10/26/20 History Multivitamin W/ Minerals 1 tab PO DAILY #30 tab 12/18/19 10/26/20 Rx [Theragran M] Aspirin [Adult Aspirin Regimen] 81 mg PO DAILY 10/26/20 10/26/20 History Ezetimibe [Zetia] 10 mg PO DAILY 10/26/20 10/26/20 History Apixaban [Eliquis] 2.5 mg PO BID #60 tab 11/02/20 Rx Dexamethasone [Decadron] 6 mg PO DAILY #5 tablet 11/02/20 Rx Ipratropium/Albuterol Sulfate 3 ml NEB QID #30 neb 11/02/20 Rx [Duoneb] Metoprolol Succinate [Toprol XL] 25 mg PO DAILY #30 tab 11/02/20 Rx Pregabalin [Lyrica] 50 mg PO HS #30 cap 11/02/20 Rx Past History: PMHx: Rheumatoid arthritis, gout, GERD, paroxysmal A. fib on Eliquis, Enterobacter bacteremia, chronic anemia, pulmonary embolism, DVT, mitral regurgitation, pulmonary hypertension, CKD stage III, coronary artery disease s tatus post 2 cardiac stents, COVID-19 infection first documented October 21, 2020. PSHx: Status post bilateral knee replacement, right hip replacement, right shoulder replacement, diverticulitis, colostomy with reversal, 2 cardiac stents FHx: No pertinent family history Social: Patient's son is Dr. Caro, anesthesiologist at our hospital. Hospitalist BRIANA HARO Constitutional: reports: weakness, malaise. denies: fever, chills, sweats, other Eyes: denies: pain, vision change, conjunctivae inflammation, eyelid inflammation, redness, other ENT: denies: ear pain, ear discharge, nose pain, nose discharge, nose congestion, mouth pain, mouth swelling, throat pain, throat swelling, other Respiratory: reports: cough, shortness of breath, hemoptysis, SOB with excertion, sputum. denies: dry, pleuritic pain, wheezing, other Cardiovascular: denies: chest pain, palpitations, orthopnea, paroxysmal noc. dyspnea, edema, light headedness, other Gastrointestinal: denies: nausea, vomiting, abdominal pain, diarrhea, constipation, melena, hematochezia, other Genitourinary: denies: dysuria, frequency, incontinence, hematuria, retention, other Musculoskeletal: denies: neck pain, shoulder pain, arm pain, back pain, hand pain, leg pain, foot pain, other Skin: denies: rash, lesions, beryl, bruising, other Neurological: denies: weakness, numbness, incoordination, change in speech, confusion, seizures, other Hospitalist Exam General Appearance: NAD, awake alert, ill appearing General - other findings: Comfortable on nonrebreather mask Eye: PERRL, anicteric sclera ENT: normocephalic atraumatic, no oropharyngeal lesions, moist mucosa Neck: supple, symmetric, no JVD, no thyromegaly, no lymphadenopathy, no carotid bruit Heart: RRR, no murmur, no gallops, no rubs, normal peripheral pulses Respiratory: no wheezes, normal chest expansion, no tachypnea Respiratory - other findings: Rhonchi bilaterally, crackles at left lower flores Gastrointestinal: soft, non-tender, non-distended, normal bowel sounds, no palpable masses, no hepatomegaly, no splenomegaly, no bruit Extremities: no cyanosis, no clubbing Extremities - other findings: Trace edema Skin: normal turgor, no lesions, no rashes Skin - other findings: Multiple purpura Neurological: cranial nerve grossly intact, normal sensation to touch, no weakness, no focal deficits, no new deficit Musculoskeletal: normal tone, generalized weakness Psychiatric: normal affect, normal behavior, A&O x 3 Hospitalist Results Result Diagrams: 11/20/20 09:28 11/20/20 10:41 Lab results: Laboratory Last Values WBC 12.8 thou/uL (4.8-10.8) H 11/20/20 09:28 RBC 3.30 mill/uL (4.70-6.10) L 11/20/20 09:28 Hgb 11.4 g/dL (14.0-18.0) L 11/20/20 09:28 Hct 34.0 % (42.0-52.0) L 11/20/20 09:28 MCV 103.0 fL (78.0-98.0) H 11/20/20 09:28 MCH 34.4 pg (27.0-31.0) H 11/20/20 09:28 MCHC 33.4 g/dL (32.0-36.0) 11/20/20 09:28 RDW 16.3 % (11.5-14.5) H 11/20/20 09:28 Plt Count 148 thou/uL (130-400) 11/20/20 09:28 MPV 9.5 fL (7.4-10.4) 11/20/20 09:28 Neutrophils % (Manual) 79 % (42-75) H 11/20/20 09:28 Band Neuts % (Manual) 10 % (5-11) 11/20/20 09: Lymphocytes % (Manual) 5 % (21-51) L 11/20/20 09: Monocytes % (Manual) 6 % (0-10) 11/20/20 09:28 Plt Morphology Comment Appears Adequate 11/20/20 09:28 Poikilocytosis SLIGHT = 6-15 cells (100X) (0-5/hpf) 11/20/20 09:28 Macrocytosis SLIGHT = 6-15 cells (100X) (0-5/hpf) 11/20/20 09:28 Schistocytes SLIGHT = 2-5 cells (100X) (0-1/hpf) 11/20/20 09:28 PT 15.9 sec (12.0-14.7) H 11/20/20 09:28 INR 1.2 11/20/20 09:28 APTT 27.6 sec (22.9-36.1) 11/20/20 09:28 Sodium 130 mmol/L (136-145) L 11/20/20 10:41 Potassium 4.8 mmol/L (3.5-5.1) 11/20/20 10:41 Chloride 102 mmol/L (98-107) 11/20/20 10:41 Carbon Dioxide 22 mmol/L (23-31) L 11/20/20 10:41 Anion Gap 11 mmol/L (10-20) 11/20/20 10:41 BUN 54 mg/dL (8.4-25.7) H 11/20/20 10:41 Creatinine 0.90 mg/dL (0.7-1.3) 11/20/20 10:41 Estimated GFR (MDRD) 79 11/20/20 10:41 Glucose 165 mg/dL (83-110) H 11/20/20 10:41 Lactic Acid 2.1 mmol/L (0.5-2.2) 11/20/20 12:03 Calcium 7.3 mg/dL (7.8-10.44) L 11/20/20 10:41 Total Bilirubin 1.1 mg/dL (0.2-1.2) 11/20/20 09:28 AST 27 U/L (5-34) 11/20/20 09:28 ALT 35 U/L (8-55) 11/20/20 09:28 Alkaline Phosphatase 74 U/L (40-110) 11/20/20 09:28 CK-MB (CK-2) 1.0 ng/mL (0-6.6) 11/20/20 09:28 Troponin I 0.397 ng/mL (< 0.028) H* 11/20/20 09:28 B-Natriuretic Peptide 769.0 pg/mL (0-100) H 11/20/20 09:22 Serum Total Protein 5.4 g/dL (5.8-8.1) L 11/20/20 09:28 Albumin 2.6 g/dL (3.4-4.8) L 11/20/20 09:28 Globulin 2.8 g/dL (2.4-3.5) 11/20/20 09:28 Albumin/Globulin Ratio 0.9 g/dL (1.2-2.2) L 11/20/20 09:28 Hospitalist H&P A/P Plan: Bacterial pneumonia Patient initially admitted for COVID-19 pneumonia from 10/27/2020 through 11/02/2020. Sent to rehab on 2 L nasal cannula. Now he presents from [facility] for increasing oxygen requirements and dyspnea. Patient with new productive cough. Chest x-ray shows interval worsening with multifocal pneumonia concerning left lower lobe infiltrate. Likely superimposed bacterial pneumonia. Patient does report a history of difficulty swallowing and aspiration. Will cover for aspiration pneumonia. Since patient recently had COVID-19 pneumonia he has been continuing to take Decadron. Will hold this and consult ID for further recommendations. Plan IV cefepime, vancomycin, Flagyl Supplemental oxygen as needed Sputum cultures ID consult, recommendations appreciated Sepsis without septic shock Patient presents in sepsis without septic shock secondary to bacterial pneumonia WBC 12.8, lactic acid 4.0, increasing oxygen requirements now requiring nonrebreather mask to maintain O2 saturation. Patient mildly tachycardic to 110. Afebrile. Did receive 2 L IV fluids in emergency room as well as ceftriaxone and vancomycin. We will continue IV antibiotics and follow blood cultures. Plan IV fluids, antibiotics as above Trend WBC, lactic acid, fever curve Follow blood cultures Acute hypoxic respiratory failure Patient with acute hypoxic respiratory failure secondary to moderate to severe COVID-19 pneumonia. Patient with new oxygen requirement now on nonrebreather to maintain O2 sat. we will transition patient to Ventimask versus high flow nasal cannula. We will continue supplemental oxygen and closely monitor respiratory status. Treatment as above. Plan -Supplemental oxygen -Treatment as above -Closely monitor respiratory status Atrial fibrillation History of atrial fibrillation. On review of records it appears patient was chronically on Eliquis and that this was stopped for some reason. Patient restarted Eliquis when he was diagnosed with COVID-19. Patient has no history of GI bleeds that he reports to me. We will continue home Eliquis for now. Encourage patient to follow-up with his transit specialist. We will also continue home metoprolol. Plan Continue Eliquis Continue metoprolol Telemetry monitoring Elevation in troponin Patient with elevated troponin 0 0.365. Patient without chest pain. EKG normal sinus rhythm with no ischemic changes. Likely secondary to demand ischemia. On review appears baseline troponin runs about 0.10. BUN/CR today 52/1.07. We will continue to trend troponin and place on telemetry monitoring. Plan Aspirin Telemetry monitoring Troponin Coronary artery disease History of coronary artery disease status post 2 stents. Patient denies chest pain, EKG with no ischemic changes. Troponin elevated at 0.365. Will continue to trend and continue home medications. Hypertension History of hypertension, will hold antihypertensives as patient's blood pressure is soft in setting of sepsis. Rheumatoid arthritis We will continue home prednisone once dosage is confirmed. Hyperlipidemia We will continue home zetia. GERD We will continue home pantoprazole. Anxiety History of anxiety. We will continue home clonazepam nightly and Lyrica nightly. DVT prophylaxison Eliquis Discussed CODE STATUS with patient. Patient requests no CPR, but is okay with intubation. Patient does not want heroic measures performed. Has confirmed that POA and medical decision-maker is his and son. Case discussed with attending physician, Dr. Orellana.
[2020-11-20 12:57] LABS: Critical Call Chem Troponin I RESULT DECREASING; Troponin I 0.394 ng/mL (< 0.028)
--- NOTE | 2020-11-20 13:14 | CT ---
CT PULMONARY ANGIOGRAM WITH IV CONTRAST AND 3D POST PROCESSING: HISTORY: Dyspnea. Patient was COVID positive since October 21, 2020, and was tested negative yesterday. COMPARISON: 10/26/2020. FINDINGS: There is good contrast opacification of the pulmonary arterial vasculature without filling defects to suggest pulmonary embolism. Vascular calcifications are present without evidence of aneurysmal dilatation of the thoracic aorta. No pleural or pericardial effusions are seen. Multifocal patchy ground-glass infiltrates are again seen. There has been interval development of fo sanjiv areas of consolidation in the left lung base since the last exam. There are degenerative changes in the spine. Upper abdominal tomograms are stable. IMPRESSION: 1. No CT evidence of pulmonary embolism. 2. Interval developmental of left basilar consolidation since 10/26/2020 with stable multifocal bilate ral patchy ground-glass infiltrates. Superimposed bacterial pneumonia should be considered. POS: OFF
[2020-11-20] MEDS ORDERED: Iopamidol 370 76% 100 ML VIAL ONE (14:01)
[2020-11-20 15:32] VITALS: BMI 26.6
[2020-11-20 16:11] LABS: Troponin I 0.438 ng/mL (< 0.028)
[2020-11-20] MEDS: metroNIDAZOLE 500 MG in Premix Bag 1 BAG IVPB SCH ×2 (16:34→23:50)
[2020-11-20] MEDS ORDERED: Vancomycin 1.5 GRAM/300 ML BAG 1.5 GM in Premix Bag 1 BAG IVPB SCH (17:00)
[2020-11-20] MEDS ORDERED: Cefepime 2 GM in Sodium Chloride 0.9% 100 ML IVPB SCH (18:00)
--- NOTE | 2020-11-20 20:19 | CON ---
DATE OF CONSULTATION: 11/20/2020 REASON: Worsening respiratory symptoms associated with the aftermath of recent COVID-19. HISTORY OF PRESENT ILLNESS: An 89-year-old whom I had seen in September 2020 when he presented with a history of degenerative joint disease, rheumatoid arthritis, coronary disease, prior pulmonary embolism. He also had a history of prior diverticulitis episode, which required partial resection and reanastomosis in [place] a few years ago. When I saw him, he had Enterobacter bacteremia in 1/2 blood culture sets. After antimicrobial therapy, he was discharged and returned on October 27, 2020, with COVID-19 and respiratory failure. He did have some fecal impaction or retention or constipation, and he received Decadron and remdesivir and was discharged on 2 L of nasal cannula oxygen. On the day of discharge, he did have quite pronounced intermittent desaturations down to mid 80s. He had diffuse bilateral ground-glass opacities, more prominent in lower lung flores on CT scan. Discharge medications included allopurinol, aspirin, clonazepam, Decadron, Eliquis, Toprol. He was transferred to rehab, so it looks like he went home and then came back with worsening shortness of breath, increasing oxygen requirements. He came from the [place] apparently. On the date of current admission, he is about 29-30 days post COVID-19. When he was transferred from the rehab to the [place], he did not have oxygen supplementation for some reason and developed respiratory symptoms, and his O2 sats dropped to 83%, and they had to transfer him to the emergency room. He was having some cough and yellow sputum production with red streaks. Did not have fever, chills. No headaches. No vomiting. No nausea or abdominal pain. No genitourinary symptoms. On arrival, BP was 120/70, pulse 110, respirations 24, O2 saturation 99% on non-rebreathing Ventimask. Subsequently, 92% on 4 L of oxygen supplementation. A repeat CT chest was performed, which demonstrated no evidence of pulmonary embolism and multifocal ground-glass infiltrates. There are a few focal areas of consolidation in left lung base since the last exam. He did have a repeat RT PCR for COVID, which was positive. His other findings include a white cell count 12.8, hemoglobin 11.4, platelets 148, 79% neutrophils. INR 1.2. Sodium 130, creatinine 0.9, albumin 2.6. Troponin 0.397 and 0.438. Liver profile normal. Currently, Mr. Phelan is awake. He recognized me and he was weak, but he was able to answer questions. REVIEW OF SYSTEMS: A 10-point review of systems as above. PAST MEDICAL HISTORY: Includes, rheumatoid arthritis, previously on low-dose prednisone, etanercept, gout, deep vein thrombosis, pulmonary embolism, diverticulitis, partial segmental resection, sigmoid colon, temporary colostomy, which has been taken down in [place], coronary disease, CKD, stage 3, urinary incontinence. SURGICAL HISTORY: Knee replacements, hip replacement, right side, shoulder replacement, right side, perianal abscess drainage, coronary stents. He also has had a recent episode of COVID-19, which emerges into the current history. SOCIAL HISTORY: Never smoker. FAMILY HISTORY: Prostate cancer, pancreatic cancer. ALLERGIES: CODEINE. CURRENT MEDICATION LIST: Includes, 1. Tylenol. 2. Ventolin. 3. DuoNeb. 4. Eliquis. 5. Ecotrin. 6. Cefepime. 7. Clonazepam. 8. Zetia. 9. Metronidazole. 10. Vancomycin. 11. Pregabalin. PHYSICAL EXAMINATION: VITAL SIGNS: One temperature thus far is 97.2, saturating 97% on 5 L, pulse 76, respirations 18. SKIN: Shows peripheral IV access. GENERAL: Voiding in the diaper. Appears chronically ill, in no acute distress. HEENT: Ocular movements are conjugate. Somewhat pale conjunctivae. Oral cavity with desiccated dental enamel, quite a few teeth in place. Oral mucosa somewhat dry. There was evidence of Gwendolyn in the posterior oropharynx. There is no jugular vein distention. LUNGS: With scattered inspiratory crackles, cellophane like characteristics at the bases, right and left side. HEART: Diminished heart sounds, S1, S2. Regular rate without murmurs. No S3. ABDOMEN: Soft, not distended or tender. No ascites. No bladder distention. EXTREMITIES: Pulses are 1+ in dorsalis pedis and popliteal. Plantar responses are flexor. He is able to move extremities on command. NEUROLOGIC: He knows his name. He knew where he was, could not tell me the date. His ability to give me an account of the recent events is quite limited. ASSESSMENT: Chronic kidney disease, prior coronary disease, prior DVT, on Eliquis, and COVID-19, initially diagnosed at the end of September with now recrudescence of respiratory difficulty when he was being transferred to the [place]. For some reason, he did not have O2 supplementation. He also has developed some sputum production. There was a concern with superimposed bacterial pneumonia. DISCUSSION: The patient is not infectious anymore from standpoint of SARS-CoV-2 and isolation precautions can be discontinued. He does have those infiltrates in the left lower lobe and it is reasonable to treat him as if he had nosocomial infection with resistant pathogen. Anaerobes are less likely Gram negatives and MRSA would be the main concern. I do not think he has received etanercept in a while, so it is less of a concern in relationship to MTB, his last QuantiFERON I believe was negative. I do not think we need to pursue histoplasma capsulatum workup at this point in time, so discontinue isolation and consider discontinuing Flagyl and then deescalate antimicrobial therapy according to clinical response, microbiology data if available. A lot of those patients with severe COVID-19 will develop forms of organizing pneumonia. I think he needs to continue corticosteroids. We will go ahead and resume Decadron. Job ID: [id number]
[2020-11-20] MEDS: Pregabalin 50 MG CAP PO SCH (20:28)
[2020-11-20] MEDS: clonazePAM 0.5 MG TAB PO SCH (20:28)
[2020-11-20] MEDS: Apixaban 2.5 MG TAB PO SCH (20:29)
[2020-11-20] MEDS: Cefepime 2 GM in Sodium Chloride 0.9% 100 ML IVPB SCH (23:10)
[2020-11-20] MEDS: Methyl Salicylate/Menthol 85 GM TUBE TOP PRN (23:10)
[2020-11-20] MEDS ORDERED: Polyethylene Glycol 3350 17 GM Packet PO PRN (23:32)
[2020-11-21] MEDS: Vancomycin 1.5 GRAM/300 ML BAG 1.5 GM in Premix Bag 1 BAG IVPB SCH ×2 (00:57→13:37)
[2020-11-21] MEDS ORDERED: Lorazepam 2 MG/ML VIAL SLOW IVP PRN (05:03)
[2020-11-21 05:34] LABS: Anion Gap 14 mmol/L (10-20); BUN (Urea Nitrogen) 64 mg/dL (8.4-25.7); Calc. Creatinine Clearance 75 mL/min (70-130); Calcium 7.9 mg/dL (7.8-10.44); Carbon Dioxide 19 mmol/L (23-31); Chloride 105 mmol/L (98-107); Glucose 171 mg/dL (83-110); Magnesium 2.2 mg/dL (1.6-2.6); Potassium 5.2 mmol/L (3.5-5.1); Sodium 133 mmol/L (136-145)
[2020-11-21 06:23] LABS: Band 34 % (5-11); Eosinophils 1 % (0-10); Hemoglobin 9.2 g/dL (14.0-18.0); Lymphocytes 7 % (21-51); MDiff Complete? YES; Mean Corpuscular HGB CONC 33.4 g/dL (32.0-36.0); Mean Corpuscular Hemoglobin 34.3 pg (27.0-31.0); Mean Platelet Volume 9.9 fL (7.4-10.4); Metamyelocyte 2 % (0-0); Monocytes 3 % (0-10); Myelocyte 1 % (0-0); Neutrophil 52 % (42-75); Platelet Count 121 thou/uL (130-400); RBC Distribution Width 16.5 % (11.5-14.5); Red Blood Cell (RBC) Count 2.69 mill/uL (4.70-6.10); White Blood Cell (WBC) Count 11.3 thou/uL (4.8-10.8)
[2020-11-21] MEDS ORDERED: Metoprolol Tartrate 5 MG/5 ML VIAL IVP PRN (08:40)
[2020-11-21] MEDS ORDERED: FLU VACC QS2020-21(65YR UP)/PF 240 MCG/0.7 ML SYRINGE IM ONE (09:00)
[2020-11-21] MEDS: Aspirin 81 mg Enteric Coated Tablet PO SCH (10:29)
[2020-11-21] MEDS: Dexamethasone 4 mg/ml Vial SLOW IVP SCH (10:30)
[2020-11-21] MEDS: Fluconazole 100 MG TAB PO SCH (10:30)
[2020-11-21] MEDS: Apixaban 2.5 MG TAB PO SCH ×2 (10:30→19:59)
[2020-11-21] MEDS: metroNIDAZOLE 500 MG in Premix Bag 1 BAG IVPB SCH (10:30)
[2020-11-21] MEDS: Ezetimibe 10 MG TAB PO SCH (10:30)
--- NOTE | 2020-11-21 11:06 | PDOC.HOSPP ---
- Subjective Encounter Date: 11/21/20 Encounter Time: 11:04 Subjective: Mr. Phelan was seen today in follow-up of pneumonia post COVID. He notes continued dyspnea, and some pain in his chest. His heart rate was also elevated, and he attributes this to albuterol. - Objective Vital Signs & Weight: Vital Signs (12 hours) Temp Pulse Resp BP Pulse Ox 11/21/20 08:00 98.0 F 130 H 24 H 98/53 L 95 11/21/20 05:20 116 H 26 H 95 11/21/20 04:43 137 H 11/21/20 02:57 98.3 F 84 20 107/56 L 97 11/21/20 00:05 104/62 Weight Weight 207 lb I&O: 11/20/20 11/21/20 11/22/20 06:59 06:59 06:59 Intake Total 1020 Output Total 795 200 Balance 225 -200 Result Diagrams: 11/21/20 04:32 11/21/20 04:32 Hospitalist ROS - Medication Medications: Active Medications Generic Name Dose Route Start Last Admin Trade Name Freq PRN Reason Stop Dose Admin Albuterol/Ipratropium 3 ml 11/21/20 07:00 11/21/20 05:20 Ipratropium/Albuterol Sulfate 3 Ml Neb NEB 3 ml [id number] DIANNE Administration Apixaban 2.5 mg 11/20/20 21:00 11/21/20 10:30 Apixaban 2.5 Mg Tab PO 2.5 mg BID DIANNE Administration Aspirin 81 mg 11/21/20 09:00 11/21/20 10:29 Aspirin 81 Mg Enteric Coated Tablet PO 81 mg DAILY DIANNE Administration Clonazepam 0.5 mg 11/20/20 21:00 11/20/20 20:28 Clonazepam 0.5 Mg Tab PO 0.5 mg HS DIANNE Administration Dexamethasone 6 mg 11/21/20 09:00 11/21/20 10:30 Dexamethasone 4 Mg/Ml Vial SLOW IVP 6 mg DAILY DIANNE Administration Diltiazem HCl 240 mg 11/21/20 09:00 11/21/20 04:43 Diltiazem Cd 120 Mg Cap PO 240 mg DAILY DIANNE Administration Ezetimibe 10 mg 11/21/20 09:00 11/21/20 10:30 Ezetimibe 10 Mg Tab PO 10 mg DAILY DIANNE Administration Fluconazole 100 mg 11/21/20 09:00 11/21/20 10:30 Fluconazole 100 Mg Tab PO 100 mg DAILY DIANNE Administration Cefepime HCl 2 gm/ Sodium 100 mls @ 200 mls/hr 11/20/20 23:00 11/20/20 23:10 Chloride IVPB 100 mls 1100,2300 DIANNE Administration Vancomycin HCl 1.5 gm/ Device 300 mls @ 200 mls/hr 11/21/20 00:00 11/21/20 00:57 IVPB 300 mls 0000,1200 DIANNE Administration Lorazepam 0.5 mg 11/21/20 05:03 11/21/20 05:21 Lorazepam 2 Mg/Ml Vial SLOW IVP 0.5 mg Q4H PRN Administration Anxiety/Agitation Menthol/Methyl Salicylate 1 gm 11/20/20 21:19 11/20/20 23:10 Methyl Salicylate/Menthol 85 Gm Tube TOP 1 gm QIDPRN PRN Administration Muscle Pain Pantoprazole Sodium 40 mg 11/21/20 09:00 11/21/20 10:30 Pantoprazole 40 Mg Tab PO 40 mg DAILY DIANNE Administration Pregabalin 50 mg 11/20/20 21:00 11/20/20 20:28 Pregabalin 50 Mg Cap PO 50 mg HS DIANNE Administration Sodium Chloride 10 ml 11/20/20 11:59 11/20/20 20:29 Flush - Normal Saline 10 Ml Syringe IVF 10 ml PRN PRN Administration Saline Flush Hospitalist Exam Vitals: Vital Signs (12 hours) Temp Pulse Resp BP Pulse Ox 11/21/20 08:00 98.0 F 130 H 24 H 98/53 L 95 11/21/20 05:20 116 H 26 H 95 11/21/20 04:43 137 H 11/21/20 02:57 98.3 F 84 20 107/56 L 97 11/21/20 00:05 104/62 Weight Weight 207 lb General Appearance: NAD, awake alert Eye: PERRL, anicteric sclera Respiratory: rales (essentially throughout) Gastrointestinal: soft, non-tender, non-distended, normal bowel sounds, no palpable masses, no hepatomegaly Extremities: no cyanosis, no edema Hosp A/P (1) Healthcare associated bacterial pneumonia Code(s): J15.9 - UNSPECIFIED BACTERIAL PNEUMONIA Status: Acute (2) Atrial fibrillation Code(s): I48.91 - UNSPECIFIED ATRIAL FIBRILLATION Status: Chronic Qualifiers: Atrial fibrillation type: paroxysmal Qualified Code(s): I48.0 - Paroxysmal atrial fibrillation (3) CAD (coronary artery disease) Code(s): I25.10 - ATHSCL HEART DISEASE OF [place] CORONARY ARTERY W/O ANG PCTRS Status: Chronic Qualifiers: Coronary Disease-Associated Artery/Lesion type: [place] artery [place] vs. transplanted heart: [place] heart Associated angina: without angina Qualified Code(s): I25.10 - Atherosclerotic heart disease of [place] coronary artery without angina pectoris (4) CKD (chronic kidney disease) stage 3, GFR 30-59 ml/min Code(s): N18.3 - CHRONIC KIDNEY DISEASE, STAGE 3 (MODERATE) * DO NOT USE * Status: Chronic (5) Acute respiratory failure with hypoxemia Code(s): J96.01 - ACUTE RESPIRATORY FAILURE WITH HYPOXIA Status: Acute (6) Rheumatoid arthritis Code(s): M06.9 - RHEUMATOID ARTHRITIS, UNSPECIFIED Status: Chronic (7) NSTEMI (non-ST elevated myocardial infarction) Code(s): I21.4 - NON-ST ELEVATION (NSTEMI) MYOCARDIAL INFARCTION Status: Acute - Plan * Acute respiratory failure with hypoxemia- due to Healthcare Associated pneumonia- continue Cefepime and Vancomycin * Continue Decadron * AFIB with RVR- will continue Metoprolol IV as needed- and will change nebs to Xopenex- Continue Cardizem * Continue Elquis for CVA prevention * Add Atroven nebs * CKD- stable * NSTEMI- type 2- from demand of the pneumonia- supportive care * Prognosis is guarded due to his advanced age and co-morbid conditions
[2020-11-21] MEDS ORDERED: Ipratropium Bromide 2.5 ml Neb NEB PRN (11:10)
[2020-11-21] MEDS ORDERED: Loperamide HCl 2 MG CAP PO PRN (11:11)
[2020-11-21] MEDS ORDERED: Sodium Chloride 0.65% Nasal 44 ML BOT EA NARE PRN (11:11)
[2020-11-21] MEDS ORDERED: Simethicone Chewable 80 MG TAB PO PRN (11:11)
[2020-11-21] MEDS: Sodium Chloride 0.9% 1,000 ML IV SCH (12:22)
[2020-11-21] MEDS: Cefepime 2 GM in Sodium Chloride 0.9% 100 ML IVPB SCH (12:22)
[2020-11-21] MEDS: Albuterol Sulfate 1.25 MG/3 ML NEB NEB SCH ×2 (14:36→23:01)
[2020-11-21] MEDS ORDERED: Albuterol Sulfate 1.25 MG/3 ML NEB NEB PRN (15:00)
[2020-11-21] MEDS: clonazePAM 0.5 MG TAB PO SCH (20:00)
[2020-11-21] MEDS: Sodium Chloride 1 GM TAB PO SCH (20:00)
[2020-11-21] MEDS: Pregabalin 50 MG CAP PO SCH (20:09)
[2020-11-21] MEDS: Methyl Salicylate/Menthol 85 GM TUBE TOP PRN (20:11)
[2020-11-21] MEDS: Latanoprost 0.005% Ophth Soln 2.5 ml Bottle EA EYE SCH (20:45)
[2020-11-21] MEDS ORDERED: Lidocaine 5% Patch TD SCH (21:00)
[2020-11-21 23:33] LABS: Vancomycin, Trough 28.3 ug/mL
[2020-11-22] MEDS: Cefepime 2 GM in Sodium Chloride 0.9% 100 ML IVPB SCH ×3 (00:05→23:25)
[2020-11-22 05:59] LABS: #Lymphocytes 0.6 thou/uL (1.20-3.40); #Monocytes 0.4 thou/uL (0.11-0.59); %Basophils 0.3 % (0.0-1.0); %Eosinophils 0.1 % (0.0-10.0); %Lymphocytes 6.9 % (21.0-51.0); %Monocytes 5.3 % (0.0-10.0); %Neutrophils 87.5 % (42.0-75.0); Hemoglobin 7.4 g/dL (14.0-18.0); Mean Corpuscular Hemoglobin 34.3 pg (27.0-31.0); Mean Platelet Volume 9.7 fL (7.4-10.4); Platelet Count 93 thou/uL (130-400); RBC Distribution Width 16.6 % (11.5-14.5); Red Blood Cell (RBC) Count 2.17 mill/uL (4.70-6.10)
[2020-11-22 06:07] LABS: Anion Gap 12 mmol/L (10-20); BUN (Urea Nitrogen) 86 mg/dL (8.4-25.7); Calc. Creatinine Clearance 58 mL/min (70-130); Calcium 7.7 mg/dL (7.8-10.44); Carbon Dioxide 19 mmol/L (23-31); Chloride 112 mmol/L (98-107); Glucose 182 mg/dL (83-110); Potassium 4.8 mmol/L (3.5-5.1); Sodium 138 mmol/L (136-145)
[2020-11-22] MEDS: Vancomycin 1.5 GRAM/300 ML BAG 1.5 GM in Premix Bag 1 BAG IVPB SCH (06:41)
[2020-11-22] MEDS: Albuterol Sulfate 1.25 MG/3 ML NEB NEB SCH ×3 (07:57→22:05)
[2020-11-22] MEDS ORDERED: Transdermal Patch Removal TOP SCH (09:00)
--- NOTE | 2020-11-22 09:29 | PDOC.HOSPP ---
- Subjective Encounter Date: 11/22/20 Encounter Time: 09:26 Subjective: Mr. Phelan says he finally feels a little better. He says he needs something to eat. - Objective Vital Signs & Weight: Vital Signs (12 hours) Temp Pulse Resp BP BP Pulse Ox 11/22/20 05:43 95.8 F L 83 14 93/58 L 100 11/22/20 01:15 79 91/52 L 100 Weight Admit Weight 207 lb Weight 207 lb I&O: 11/21/20 11/22/20 11/23/20 06:59 06:59 06:59 Intake Total 1020 120 Output Total 795 1025 Balance 225 -905 Result Diagrams: 11/22/20 05:33 11/22/20 05:33 Hospitalist ROS - Medication Medications: Active Medications Generic Name Dose Route Start Last Admin Trade Name Freq PRN Reason Stop Dose Admin Albuterol Sulfate 1.25 mg 11/21/20 15:00 11/22/20 07:57 Albuterol Sulfate 1.25 Mg/3 Ml Neb NEB Not Given [id number] DIANNE Apixaban 2.5 mg 11/20/20 21:00 11/21/20 19:59 Apixaban 2.5 Mg Tab PO 2.5 mg BID DIANNE Administration Aspirin 81 mg 11/21/20 09:00 11/21/20 10:29 Aspirin 81 Mg Enteric Coated Tablet PO 81 mg DAILY DIANNE Administration Clonazepam 0.5 mg 11/20/20 21:00 11/21/20 20:00 Clonazepam 0.5 Mg Tab PO 0.5 mg HS DIANNE Administration Dexamethasone 6 mg 11/21/20 09:00 11/21/20 10:30 Dexamethasone 4 Mg/Ml Vial SLOW IVP 6 mg DAILY DIANNE Administration Diltiazem HCl 240 mg 11/21/20 09:00 11/21/20 04:43 Diltiazem Cd 120 Mg Cap PO 240 mg DAILY DIANNE Administration Ezetimibe 10 mg 11/21/20 09:00 11/21/20 10:30 Ezetimibe 10 Mg Tab PO 10 mg DAILY DIANNE Administration Fluconazole 100 mg 11/21/20 09:00 11/21/20 10:30 Fluconazole 100 Mg Tab PO 100 mg DAILY DIANNE Administration Cefepime HCl 2 gm/ Sodium 100 mls @ 200 mls/hr 11/20/20 23:00 11/22/20 00:05 Chloride IVPB 100 mls 1100,2300 DIANNE Administration Sodium Chloride 1,000 mls @ 50 mls/hr 11/21/20 11:30 11/21/20 12:22 Normal Saline 0.9% IV 1,000 mls .Q20H DIANNE Administration Latanoprost 1 drop 11/21/20 21:00 11/21/20 20:45 Latanoprost 0.005% Ophth Soln 2.5 Ml Bottle EA EYE 1 drop HS DIANNE Administration Lorazepam 0.5 mg 11/21/20 05:03 11/21/20 05:21 Lorazepam 2 Mg/Ml Vial SLOW IVP 0.5 mg Q4H PRN Administration Anxiety/Agitation Menthol/Methyl Salicylate 1 gm 11/20/20 21:19 11/21/20 20:11 Methyl Salicylate/Menthol 85 Gm Tube TOP 1 gm QIDPRN PRN Administration Muscle Pain Pantoprazole Sodium 40 mg 11/21/20 09:00 11/21/20 10:30 Pantoprazole 40 Mg Tab PO 40 mg DAILY DIANNE Administration Pregabalin 50 mg 11/20/20 21:00 11/21/20 20:09 Pregabalin 50 Mg Cap PO 50 mg HS DIANNE Administration Sodium Chloride 10 ml 11/20/20 11:59 11/20/20 20:29 Flush - Normal Saline 10 Ml Syringe IVF 10 ml PRN PRN Administration Saline Flush Sodium Chloride 1 gm 11/21/20 21:00 11/21/20 20:00 Sodium Chloride 1 Gm Tab PO 1 gm BID DIANNE Administration Hospitalist Exam Vitals: Vital Signs (12 hours) Temp Pulse Resp BP BP Pulse Ox 11/22/20 05:43 95.8 F L 83 14 93/58 L 100 11/22/20 01:15 79 91/52 L 100 Weight Admit Weight 207 lb Weight 207 lb Eye: PERRL, anicteric sclera Heart: RRR, no murmur, no gallops, no rubs, normal peripheral pulses Respiratory: rales (at the bases) Gastrointestinal: soft, non-tender, non-distended, normal bowel sounds, no palpable masses, no hepatomegaly Extremities: no cyanosis, no edema (chronic venous stasis changes, pulses are palpable in the d.p. and p.t.) Hosp A/P (1) Healthcare associated bacterial pneumonia Code(s): J15.9 - UNSPECIFIED BACTERIAL PNEUMONIA Status: Acute (2) Atrial fibrillation Code(s): I48.91 - UNSPECIFIED ATRIAL FIBRILLATION Status: Chronic Qualifiers: Atrial fibrillation type: paroxysmal Qualified Code(s): I48.0 - Paroxysmal atrial fibrillation (3) CAD (coronary artery disease) Code(s): I25.10 - ATHSCL HEART DISEASE OF [place] CORONARY ARTERY W/O ANG PCTRS Status: Chronic Qualifiers: Coronary Disease-Associated Artery/Lesion type: [place] artery [place] vs. transplanted heart: [place] heart Associated angina: without angina Qualified Code(s): I25.10 - Atherosclerotic heart disease of [place] coronary artery without angina pectoris (4) CKD (chronic kidney disease) stage 3, GFR 30-59 ml/min Code(s): N18.3 - CHRONIC KIDNEY DISEASE, STAGE 3 (MODERATE) * DO NOT USE * Status: Chronic (5) Acute respiratory failure with hypoxemia Code(s): J96.01 - ACUTE RESPIRATORY FAILURE WITH HYPOXIA Status: Acute (6) Rheumatoid arthritis Code(s): M06.9 - RHEUMATOID ARTHRITIS, UNSPECIFIED Status: Chronic (7) NSTEMI (non-ST elevated myocardial infarction) Code(s): I21.4 - NON-ST ELEVATION (NSTEMI) MYOCARDIAL INFARCTION Status: Acute - Plan * Acute respiratory failure with hypoxemia- due to Healthcare Associated pneumonia due to MRSA-one blood culture is growing MRSA, and the other a gram positive cocci- Will continue Vancomycin and Cefepime * Continue Decadron * AFIB - his heart rate has improved * Anemia- his HGB has dropped significantly since admission- will repeat a stat H&H. If he is less than 8, will transfuse ( to help with oxygen carrying capacity in the setting of severe dyspnea) and check stool for occult blood * Continue Elquis for CVA prevention * CKD- stable * NSTEMI- type 2- from demand of the pneumonia- supportive care * Prognosis is guarded due to his advanced age and co-morbid conditions
[2020-11-22 10:17] LABS: Hemoglobin 7.6 g/dL (14.0-18.0); Platelet Count 98 thou/uL (130-400)
[2020-11-22] MEDS: Sodium Chloride 0.9% 1,000 ML IV SCH (10:37)
[2020-11-22] MEDS: Fluconazole 100 MG TAB PO SCH (10:38)
[2020-11-22] MEDS: Aspirin 81 mg Enteric Coated Tablet PO SCH (10:38)
[2020-11-22] MEDS: Apixaban 2.5 MG TAB PO SCH ×2 (10:38→21:25)
[2020-11-22] MEDS: Ezetimibe 10 MG TAB PO SCH (10:39)
[2020-11-22] MEDS: Allopurinol 300 MG TAB PO SCH (10:39)
[2020-11-22] MEDS: Dexamethasone 4 mg/ml Vial SLOW IVP SCH (10:39)
[2020-11-22] MEDS: Multivitamin W/ Minerals 1 TAB PO SCH (10:39)
[2020-11-22] MEDS: Polyethylene Glycol 3350 17 GM Packet PO SCH (10:40)
[2020-11-22] MEDS: Sodium Chloride 1 GM TAB PO SCH ×2 (10:42→21:26)
[2020-11-22] MEDS ORDERED: Vancomycin 1.5 GRAM/300 ML BAG 1.5 GM in Premix Bag 1 BAG IVPB SCH (12:00)
[2020-11-22 14:14] LABS: Vancomycin, Random 19.5 ug/mL (See Comment)
[2020-11-22] MEDS: Vancomycin 1 GM in Premix Bag 1 BAG IVPB SCH (16:28)
--- NOTE | 2020-11-22 18:27 | PRG ---
DATE OF SERVICE: 11/22/2020 SUBJECTIVE: The patient is in the obs unit. He is with a non-rebreathing Ventimask, saturating at 98. He does not have any particular pain anywhere, still a little bit winded. He is drowsy, but not obtunded. He follows commands. He is voiding in the urinal. OBJECTIVE: VITAL SIGNS: His temperature has been max 96.2, blood pressure 97/61, heart rate 97, respirations 16, O2 saturation 95 on the non-rebreathing Ventimask. GENERAL: Appears acute and chronically ill. He is oriented. LUNGS: With fairly clear breath sounds on the left side. On the right side, there are inspiratory crackles. HEART: S1, S2 without obvious murmurs. NECK: No jugular vein distention. ABDOMEN: Soft, nondistended. EXTREMITIES: Has an area of early pressure injury to the left heel and a peripheral IV access. LABORATORY DATA: White cell count is down, hemoglobin 7.4, platelets 93,000, 87% neutrophils. Sodium 138, creatinine 1.15. Blood cultures 2/2 with MRSA, the full susceptibility is pending, but this is MRSA by [place]. ASSESSMENT AND DISCUSSION: Chronic kidney disease; prior coronary artery disease; deep venous thrombosis, on Eliquis; COVID-19, diagnosed at the end of September; now recrudescence of respiratory difficulty and possible superimposed bacterial pneumonia, which is likely now in the face of positive blood cultures. He does not have any pacemaker or other central line or other device other than back and joint hardware. No obvious involvement at this point. He does not have back pain or any joints particularly painful. We will go ahead and discontinue the cefepime. Continue vancomycin following area under the curve targets by Pharmacy. He will need long-term therapy. He is in a quite frail situation right now. Job ID: [id number] [facility]
[2020-11-22] MEDS: clonazePAM 0.5 MG TAB PO SCH (21:25)
[2020-11-22] MEDS: Pregabalin 50 MG CAP PO SCH (21:26)
[2020-11-22] MEDS: Latanoprost 0.005% Ophth Soln 2.5 ml Bottle EA EYE SCH (21:26)
[2020-11-22] MEDS: Methyl Salicylate/Menthol 85 GM TUBE TOP PRN (21:27)
[2020-11-23] MEDS: Vancomycin 1 GM in Premix Bag 1 BAG IVPB SCH ×2 (03:05→15:54)
[2020-11-23 06:26] LABS: Anion Gap 11 mmol/L (10-20); BUN (Urea Nitrogen) 70 mg/dL (8.4-25.7); Calc. Creatinine Clearance 71 mL/min (70-130); Calcium 7.9 mg/dL (7.8-10.44); Carbon Dioxide 20 mmol/L (23-31); Chloride 113 mmol/L (98-107); Glucose 189 mg/dL (83-110); Potassium 4.7 mmol/L (3.5-5.1); Sodium 139 mmol/L (136-145)
[2020-11-23 07:03] LABS: Anisocytosis SLIGHT = 6-15 cells (100X) (0-5/hpf); Band 14 % (5-11); Hemoglobin 8.7 g/dL (14.0-18.0); Lymphocytes 6 % (21-51); MDiff Complete? YES; Mean Corpuscular HGB CONC 34.3 g/dL (32.0-36.0); Mean Corpuscular Hemoglobin 35.3 pg (27.0-31.0); Mean Platelet Volume 10.1 fL (7.4-10.4); Monocytes 1 % (0-10); Neutrophil 79 % (42-75); Platelet Count 76 thou/uL (130-400); Platelet Morphology Comment Appears Decreased; RBC Distribution Width 16.4 % (11.5-14.5); Red Blood Cell (RBC) Count 2.45 mill/uL (4.70-6.10); White Blood Cell (WBC) Count 7.4 thou/uL (4.8-10.8)
[2020-11-23] MEDS: Albuterol Sulfate 1.25 MG/3 ML NEB NEB SCH ×3 (07:40→23:11)
[2020-11-23] MEDS: Allopurinol 300 MG TAB PO SCH (10:27)
[2020-11-23] MEDS: Apixaban 2.5 MG TAB PO SCH ×2 (10:28→20:21)
[2020-11-23] MEDS: Dexamethasone 4 mg/ml Vial SLOW IVP SCH (10:28)
[2020-11-23] MEDS: Aspirin 81 mg Enteric Coated Tablet PO SCH (10:28)
[2020-11-23] MEDS: Multivitamin W/ Minerals 1 TAB PO SCH (10:29)
[2020-11-23] MEDS: Ezetimibe 10 MG TAB PO SCH (10:29)
[2020-11-23] MEDS: Fluconazole 100 MG TAB PO SCH (10:29)
[2020-11-23] MEDS: Sodium Chloride 1 GM TAB PO SCH ×2 (10:30→20:22)
[2020-11-23] MEDS: Polyethylene Glycol 3350 17 GM Packet PO SCH (10:30)
[2020-11-23] MEDS: Sodium Chloride 0.9% 1,000 ML IV SCH (10:32)
--- NOTE | 2020-11-23 12:58 | PDOC.HOSPP ---
- Subjective Encounter Date: 11/23/20 Encounter Time: 12:56 Subjective: Mr. Phelan was seen today in follow-up of pneumonia. He is now on high flow oxygen from a non-rebreather. He appears fatigued. He does not have any new complaints. - Objective Vital Signs & Weight: Vital Signs (12 hours) Temp Pulse Resp BP Pulse Ox 11/23/20 07:39 93 L 11/23/20 03:37 96.3 F L 82 16 104/61 93 L Weight Admit Weight 207 lb Weight 207 lb I&O: 11/22/20 11/23/20 11/24/20 06:59 06:59 06:59 Intake Total 120 1020 Output Total 1025 1450 Balance -905 430 Result Diagrams: 11/23/20 05:43 11/23/20 05:43 Hospitalist ROS - Medication Medications: Active Medications Generic Name Dose Route Start Last Admin Trade Name Freq PRN Reason Stop Dose Admin Albuterol Sulfate 1.25 mg 11/21/20 15:00 11/23/20 07:40 Albuterol Sulfate 1.25 Mg/3 Ml Neb NEB Not Given [id number] DIANNE Allopurinol 300 mg 11/22/20 09:00 11/23/20 10:27 Allopurinol 300 Mg Tab PO 300 mg DAILY DIANNE Administration Apixaban 2.5 mg 11/20/20 21:00 11/23/20 10:28 Apixaban 2.5 Mg Tab PO 2.5 mg BID DIANNE Administration Aspirin 81 mg 11/21/20 09:00 11/23/20 10:28 Aspirin 81 Mg Enteric Coated Tablet PO 81 mg DAILY DIANNE Administration Clonazepam 0.5 mg 11/20/20 21:00 11/22/20 21:25 Clonazepam 0.5 Mg Tab PO 0.5 mg HS DIANNE Administration Dexamethasone 6 mg 11/21/20 09:00 11/23/20 10:28 Dexamethasone 4 Mg/Ml Vial SLOW IVP 6 mg DAILY DIANNE Administration Diltiazem HCl 240 mg 11/21/20 09:00 11/23/20 10:29 Diltiazem Cd 120 Mg Cap PO 240 mg DAILY DIANNE Administration Ezetimibe 10 mg 11/21/20 09:00 11/23/20 10:29 Ezetimibe 10 Mg Tab PO 10 mg DAILY DIANNE Administration Fluconazole 100 mg 11/21/20 09:00 11/23/20 10:29 Fluconazole 100 Mg Tab PO 100 mg DAILY DIANNE Administration Sodium Chloride 1,000 mls @ 50 mls/hr 11/21/20 11:30 11/23/20 10:32 Normal Saline 0.9% IV 1,000 mls .Q20H DIANNE Administration Vancomycin HCl 1 gm/ Device 200 mls @ 200 mls/hr 11/22/20 15:00 11/23/20 03:05 IVPB 200 mls 0300,1500 DIANNE Administration Iron/Minerals/Multivitamins 1 tab 11/22/20 09:00 11/23/20 10:29 Multivitamin W/ Minerals 1 Tab PO 1 tab DAILY DIANNE Administration Latanoprost 1 drop 11/21/20 21:00 11/22/20 21:26 Latanoprost 0.005% Ophth Soln 2.5 Ml Bottle EA EYE 1 drop HS DIANNE Administration Lorazepam 0.5 mg 11/21/20 05:03 11/21/20 05:21 Lorazepam 2 Mg/Ml Vial SLOW IVP 0.5 mg Q4H PRN Administration Anxiety/Agitation Menthol/Methyl Salicylate 1 gm 11/20/20 21:19 11/22/20 21:27 Methyl Salicylate/Menthol 85 Gm Tube TOP 1 gm QIDPRN PRN Administration Muscle Pain Pantoprazole Sodium 40 mg 11/21/20 09:00 11/23/20 10:30 Pantoprazole 40 Mg Tab PO 40 mg DAILY DIANNE Administration Polyethylene Glycol 17 gm 11/22/20 09:00 11/23/20 10:30 Polyethylene Glycol 3350 17 Gm Packet PO 17 gm DAILY DIANNE Administration Pregabalin 50 mg 11/20/20 21:00 11/22/20 21:26 Pregabalin 50 Mg Cap PO 50 mg HS DIANNE Administration Sodium Chloride 10 ml 11/20/20 11:59 11/20/20 20:29 Flush - Normal Saline 10 Ml Syringe IVF 10 ml PRN PRN Administration Saline Flush Sodium Chloride 1 gm 11/21/20 21:00 11/23/20 10:30 Sodium Chloride 1 Gm Tab PO 1 gm BID DIANNE Administration Hospitalist Exam Vitals: Vital Signs (12 hours) Temp Pulse Resp BP Pulse Ox 11/23/20 07:39 93 L 11/23/20 03:37 96.3 F L 82 16 104/61 93 L Weight Admit Weight 207 lb Weight 207 lb Eye: PERRL, anicteric sclera Heart: RRR, no murmur, no gallops, no rubs, normal peripheral pulses Respiratory: no wheezes, no ronchi, rales (at the bases) Gastrointestinal: soft, non-tender, non-distended, normal bowel sounds, no palpable masses, no hepatomegaly Extremities: no cyanosis, no edema Hosp A/P (1) Healthcare associated bacterial pneumonia Code(s): J15.9 - UNSPECIFIED BACTERIAL PNEUMONIA Status: Acute (2) Atrial fibrillation Code(s): I48.91 - UNSPECIFIED ATRIAL FIBRILLATION Status: Chronic Qualifiers: Atrial fibrillation type: paroxysmal Qualified Code(s): I48.0 - Paroxysmal atrial fibrillation (3) CAD (coronary artery disease) Code(s): I25.10 - ATHSCL HEART DISEASE OF [place] CORONARY ARTERY W/O ANG PCTRS Status: Chronic Qualifiers: Coronary Disease-Associated Artery/Lesion type: [place] artery [place] vs. transplanted heart: [place] heart Associated angina: without angina Qualified Code(s): I25.10 - Atherosclerotic heart disease of [place] coronary artery without angina pectoris (4) CKD (chronic kidney disease) stage 3, GFR 30-59 ml/min Code(s): N18.3 - CHRONIC KIDNEY DISEASE, STAGE 3 (MODERATE) * DO NOT USE * Status: Chronic (5) Acute respiratory failure with hypoxemia Code(s): J96.01 - ACUTE RESPIRATORY FAILURE WITH HYPOXIA Status: Acute (6) Rheumatoid arthritis Code(s): M06.9 - RHEUMATOID ARTHRITIS, UNSPECIFIED Status: Chronic (7) NSTEMI (non-ST elevated myocardial infarction) Code(s): I21.4 - NON-ST ELEVATION (NSTEMI) MYOCARDIAL INFARCTION Status: Acute - Plan * Acute respiratory failure with hypoxemia- due to Healthcare Associated pneumonia due to MRSA-Continue Vancomycin * Continue Decadron * Cefepime has been discontinued * AFIB - his heart rate has improved * Anemia-continue to monitor his H&H and transfuse as needed ( occult blood is pending. Continue Protonix * Continue Elquis for CVA prevention * CKD- stable * NSTEMI- type 2- from demand of the pneumonia- supportive care
[2020-11-23] MEDS: Saccharomyces boulardii 250 MG CAP PO SCH (18:56)
--- NOTE | 2020-11-23 20:07 | CON ---
DATE OF CONSULTATION: 11/23/2020 HISTORY OF PRESENT ILLNESS: Mr. Phelan is a patient whom I have seen in the past. I was asked by his son to see him today. He has been admitted with bacteremia that was identified as being methicillin-resistant Staph. He is now almost 89 years old. Since the last time I have seen him, he is significantly weaker. PAST MEDICAL HISTORY: Remarkable for; 1. Atrial fibrillation, on Eliquis. 2. History of rheumatoid arthritis. 3. History of sleep apnea, which I do not believe is being treated. 4. Gout. 5. History of reflux disease. 6. History of coronary artery disease with stenting in the past. 7. History of pulmonary hypertension, felt to be secondary to probably diastolic heart failure, combined with untreated sleep apnea. 8. He had sputum production prior to admission. 9. He has a history of Enterobacter bacteremia in the past. 10. History of pulmonary embolism in the past. 11. History of DVT. 12. History of mitral regurgitation. 13. History of chronic kidney disease. 14. History of bilateral knee replacement. 15. History of hip replacement. 16. History of shoulder replacement. 17. History of a colostomy for diverticulitis with eventual reversal. FAMILY HISTORY: Negative for lung disease in early age. SOCIAL HISTORY: He is a nonsmoker and nondrinker. REVIEW OF SYSTEMS: Otherwise 10-point negative. PHYSICAL EXAMINATION: GENERAL: He is in no distress. He appears extremely deconditioned. VITAL SIGNS: He is afebrile. Heart rates in the 90s, respiratory rates in the 20s, oximetry is 96 on 50%, blood pressure 101/56. HEENT: Pupils are equal. Sclerae are anicteric. NECK: Supple. LUNGS: Remarkable for mild crackles at both lung bases. HEART: Regular rhythm. ABDOMEN: Soft and nontender. EXTREMITIES: With ecchymoses and abrasions on all 4 extremities. DIAGNOSTIC STUDIES: Chest CT was reviewed, showing bilateral posterior basilar infiltrates. White count is 7.4, hemoglobin 8.7, platelets 76,000. Sodium 139, potassium 4.7, chloride 113, bicarb 20, BUN , creatinine 0.94. IMPRESSION: 1. Respiratory muscle insufficiency secondary to deconditioning. 2. Possible aspiration pneumonia that is coexistent with methicillin-resistant Staphylococcus aureus bacteremia, which in theory could be an incidental finding, but he certainly has enough skin abrasions to eventually have issues with bacteremia. I think it is reasonable to continue to cover him for aspiration pathogens for at least a week and then treat the methicillin-resistant Staph as per Dr. Smith' suggestions. I will be happy to follow with the other physicians caring for him. I am worried most about his extreme weakness. This is a 70 min consult with greater than 50% of the time spent on the unit with coordination of care. Job ID: [id number] MTDD
[2020-11-23] MEDS: clonazePAM 0.5 MG TAB PO SCH (20:21)
[2020-11-23] MEDS: Latanoprost 0.005% Ophth Soln 2.5 ml Bottle EA EYE SCH (20:21)
[2020-11-23] MEDS: Cefepime 2 GM in Sodium Chloride 0.9% 100 ML IVPB SCH (20:21)
[2020-11-23] MEDS: Pregabalin 50 MG CAP PO SCH (20:22)
[2020-11-24 02:28] LABS: #Lymphocytes 0.7 thou/uL (1.20-3.40); #Monocytes 0.2 thou/uL (0.11-0.59); %Basophils 0.2 % (0.0-1.0); %Eosinophils 0.1 % (0.0-10.0); %Monocytes 3.9 % (0.0-10.0); %Neutrophils 83.8 % (42.0-75.0); Hemoglobin 8.2 g/dL (14.0-18.0); Mean Corpuscular HGB CONC 34.3 g/dL (32.0-36.0); Mean Corpuscular Hemoglobin 34.7 pg (27.0-31.0); Mean Platelet Volume 10.6 fL (7.4-10.4); Platelet Count 77 thou/uL (130-400); RBC Distribution Width 16.4 % (11.5-14.5); Red Blood Cell (RBC) Count 2.35 mill/uL (4.70-6.10)
[2020-11-24 02:35] LABS: Vancomycin, Trough 29.2 ug/mL
[2020-11-24] MEDS ORDERED: Vancomycin 1 GM in Premix Bag 1 BAG IVPB SCH (02:45)
[2020-11-24 03:03] LABS: Anion Gap 14 mmol/L (10-20); BUN (Urea Nitrogen) 66 mg/dL (8.4-25.7); Calc. Creatinine Clearance 75 mL/min (70-130); Calcium 7.8 mg/dL (7.8-10.44); Carbon Dioxide 16 mmol/L (23-31); Chloride 113 mmol/L (98-107); Glucose 197 mg/dL (83-110); Potassium 5.3 mmol/L (3.5-5.1); Sodium 138 mmol/L (136-145)
[2020-11-24] MEDS: Albuterol Sulfate 1.25 MG/3 ML NEB NEB SCH ×3 (08:07→23:16)
--- NOTE | 2020-11-24 08:15 | PRG ---
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 OBJECTIVE: VITAL SIGNS: He is afebrile, heart rate 80, respiratory rate 20, oximetry is 96% to 97%, and blood pressure 113/69. LUNGS: Remarkable for coarse, equal breath sounds. HEART: Regular rhythm. ABDOMEN: Soft. EXTREMITIES: Ecchymotic. DIAGNOSTIC DATA: Echocardiogram shows a normal ejection fraction, mild to moderate mitral regurgitation. IMPRESSION: 1. Methicillin-resistant Staphylococcus aureus bacteremia. 2. ? aspiration pneumonia. 3. Extreme deconditioning. 4. History of atrial fibrillation. I would like to get him moved over to room where his can stay with him during the day. He clearly does better when he has his at the bedside. Job ID: [id number]
[2020-11-24] MEDS: Lactated Ringer's 1,000 ML IV SCH (09:49)
[2020-11-24] MEDS: Cefepime 2 GM in Sodium Chloride 0.9% 100 ML IVPB SCH ×2 (09:50→20:15)
[2020-11-24] MEDS: Fluconazole 100 MG TAB PO SCH (09:51)
[2020-11-24] MEDS: Aspirin 81 mg Enteric Coated Tablet PO SCH (09:51)
[2020-11-24] MEDS: Dexamethasone 4 mg/ml Vial SLOW IVP SCH (09:51)
[2020-11-24] MEDS: Apixaban 2.5 MG TAB PO SCH ×2 (09:51→20:22)
[2020-11-24] MEDS: Polyethylene Glycol 3350 17 GM Packet PO SCH (09:52)
[2020-11-24] MEDS: Allopurinol 300 MG TAB PO SCH (09:56)
[2020-11-24] MEDS: Sodium Chloride 1 GM TAB PO SCH ×3 (09:56→20:31)
[2020-11-24] MEDS: Multivitamin W/ Minerals 1 TAB PO SCH (09:56)
[2020-11-24] MEDS: Ezetimibe 10 MG TAB PO SCH (09:56)
--- NOTE | 2020-11-24 13:01 | PDOC.HOSPP ---
- Subjective Encounter Date: 11/24/20 Encounter Time: 13:00 Subjective: Mr. Phelan was seen today in follow-up of pneumonia. He had an episode of aspiration today, after taking some prune juice for constipation. - Objective Vital Signs & Weight: Vital Signs (12 hours) Temp Pulse Resp BP BP Pulse Ox 11/24/20 08:06 95 11/24/20 08:00 97.5 F L 84 24 H 108/65 96 11/24/20 03:32 97.3 F L 80 20 113/69 96 Weight Admit Weight 207 lb Weight 207 lb I&O: 11/23/20 11/24/20 11/25/20 06:59 06:59 06:59 Intake Total 1020 1225 Output Total 1450 1300 Balance -430 -75 Result Diagrams: 11/24/20 02:07 11/24/20 02:07 Hospitalist ROS - Medication Medications: Active Medications Generic Name Dose Route Start Last Admin Trade Name Freq PRN Reason Stop Dose Admin Albuterol Sulfate 1.25 mg 11/21/20 15:00 11/24/20 08:07 Albuterol Sulfate 1.25 Mg/3 Ml Neb NEB Not Given C3PD-QR DIANNE Allopurinol 300 mg 11/22/20 09:00 11/24/20 09:56 Allopurinol 300 Mg Tab PO 300 mg DAILY DIANNE Administration Apixaban 2.5 mg 11/20/20 21:00 11/24/20 09:51 Apixaban 2.5 Mg Tab PO 2.5 mg BID DIANNE Administration Aspirin 81 mg 11/21/20 09:00 11/24/20 09:51 Aspirin 81 Mg Enteric Coated Tablet PO 81 mg DAILY DIANNE Administration Clonazepam 0.5 mg 11/20/20 21:00 11/23/20 20:21 Clonazepam 0.5 Mg Tab PO 0.5 mg HS DIANNE Administration Dexamethasone 6 mg 11/21/20 09:00 11/24/20 09:51 Dexamethasone 4 Mg/Ml Vial SLOW IVP 6 mg DAILY DIANNE Administration Diltiazem HCl 240 mg 11/21/20 09:00 11/24/20 09:51 Diltiazem Cd 120 Mg Cap PO 240 mg DAILY DIANNE Administration Ezetimibe 10 mg 11/21/20 09:00 11/24/20 09:56 Ezetimibe 10 Mg Tab PO 10 mg DAILY DIANNE Administration Fluconazole 100 mg 11/21/20 09:00 11/24/20 09:51 Fluconazole 100 Mg Tab PO 100 mg DAILY DIANNE Administration Cefepime HCl 2 gm/ Sodium 100 mls @ 200 mls/hr 11/23/20 21:00 11/24/20 09:50 Chloride IVPB 100 mls Q12HR DIANNE Administration Lactated Ringer's 1,000 mls @ 50 mls/hr 11/24/20 08:15 11/24/20 09:49 Lactated Ringer's IV 1,000 mls .Q20H DIANNE Administration Iron/Minerals/Multivitamins 1 tab 11/22/20 09:00 11/24/20 09:56 Multivitamin W/ Minerals 1 Tab PO 1 tab DAILY DIANNE Administration Latanoprost 1 drop 11/21/20 21:00 11/23/20 20:21 Latanoprost 0.005% Ophth Soln 2.5 Ml Bottle EA EYE 1 drop HS DIANNE Administration Lorazepam 0.5 mg 11/21/20 05:03 11/21/20 05:21 Lorazepam 2 Mg/Ml Vial SLOW IVP 0.5 mg Q4H PRN Administration Anxiety/Agitation Menthol/Methyl Salicylate 1 gm 11/20/20 21:19 11/22/20 21:27 Methyl Salicylate/Menthol 85 Gm Tube TOP 1 gm QIDPRN PRN Administration Muscle Pain Pantoprazole Sodium 40 mg 11/21/20 09:00 11/24/20 09:51 Pantoprazole 40 Mg Tab PO 40 mg DAILY DIANNE Administration Polyethylene Glycol 17 gm 11/22/20 09:00 11/24/20 09:52 Polyethylene Glycol 3350 17 Gm Packet PO 17 gm DAILY DIANNE Administration Pregabalin 50 mg 11/20/20 21:00 11/23/20 20:22 Pregabalin 50 Mg Cap PO 50 mg HS DIANNE Administration Saccharomyces Boulardii 250 mg 11/23/20 18:00 11/23/20 18:56 Saccharomyces Boulardii 250 Mg Cap PO 250 mg 1800 DIANNE Administration Sodium Chloride 10 ml 11/20/20 11:59 11/20/20 20:29 Flush - Normal Saline 10 Ml Syringe IVF 10 ml PRN PRN Administration Saline Flush Sodium Chloride 1 gm 11/21/20 21:00 11/24/20 09:56 Sodium Chloride 1 Gm Tab PO 1 gm BID DIANNE Administration Hospitalist Exam Vitals: Vital Signs (12 hours) Temp Pulse Resp BP BP Pulse Ox 11/24/20 08:06 95 11/24/20 08:00 97.5 F L 84 24 H 108/65 96 11/24/20 03:32 97.3 F L 80 20 113/69 96 Weight Admit Weight 207 lb Weight 207 lb Eye: PERRL, anicteric sclera Heart: RRR, no murmur, no gallops, no rubs, normal peripheral pulses Respiratory: no wheezes, no ronchi, rales (at both bases) Gastrointestinal: soft, non-tender, non-distended, normal bowel sounds, no palpable masses, no hepatomegaly Extremities: no cyanosis, no edema (chronic venous stasis changes) Hosp A/P (1) Healthcare associated bacterial pneumonia Code(s): J15.9 - UNSPECIFIED BACTERIAL PNEUMONIA Status: Acute (2) Atrial fibrillation Code(s): I48.91 - UNSPECIFIED ATRIAL FIBRILLATION Status: Chronic Qualifiers: Atrial fibrillation type: paroxysmal Qualified Code(s): I48.0 - Paroxysmal atrial fibrillation (3) CAD (coronary artery disease) Code(s): I25.10 - ATHSCL HEART DISEASE OF [place] CORONARY ARTERY W/O ANG PCTRS Status: Chronic Qualifiers: Coronary Disease-Associated Artery/Lesion type: [place] artery [place] vs. transplanted heart: [place] heart Associated angina: without angina Qualified Code(s): I25.10 - Atherosclerotic heart disease of [place] coronary artery without angina pectoris (4) CKD (chronic kidney disease) stage 3, GFR 30-59 ml/min Code(s): N18.3 - CHRONIC KIDNEY DISEASE, STAGE 3 (MODERATE) * DO NOT USE * Status: Chronic (5) Acute respiratory failure with hypoxemia Code(s): J96.01 - ACUTE RESPIRATORY FAILURE WITH HYPOXIA Status: Acute (6) Rheumatoid arthritis Code(s): M06.9 - RHEUMATOID ARTHRITIS, UNSPECIFIED Status: Chronic (7) NSTEMI (non-ST elevated myocardial infarction) Code(s): I21.4 - NON-ST ELEVATION (NSTEMI) MYOCARDIAL INFARCTION Status: Acute - Plan * Acute respiratory failure with hypoxemia- due to Healthcare Associated pneumonia due to MRSA and Aspiration-Continue Vancomycin * Cefepime was re-started due to concern for Aspiration * AFIB - his heart rate has improved * Anemia-continue to monitor his H&H and transfuse as needed * Continue Elquis for CVA prevention * CKD- stable * NSTEMI- type 2- from demand of the pneumonia- supportive care
--- NOTE | 2020-11-24 16:50 | PRG ---
DATE OF SERVICE: 11/24/2020 SUBJECTIVE: Mr. Phelan is in the observation unit. Had some issues while he was drinking prune juice today. Right now, he does not appear in distress. OBJECTIVE: VITAL SIGNS: Showed a normal temperature, blood pressure 108/65, heart rate 84, respirations 20 to 24, O2 saturation 96%, he is on 50 L/minute high- flow nasal cannula O2 administration. He had an echocardiogram, which showed EF of 55% to 60%. LUNGS: Symmetric bilateral inspiratory crackles. HEART: S1 and S2, regular rate. ABDOMEN: Soft. Not distended. He is voiding in the urinal. No bladder distention. EXTREMITIES: Able to move extremities. LABORATORY DATA: White cell count 6.0, hemoglobin 8.2, platelets 77,000, with 82% neutrophils. Creatinine 0.89, sodium 138. Cultures have MRSA in 2 sets of blood cultures, 30 minutes apart, and then sputum also with Staph aureus, likely MRSA, but pending susceptibility results. ASSESSMENT AND DISCUSSION: Chronic kidney disease, coronary artery disease, deep venous thrombosis, COVID-19 at the end of September, now respiratory difficulty and superimposed bacterial pneumonia, likely due to methicillin-resistant Staphylococcus aureus, concern with aspiration, has prompted re-initiation of cefepime, quite difficult situation at this point in time. Job ID: [id number] [facility]
[2020-11-24] MEDS: Saccharomyces boulardii 250 MG CAP PO SCH (18:11)
[2020-11-24] MEDS: Sodium Chloride 0.9% 1,000 ML IV SCH (19:14)
[2020-11-24] MEDS: Latanoprost 0.005% Ophth Soln 2.5 ml Bottle EA EYE SCH (20:22)
[2020-11-24] MEDS: clonazePAM 0.5 MG TAB PO SCH (20:22)
[2020-11-24] MEDS: Pregabalin 50 MG CAP PO SCH (20:23)
[2020-11-25] MEDS: Albuterol Sulfate 1.25 MG/3 ML NEB NEB SCH ×2 (07:15→14:41)
[2020-11-25 07:21] LABS: Anion Gap 14 mmol/L (10-20); Anisocytosis SLIGHT = 6-15 cells (100X) (0-5/hpf); BUN (Urea Nitrogen) 66 mg/dL (8.4-25.7); Band 15 % (5-11); Calc. Creatinine Clearance 72 mL/min (70-130); Calcium 7.9 mg/dL (7.8-10.44); Carbon Dioxide 17 mmol/L (23-31); Chloride 115 mmol/L (98-107); Glucose 225 mg/dL (83-110); Hemoglobin 9.5 g/dL (14.0-18.0); Lymphocytes 5 % (21-51); MDiff Complete? YES; Mean Corpuscular HGB CONC 34.3 g/dL (32.0-36.0); Mean Corpuscular Hemoglobin 33.9 pg (27.0-31.0); Mean Corpuscular Volume 98.6 fL (78.0-98.0); Mean Platelet Volume 10.4 fL (7.4-10.4); Monocytes 4 % (0-10); Neutrophil 76 % (42-75); Nucleated RBC 1 % (0); Platelet Count 75 thou/uL (130-400); Platelet Morphology Comment Appears Decreased; RBC Distribution Width 17.1 % (11.5-14.5); Sodium 141 mmol/L (136-145); Vancomycin, Random 21.7 ug/mL (See Comment); White Blood Cell (WBC) Count 6.3 thou/uL (4.8-10.8)
[2020-11-25] MEDS: Allopurinol 300 MG TAB PO SCH (09:45)
[2020-11-25] MEDS: Apixaban 2.5 MG TAB PO SCH ×2 (09:45→20:57)
[2020-11-25] MEDS: Aspirin 81 mg Enteric Coated Tablet PO SCH (09:46)
[2020-11-25] MEDS: Cefepime 2 GM in Sodium Chloride 0.9% 100 ML IVPB SCH ×2 (09:46→21:22)
[2020-11-25] MEDS: Dexamethasone 4 mg/ml Vial SLOW IVP SCH (09:47)
[2020-11-25] MEDS: Polyethylene Glycol 3350 17 GM Packet PO SCH (09:48)
[2020-11-25] MEDS: Multivitamin W/ Minerals 1 TAB PO SCH (09:48)
[2020-11-25] MEDS: Fluconazole 100 MG TAB PO SCH (09:48)
[2020-11-25] MEDS: Ezetimibe 10 MG TAB PO SCH (09:48)
[2020-11-25] MEDS: Sodium Chloride 1 GM TAB PO SCH ×2 (09:48→20:59)
[2020-11-25] MEDS: Lactated Ringer's 1,000 ML IV SCH (10:45)
--- NOTE | 2020-11-25 13:16 | PDOC.HOSPP ---
- Subjective Encounter Date: 11/25/20 Encounter Time: 13:14 Subjective: Mr. Phelan was seen today in follow-up of respiratory failure due to pneumonia. He continues to appear very weak. He has not noted much of an improvement in the past few days. - Objective Vital Signs & Weight: Vital Signs (12 hours) Temp Pulse Pulse Pulse Resp BP BP 11/25/20 11:22 97.8 F 87 20 11/25/20 10:46 102 H 118/70 11/25/20 09:48 100 11/25/20 09:30 11/25/20 07:52 11/25/20 07:34 98.1 F 100 14 11/25/20 07:15 98 20 11/25/20 04:30 97.3 F L 102 H 20 11/25/20 01:50 97.2 F L 95 18 110/74 BP BP Pulse Ox Pulse Ox 11/25/20 11:22 110/72 100 11/25/20 10:46 100 11/25/20 09:48 11/25/20 09:30 100 11/25/20 07:52 97 11/25/20 07:34 118/71 94 L 11/25/20 07:15 97 11/25/20 04:30 129/76 97 11/25/20 01:50 96 Weight Admit Weight 207 lb Weight 207 lb I&O: 11/24/20 11/25/20 11/26/20 06:59 06:59 06:59 Intake Total 1225 1175 550 Output Total 1300 600 Balance -75 575 550 Result Diagrams: 11/25/20 02:02 11/25/20 02:02 Hospitalist ROS - Medication Medications: Active Medications Generic Name Dose Route Start Last Admin Trade Name Freq PRN Reason Stop Dose Admin Albuterol Sulfate 1.25 mg 11/21/20 15:00 11/25/20 07:15 Albuterol Sulfate 1.25 Mg/3 Ml Neb NEB 1.25 mg [id number] DIANNE Administration Allopurinol 300 mg 11/22/20 09:00 11/25/20 09:45 Allopurinol 300 Mg Tab PO 300 mg DAILY DIANNE Administration Apixaban 2.5 mg 11/20/20 21:00 11/25/20 09:45 Apixaban 2.5 Mg Tab PO 2.5 mg BID DIANNE Administration Aspirin 81 mg 11/21/20 09:00 11/25/20 09:46 Aspirin 81 Mg Enteric Coated Tablet PO 81 mg DAILY DIANNE Administration Clonazepam 0.5 mg 11/20/20 21:00 11/24/20 20:22 Clonazepam 0.5 Mg Tab PO 0.5 mg HS DIANNE Administration Dexamethasone 6 mg 11/21/20 09:00 11/25/20 09:47 Dexamethasone 4 Mg/Ml Vial SLOW IVP 6 mg DAILY DIANNE Administration Diltiazem HCl 240 mg 11/21/20 09:00 11/25/20 09:48 Diltiazem Cd 120 Mg Cap PO 240 mg DAILY DIANNE Administration Ezetimibe 10 mg 11/21/20 09:00 11/25/20 09:48 Ezetimibe 10 Mg Tab PO 10 mg DAILY DIANNE Administration Fluconazole 100 mg 11/21/20 09:00 11/25/20 09:48 Fluconazole 100 Mg Tab PO 100 mg DAILY DIANNE Administration Cefepime HCl 2 gm/ Sodium 100 mls @ 200 mls/hr 11/23/20 21:00 11/25/20 09:46 Chloride IVPB 100 mls Q12HR DIANNE Administration Lactated Ringer's 1,000 mls @ 50 mls/hr 11/24/20 08:15 11/25/20 10:45 Lactated Ringer's IV 1,000 mls .Q20H DIANNE Administration Iron/Minerals/Multivitamins 1 tab 11/22/20 09:00 11/25/20 09:48 Multivitamin W/ Minerals 1 Tab PO 1 tab DAILY DIANNE Administration Latanoprost 1 drop 11/21/20 21:00 11/24/20 20:22 Latanoprost 0.005% Ophth Soln 2.5 Ml Bottle EA EYE 1 drop HS DIANNE Administration Lorazepam 0.5 mg 11/21/20 05:03 11/21/20 05:21 Lorazepam 2 Mg/Ml Vial SLOW IVP 0.5 mg Q4H PRN Administration Anxiety/Agitation Menthol/Methyl Salicylate 1 gm 11/20/20 21:19 11/22/20 21:27 Methyl Salicylate/Menthol 85 Gm Tube TOP 1 gm QIDPRN PRN Administration Muscle Pain Pantoprazole Sodium 40 mg 11/21/20 09:00 11/25/20 09:48 Pantoprazole 40 Mg Tab PO 40 mg DAILY DIANNE Administration Polyethylene Glycol 17 gm 11/22/20 09:00 11/25/20 09:48 Polyethylene Glycol 3350 17 Gm Packet PO 17 gm DAILY DIANNE Administration Pregabalin 50 mg 11/20/20 21:00 11/24/20 20:23 Pregabalin 50 Mg Cap PO 50 mg HS DIANNE Administration Saccharomyces Boulardii 250 mg 11/23/20 18:00 11/24/20 18:11 Saccharomyces Boulardii 250 Mg Cap PO 250 mg 1800 DIANNE Administration Sodium Chloride 10 ml 11/20/20 11:59 11/20/20 20:29 Flush - Normal Saline 10 Ml Syringe IVF 10 ml PRN PRN Administration Saline Flush Sodium Chloride 1 gm 11/21/20 21:00 11/25/20 09:48 Sodium Chloride 1 Gm Tab PO 1 gm BID DIANNE Administration Hospitalist Exam Vitals: Vital Signs (12 hours) Temp Pulse Pulse Pulse Resp BP BP 11/25/20 11:22 97.8 F 87 20 11/25/20 10:46 102 H 118/70 11/25/20 09:48 100 11/25/20 09:30 11/25/20 07:52 11/25/20 07:34 98.1 F 100 14 11/25/20 07:15 98 20 11/25/20 04:30 97.3 F L 102 H 20 11/25/20 01:50 97.2 F L 95 18 110/74 BP BP Pulse Ox Pulse Ox 11/25/20 11:22 110/72 100 11/25/20 10:46 100 11/25/20 09:48 11/25/20 09:30 100 11/25/20 07:52 97 11/25/20 07:34 118/71 94 L 11/25/20 07:15 97 11/25/20 04:30 129/76 97 11/25/20 01:50 96 Weight Admit Weight 207 lb Weight 207 lb Eye: PERRL, anicteric sclera Heart: RRR, no murmur, no gallops, no rubs, normal peripheral pulses Respiratory: rales (at the bases) Gastrointestinal: soft, non-tender, non-distended, normal bowel sounds, no palpable masses Extremities: no cyanosis, no edema (chronic venous stasis changes) Hosp A/P (1) Healthcare associated bacterial pneumonia Code(s): J15.9 - UNSPECIFIED BACTERIAL PNEUMONIA Status: Acute (2) Atrial fibrillation Code(s): I48.91 - UNSPECIFIED ATRIAL FIBRILLATION Status: Chronic Qualifiers: Atrial fibrillation type: paroxysmal Qualified Code(s): I48.0 - Paroxysmal atrial fibrillation (3) CAD (coronary artery disease) Code(s): I25.10 - ATHSCL HEART DISEASE OF [place] CORONARY ARTERY W/O ANG PCTRS Status: Chronic Qualifiers: Coronary Disease-Associated Artery/Lesion type: [place] artery [place] vs. transplanted heart: [place] heart Associated angina: without angina Qualified Code(s): I25.10 - Atherosclerotic heart disease of [place] coronary artery witho ut angina pectoris (4) CKD (chronic kidney disease) stage 3, GFR 30-59 ml/min Code(s): N18.3 - CHRONIC KIDNEY DISEASE, STAGE 3 (MODERATE) * DO NOT USE * Status: Chronic (5) Acute respiratory failure with hypoxemia Code(s): J96.01 - ACUTE RESPIRATORY FAILURE WITH HYPOXIA Status: Acute (6) Rheumatoid arthritis Code(s): M06.9 - RHEUMATOID ARTHRITIS, UNSPECIFIED Status: Chronic (7) NSTEMI (non-ST elevated myocardial infarction) Code(s): I21.4 - NON-ST ELEVATION (NSTEMI) MYOCARDIAL INFARCTION Status: Acute - Plan * Acute respiratory failure with hypoxemia- due to Healthcare Associated pneumonia due to MRSA and Aspiration-Continue Vancomycin * Continue Cefepime for concern for Aspiration ( as he has chronic aspiration) * AFIB - hear rate is stable * Anemia- transfuse to keep hemoglobin above 8 * Continue Elquis for CVA prevention * CKD- stable * NSTEMI- type 2- from demand of the pneumonia- supportive care * Deconditioning- continue PT/OT
[2020-11-25] MEDS: Saccharomyces boulardii 250 MG CAP PO SCH (17:22)
[2020-11-25] MEDS: clonazePAM 0.5 MG TAB PO SCH (20:57)
[2020-11-25] MEDS: Pregabalin 50 MG CAP PO SCH (20:59)
[2020-11-25] MEDS: Latanoprost 0.005% Ophth Soln 2.5 ml Bottle EA EYE SCH (21:25)
[2020-11-26] MEDS: Albuterol Sulfate 1.25 MG/3 ML NEB NEB SCH ×2 (00:32→08:50)
[2020-11-26 05:22] LABS: Anion Gap 13 mmol/L (10-20); BUN (Urea Nitrogen) 65 mg/dL (8.4-25.7); Calc. Creatinine Clearance 73 mL/min (70-130); Calcium 7.8 mg/dL (7.8-10.44); Carbon Dioxide 19 mmol/L (23-31); Chloride 113 mmol/L (98-107); Glucose 231 mg/dL (83-110); Potassium 4.6 mmol/L (3.5-5.1); Sodium 140 mmol/L (136-145)
[2020-11-26 05:34] LABS: Vancomycin, Random 15.7 ug/mL (See Comment)
[2020-11-26 05:38] LABS: Band 11 % (5-11); Lymphocytes 4 % (21-51); MDiff Complete? YES; Mean Corpuscular HGB CONC 34.1 g/dL (32.0-36.0); Mean Corpuscular Hemoglobin 33.7 pg (27.0-31.0); Mean Corpuscular Volume 98.6 fL (78.0-98.0); Mean Platelet Volume 11.1 fL (7.4-10.4); Metamyelocyte 1 % (0-0); Monocytes 1 % (0-10); Myelocyte 3 % (0-0); Neutrophil 80 % (42-75); Platelet Count 76 thou/uL (130-400); Platelet Morphology Comment Appears Decreased; Polychromasia SLIGHT = 2-3 cells (100X) (0-2/hpf); RBC Distribution Width 17.4 % (11.5-14.5); Red Blood Cell (RBC) Count 2.68 mill/uL (4.70-6.10); Schistocytes SLIGHT = 2-5 cells (100X) (0-1/hpf); Toxic Granulation SLIGHT; White Blood Cell (WBC) Count 8.1 thou/uL (4.8-10.8)
[2020-11-26] MEDS ORDERED: Morphine 4 MG/ML VIAL SLOW IVP PRN (05:43)
[2020-11-26] MEDS: Lorazepam 2 MG/ML VIAL SLOW IVP PRN ×2 (05:58→10:58)
[2020-11-26] MEDS: Lactated Ringer's 1,000 ML IV SCH (05:59)
[2020-11-26] MEDS ORDERED: Vancomycin 1.5 GRAM/300 ML BAG 1.5 GM in Premix Bag 1 BAG IVPB SCH (06:00)
[2020-11-26 09:36] VITALS: BP 120/69; TEMP 96.4
--- NOTE | 2020-11-26 18:11 | PDOC.DS.DS ---
Provider Date of Admission: 11/20/20 11:35 Date of Discharge: 11/26/20 Admitting Provider: Frandy Orellana MD Consultations: Infectious Disease, Pulmonary Primary Care Physician: Unknown Course Hospital Course: Mr. Phelan is a pleasant 89-year-old gentleman that has a history of paroxysmal atrial fibrillation rheumatoid arthritis gout and pulmonary hypertension. He recently was hospitalized for Covid pneumonia. He presented on this admission due to shortness of breath. He was found to have a new infiltrate by CT scan. A CT angiogram of the chest was done which showed left basilar consolidation as well as multifocal patchy groundglass opacities. He was placed on broad- spectrum antibiotics including vancomycin and cefepime. Infectious disease as well as pulmonology was consulted to aid in the antibiotic regimen. He was also seen by speech therapy as well. The patient did not improve much over the course of the next day and became weaker. He had evidence of chronic aspiration which he had had even prior to this admission. And despite all efforts to improve his overall condition he remained extremely weak and the decision was made for him to be transferred to hospice and he shortly after that. Pertinent Studies: Echocardiogram CTA- chest Resuscitation Status: 11/26/20 05:41 Resuscitation Status Routine Resuscitation Status: DNAR: NO Resuscitation Discussed with: Son Lab Results: 11/26/20 04:33 11/26/20 04:33 Abnormal Lab Results - Last 48 hrs 11/20/20 09:27: Crossmatch See Detail 11/24/20 19:06: Crossmatch See Detail 11/25/20 02:02: Chloride 115 H, Carbon Dioxide 17 L, BUN 66 H 11/25/20 02:02: RBC 2.80 L, Hgb 9.5 L, Hct 27.6 L, MCV 98.6 H, MCH 33.9 H, RDW 17.1 H, Plt Count 75 L, Neutrophils % (Manual) 76 H, Band Neuts % (Manual) 15 H, Lymphocytes % (Manual) 5 L, Nucleated RBCs # (Man) 1 H, Plt Morphology Comment Appears Decreased L 11/26/20 04:33: Chloride 113 H, Carbon Dioxide 19 L, BUN 65 H 11/26/20 04:33: RBC 2.68 L, Hgb 9.0 L, Hct 26.4 L, MCV 98.6 H, MCH 33.7 H, RDW 17.4 H, Plt Count 76 L, MPV 11.1 H, Neutrophils % (Manual) 80 H, Lymphocytes % ( Manual) 4 L, Myelocytes % 3 H, Plt Morphology Comment Appears Decreased L Microbiology - Entire Visit 11/25/20 21:20 Stool Stool Occult Blood (BREANNE) - Final 11/22/20 21:10 Sputum Respiratory Culture - Final Methicillin resistant S.aureus Mold Species 11/20/20 09:22 Venous blood - Right Arm Blood Culture - Final Methicillin resistant S.aureus 11/20/20 09:53 Venous blood - Right Arm Blood Culture - Final Staphylococcus aureus 11/22/20 18:25 Sputum Respiratory Culture - Final 11/20/20 12:13 Urine voided Urine Culture - Final Vitals: Vital Signs (12 hours) Temp Pulse Resp BP Pulse Ox 11/26/20 09:15 22 H 95 11/26/20 09:00 96.4 F L 96 22 H 120/69 100 11/26/20 08:52 96 11/26/20 08:50 88 20 96 Weight Admit Weight 207 lb Weight 207 lb Physical Exam: The patient was seen and examined on the day of discharge. Problem (1) Healthcare associated bacterial pneumonia Code(s): J15.9 - UNSPECIFIED BACTERIAL PNEUMONIA Status: Acute (2) Atrial fibrillation Code(s): I48.91 - UNSPECIFIED ATRIAL FIBRILLATION Status: Chronic Qualifiers: Atrial fibrillation type: paroxysmal Qualified Code(s): I48.0 - Paroxysmal atrial fibrillation (3) CAD (coronary artery disease) Code(s): I25.10 - ATHSCL HEART DISEASE OF [place] CORONARY ARTERY W/O ANG PCTRS Status: Chronic Qualifiers: Coronary Disease-Associated Artery/Lesion type: [place] artery [place] vs. transplanted heart: [place] heart Associated angina: without angina Qualified Code(s): I25.10 - Atherosclerotic heart disease of [place] coronary artery without angina pectoris (4) CKD (chronic kidney disease) stage 3, GFR 30-59 ml/min Code(s): N18.3 - CHRONIC KIDNEY DISEASE, STAGE 3 (MODERATE) * DO NOT USE * Status: Chronic (5) Acute respiratory failure with hypoxemia Code(s): J96.01 - ACUTE RESPIRATORY FAILURE WITH HYPOXIA Status: Acute (6) Rheumatoid arthritis Code(s): M06.9 - RHEUMATOID ARTHRITIS, UNSPECIFIED Status: Chronic (7) NSTEMI (non-ST elevated myocardial infarction) Code(s): I21.4 - NON-ST ELEVATION (NSTEMI) MYOCARDIAL INFARCTION Status: Acute Plan Home Medications: Medication Instructions Recorded Confirmed Type Allopurinol 300 mg PO DAILY 10/02/18 11/21/20 History Cholecalciferol [Vitamin D3] 2,000 unit PO DAILY 10/02/18 11/21/20 History Latanoprost/Pf [Latanoprost 0.005% 1 drop OP HS 10/02/18 11/21/20 History Eye Drop] clonazePAM [Clonazepam] 0.5 mg PO HS 10/02/18 11/21/20 History Multivitamin W/ Minerals 1 tab PO DAILY #30 tab 12/18/19 11/21/20 Rx [Theragran M] Aspirin [Adult Aspirin Regimen] 81 mg PO DAILY 10/26/20 11/21/20 History Ezetimibe [Zetia] 10 mg PO DAILY 10/26/20 11/21/20 History Apixaban [Eliquis] 2.5 mg PO BID #60 tab 11/02/20 11/21/20 Rx Pregabalin [Lyrica] 50 mg PO HS #30 cap 11/02/20 11/21/20 Rx Diltiazem HCl [Diltiazem 24Hr ER 120 mg PO DAILY 11/20/20 11/21/20 History (Xr)] Acetaminophen 500 mg PO Q4HR PRN 11/21/20 11/21/20 History Carboxymethylcellulose Sodium 2 drop OP TID PRN 11/21/20 11/21/20 History [Refresh Plus] Dexamethasone 1 mg PO ASDIR 11/21/20 11/21/20 History Diclofenac Sodium [Diclofenac 2 gm TOP BID PRN 11/21/20 11/21/20 History Sodium 1.5% Topical Solution] Ipratropium [Atrovent HFA] 1 puff INH QID 11/21/20 11/21/20 History Lidocaine 5% Patch [Lidoderm 5% 1 patch TD QPM 11/21/20 11/21/20 History Patch] Loperamide HCl [Imodium] 2 mg PO ASDIR PRN 11/21/20 11/21/20 History Metoprolol Succinate [Toprol XL] 25 mg PO HS 11/21/20 11/21/20 History Mupirocin 2% Ointment [Bactroban 1 applic TOP BID 11/21/20 11/21/20 History 2% Ointment] Polyethylene Glycol 3350 [Miralax] 17 gm PO DAILY 11/21/20 11/21/20 History Simethicone [Mylicon Chewable] 80 mg PO PCHS PRN 11/21/20 11/21/20 History Sodium Chloride 1 gm PO BID 11/21/20 11/21/20 History Sodium Chloride [Saline Mist 0.65% 2 spray EA NARE Q3HR PRN 11/21/20 11/21/20 History Nasal [place]] guaiFENesin [Guaifenesin] 10 ml PO Q4HR PRN 11/21/20 11/21/20 History Allergies: codeine Allergy (Verified 10/26/20 17:28) Referrals: Unknown,Unknown [Primary Care Provider] - Disposition: [facility] Quality CORE MEASURES:: N/A
== END 2020-11-26 11:01 | disposition hospice, inpatient (51) | DRG 871 ==
LOC: ERS 08:40 → 2SW 11:35
PROVIDERS: ADMIT Internal Medicine; ATTEND Internal Medicine
DX: A41.02 Sepsis due to Methicillin resistant Staphylococcus aureus (principal); J96.01 Acute respiratory failure with hypoxia; I21.A1 Myocardial infarction type 2; J15.212 Pneumonia due to Methicillin resistant Staphylococcus aureus; J69.0 Pneumonitis due to inhalation of food and vomit; I48.0 Paroxysmal atrial fibrillation; M06.9 Rheumatoid arthritis, unspecified; M10.9 Gout, unspecified; K21.9 Gastro-esophageal reflux disease without esophagitis; D64.9 Anemia, unspecified; I27.20 Pulmonary hypertension, unspecified; I12.9 Hypertensive chronic kidney disease with stage 1 through stage 4 chronic kidney disease, or unspecified chronic kidney disease; R53.81 Other malaise; I25.10 Atherosclerotic heart disease of native coronary artery without angina pectoris; N18.30 Chronic kidney disease, stage 3 unspecified; Z86.711 Personal history of pulmonary embolism; Z79.01 Long term (current) use of anticoagulants; Z95.5 Presence of coronary angioplasty implant and graft; Z88.5 Allergy status to narcotic agent; Z86.718 Personal history of other venous thrombosis and embolism; L89.626 Pressure-induced deep tissue damage of left heel
CPT/HCPCS: 36415; 36430; 71045; 71275; 80048; 80053; 80202; 82274; 82553; 83605; 83735; 83880; 84134; 84484; 85025; 85610; 85730; 86850; 86900; 86901; 87040; 87070; 87077; 87086; 87149; 87186; 87205; 89220; 93005; 93306; 94640; 94760; 96365; 96367; 96375; J0692; J1100; J2060; J2270; J3370; J3490; J7620; P9016; Q9967

== ENCOUNTER 2020-11-26 11:34 | Inpatient (IN) | payer OTHER | END 2020-11-26 12:52 | disposition E | DRG 951 | LOC: 2SW 11:34 | PROVIDERS: ADMIT Family Medicine; ATTEND Family Medicine | DX: Z51.5 Encounter for palliative care (principal); I21.4 Non-ST elevation (NSTEMI) myocardial infarction; J96.01 Acute respiratory failure with hypoxia; A41.9 Sepsis, unspecified organism; J15.9 Unspecified bacterial pneumonia; I25.10 Atherosclerotic heart disease of native coronary artery without angina pectoris; N18.30 Chronic kidney disease, stage 3 unspecified; M10.9 Gout, unspecified; K21.9 Gastro-esophageal reflux disease without esophagitis; I12.9 Hypertensive chronic kidney disease with stage 1 through stage 4 chronic kidney disease, or unspecified chronic kidney disease; Z96.653 Presence of artificial knee joint, bilateral; I27.20 Pulmonary hypertension, unspecified; F41.9 Anxiety disorder, unspecified; M06.9 Rheumatoid arthritis, unspecified; Z96.641 Presence of right artificial hip joint; I48.0 Paroxysmal atrial fibrillation; Z79.01 Long term (current) use of anticoagulants; Z86.711 Personal history of pulmonary embolism; Z95.5 Presence of coronary angioplasty implant and graft; Z88.5 Allergy status to narcotic agent ==